=== PATIENT | female | born 1965 | race Caucasian/White ===

== ENCOUNTER → 2016-12-07 | Outpatient (CLI) | payer BC ==
[~2016-12-07] MED LIST: ASPI81TA28 PO; CYAN10005 PO; FRRS300 PO; HYDR12.56 PO; LISI40TA PO; WARF5TAB7 PO
[2016-12-07 17:56] LABS: BLOOD UREA NITROGEN 9 mg/dl (7-18); CALCIUM 10.1 mg/dl (8.5-10.1); CARBON DIOXIDE 28 mmol/L (21-32); CHLORIDE 102 mmol/L (98-107); CREATININE 0.93 mg/dl (0.60-1.20); GLUCOSE 100 mg/dl (70-99); POTASSIUM 3.9 mmol/L (3.5-5.1); SODIUM 138 mmol/L (136-145)
== END | disposition home or self-care (01) ==
LOC: C.LABBFT 11:19
PROVIDERS: ATTEND Internal Medicine
DX: I10 Essential (primary) hypertension (principal)

== ENCOUNTER → 2017-10-07 | Outpatient (CLI) | payer BC ==
[~2017-10-07] MED LIST changes: +HYDR12.55 PO; -HYDR12.56 PO; +LISI-725 PO; -LISI40TA PO
[2017-10-07 17:33] LABS: BASO % 1.4 %; BASO ABS # 0.05 K/uL (0-0.2); EOS ABS # 0.29 K/uL (0-0.5); HEMATOCRIT 40.4 % (37-47); HEMOGLOBIN 13.2 g/dL (12.0-16.0); IG# 0.05 K/uL (0.00-0.02); LYMPH % 46.7 %; MEAN CELL VOLUME 102.3 fL (80-100); MEAN CORPUSCULAR HEMOGLOBIN 33.4 pg (25-34); MEAN CORPUSCULAR HGB CONC 32.7 g/dl (32-36); MEAN PLATELET VOLUME 10.9 fL (7.4-10.4); MONO % 8.5 %; MONO ABS # 0.31 K/uL (0.11-0.59); NEUT ABS # 1.24 K/uL (1.4-6.5); PLATELET COUNT 164 K/uL (130-400); RED CELL DISTRIBUTION WIDTH CV 16.4 % (11.5-14.5); RED CELL DISTRIBUTION WIDTH SD 61.6 fL (36.4-46.3); WHITE BLOOD COUNT 3.64 K/uL (4.8-10.8)
[2017-10-07 18:22] LABS: ALBUMIN 4.5 gm/dl (3.4-5.0); ALKALINE PHOSPHATASE 87 U/L (45-117); ALT/SGPT 44 U/L (12-78); AST/SGOT 47 U/L (15-37); BLOOD UREA NITROGEN 10 mg/dl (7-18); CALCIUM 9.8 mg/dl (8.5-10.1); CARBON DIOXIDE 29 mmol/L (21-32); CHOLESTEROL 613 mg/dl (0-200); CREATININE 0.83 mg/dl (0.60-1.20); GLUCOSE 82 mg/dl (70-99); LDL CHOLESTEROL CALCULATED 477 mg/dl; POTASSIUM 3.9 mmol/L (3.5-5.1); SODIUM 140 mmol/L (136-145); TOTAL PROTEIN 8.7 gm/dl (6.4-8.2)
[2017-10-08 06:15] LABS: HEMOGLOBIN A1C 6.1 % (4.5-5.6)
== END | disposition home or self-care (01) ==
LOC: C.LABBFT 12:58
PROVIDERS: ATTEND Internal Medicine
DX: Z00.00 Encounter for general adult medical examination without abnormal findings (principal); Z11.59 Encounter for screening for other viral diseases; I10 Essential (primary) hypertension; E78.5 Hyperlipidemia, unspecified; R73.01 Impaired fasting glucose

== ENCOUNTER → 2017-10-25 | Outpatient (CLI) | payer BC | END | disposition home or self-care (01) | LOC: C.LABBFT 14:06 | PROVIDERS: ATTEND Internal Medicine | DX: R39.9 Unspecified symptoms and signs involving the genitourinary system (principal); E03.9 Hypothyroidism, unspecified ==

== ENCOUNTER 2018-11-27 06:19 | Inpatient (IN) ==
--- NOTE | 2018-11-20 10:15 | PAT Medication Instructions ---
Medication Instructions Date of Service November 20, 2018 Home Medications aspirin 81 mg tablet,delayed release 81 mg PO Q2D ferrous sulfate 325 mg (65 mg iron) tablet 325 mg PO Q2D lisinopril 20 mg-hydrochlorothiazide 12.5 mg tablet 1 tab PO HS cyanocobalamin (vitamin B-12) 1,000 mcg capsule 100 mcg PO DAILY levothyroxine [Levoxyl] 88 mcg PO QAM warfarin 5 mg PO UD ASK your surgeon for instructions aspirin 81 mg tablet,delayed release 81 mg PO Q2D warfarin 5 mg PO UD DO NOT take the morning of surgery ferrous sulfate 325 mg (65 mg iron) tablet 325 mg PO Q2D cyanocobalamin (vitamin B-12) 1,000 mcg capsule 100 mcg PO DAILY Take morning of surgery With a small sip of water, OTHERWISE NOTHING TO EAT OR DRINK AFTER MIDNIGHT: levothyroxine [Levoxyl] 88 mcg PO QAM Take evening before surgery lisinopril 20 mg-hydrochlorothiazide 12.5 mg tablet 1 tab PO HS Other Notes If you have any questions please call us at [phone] or [phone] or [phone] or [phone]
--- NOTE | 2018-11-20 11:17 | Anesthesiology Consultation ---
Date of Service November 20, 2018 Assessment & Plan (1) Encounter for pre-operative examination: Chart Review Chart Review: Pending: Refer to Additional Notes / Consult section and Patient seen in Pre Admission Testing Awaiting lab results drawn 11/20/2018. Consults Requested none History Surgery Operation Date: 11/27/18 08:00 Proposed Procedures p Repair of Femoral Anastamosis Stenosis - Jonny Arroyo MD Height/Weight Height: 5 ft 6 in Weight: 74.2 kg Allergies Allergy/AdvReac Type Severity Reaction Status Date / Time amoxicillin Allergy Intermediate Hives Verified 11/16/18 10:20 Penicillins Allergy Intermediate Hives Verified 11/16/18 10:23 Medications Home Medications Medication Instructions Recorded Confirmed Last Taken aspirin 81 mg tablet,delayed 81 mg PO Q2D tab 11/22/17 11/16/18 Unknown release ferrous sulfate 325 mg (65 mg 325 mg PO Q2D tab 11/22/17 11/16/18 Unknown iron) tablet lisinopril 20 1 tab PO HS 01/24/18 11/16/18 Unknown mg-hydrochlorothiazide 12.5 mg tablet cyanocobalamin (vitamin B-12) 100 mcg PO DAILY cap 02/13/18 11/16/18 Unknown 1,000 mcg capsule levothyroxine [Levoxyl] 88 mcg PO QAM 11/16/18 11/16/18 Unknown warfarin 5 mg PO UD 11/16/18 11/16/18 Unknown Past Medical History Medical History Anemia H/O blood clots BLOOD CLOT IN 1 STENT FROM ARTERIAL BYPSS SURGERY (DR. ARROYO) Hyperlipidemia Hypertension Hypothyroidism Occlusion of arterial bypass graft PVD (peripheral vascular disease) Exercise / Class Metabolic Activity II 4-5 Yardwork/Stairs/Walk up hill (somewhat limited from her leg/hip pain but no issues with cp/sob) Past Family History Family History Other No significant family history Past Surgical History Surgical History History of cataract surgery RT/LEFT History of dilatation and curettage History of tooth extraction History of vascular access device ARTERIAL BYPASS GRAFTING (BILAT FEMORAL AREAS) 4 YEARS AGO 2 STENTS PLACED (REASON FOR COUMADIN) Patient had week long postop intubation after initial bypass surgery. Stated it was related to length and complexity of the procedure (procedure done at OSH). Past Anesthesia History No Hx of Anesthesia Complications and No Family Hx of Anesthesia Complications History of PONV No Hx of PONV and No Hx of Motion Sickness Social History Smoking Status: Current some day smoker tobacco type: cigarettes Do You Dip or Chew Tobacco: No Smoking End Date: QUIT 3 YEARS AGO DAILY (WILL SMOKE OCCASIONALLY 1-2 X'S MONTHLY) Hx Alcohol Use: Yes Alcohol type: beer alcohol intake frequency: a few times a week Hx Substance Use: No substance use type: does not use Physical Exam Vital Signs Last Vital Signs Temp 36.4 C L 11/20/18 11:03 Pulse 84 11/20/18 11:03 Resp 18 11/20/18 11:03 BP 162/92 H 11/20/18 11:03 Pulse Ox 99 11/20/18 11:03 ENMT Mouth: + dentition abnormality; no TMJ abnormality and no TMJ clicking Thyromental Distance: > or= 3.5 Finger Breadths Mallampati Class: II Neck normal visual inspection; neck extension not limited Respiratory normal respiratory effort Auscultation: lungs clear to auscultation bilaterally Cardiovascular Rate/Rhythm: regular rate and regular rhythm Neurologic moves all extremities Motor/Sensory: no sensory deficit Psychiatric Orientation: alert and oriented x 3 Testing Electrocardiogram Date: 11/20/18 Findings: + NSR @ (75) NSR. Normal ECG. Chest X-Ray Date: 11/20/18 XR chest Pre-admission PA/Lat CLINICAL HISTORY: 53 years-old Female presenting with preoperative assessment. TECHNIQUE: PA and lateral views of the chest were obtained. COMPARISON: None. FINDINGS: Atherosclerosis of the aortic arch. Cardiac silhouette normal in size. Lungs and pleural spaces clear. Osseous structures normal. Surgical clips project over the upper abdomen. IMPRESSION: 1. No acute cardiopulmonary disease. Other Testing Pharmacologic stress echo . Negative for ischemia.
--- NOTE | 2018-11-20 12:38 | XRay Report ---
XR chest Pre-admission PA/Lat CLINICAL HISTORY: 53 years-old Female presenting with preoperative assessment. TECHNIQUE: PA and lateral views of the chest were obtained. COMPARISON: None. FINDINGS: Atherosclerosis of the aortic arch. Cardiac silhouette normal in size. Lungs and pleural spaces clear . Osseous structures normal. Surgical clips project over the upper abdomen. IMPRESSION: 1. No acute cardiopulmonary disease. Electronically signed by: Fernie David M.D. 11/20/2018 12:37 PM
[2018-11-20 15:30] LABS: BUN Creatinine Ratio 19.3 (10-20); Calcium 9.9 mg/dl (8.5-10.1); Est GFR (African American) 114.4; Est GFR (Non-African American) 98.7; Potassium 3.7 mmol/L (3.5-5.1)
[2018-11-20 15:32] LABS: INR 1.8 (0.9-1.1); Partial Thromboplastin Ratio 1.1; Partial Thromboplastin Time 30.2 Seconds (21.0-31.0); Prothrombin Time 17.3 Seconds (9.0-12.0)
[2018-11-20 15:44] LABS: Basophils # (auto) 0.02 K/uL (0-0.2); Basophils % (auto) 0.4 %; Eosinophils # (auto) 0.24 K/uL (0-0.5); Hematocrit (blood only) 44.5 % (37-47); Hemoglobin 15.2 g/dL (12.0-16.0); Immature Granulocytes # (auto) 0.02 K/uL (0.00-0.02); Immature Granulocytes % (auto) 0.4 %; Lymphocytes # (auto) 1.51 K/uL (1.2-3.4); Lymphocytes % (auto) 31.7 %; Mean Corpuscular Hemoglobin 32.3 pg (25-34); Mean Corpuscular Hgb Conc 34.2 g/dL (32-36); Mean Corpuscular Volume 94.7 fL (80-100); Mean Platelet Volume 10.8 fL (7.4-10.4); Monocytes # (auto) 0.38 K/uL (0.11-0.59); Neutrophils # (auto) 2.59 K/uL (1.4-6.5); Neutrophils % (auto) 54.5 %; Platelet Count 155 K/uL (130-400); RDW Coefficient of Variation 14.5 % (11.5-14.5); RDW Standard Deviation 50.2 fL (36.4-46.3); White Blood Count 4.76 K/uL (4.8-10.8)
--- NOTE | 2018-11-27 06:12 | History & Physical Report ---
Date of Service November 27, 2018 History of Present Illness Primary Care Provider: Freya Thornton MD Chief Complaint rm#[id number] here for f/u after CTA History of Present Illness I the pleasure of seeing Michelle today for follow-up. As you know she is a 53-y ear-old female who had an aortobifemoral bypass in the past. She also had occlusion of the limb which she underwent a thrombectomy in 2015. She is seen today after her CTA done in in the September. This showed narrowing of both limbs of the bypass graft just proximal to the anastomotic site in the groins. The left femoral anastomosis is markedly worse than the right. Review of Systems She denies any rest pain or claudication of lower extremities. She denies any ulcerations of either foot. Physical Exam Vitals & Measurements HR: 118(Monitored) BP: 172/92 SpO2: 96% On exam: HEENT are within normal limits. Her lungs are clear to A and P. Her heart has a RRR. Abdominal exam is benign with a midline scare. She has femoral pulses on both sides that are equal but moderately decreased. Her good capillary refill both feet are slightly decreased. Neuro exam is negative. Assessment/Plan Stenosis of anastomosis of vascular graft At this point I am concerned about the narrowing in the left femoral anastomosis. This could be threatening the graft. If the graft does include she will have severe ischemia of the lower extremity. We therefore recommended revision of the limb at the anastomotic site of the left groin. We may have to the right groin at a later date but at this point I would like to follow along more conservatively. She is agreeable to go ahead with the surgical revision on the left side. This will be scheduled in near future. Thank you very much for letting us participate in the care of this patient. 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 Tobacco user Weight disorder Historical Procedure/Surgical History Thrombectomy aortobifemoral bpg (05/02/2015) ABG - Aortobifemoral graft (04/22/2015) Punch biopsy of skin (01/29/2013) Medications aspirin 81 mg oral tablet, chewable, 81 mg= 1 tab, PO, Daily Coumadin 5 mg oral tablet, 5 mg= 1 tab, PO, Daily Feosol 325 mg (65 mg elemental iron) oral tablet, 325 mg= 1 tab, PO, Daily hydroCHLOROthiazide 25 mg oral tablet, 12.5 mg= 0.5 tab, PO, Daily levothyroxine 88 mcg (0.088 mg) oral tablet, 88 mcg= 1 tab, PO, Daily lisinopril 40 mg oral tablet, See Instructions Tylenol 500 mg oral tablet, 1000 mg= 2 tab, PO, q8h Vitamin B12, 500 mcg, PO, Daily Al lergies penicillins Social History Smoking Status - 11/13/2018 Never smoked cigarettes Tobacco Former smoker, Cigarettes, Stopped age 50 Years., 09/13/2016 Family History Carotid arterial disease...: Mother. Heart attack: Mother. Hypertension: Mother. Prostate carcinoma: Father. Vascular abnormality...: Mother. Immunizations Vaccine influenza virus vaccine, inactivated - Not Given Patient Refuses Signature Line Electronic Signature on File Jonny Arroyo MD Author Signature Dt/Tm: 11/13/2018 02:27 PM [employer] Marko Mejía [facility], [address] [place] [address] EJS Result Type: .Outpt Ltr Date of Service: November 13, 2018 14:27 EDT Authorization Status: Final Subject: Office Visit Note Author or Import Date: MD Arroyo Eugene J on November 13, 2018 14:27 EDT Verified By: MD Arroyo Eugene J on November 13, 2018 14:27 EDT Encounter info: [id number], [facility] [place] [facility] [place], 11/13/2018 - 11/13/2018 Allergies Allergy/AdvReac Type Severity Reaction Status Date / Time amoxicillin Allergy Intermediate Hives Verified 11/16/18 10:20 Penicillins Allergy Intermediate Hives Verified 11/16/18 10:23 Home Medications Home Medications Medication Instructions Recorded Confirmed Type aspirin 81 mg tablet,delayed 81 mg PO Q2D tab 11/22/17 11/16/18 History release ferrous sulfate 325 mg (65 mg 325 mg PO Q2D tab 11/22/17 11/16/18 History iron) tablet lisinopril 20 1 tab PO HS 01/24/18 11/16/18 History mg-hydrochlorothiazide 12.5 mg tablet cyanocobalamin (vitamin B-12) 100 mcg PO DAILY cap 02/13/18 11/16/18 History 1,000 mcg capsule levothyroxine [Levoxyl] 88 mcg PO QAM 11/16/18 11/16/18 History warfarin 5 mg PO UD 11/16/18 11/16/18 History Past Med/Surg History Medical History Anemia H/O blood clots BLOOD CLOT IN 1 STENT FROM ARTERIAL BYPSS SURGERY (DR. ARROYO) Hyperlipidemia Hypertension Hypothyroidism Occlusion of arterial bypass graft PVD (peripheral vascular disease) Surgical History History of cataract surgery RT/LEFT History of dilatation and curettage History of tooth extraction History of vascular access device ARTERIAL BYPASS GRAFTING (BILAT FEMORAL AREAS) 4 YEARS AGO 2 STENTS PLACED (REASON FOR COUMADIN) Family History Other No significant family history Social History Preferred Language: Citizen Of [place] Communication Ability: Effective Hourly Team Members Required: No Beliefs That Will Affect Care: None Current Living Situation: Spouse Other Information That Helps Us Care for You: No Feels Safe at Home: Yes Safety Concerns: Feels Safe At This Time Smoking Status: Current some day smoker Tobacco Type: cigarettes ; Do You Dip or Chew Tobacco: No ; Smoking End Date: QUIT 3 YEARS AGO DAILY (WILL SMOKE OCCASIONALLY 1-2 X'S MONTHLY) ; Second Hand Exposure: Yes ; Tobacco Cessation Education Requested by Patient: No Hx Alcohol Use: Yes Alcohol type: beer Hx Substance Use: No
[~2018-11-27 06:19] MED LIST changes: -ASPI81TA28 PO; +CLINDAMYCIN 600 MG/54 ML BAG IV SCH; -CYAN10005 PO; -FRRS300 PO; -HYDR12.55 PO; +LACTATED RINGER'S 1,000 ML IV SCH; -LISI-725 PO; +LR 15ML/HR IV SCH; -WARF5TAB7 PO
[2018-11-27] MEDS ORDERED: HEPARIN (PORCINE) 1000 UNIT/ML 10 ML (CATH LAB USE ONLY) ONE (07:13)
[2018-11-27] MEDS ORDERED: LIDOCAINE HCL 1% 20 ML VIAL ONE (07:14)
[2018-11-27] MEDS ORDERED: BUPIVACAINE/EPINEPHRINE 0.5% MPF 1:200,000 30 ML VIAL ONE (07:14)
[2018-11-27] MEDS ORDERED: CEFAZOLIN 250 MG/ML 1 GM VIAL ONE (07:14)
[2018-11-27] MEDS ORDERED: PAPAVERINE HCL INJ 30 MG/ML 2 ML VIAL ONE (07:14)
[2018-11-27] MEDS ORDERED: GELATIN SPONGE SZ 100 ONE (07:14)
[2018-11-27] MEDS ORDERED: THROMBIN FOR SOLN 20000 UNIT KIT ONE (07:15)
[2018-11-27] MEDS ORDERED: LIDOCAINE HCL 2% 2 ML VIAL/AMP(20MG/ML) INFIL ONE (07:17)
[2018-11-27] MEDS ORDERED: PROPOFOL IV EMULSION 10 MG/ML 20 ML VIAL IV ONE (07:17)
[2018-11-27] MEDS ORDERED: ONDANSETRON INJ 2 MG/ML 2 ML VIAL ONE ×2 (07:17→10:00)
[2018-11-27] MEDS ORDERED: fentaNYL citrate 100 MCG/2 ML VIAL ONE ×2 (07:17→09:12)
[2018-11-27] MEDS ORDERED: MIDAZOLAM HCL 1 MG/ML 2ML VIAL ONE (07:17)
[2018-11-27 07:29] LABS: INR 1.1 (0.9-1.1); Partial Thromboplastin Ratio 0.9; Partial Thromboplastin Time 23.9 Seconds (21.0-31.0); Prothrombin Time 10.8 Seconds (9.0-12.0)
--- NOTE | 2018-11-27 07:32 | History & Physical Bridge Note ---
Date of Service November 27, 2018 History & Physical Bridge Note I have examined the patient, reviewed the History & Physical and in the interval since the performance of the History & Physical I have noted the following changes of clinical significance: no changes noted
[2018-11-27] MEDS ORDERED: LIDOCAINE HCL 2% MPF (LOCAL) 5 ML VIAL INFIL ONE (07:44)
[2018-11-27] MEDS ORDERED: PROMETHAZINE HCL 12.5 MG in SODIUM CHLORIDE 0.9% 50 ML IV PRN (08:02)
[2018-11-27] MEDS ORDERED: ePHEDrine sulfate 50 MG/ML AMP IV PRN (08:02)
[2018-11-27] MEDS ORDERED: HYDROmorphone INJ 1 MG/ML SYRINGE IV PRN (08:02)
[2018-11-27] MEDS ORDERED: ATROPINE SULFATE 0.1 MG/ML 10ML SYR IV PRN (08:02)
[2018-11-27] MEDS ORDERED: ONDANSETRON INJ 2 MG/ML 2 ML VIAL IV PRN ×2 (08:02→14:15)
--- NOTE | 2018-11-27 08:55 | Procedure Note ---
Procedure Note Date of Service November 27, 2018 Using ultrasound guidance, radial arterial line placed in left brachial after induction of GA in preparation for femoral graft repair with Dr. Mustafa. Originally left wrist was prepped with chlorhexidine and draped with sterile towels and 3 attempts were made at left radial placement without success. After third attempt at left radial, placement was performed. 20 G angiocath placed under sterile technique utilizing sterile gloves, surgical hats and masks. Catheter threaded using seldinger technique with return of pulsatile, bright red blood. Site covered with occlusive dressing and taped in place. Waveform consistent with correct arterial placement. After placement, fingers of procedural hand had normal perfusion. Patient tolerated procedure well without complications. Coding
[2018-11-27] MEDS ORDERED: HEPARIN SOD (PORCINE) 1000 UNIT/ML 10 ML VIAL ONE (10:00)
[2018-11-27] MEDS ORDERED: DEXAMETHASONE SOD INJ 4 MG/ML VIAL ONE (10:00)
[2018-11-27] MEDS ORDERED: ROCURONIUM BROMIDE 10 MG/ML 5 ML VIAL ONE (10:01)
[2018-11-27] MEDS ORDERED: PHENYLEPHRINE HCL 10 MG/ML VIAL ONE (10:13)
[2018-11-27] MEDS ORDERED: GLYCOPYRROLATE 0.2 MG/ML VIAL ONE (10:13)
[2018-11-27] MEDS ORDERED: ePHEDrine sulfate 50 MG/ML SYR ONE (10:13)
[2018-11-27] MEDS ORDERED: VISIPAQUE IV PRN (10:16)
[2018-11-27] MEDS ORDERED: NEOSTIGMINE METHYLSULFATE 5 MG/5 ML SYR ONE (11:09)
[2018-11-27] MEDS ORDERED: BACITRACIN INJ 50,000 UNIT VIAL ONE (11:56)
--- NOTE | 2018-11-27 12:07 | Post Operative Brief Note ---
Immediate Post Op Note v1 Date of Surgery November 27, 2018 Pre & Post Diagnosis Operation Date: 11/27/18 08:00 Pre-Op Diagnosis: Left femoral anastomosis stenosis Post-Op Diagnosis: Left femoral anastomosis stenosis Procedure Operation Date: 11/27/18 08:00 Actual Procedures p Revision of Left Femoral Artery Anastomosis, Bovine Patch Angioplasty, Left Iliac Angiogram, Transluminal Angioplasty Stenting of Left Distal External Iliac Artery(Left) - Jonny Mustafa MD Surgeon Jonny Musatfa MD Optimization Specialist MD Don AnguloMinarchick,PAC Estimated Blood Loss 200 Findings Consistent with Post-Op Diagnosis Drains Abreu Catheter Anesthesia Type General Complications none Disposition Accompanied Patient To Recovery: No Disposition: Recovery Room
[2018-11-27] MEDS ORDERED: CLOPIDOGREL BISULFATE 300 MG TAB PO STA (12:16)
--- NOTE | 2018-11-27 12:35 | Procedure Note ---
Angiogram Post Procedure Fluoroscopy Time (minutes): 4.6 Radiation (mGy): 83 Contrast: 40cc Post Operative Report Pre & Post Diagnosis Operation Date: 11/27/18 08:00 Pre-Op Diagnosis: Left femoral anastomosis stenosis Post-Op Diagnosis: Left femoral anastomosis stenosis Procedure Operation Date: 11/27/18 08:00 Actual Procedures p Revision of Left Femoral Artery Anastomosis, Bovine Patch Angioplasty, Left Iliac Angiogram, Transluminal Angioplasty Stenting of Left Distal External Iliac Artery(Left) - Jonny Mustafa MD Surgeon Jonny Mustafa MD Seal Skinner MD Man Angulo,PAC Estimated Blood Loss 200 Findings Consistent with Post-Op Diagnosis Specimens None Anesthesia Type General Complications none Disposition Disposition: Recovery Room Indications Dusty Torres is a 53-year-old woman with a prior aortobifemoral bypass and has required prior thrombectomies in the past. She she presented to our clinic with some symptoms of claudication in the left leg and a CTA revealed severe stenosis of the left femoral limb of her bypass near the anastomosis. She was offered a revision of this anastomosis and wished to proceed. The risks and benefits of the procedure were discussed with the patient and consent was signed. The left leg was marked preoperatively. Description of Procedure Patient was brought to the hybrid OR suite and placed in the supine position on the operating table. General anesthesia was induced the patient was easily intubated. A arterial line and Abreu catheter were placed for intraoperative monitoring. Patient's left groin lower abdomen was then prepped and sterilely draped. A surgical timeout was performed at this time confirming the patient, procedure and laterality. Next a #10 scalpel was used to make approximately 12 cm incision in the left groin through her prior scar. Electrocautery was then used to dissect through the subcutaneous tissues of the scar was encountered. We then began a combination of blunt and sharp dissection to isolate the SFA at the distal portion of her incision which we hoped would be unviolated territory. Once the artery was identified we then carried our dissection proximally along the length of the artery to the level of the inguinal ligament. We were able to identify both eek femoral artery and the femoral limb of her prior bypass. During this dissection a small injury was made on the eek femoral artery, this was repaired with 5-0 Prolene suture in a transverse fashion. Once we are satisfied with the exposure of the artery we gave patient 8000 units of heparin proceeded to place clamps across the graft, eek femoral artery, profunda artery and SFA. A 11 blade was then used to make an arteriotomy in the proximal exposed graft just below the inguinal ligament. This was then extended downward using angled Sandoval scissors onto the SFA. This point we encountered a moderate volume of intimal hyperplasia within the graft which we proceeded to excise. We attempted to pass a graft endarterectomy catheter through the proximal graft however we are unable to advance this. We were able to advance a #5 Sonya catheter with ease and did not return any clot from the proximal artery. Following this he proceeded to perform a patch angioplasty using bovine pericardium, the anastomosis was created using a running 5-0 Prolene suture. Prior to completing the anastomosis the artery was backbled. Upon remove the clamps there was one area of anastomotic bleeding which was controlled with a 5 0 [id number] suture. At this point there was an improved pulse presents with the artery. At this point we elected to perform an angiogram due to concern that there was continued stenosis above the inguinal ligament. The Patch was accessed with introducer needle and upsized to a 8 Argentine sheath using Seldinger technique. Next a 0.035 Glidewire was directed through the graft and into the eek aorta. Angiogram was then performed which demonstrated an area of stenosis just above the inguinal ligament. We selected a absolute pro 7 x 40 mm stent and passed this over a wire to the area of stenosis. This was deployed without complication. Next a Rindge 7 x 40 mm balloon was used to fully expand the graft. Subsequent angiogram showed resolution of the stenosis. We wish to examine the right side of the graft at this time important angiogram with gentle occlusion of the left graft. This demonstrated no evidence of stenosis in both AP and lateral views. The sheath was removed and the bovine patch was closed with a 60 Prolene [id number] suture. Examination of the suture line showed initial area of bleeding which was controlled with a 50 [id number] Prolene suture. Thrombin-soaked Gelfoam was then placed across the suture line gentle pressure applied for several minutes. During this time protamine was given to fully reverse the patient's anticoagulation. Additional hemostasis was then achieved within the wound using electrocautery. Once we are satisfied with this we irrigated the wound with 700 cc of bacitracin impregnated saline. The wound was then closed in layers, first with a running 2-0 Vicryl to reapproximate the deep tissue followed by a 3-0 Vicryl in the superficial sub-cutaneous tissue. The skin was then closed with berny. At the end the procedure the patient had excellent Doppler signals in the left foot. She was safely awoken from anesthesia and extubated. She was transported to PACU in good condition. All sponge, needle and instrument counts were correct. Dr. Mustafa was presents and scrubbed for the duration of the procedure. I attest to the content of the Intraoperative Record and any orders documented therein. Any exceptions are noted below.
[2018-11-27] MEDS: fentaNYL citrate 100 MCG/2 ML VIAL IV PRN ×2 (12:46→12:55)
[2018-11-27 13:02] LABS: Basophils # (auto) 0.01 K/uL (0-0.2); Basophils % (auto) 0.2 %; Eosinophils # (auto) 0.11 K/uL (0-0.5); Eosinophils % (auto) 1.9 %; Hematocrit (blood only) 39.6 % (37-47); Hemoglobin 13.2 g/dL (12.0-16.0); Immature Granulocytes # (auto) 0.04 K/uL (0.00-0.02); Immature Granulocytes % (auto) 0.7 %; Lymphocytes # (auto) 1.26 K/uL (1.2-3.4); Lymphocytes % (auto) 22.2 %; Mean Corpuscular Hemoglobin 32.1 pg (25-34); Mean Corpuscular Hgb Conc 33.3 g/dL (32-36); Mean Corpuscular Volume 96.4 fL (80-100); Mean Platelet Volume 10.2 fL (7.4-10.4); Monocytes % (auto) 3.5 %; Neutrophils # (auto) 4.06 K/uL (1.4-6.5); Neutrophils % (auto) 71.5 %; Platelet Count 154 K/uL (130-400); RDW Coefficient of Variation 14.4 % (11.5-14.5); RDW Standard Deviation 51.3 fL (36.4-46.3); Red Blood Count 4.11 M/uL (4.2-5.4); White Blood Count 5.68 K/uL (4.8-10.8)
--- NOTE | 2018-11-27 13:10 | Anesthesiology Progress Note ---
Date of Service November 27, 2018 Anesthesia Post Procedure Vital Signs Vital Signs: Temp Pulse Pulse Resp BP Pulse Ox 11/27/18 12:28 36.0 C L 81 19 125/72 98 11/27/18 06:45 36.6 C 78 20 181/88 H 98 Pain Intensity Right Groin: Pain Intensity: 5 Transfer of Care Handoff Completed per policy Notes Mental Status: alert / awake / arousable and participated in evaluation Patient Amnestic to Procedure: Yes Nausea / Vomiting: adequately controlled Pain: adequately controlled Airway Patency, RR, SpO2: stable & adequate BP & HR: stable & adequate Hydration State: stable & adequate Anesthetic Complications: no major complications apparent and Pt Satisfied with anesthetic care
[2018-11-27] MEDS ORDERED: MoRPHine SULFATE 4 MG/ML 1 ML CARP\\VIAL IV PRN (14:15)
[2018-11-27] MEDS ORDERED: ASPIRIN 81 MG ECTAB PO SCH (15:00)
[2018-11-27] MEDS: CLINDAMYCIN 600 MG in DEXTROSE 5% 50 ML IV SCH ×2 (15:20→23:50)
[2018-11-27] MEDS ORDERED: WARFARIN SOD 5 MG TAB PO SCH (16:00)
[2018-11-27] MEDS: OXYCODONE/ACETAMINOPHEN 5mg/325mg TAB PO PRN (19:33)
--- NOTE | 2018-11-27 20:24 | Critical Care Consultation ---
Date of Consultation November 27, 2018 Assessment & Plan (1) Admitted to intensive care unit: Reason Critically Ill: 53-year-old female status post revision of LEFT femoral artery anastomosis. NEURO - * CAM ICU: NEGATIVE * Pain: Morphine PRN CARDIAC/VASCULAR - * HTN: * Continue home Rx as tolerated. * EKG (11/20): NSR@75bpm. No ST/T-wave changes noted. QTc 446ms. * Monitor on telemetry. RESPIRATORY - * Encourage smoking cessation. * Supplemental O2 PRN. GI/NUTRITION - * Progress diet as tolerated. RENAL/LYTES - * Monitor Lytes --> replace appropriately. * Tolerating PO - * No concerns at this time. * Abreu in place - Strict I&Os. ENDO - * No h/o DM * BSGs per unit protocol. ISS --> gtt per unit policy. * Hypothyroidism: * Continue home Synthroid dosing. HEME - * No h/o anemia. * Monitor H&H s/p vascular repair. ID - * No concerns for infectious contribution at this time. LINES/IV ACCESS - * PIVs x * Abreu DVT PROPHYLAXIS - * Hold on prophylaxis s/p Heparin loading today. Will defer to Vascular team. * SCDs I have personally spent 35 minutes of critical care time in the direct management of this patient. This is a life/limb threatening event. This includes time spent evaluating patient, direct bedside care, chart review, placing orders, interpretation of diagnostic studies, discussion with consultants, patient, and family members, as well as other required patient management activities. This time is exclusive of all separately billable procedures, and teaching time and separate from and in addition to any other critical care service time. Thank you for allowing us to participate in the care of this patient. Please refer to my attending physician's documentation for any further recommendations. (2) S/P vascular surgery: (3) PAD (peripheral artery disease): (4) HTN (hypertension): (5) History of aorto-femoral bypass: Supervising Physician Co-Signing Physician Notes I have reviewed the documentation by Kym Eckert and agree with the proposed treatment plan. History of Present Illness Attending Physician: Jonny Arroyo MD History of Present Illness Patient is a 53-year-old female with a significant past medical history of hypertension, hypothyroidism, and peripheral arterial disease who underwent aortobifemoral bypass with grafting who is status post thrombectomy in 2016. She had been doing well, but had follow-up CTA of the lower extremities performed in September of this year. She was noted to have narrowing of the grafts LEFT greater than right. With concerns for possible worsening narrowing and risk for occlusion, she was recommended for revision of LEFT femoral artery anastomosis. She underwent uneventful procedure today and was subsequently admitted to the ICU for close monitoring. Upon my evaluation, the patient is awake, alert, and oriented. She complains of a "pinching" sensation to the LEFT anterior hip area, but thinks this is mostly related to the tape of the dressing. She denies any numbness or tingling into the distal extremity. She reports no pain distally. Otherwise, the patient reports feeling well. She denies any headaches, dizziness, lightheadedness, chest pain, palpitations, shortness of breath, nausea, vomiting, abdominal pain, or other extremity pain. Allergies Allergy/AdvReac Type Severity Reaction Status Date / Time amoxicillin Allergy Intermediate Hives Verified 11/27/18 06:40 Penicillins Allergy Intermediate Hives Verified 11/27/18 06:40 Home Medications Home Medications Medication Instructions Recorded Confirmed Type ferrous sulfate 325 mg (65 mg 325 mg PO Q2D tab 11/22/17 11/27/18 History iron) tablet lisinopril 20 1 tab PO HS 01/24/18 11/27/18 History mg-hydrochlorothiazide 12.5 mg tablet cyanocobalamin (vitamin B-12) 100 mcg PO DAILY cap 02/13/18 11/27/18 History 1,000 mcg capsule levothyroxine [Levoxyl] 88 mcg PO QAM 11/16/18 11/27/18 History warfarin 5 mg PO UD 11/16/18 11/27/18 History warfarin 7.5 mg PO WK 11/27/18 11/27/18 History clopidogrel [Plavix] 75 mg PO DAILY #30 tab 11/28/18 Rx oxycodone-acetaminophen [Percocet] 1 tab PO Q6H PRN #30 tab 11/28/18 Rx Patient History Medical History Anemia H/O blood clots BLOOD CLOT IN 1 STENT FROM ARTERIAL BYPSS SURGERY (DR. 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 Beliefs That Will Affect Care: None Current Living Situation: Spouse Other Information That Helps Us Care for You: No Feels Safe at Home: Yes Safety Concerns: Feels Safe At This Time Smoking Status: Former smoker Tobacco Type: cigarettes ; Do You Dip or Chew Tobacco: No ; Smoking End Date: QUIT 3 YEARS AGO DAILY (WILL SMOKE OCCASIONALLY 1-2 X'S MONTHLY) ; Second Hand Exposure: Yes ; Tobacco Cessation Education Requested by Patient: No Hx Alcohol Use: Yes Alcohol type: beer Hx Substance Use: No Review of Systems Review of Systems: A complete 10 point review of systems was reviewed with the patient with pertinent positives and negatives as per history of present illness. All else were negative. Physical Exam Physical Exam: VITAL SIGNS - Vital signs and nursing notes were reviewed. GENERAL - 53-year-old female appearing her stated age who is in no acute distress. Communicates well with provider and answers questions appropriately. SKIN - Dressing clean, dry, and intact to the LEFT Femoral area. HEAD - NC/AT. EYES - PERRL with EOMI bilaterally. Sclera anicteric. EARS - No deformities of external structures noted on gross examination bilaterally. NOSE - Midline and without cyanosis. MOUTH/OROPHARYNX - Without perioral cyanosis. Buccal mucosa pink and moist and without leukoplakia. NECK - Neck with FROM. No nuchal rigidity. LUNGS - Chest wall symmetric without accessory muscle use, intercostals retractions, or central cyanosis. Normal vesicular breath sounds CTA B/L. No wheezes, rales, or rhonchi appreciated. CARDIAC - RRR with S1/S2. No murmur, rubs, or gallops appreciated. ABDOMEN - Abdominal contour flat without pulsations or visible masses. BS normoactive all four quadrants. No tenderness, palpable masses, hepatosplenomegaly, or ascites noted. EXTREMITIES - No clubbing or peripheral cyanosis. No pretibial edema present. Dopplerable pulses to the bilateral lower extremities. +5/5 strength noted in UE/LE bilaterally. NEUROLOGIC - Cranial nerves II through XII grossly intact. Sensory intact to light touch throughout. PSYCH - A&Ox3 and cooperates fully with examiner. Pt is very pleasant and interacts well with examiner. Results & Data Vital Signs (Past 12 Hours) Vital Signs Temp Pulse Pulse Resp BP BP Pulse Ox 11/27/18 18:00 72 14 92 11/27/18 17:46 86 16 142/69 H 94 11/27/18 17:45 92 H 142/69 H 11/27/18 17:30 63 13 122/64 98 11/27/18 17:15 71 23 136/71 97 11/27/18 17:01 77 10 L 97 11/27/18 17:00 66 10 L 117/64 97 11/27/18 16:47 63 14 113/67 98 11/27/18 16:45 86 17 89/71 L 97 11/27/18 16:30 61 7 L 114/72 99 11/27/18 16:15 73 17 112/70 98 11/27/18 16:01 82 19 120/63 97 11/27/18 16:00 11/27/18 15:45 74 14 146/77 H 99 11/27/18 15:30 111 H 19 141/89 H 100 11/27/18 15:15 66 13 130/75 100 11/27/18 15:00 58 L 14 131/71 99 11/27/18 14:45 66 18 117/73 99 11/27/18 14:31 36.5 C 63 16 133/76 99 11/27/18 14:30 76 14 116/74 97 11/27/18 14:15 75 17 121/76 99 11/27/18 14:00 86 20 133/76 11/27/18 13:40 65 22 115/66 98 11/27/18 13:25 36.2 C L 59 L 15 109/64 98 11/27/18 13:15 67 15 113/71 99 11/27/18 13:05 59 L 12 100/79 99 11/27/18 12:55 66 15 122/70 100 11/27/18 12:45 66 14 126/72 100 11/27/18 12:35 75 15 121/73 99 11/27/18 12:28 36.0 C L 81 19 125/72 98 Pulse Ox 11/27/18 18:00 11/27/18 17:46 11/27/18 17:45 11/27/18 17:30 11/27/18 17:15 11/27/18 17:01 11/27/18 17:00 11/27/18 16:47 11/27/18 16:45 11/27/18 16:30 11/27/18 16:15 11/27/18 16:01 11/27/18 16:00 95 11/27/18 15:45 11/27/18 15:30 11/27/18 15:15 11/27/18 15:00 11/27/18 14:45 11/27/18 14:31 11/27/18 14:30 11/27/18 14:15 11/27/18 14:00 11/27/18 13:40 11/27/18 13:25 11/27/18 13:15 11/27/18 13:05 11/27/18 12:55 11/27/18 12:45 11/27/18 12:35 11/27/18 12:28 PG Care Time/CCT Total # of Minutes Spent Total Time Spent with Patient: Total time spent is greater than 50% in coordination of care (as documented) at patient's floor/unit and/or counseling patient: Critical Care Time: Yes Total Critical Care Time: 35
[2018-11-27] MEDS ORDERED: LISINOPRIL/HCTZ 20/12.5MG 1 TAB TAB PO SCH (21:00)
[2018-11-28 05:09] LABS: Basophils # (auto) 0.01 K/uL (0-0.2); Basophils % (auto) 0.1 %; Eosinophils # (auto) 0.02 K/uL (0-0.5); Eosinophils % (auto) 0.3 %; Hematocrit (blood only) 34.5 % (37-47); Hemoglobin 11.4 g/dL (12.0-16.0); Immature Granulocytes # (auto) 0.02 K/uL (0.00-0.02); Immature Granulocytes % (auto) 0.3 %; Lymphocytes # (auto) 1.32 K/uL (1.2-3.4); Lymphocytes % (auto) 18.3 %; Mean Corpuscular Hemoglobin 31.6 pg (25-34); Mean Corpuscular Volume 95.6 fL (80-100); Mean Platelet Volume 9.8 fL (7.4-10.4); Monocytes % (auto) 8.3 %; Neutrophils # (auto) 5.26 K/uL (1.4-6.5); Neutrophils % (auto) 72.7 %; Platelet Count 151 K/uL (130-400); RDW Coefficient of Variation 14.4 % (11.5-14.5); RDW Standard Deviation 50.4 fL (36.4-46.3); Red Blood Count 3.61 M/uL (4.2-5.4); White Blood Count 7.23 K/uL (4.8-10.8)
[2018-11-28 05:33] LABS: BUN Creatinine Ratio 13.2 (10-20); Calcium 8.9 mg/dl (8.5-10.1); Creatinine Clr Calc Pharmacy 96.5 ml/min; Est GFR (African American) 114.9; Est GFR (Non-African American) 99.2; Magnesium 1.9 mg/dl (1.8-2.4); Phosphorus 3.3 mg/dl (2.5-4.9); Potassium 3.7 mmol/L (3.5-5.1)
--- NOTE | 2018-11-28 06:29 | Critical Care Progress Note ---
Date of Service November 28, 2018 Assessment & Plan (1) History of aorto-femoral bypass: Reason Critically Ill: Post Op from vascular surgery; Revision of Left Femoral Artery anastomosis, Bovine patch angioplasty, left iliac angiogram and stenting of left distal external iliac artery. Cardiovascular: Stable, normal ECG, no chest pain, hemodynamically stable Respiratory: Breathing comfortably, no SOB, normal lung exam GI No acute abnormality Heme Patient on aspirin warfarin and clopidogrel Will continue all three for short time secondary to new stent placement Will likely be able to discontinue one of the antiplatelet medications in the next few months but will leave that up to Dr. Mustafa Neuro: Maybe some delirium vs. anesthesia effect late last night as she was calling out in her sleep per nursing Alert oriented and clear today Patient admitted for observation after vascular surgery, after discussing with Dr. Mustafa, patient will be discharged at 1400 today. Ambulating well, will continue antiplatelet medications secondary to stent placement Follow up per Dr. Mustafa (2) PAD (peripheral artery disease): (3) S/P vascular surgery: (4) Admitted to intensive care unit: Supervising Physician Co-Signing Physician Notes Dr. Aragon was resident physician during care of patient. I separately evaluated patient for guo portions of the history and the exam. I was present during the critical portion of medical decision making, and I discussed the case with the resident. I generally agree with the findings and plan. Discussed with vascular surgery anticipate discharge later today. Subjective Ms. Torres doing very well this morning, she has mild pain 2/10, she describes feeling eager to get up and ambulate. She has no other concerns, no leg pain, numbness, loss of strength that she is aware of. No shortness of breath, chest pain, weakness, abdominal pain, nausea or vomiting. Review of Systems Review of Systems: All systems reviewed & are unremarkable except as noted in HPI & below Physical Exam Constitutional: well developed and well nourished; no acute distress Respiratory: normal respiratory effort; no respiratory distress Auscultation: lungs clear to auscultation bilaterally and + vesicular breath sounds; no crackles, no rales, no rhonchi and no wheezes Cardiovascular: Rate/Rhythm: regular rate and regular rhythm Heart Sounds: normal S1 and normal S2; no click, no gallop, no murmur and no cardiac rub Extremities: no calf tenderness and no pedal edema Dorsalis pedal pulses present left greater than right Gastrointestinal (Abdomen): normal bowel sounds, soft, nontender, no hepatosplenomegaly Skin: no rashes, warm and dry Neurologic: PERRL, EOMI, accommodation nl, no face palsy, no dysarthria Results & Data Vital Signs (Past 12 Hours) Vital Signs Temp Pulse Pulse Pulse Resp BP BP 11/28/18 06:00 61 61 20 123/62 11/28/18 05:00 50 L 50 L 18 111/61 11/28/18 04:00 36.9 C 53 L 53 L 18 111/63 11/28/18 03:00 64 64 18 78/44 L 11/28/18 02:00 54 L 54 L 16 97/54 L 11/28/18 01:00 55 L 55 L 14 114/56 L 11/28/18 00:00 61 61 16 118/68 11/27/18 23:00 61 61 17 147/68 H 11/27/18 22:00 85 20 157/89 H 11/27/18 21:01 112 H 6 L 11/27/18 21:00 117 H 4 L 167/102 H 11/27/18 20:03 105 H 18 145/91 H 11/27/18 20:01 117 H 19 11/27/18 20:00 36.9 C 104 H 91 H 91 H 15 152/114 H 145/91 H Pulse Ox 11/28/18 06:00 96 11/28/18 05:00 95 11/28/18 04:00 94 11/28/18 03:00 98 11/28/18 02:00 96 11/28/18 01:00 98 11/28/18 00:00 95 11/27/18 23:00 96 11/27/18 22:00 97 11/27/18 21:01 95 11/27/18 21:00 94 11/27/18 20:03 93 11/27/18 20:01 93 11/27/18 20:00 93 PG Care Time/CCT Total # of Minutes Spent Total Time Spent with Patient: Total time spent is greater than 50% in coordination of care (as documented) at patient's floor/unit and/or counseling patient: Resident Activity Tracking Resident Involvement: Resident Care Provided Care Provided: Adult [facility] Medicine
[2018-11-28] MEDS ORDERED: LEVOTHYROXINE SODIUM 88 MCG TABLET PO SCH (06:30)
--- NOTE | 2018-11-28 07:50 | Surgery Progress Note ---
Date of Service November 28, 2018 Assessment & Plan (1) History of aorto-femoral bypass: Doing well after revision of her left femoral anastomosis of her AF2 bypass. She can be d/c'd today if ambulating without difficulty and tolerating pain on oral pain meds. Subjective Patient has no complaints. Was out of bed earlier. No complaints of foot symptoms. Physical Exam Physical Exam: Left groin incision without drainage. Left foot warm with good dopplers. No leg swelling. Constitutional: WD/WN, vitals as above Results & Data Vital Signs (Past 12 Hours) Vital Signs Temp Pulse Pulse Pulse Resp BP BP 11/28/18 06:00 61 61 20 123/62 11/28/18 05:00 50 L 50 L 18 111/61 11/28/18 04:00 36.9 C 53 L 53 L 18 111/63 11/28/18 03:00 64 64 18 78/44 L 11/28/18 02:00 54 L 54 L 16 97/54 L 11/28/18 01:00 55 L 55 L 14 114/56 L 11/28/18 00:00 61 61 16 118/68 11/27/18 23:00 61 61 17 147/68 H 11/27/18 22:00 85 20 157/89 H 11/27/18 21:01 112 H 6 L 11/27/18 21:00 117 H 4 L 167/102 H 11/27/18 20:03 105 H 18 145/91 H 11/27/18 20:01 117 H 19 11/27/18 20:00 36.9 C 104 H 91 H 91 H 15 152/114 H 145/91 H Pulse Ox 11/28/18 06:00 96 11/28/18 05:00 95 11/28/18 04:00 94 11/28/18 03:00 98 11/28/18 02:00 96 11/28/18 01:00 98 11/28/18 00:00 95 11/27/18 23:00 96 11/27/18 22:00 97 11/27/18 21:01 95 11/27/18 21:00 94 11/27/18 20:03 93 11/27/18 20:01 93 11/27/18 20:00 93
[2018-11-28] MEDS: CLINDAMYCIN 600 MG in DEXTROSE 5% 50 ML IV SCH (07:58)
--- NOTE | 2018-11-28 08:30 | Anesthesiology Progress Note ---
Date of Service November 28, 2018 Anesthesia Post Procedure Vital Signs Vital Signs: Temp Pulse Pulse Pulse Resp BP BP 11/28/18 08:00 37.0 C 75 15 110/57 L 11/28/18 07:00 37.0 C 65 13 112/59 L 11/28/18 06:00 61 61 20 123/62 11/28/18 05:00 50 L 50 L 18 111/61 11/28/18 04:00 36.9 C 53 L 53 L 18 111/63 11/28/18 03:00 64 64 18 78/44 L 11/28/18 02:00 54 L 54 L 16 97/54 L 11/28/18 01:00 55 L 55 L 14 114/56 L 11/28/18 00:00 61 61 16 118/68 11/27/18 23:00 61 61 17 147/68 H 11/27/18 22:00 85 20 157/89 H 11/27/18 21:01 112 H 6 L 11/27/18 21:00 117 H 4 L 167/102 H 11/27/18 20:03 105 H 18 145/91 H 11/27/18 20:01 117 H 19 11/27/18 20:00 36.9 C 104 H 91 H 91 H 15 152/114 H 145/91 H 11/27/18 18:00 72 14 11/27/18 17:46 86 16 142/69 H 11/27/18 17:45 92 H 142/69 H 11/27/18 17:30 63 13 122/64 11/27/18 17:15 71 23 136/71 11/27/18 17:01 77 10 L 11/27/18 17:00 66 10 L 117/64 11/27/18 16:47 63 14 113/67 11/27/18 16:45 86 17 89/71 L 11/27/18 16:30 61 7 L 114/72 11/27/18 16:15 73 17 112/70 11/27/18 16:01 82 19 120/63 11/27/18 16:00 11/27/18 15:45 74 14 146/77 H 11/27/18 15:30 111 H 19 141/89 H 11/27/18 15:15 66 13 130/75 11/27/18 15:00 58 L 14 131/71 11/27/18 14:45 66 18 117/73 11/27/18 14:31 36.5 C 63 16 133/76 11/27/18 14:30 76 14 116/74 11/27/18 14:15 75 17 121/76 11/27/18 14:00 86 20 133/76 11/27/18 13:40 65 22 115/66 11/27/18 13:25 36.2 C L 59 L 15 109/64 11/27/18 13:15 67 15 113/71 11/27/18 13:05 59 L 12 100/79 11/27/18 12:55 66 15 122/70 11/27/18 12:45 66 14 126/72 11/27/18 12:35 75 15 121/73 11/27/18 12:28 36.0 C L 81 19 125/72 Pulse Ox Pulse Ox 11/28/18 08:00 90 11/28/18 07:00 97 11/28/18 06:00 96 11/28/18 05:00 95 11/28/18 04:00 94 11/28/18 03:00 98 11/28/18 02:00 96 11/28/18 01:00 98 11/28/18 00:00 95 11/27/18 23:00 96 11/27/18 22:00 97 11/27/18 21:01 95 11/27/18 21:00 94 11/27/18 20:03 93 11/27/18 20:01 93 11/27/18 20:00 93 11/27/18 18:00 92 11/27/18 17:46 94 11/27/18 17:45 11/27/18 17:30 98 11/27/18 17:15 97 11/27/18 17:01 97 11/27/18 17:00 97 11/27/18 16:47 98 11/27/18 16:45 97 11/27/18 16:30 99 11/27/18 16:15 98 11/27/18 16:01 97 11/27/18 16:00 95 11/27/18 15:45 99 11/27/18 15:30 100 11/27/18 15:15 100 11/27/18 15:00 99 11/27/18 14:45 99 11/27/18 14:31 99 11/27/18 14:30 97 11/27/18 14:15 99 11/27/18 14:00 11/27/18 13:40 98 11/27/18 13:25 98 11/27/18 13:15 99 11/27/18 13:05 99 11/27/18 12:55 100 11/27/18 12:45 100 11/27/18 12:35 99 11/27/18 12:28 98 Pain Intensity Right Groin: Pain Intensity: 1 Notes Mental Status: alert / awake / arousable Patient Amnestic to Procedure: Yes Nausea / Vomiting: adequately controlled Pain: adequately controlled Airway Patency, RR, SpO2: stable & adequate BP & HR: stable & adequate Hydration State: stable & adequate Anesthetic Complications: no major complications apparent
--- NOTE | 2018-11-28 08:42 | Discharge Summary ---
Date of Service November 28, 2018 Admission HPI Per Admitting Provider I the pleasure of seeing Dusty today for follow-up. As you know she is a 53-year-old female who had an aortobifemoral bypass in the past. She also had occlusion of the limb which she underwent a thrombectomy in 2016. She is seen today after her CTA done in in the September. This showed narrowing of both limbs of the bypass graft just proximal to the anastomotic site in the groins. The left femoral anastomosis is markedly worse than the right. Admission Exam Per Admitting Provider Physical Exam Vitals & Measurements HR: 118(Monitored) BP: 172/92 SpO2: 96% On exam: HEENT are within normal limits. Her lungs are clear to A and P. Her heart has a RRR. Abdominal exam is benign with a midline scare. She has femoral pulses on both sides that are equal but moderately decreased. Her good capillary refill both feet are slightly decreased. Neuro exam is negative. Principal Diagnosis 1.s/p L femoral anastomosis revision with bovine patch 2. stenosis of L femoral anastomosis of aortobifem bypass Discharge Exam Constitutional WD/WN, vitals as above Respiratory normal respiratory effort, lungs clear to auscultation Cardiovascular Rate/Rhythm: regular rate and regular rhythm Vessels: femoral pulses present, posterior tibial pulses present and dorsalis pedis pulses present Extremities: + edema (mild edema l groin) Gastrointestinal (Abdomen) normal bowel sounds, soft, nontender, no hepatosplenomegaly Musculoskeletal no cyanosis or clubbing, extremities motor strength 5/5 Skin + incision (L femoral incision C/D/I with berny. No erythema noted) Neurologic moves all extremities and awake; no focal motor deficits and not confused Psychiatric A+Ox3, euthymic affect Discharge Data Allergies Allergy/AdvReac Type Severity Reaction Status Date / Time amoxicillin Allergy Intermediate Hives Verified 11/27/18 06:40 Penicillins Allergy Intermediate Hives Verified 11/27/18 06:40 Consultations 11/27/18 12:09 Consult Psychiatry Instructor Routine Procedures Performed Operation Date: 11/27/18 08:00 Actual Procedures p Revision of Left Femoral Artery Anastomosis, Bovine Patch Angioplasty, Left Iliac Angiogram, Transluminal Angioplasty Stenting of Left Distal External Iliac Artery(Left) - Jonny Mustafa MD Ordered Studies 11/27/18 07:29 EV angio LE LT Routine 11/27/18 08:02 US - OR guided needle placemen Routine Hospital Course (1) History of aorto-femoral bypass: Doing well POD #1 after revision of her left femoral anastomosis of her AF2 bypass. She can be d/c'd today if ambulating without difficulty and tolerating pain on oral pain meds. Total Time Total Time Spent Total Time Spent (In Minutes): 10 minutes Total Time Includes: Examination of the Patient, Discharge Planning and Medication Reconciliation Discharge Plan Discharge Items Patient Disposition: Home - Self-Care Reason For Visit: Stenosis of Femoral Anastamosis of Aortobifemoral Discharge Diagnosis: Stenosis of left femroal anastomosis Activity: Per Instructions section Lifting: Gradually increase as tolerated Bathing: May shower/bathe in 3 days Exercise/Sports: Wait until after follow-up appointment Driving/Machine Use: Resume 3 days after discharge Weightbearing: Full weightbearing Non-emergency contact: Surgeon Call non-emergency contact if: you have any medication questions, your symptoms worsen, your pain is not controlled, your pain is worsening, your pain is unusual for you, your pain is concerning for you, your temperature is above 101.5, your wound has increased redness, your wound has increased drainage and your wound pain has increased Follow-up/Referrals: Freya Thornton MD [Primary Care Provider] - Diet: Heart Healthy Addtl Attending Provider Instructions: ACTIVITY RECOMMENDATIONS: See Above SPECIAL CARE INSTRUCTIONS: Call your doctor if: * Temperature above 101 degrees * Pain not relieved by pain medicine ordered * There is increased drainage or redness from any incision * You have any unanswered questions or concerns. Call [phone] to schedule a follow up appointment if one not already scheduled. Pending Studies at Discharge: No Stand-Alone Forms: My [facility] Medications and DC Order Prescriptions: New clopidogrel [Plavix] 75 mg tablet 75 mg PO DAILY Qty: 30 RF: 3 oxycodone-acetaminophen [Percocet] 5-325 mg tablet 1 tab PO Q6H PRN (Reason: pain) Qty: 30 RF: 0 Continued ferrous sulfate 325 mg (65 mg iron) tablet 325 mg PO Q2D RF: 0 cyanocobalamin (vitamin B-12) 1,000 mcg capsule 100 mcg PO DAILY RF: 0 lisinopril-hydrochlorothiazide 20-12.5 mg tablet 1 tab PO HS RF: 0 levothyroxine [Levoxyl] 88 mcg tablet 88 mcg PO QAM RF: 0 warfarin 5 mg Tablet 5 mg PO UD RF: 0 warfarin 7.5 mg Tablet 7.5 mg PO WK RF: 0 Discontinued aspirin [Ecotrin Low Strength] 81 mg tablet,delayed release (DR/EC) 81 mg PO Q2D RF: 0 Discharge Orders: Discharge Order (Routine); Ordered 11/28/18 Ordered By: Jonny Mustafa Admission Data Admit Date/Time: 11/27/18 12:08 Attending Provider: Jonny Mustafa Admit Provider: Jonny Mustafa Primary Care Provider: Freya Thornton Other Providers: Darius Hancock ; Leonardo Johnson ; Swapnil Ecekrt ; Max Joe ; Hamlet Bruno ; Forrest Nicole ; Juanita Smallwood ; Tom Rajput ; Po Claire ; Lebron Mendiola ; Khloe Judge ; Dustin Espinoza ; Alex Maciel ; Kwame Morales
[2018-11-28] MEDS: OXYCODONE/ACETAMINOPHEN 5mg/325mg TAB PO PRN (08:53)
[2018-11-28] MEDS ORDERED: CLOPIDOGREL BISULFATE 75 MG TAB PO SCH (09:00)
[2018-11-30] MEDS ORDERED: WARFARIN SOD 7.5 MG TAB PO SCH (16:00)
== END 2018-11-28 14:17 | disposition home or self-care (01) | DRG 253 ==
LOC: ASU 06:19 → 1E 12:08

== ENCOUNTER 2019-02-16 07:59 | Inpatient (IN) ==
--- NOTE | 2019-02-08 22:33 | PAT Medication Instructions ---
Medication Instructions Date of Service February 08, 2019 Home Medications Medication Instructions Recorded oxycodone-acetaminophen [Percocet] 1 tab PO Q6H PRN #30 tab 11/28/18 cyanocobalamin (vitamin B-12) 1,000 mcg capsule 100 mcg PO DAILY oxycodone-acetaminophen [Percocet] 1 tab PO Q6H PRN aspirin 81 mg tablet,delayed release 81 mg PO DAILY levothyroxine 88 mcg tablet 88 mcg PO 6XWK warfarin 5 mg tablet See Rx Instructions PO UD lisinopril-hydrochlorothiazide 1 tab PO HS ASK your prescriber and surgeon aspirin 81 mg tablet,delayed release 81 mg PO DAILY warfarin 5 mg tablet See Rx Instructions PO UD DO NOT take the morning of surgery cyanocobalamin (vitamin B-12) 1,000 mcg capsule 100 mcg PO DAILY Take morning of surgery With a small sip of water, OTHERWISE NOTHING TO EAT OR DRINK AFTER MIDNIGHT: oxycodone-acetaminophen [Percocet] 1 tab PO Q6H PRN (if needed, may be taken up to four hours before surgery) levothyroxine 88 mcg tablet 88 mcg PO 6XWK (if scheduled) Take evening before surgery oxycodone-acetaminophen [Percocet] 1 tab PO Q6H PRN (if needed) lisinopril-hydrochlorothiazide 1 tab PO HS Other Notes If you have any questions please call us at [phone] or [phone] or [phone] or [phone]
--- NOTE | 2019-02-09 08:42 | Anesthesiology Consultation ---
Date of Service February 09, 2019 Assessment & Plan (1) Encounter for pre-operative examination: CHECK PT/INR/PTT CHECK TEST Chart Review Chart Review: Acceptable Risk for Surgery and Patient seen in Pre Admission Testing Teaching & Discussion Instructed NPO after midnight before surgery, except medications with 15 cc of water. Medication instructions provided according to the PAT guidelines. History Surgery Operation Date: 02/14/19 13:00 Proposed Procedures p Aortogram Possible Intervention, Possible Revision - Jonny Arroyo MD Height/Weight Height: 5 ft 6 in Weight: 71.4 kg Allergies Allergy/AdvReac Type Severity Reaction Status Date / Time amoxicillin Allergy Intermediate Hives Verified 02/08/19 14:17 Penicillins Allergy Intermediate Hives Verified 02/08/19 14:17 Medications Home Medications Medication Instructions Recorded Confirmed Last Taken cyanocobalamin (vitamin B-12) 100 mcg PO DAILY cap 02/13/18 02/08/19 11/26/18 22:00 1,000 mcg capsule oxycodone-acetaminophen [Percocet] 1 tab PO Q6H PRN #30 tab 11/28/18 02/08/19 Unknown aspirin 81 mg tablet,delayed 81 mg PO DAILY 12/28/18 02/08/19 Unknown release levothyroxine 88 mcg tablet 88 mcg PO 6XWK tab 12/28/18 02/08/19 Unknown warfarin 5 mg tablet See Rx Instructions PO UD tab 12/28/18 02/08/19 Unknown lisinopril-hydrochlorothiazide 1 tab PO HS 02/08/19 02/08/19 Unknown Past Medical History Medical History Anemia Claudication of lower extremity H/O blood clots BLOOD CLOT IN 1 STENT FROM ARTERIAL BYPSS SURGERY (DR. ARROYO) Hyperlipidemia Hypertension Hypothyroidism Occlusion of arterial bypass graft PVD (peripheral vascular disease) Exercise / Class Metabolic Activity III < 4 Walking/Shop/Light housework (Limited by severe claudication pain, but denies CP/SOB with 1 FOS) Past Family History Family History Other No significant family history Past Surgical History Surgical History History of cataract surgery RT/LEFT History of dilatation and curettage History of tooth extraction History of vascular access device ARTERIAL BYPASS GRAFTING (BILAT FEMORAL AREAS) 4 YEARS AGO 2 STENTS PLACED (REASON FOR COUMADIN) Hx of angioplasty LEFT FEMORAL ARTERY ANASTOMOSIS 11/2018 Past Anesthesia History No Hx of Anesthesia Complications and No Family Hx of Anesthesia Complications History of PONV No Hx of PONV and No Hx of Motion Sickness Social History Smoking Status: Current every day smoker tobacco type: cigarettes Smoking cigarettes per day: 10 DAILY Do You Dip or Chew Tobacco: No Hx Alcohol Use: Yes Alcohol type: beer alcohol intake frequency: a few times a week Hx Substance Use: No substance use type: does not use Review of Systems Pt denies any recent chest pain, shortness of breath, palpitations, cough, fever or URI. Physical Exam Vital Signs BP: 160/95 (pt reports white coat HTN, states usually 130's/80's on home readings, HTN managed by PCP) P: 64bpm SPO2: 98% RA T: 98.2 R: 16 ENMT Mouth: no dental restorations, no chipped teeth and no loose teeth Thyromental Distance: > or= 3.5 Finger Breadths (3.5) Mallampati Class: I Neck normal visual inspection; neck extension not limited Respiratory normal respiratory effort Auscultation: lungs clear to auscultation bilaterally Cardiovascular Rate/Rhythm: regular rate and regular rhythm Heart Sounds: no murmur Vessels: no carotid bruit Extremities: no edema Testing Laboratory Results 02/09/19 08:07 02/09/19 08:07 PT 22.5 Seconds (9.0-12.0) H 02/09/19 08:07 INR 2.3 (0.9-1.1) H 02/09/19 08:07 APTT 31.8 Seconds (21.0-31.0) H 02/09/19 08:07 Blood Type A Positive 02/09/19 08:07 Antibody Screen NEGATIVE 02/09/19 08:07 Electrocardiogram Date: 11/20/18 Findings: + NSR @ (75BPM) Chest X-Ray Date: 11/20/18 Findings: + NAD Stress Test Date: 04/12/15 Type: DSE Resting EF: 65% Negative dobutamine stress EKG and echo for ischemia at 95% MPHR. Last echo shows left ventricular cavity size and systolic function are normal with no regional wall motion abnormalities present.
[2019-02-09 10:58] LABS: Basophils # (auto) 0.02 K/uL (0-0.2); Basophils % (auto) 0.3 %; Eosinophils # (auto) 0.49 K/uL (0-0.5); Eosinophils % (auto) 7.1 %; Hematocrit (blood only) 45.2 % (37-47); Hemoglobin 15.1 g/dL (12.0-16.0); Immature Granulocytes # (auto) 0.03 K/uL (0.00-0.02); Immature Granulocytes % (auto) 0.4 %; Lymphocytes # (auto) 2.29 K/uL (1.2-3.4); Lymphocytes % (auto) 33.1 %; Mean Corpuscular Hemoglobin 32.3 pg (25-34); Mean Corpuscular Hgb Conc 33.4 g/dL (32-36); Mean Corpuscular Volume 96.8 fL (80-100); Mean Platelet Volume 11.6 fL (7.4-10.4); Monocytes # (auto) 0.44 K/uL (0.11-0.59); Monocytes % (auto) 6.4 %; Neutrophils # (auto) 3.65 K/uL (1.4-6.5); Neutrophils % (auto) 52.7 %; Platelet Count 165 K/uL (130-400); RDW Coefficient of Variation 14.5 % (11.5-14.5); RDW Standard Deviation 51.4 fL (36.4-46.3); Red Blood Count 4.67 M/uL (4.2-5.4); White Blood Count 6.92 K/uL (4.8-10.8)
[2019-02-09 11:07] LABS: BUN Creatinine Ratio 15.2 (10-20); Calcium 10.3 mg/dl (8.5-10.1); Est GFR (African American) 105.7; Est GFR (Non-African American) 91.2; Potassium 3.4 mmol/L (3.5-5.1)
[2019-02-09 11:08] LABS: INR 2.3 (0.9-1.1); Partial Thromboplastin Ratio 1.2; Partial Thromboplastin Time 31.8 Seconds (21.0-31.0); Prothrombin Time 22.5 Seconds (9.0-12.0)
--- NOTE | 2019-02-16 07:10 | History & Physical Report ---
Date of Service February 16, 2019 Assessment & Plan (1) Aortobifemoral bypass graft thrombosis: Patient is admitted for a femoral femoral bypass. I have discussed the risks options and benefits of the procedure with the patient. The patient understands the risks options and benefits and agrees to the procedure. History of Present Illness Chief Complaint: Occluded left limb of aortobifemoral bypass Primary Care Provider: Freya Thornton MD Dusty is a 53-year-old female who had an aortobifemoral bypass in the past. She also had occlusion of the limb which she underwent a thrombectomy in 2015. She is seen today after her CTA done in September. This showed narrowing of both limbs of the bypass graft just proximal to the anastomotic site in the groins. The left femoral anastomosis is markedly worse than the right. She underwent revision of her left femoral anastomosis and arteriography of the right. The right side was widely patent. She has now occluded her left limb again. She has significant claudication and occasional rest pain in the left foot. Allergies Allergy/AdvReac Type Severity Reaction Status Date / Time amoxicillin Allergy Intermediate Hives Verified 02/08/19 14:17 Penicillins Allergy Intermediate Hives Verified 02/08/19 14:17 Home Medications Home Medications Medication Instructions Recorded Confirmed Type cyanocobalamin (vitamin B-12) 100 mcg PO DAILY cap 02/13/18 02/08/19 History 1,000 mcg capsule oxycodone-acetaminophen [Percocet] 1 tab PO Q6H PRN #30 tab 11/28/18 02/08/19 Rx aspirin 81 mg tablet,delayed 81 mg PO DAILY 12/28/18 02/08/19 History release levothyroxine 88 mcg tablet 88 mcg PO 6XWK tab 12/28/18 02/08/19 History warfarin 5 mg tablet See Rx Instructions PO UD tab 12/28/18 02/08/19 History lisinopril-hydrochlorothiazide 1 tab PO HS 02/08/19 02/08/19 History Past Med/Surg History Medical History Anemia Claudication of lower extremity H/O blood clots BLOOD CLOT IN 1 STENT FROM ARTERIAL BYPSS SURGERY (DR. 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[employer] Clippings Required: No Beliefs That Will Affect Care: None Current Living Situation: Spouse Feels Safe at Home: Yes Safety Concerns: Feels Safe At This Time Smoking Status: Current every day smoker Tobacco Type: cigarettes ; Cigarettes Per Day: 10 DAILY ; Do You Dip or Chew Tobacco: No ; Second Hand Exposure: Yes ; Tobacco Cessation Education Requested by Patient: No Hx Alcohol Use: Yes Alcohol type: beer Hx Substance Use: No Review of Systems All systems reviewed & are unremarkable except as noted in HPI & below Physical Exam Constitutional: WD/WN, vitals as above Respiratory: normal respiratory effort, lungs clear to auscultation Cardiovascular: RRR, no murmur, no edema Vessels: femoral pulses present (on right), posterior tibial pulses present (on right), dorsalis pedis pulses present (on right) and radial pulses present Extremities: no edema Gastrointestinal (Abdomen): normal bowel sounds, soft, nontender, no hepatosplenomegaly Musculoskeletal: no cyanosis or clubbing, extremities motor strength 5/5 Skin: no rashes, warm and dry Neurologic: CN's II-XI intact bilaterally Motor/Sensory: normal movement and no sensory deficit Psychiatric: A+Ox3, euthymic affect
[~2019-02-16 07:59] MED LIST changes: -LACTATED RINGER'S 1,000 ML IV SCH; -LR 15ML/HR IV SCH; +SODIUM CHLORIDE 0.9% 1000ML IV SCH
[2019-02-16 08:54] LABS: Partial Thromboplastin Ratio 0.8; Partial Thromboplastin Time 22.5 Seconds (21.0-31.0); Prothrombin Time 9.8 Seconds (9.0-12.0)
--- NOTE | 2019-02-16 09:28 | History & Physical Bridge Note ---
Date of Service February 16, 2019 History & Physical Bridge Note I have examined the patient, reviewed the History & Physical and in the interval since the performance of the History & Physical I have noted the following changes of clinical significance: no changes noted
[2019-02-16] MEDS ORDERED: PROPOFOL IV EMULSION 10 MG/ML 20 ML VIAL IV ONE (11:15)
[2019-02-16] MEDS ORDERED: ROCURONIUM BROMIDE 10 MG/ML 5 ML VIAL ONE ×3 (11:15→16:26)
[2019-02-16] MEDS ORDERED: ONDANSETRON INJ 2 MG/ML 2 ML VIAL ONE (11:15)
[2019-02-16] MEDS ORDERED: MIDAZOLAM HCL 1 MG/ML 2ML VIAL ONE (11:15)
[2019-02-16] MEDS ORDERED: fentaNYL citrate 100 MCG/2 ML VIAL ONE ×3 (11:15→17:28)
[2019-02-16] MEDS ORDERED: LIDOCAINE HCL 2% 2 ML VIAL/AMP(20MG/ML) INFIL ONE (11:15)
[2019-02-16] MEDS ORDERED: HEPARIN (PORCINE) 1000 UNIT/ML 10 ML (CATH LAB USE ONLY) ONE (11:23)
[2019-02-16] MEDS ORDERED: PAPAVERINE HCL INJ 30 MG/ML 2 ML VIAL ONE (11:24)
[2019-02-16] MEDS ORDERED: LIDOCAINE HCL 1% 20 ML VIAL ONE (11:24)
[2019-02-16] MEDS ORDERED: THROMBIN 5000 UNITS KIT ONE (11:24)
[2019-02-16] MEDS ORDERED: IODIXANOL (VISIPAQUE) 270 MG/ML 50ML ONE (11:25)
[2019-02-16] MEDS ORDERED: GELATIN SPONGE SZ 100 ONE (11:25)
[2019-02-16] MEDS ORDERED: BUPIVACAINE/EPINEPHRINE 0.5% MPF 1:200,000 10 ML VIAL ONE (11:26)
[2019-02-16] MEDS ORDERED: BACITRACIN INJ 50,000 UNIT VIAL ONE ×2 (11:26→16:06)
[2019-02-16] MEDS ORDERED: ONDANSETRON INJ 2 MG/ML 2 ML VIAL IV PRN ×2 (11:33→16:07)
[2019-02-16] MEDS ORDERED: ATROPINE SULFATE 0.1 MG/ML 10ML SYR IV PRN (11:33)
[2019-02-16] MEDS ORDERED: ePHEDrine sulfate 50 MG/ML AMP IV PRN (11:33)
[2019-02-16] MEDS ORDERED: HYDROmorphone INJ 2 MG/ML SYR/VIAL IV PRN (11:33)
[2019-02-16] MEDS ORDERED: PROMETHAZINE HCL 6.25 MG in SODIUM CHLORIDE 0.9% 50 ML IV PRN (11:33)
--- NOTE | 2019-02-16 16:16 | Post Operative Brief Note ---
Immediate Post Op Note v1 Date of Surgery February 16, 2019 Pre & Post Diagnosis Operation Date: 02/16/19 10:20 Pre-Op Diagnosis: Left Leg Claudication, Severe Post-Op Diagnosis: Left Leg Claudication, Severe I identified the patient and participated in the time-out.: Yes Procedure Operation Date: 02/16/19 10:20 Actual Procedures p Removal of Infected Graft Left Groin, Repair of Artery with interposition bovine graft (JANET), and right groin closure(Bilateral) - Jonny Mustafa MD Surgeon Jonny Mustafa MD [employer] Professor MD Elly L.Minarchick,PAC Estimated Blood Loss 500 Findings Consistent with Post-Op Diagnosis Drains Ho Catheter (16fr ho catheter placed without difficulty, ho demonstrates clear yellow urine. Output measured and recorded by anesthesia.) Anesthesia Type RN Sedation Complications none Disposition Accompanied Patient To Recovery: No Disposition: Recovery Room
[2019-02-16] MEDS ORDERED: NEOSTIGMINE METHYLSULFATE 5 MG/5 ML SYR ONE (16:25)
[2019-02-16] MEDS ORDERED: GLYCOPYRROLATE 0.2 MG/ML VIAL ONE (16:25)
[2019-02-16] MEDS ORDERED: HEPARIN SOD (PORCINE) 1000 UNIT/ML 10 ML VIAL ONE (16:26)
[2019-02-16] MEDS ORDERED: PHENYLEPHRINE HCL 10 MG/ML VIAL ONE (16:26)
--- NOTE | 2019-02-16 16:43 | Operative Report ---
Post Operative Report Pre & Post Diagnosis Operation Date: 02/16/19 10:20 Pre-Op Diagnosis: Left Leg Claudication, Severe Post-Op Diagnosis: Left Leg Claudication, Severe I identified the patient and participated in the time-out.: Yes Procedure Operation Date: 02/16/19 10:20 Actual Procedures p Removal of Infected Graft Left Groin, Repair of Arterywith interposition bovine graft (ABDIRASHID), and right groin closure(Bilateral) - Jonny Mustafa MD Surgeon Jonny Mustafa MD Director Content Marketing MD Man Sanabria,PAC Estimated Blood Loss 500 Findings See Below Infection of left groin graft Specimens Pus from left groin sent for microbiology. Bovine patch from left femoral artery sent for microbiology. Left iliac graft (stent) sent for microbiology. Drains None Anesthesia Type General Complications none Disposition Accompanied Patient To Recovery: No Disposition: Surgical ICU Indications Dusty is a 53-year-old female who had an aortobifemoral bypass in the past. She also had occlusion of the limb which she underwent a thrombectomy in 2015. In November 2018 she developed narrowing of her left graft limb and underwent revision of her left graft limb in the left groin, excision of intimal hyperplasia, patch angioplasty of the left graft limb and SFA with bovine pericardium, and placement of an absolute pro 7 x 40mm stent into the left graft limb just above the inguinal ligament. Unfortunately a few months following this procedure she again developed claudication of the left leg. CT angio was performed and was notable for occlusion of the left limb of her aortobifemoral bypass graft. We discussed revision of her graft including possible femorofemoral bypass graft creation with her. We discussed the procedure and its associated risks. She wished to proceed with the procedure. Surgical consent was obtained. Description of Procedure The patient was taken to the operating suite and placed in the supine position. The patient's identity, the planned procedure, and the surgical site were verified. The patients abdomen and bilateral groins were prepped and draped in the usual sterile fashion. A timeout was performed. An incision was made in the right groin through the area of her previous incision. The right graft limb was dissected out; there was a fair amount of scar tissue but otherwise the graft limb on the right was able to be dissected out without complication. This wound appeared clean and there was a good pulse noted in the graft on this side. We then turned our attention to the left groin. An incision was made over the patient's prior left groin incision. Dense scar tissue was encountered. As we dissected down along the non-pulsatile tubular structure which was her graft, just above the left limb of the graft we encountered a pocket of pus. This was unexpected and given that we would not want to sew a prosthetic femoral-femoral bypass into this infected groin, using clean gloves and instruments we closed the right groin temporarily with berny and placed an occlusive dressing over this with tegaderm in order to exclude this area from an infected field. Turning our attention back to the left groin, we used a swab to take cultures of the pus. We dissected out the left graft limb further. This was a very difficult dissection given the heavy amounts of scar tissue we encountered. We identified the previously placed bovine pericardium patch over the dacron graft limb. A foul smell was noted in this area with a small amount of pus. The suture line of the patch along its lateral aspect was not intact. Within the lumen of the graft old thrombus was noted. As the thrombus was removed we encountered bleeding. Clamps were placed on the SFA, the profunda, and the left graft limb more proximally. However, there continued to be somewhat brisk bleeding that was originating from the [place] external iliac artery. As we did not have enough room to place a clamp proximally with our current exposure, we occluded the [place] left external iliac with a 5F henrique balloon. We then removed the remainder of the bovine pericardium patch and sent this for microbiology. From our groin incision, we freed up the proximal end of the Dacron graft as far as we could. We removed the stent within the left graft limb. We tied off the left graft limb with a 2-0 silk as far up as we could reach and allowed it to retract. We removed the remainder of the Dacron graft including taking down its anastomoses to the external iliac and profunda femoris arteries. For reconstruction, unfortunately no bovine carotid artery was available. We chose to fashion a graft using a bovine pericardium patch and created a Abdirashid graft by winding this around a 3cc syringe and sewing the edges together as they wrapped around the syringe in order to make the tubular graft. We used a 6-0 prolene for this. We trimmed the graft so that one end of the Abdirashid graft was sewn to both the origins of the profunda and the superficial femoral arteries. The other end was sewn to the [place] external iliac artery. We first completed the distal anastomosis, to the origins of the profunda and superficial femoral arteries. This was completed using a 6-0 prolene suture. The graft was sewn to the origin of the profunda femoris artery and the posterior aspect of the superficial femoral artery, however unfortunately was a few centimeters short of reaching to the anterior aspect of the superficial femoral artery. To remedy this we fashioned a patch from the bovine pericardium that had been trimmed from our Abdirashid graft and sewed this patch to the anterior aspect of the superficial femoral artery distally and to our abdirashid graft proximally. We then turned our attention to the proximal anastomosis of our Abdirashid graft, which was completed in an end-to-side fashion to the [place] external iliac artery using 6-0 prolene. Clamps were removed and two repair sutures were used, one between our patch and our Abdirashid graft and one at the posterior aspect of our proximal Abdirashid graft anastomosis to the external iliac artery. We had good hemostasis from our graft following these two repair sutures. We then closed the left groin using 2-0 vicryl to approximate the dense scar tissue overlying the graft, and 3-0 vicryl for the dermis. The skin was closed using berny. The left groin was dressed using gauze and tape. On doppler insonation of the left foot, a monophasic posterior tibial signal was noted. The foot was pink and with slightly delayed capillary refill when compared to the contralateral foot. We then took down the drapes, removed all instruments, and re-prepped and draped the right groin. New instruments were used and all personnel re-scrubbed and re-gowned and gloved. Another time-out was performed. The berny from the right groin were removed. The right groin was irrigated using bacitracin solution. No bleeding was noted. The right groin was closed using 2-0 vicryl to approximate the dense scar tissue overlying the graft, and 3-0 vicryl for the dermis. The skin was closed using berny. The right groin was also dressed using gauze and tape. At the conclusion of the procedure, all needle, sponge, and instrument counts were correct. The patient tolerated the procedure well. She was taken to the recovery room in satisfactory condition. Dr. Mustafa was present and scrubbed for the entire procedure. I attest to the content of the Intraoperative Record and any orders documented therein. Any exceptions are noted below.
[2019-02-16] MEDS: fentaNYL citrate 100 MCG/2 ML VIAL IV PRN ×5 (17:30→18:30)
[2019-02-16 18:12] LABS: Basophils # (auto) 0.02 K/uL (0-0.2); Basophils % (auto) 0.2 %; Eosinophils # (auto) 0.19 K/uL (0-0.5); Hematocrit (blood only) 35.9 % (37-47); Hemoglobin 11.6 g/dL (12.0-16.0); Immature Granulocytes # (auto) 0.03 K/uL (0.00-0.02); Immature Granulocytes % (auto) 0.3 %; Lymphocytes # (auto) 1.87 K/uL (1.2-3.4); Lymphocytes % (auto) 19.4 %; Mean Corpuscular Hgb Conc 32.3 g/dL (32-36); Mean Platelet Volume 10.1 fL (7.4-10.4); Monocytes # (auto) 0.54 K/uL (0.11-0.59); Monocytes % (auto) 5.6 %; Neutrophils # (auto) 6.98 K/uL (1.4-6.5); Neutrophils % (auto) 72.5 %; Platelet Count 223 K/uL (130-400); RDW Coefficient of Variation 14.4 % (11.5-14.5); Red Blood Count 3.74 M/uL (4.2-5.4); White Blood Count 9.63 K/uL (4.8-10.8)
--- NOTE | 2019-02-16 18:45 | Anesthesiology Progress Note ---
Date of Service February 16, 2019 Anesthesia Post Procedure Vital Signs Vital Signs: Temp Pulse Pulse Resp BP Pulse Ox 02/16/19 18:30 63 20 115/69 98 02/16/19 18:20 69 22 147/61 H 95 02/16/19 18:10 83 20 107/66 97 02/16/19 17:50 80 16 102/61 96 02/16/19 17:40 82 15 92/56 L 95 02/16/19 17:30 69 12 95/62 L 96 02/16/19 17:20 71 15 109/75 97 02/16/19 17:10 74 16 109/60 98 02/16/19 17:00 75 14 94/68 L 97 02/16/19 16:54 36.5 C 89 20 111/79 97 02/16/19 08:55 37.1 C 73 20 191/73 H 97 Pain Intensity Bilateral Groin: Pain Intensity: 0 Left Groin: Pain Intensity: 6 Left Foot: Pain Intensity: 6 Transfer of Care Handoff Completed per policy Notes Mental Status: alert / awake / arousable and participated in evaluation Patient Amnestic to Procedure: Yes Nausea / Vomiting: adequately controlled Pain: adequately controlled Airway Patency, RR, SpO2: stable & adequate BP & HR: stable & adequate Hydration State: stable & adequate Anesthetic Complications: no major complications apparent and Pt Satisfied with anesthetic care
[2019-02-16] MEDS: MoRPHine SULFATE 4 MG/ML 1 ML CARP\\VIAL IV PRN ×2 (19:30→21:41)
[2019-02-16] MEDS: LACTATED RINGER'S 1,000 ML IV SCH (19:31)
--- NOTE | 2019-02-16 19:40 | Critical Care Consultation ---
Date of Consultation February 16, 2019 Assessment & Plan (1) Admitted to intensive care unit: Reason Critically Ill: 54-year-old female status post vascular repair of LEFT femoral artery with findings concerning for infection with close proximity to graft requiring close hemodynamic monitoring status post intervention. NEURO - * CAM ICU: NEGATIVE * Pain: Morphine, Percocet. * Consider addition of Dilaudid as needed for breakthrough pain control. CARDIAC/VASCULAR - * PAD s/p Repair of LEFT femoral graft: * Intraoperative concerns for infection near graft. * Received IV Clindy. * Graft repaired with JANET graft. * Monitor pulses, sensation, ROM to the extremities s/p intervention. * Monitor on telemetry. RESPIRATORY - * No h/o respiratory disease. * Saturating well on RA. GI/NUTRITION - * Progress diet as tolerated. RENAL/LYTES - * Slight hypokalemia --> replace appropriately. - * No concerns at this time. * Abreu in place - Strict I&Os. ENDO - * No h/o DM * BSGs per unit protocol. ISS --> gtt per unit policy. * Hypothyroidism --> continue home Rx HEME - * Stable H&H * Will monitor s/p vascular intervention. ID - * Concerns for infection near graft. * Clindy for now. * Wound cultures pending. LINES/IV ACCESS - * PIVs x2 * RIGHT Radial A-line. * Abreu DVT PROPHYLAXIS - * Currently on Coumadin. * SCDs I have personally spent 35 minutes of critical care time in the direct management of this patient. This is a life/limb threatening event. This includes time spent evaluating patient, direct bedside care, chart review, placing orders, interpretation of diagnostic studies, discussion with consultants, patient, and family members, as well as other required patient management a ctivities. This time is exclusive of all separately billable procedures, and teaching time and separate from and in addition to any other critical care service time. Thank you for allowing us to participate in the care of this patient. Please refer to my attending physician's documentation for any further recommendations. (2) Ischemia of left lower extremity: (3) Claudication of lower extremity: (4) Aortobifemoral bypass graft thrombosis: (5) HTN (hypertension): History of Present Illness Attending Physician: Jonny Arroyo MD History of Present Illness Patient is a 54-year-old female with a significant past medical history of hypertension, peripheral arterial disease status post thrombectomy in 2016 status post bypass grafting. Patient was having intermittent exertional claudication resulting in increasing pain. Follow-up CTA demonstrated narrowing of the bypass grafts bilaterally. She underwent elective surgical intervention today for removal of infected LEFT groin graft as well as repair of grafts and RIGHT groin closure. Intraoperatively, the patient was noted to have a pocket of purulent material above the LEFT femoral graft. A interposition bovine graft was placed secondary to the proximity of the infection. Patient tolerated procedure well and was subsequently transferred to the ICU for continued management. Upon initial evaluation, the patient is awake, alert, and oriented. She complains of some mild discomfort and burning sensation to the LEFT upper leg. She has full range of motion of the lower extremities bilaterally. Sensation intact. She denies any headaches, dizziness, lightheadedness, chest pain, palpitations, shortness of breath, nausea, vomiting, or abdominal pain. Allergies Allergy/AdvReac Type Severity Reaction Status Date / Time amoxicillin Allergy Intermediate Hives Verified 02/16/19 08:48 Penicillins Allergy Intermediate Hives Verified 02/16/19 08:48 Home Medications Home Medications Medication Instructions Recorded Confirmed Type cyanocobalamin (vitamin B-12) 100 mcg PO DAILY cap 02/13/18 02/16/19 History 1,000 mcg capsule oxycodone-acetaminophen [Percocet] 1 tab PO Q6H PRN #30 tab 11/28/18 02/16/19 Rx aspirin 81 mg tablet,delayed 81 mg PO DAILY 12/28/18 02/16/19 History release levothyroxine 88 mcg tablet 88 mcg PO 6XWK tab 12/28/18 02/16/19 History warfarin 5 mg tablet See Rx Instructions PO UD tab 12/28/18 02/16/19 History lisinopril-hydrochlorothiazide 1 tab PO HS 02/08/19 02/16/19 History Patient History Medical History Anemia Claudication of lower extremity H/O blood clots BLOOD CLOT IN 1 STENT FROM ARTERIAL BYPSS SURGERY (DR. ARROYO) Hyperlipidemia Hypertension Hypothyroidism Occlusion of arterial bypass graft PVD (peripheral vascular disease) Surgical History History of cataract surgery RT/LEFT History of dilatation and curettage History of tooth extraction History of vascular access device ARTERIAL BYPASS GRAFTING (BILAT FEMORAL AREAS) 4 YEARS AGO 2 STENTS PLACED (REASON FOR COUMADIN) Hx of angioplasty LEFT FEMORAL ARTERY ANASTOMOSIS 11/2018 Family History Other No significant family history Social History Preferred Language: Icelandic Communication Ability: Effective Load Tallier Required: No Beliefs That Will Affect Care: None Current Living Situation: Spouse Feels Safe at Home: Yes Safety Concerns: Feels Safe At This Time Smoking Status: Current every day smoker Tobacco Type: cigarettes ; Cigarettes Per Day: 10 DAILY ; Do You Dip or Chew Tobacco: No ; Second Hand Exposure: Yes ; Tobacco Cessation Education Requested by Patient: No Hx Alcohol Use: Yes Alcohol type: beer Hx Substance Use: No Review of Systems Review of Systems: A complete 10 point review of systems was reviewed with the patient with pertinent positives and negatives as per history of present illness. All else were negative. Physical Exam Physical Exam: VITAL SIGNS - Vital signs and nursing notes were reviewed. GENERAL - 54-year-old female appearing her stated age who is in no acute distress. Communicates well with provider and answers questions appropriately. HEAD - NC/AT. EYES - PERRL with EOMI bilaterally. Sclera anicteric. NOSE - Midline and without cyanosis. MOUTH/OROPHARYNX - Without perioral cyanosis. NECK - Neck with FROM. LUNGS - Chest wall symmetric without accessory muscle use, intercostals retractions, or central cyanosis. Normal vesicular breath sounds CTA B/L. No wheezes, rales, or rhonchi appreciated. CARDIAC - RRR with S1/S2. No murmur, rubs, or gallops appreciated. No reproducible tenderness to palpation appreciated over the anterior chest wall. ABDOMEN - Abdominal contour flat without pulsations or visible masses. BS normoactive all four quadrants. No tenderness, palpable masses, hepatosplenomegaly, or ascites noted. EXTREMITIES - No clubbing. Dusky LEFT lower extremity. Dopplerable pulses to the bilateral lower extremities. Dressings to the bilateral femoral areas clean, dry, and intact. FROM of the lower extremities appreciated bilaterally. NEUROLOGIC - Cranial nerves II through XII grossly intact. Sensation intact to sharp touch of the bilateral lower extremities. PSYCH - A&Ox3 and cooperates fully with examiner. Pt is very pleasant and interacts well with examiner. Results & Data Vital Signs (Past 12 Hours) Vital Signs Temp Pulse Pulse Resp BP BP Pulse Ox 02/16/19 19:05 36.4 C L 66 22 121/64 98 02/16/19 18:40 36.5 C 68 14 113/69 97 02/16/19 18:30 63 20 115/69 98 02/16/19 18:20 69 22 147/61 H 95 02/16/19 18:10 83 20 107/66 97 02/16/19 17:50 80 16 102/61 96 02/16/19 17:40 82 15 92/56 L 95 02/16/19 17:30 69 12 95/62 L 96 02/16/19 17:20 71 15 109/75 97 02/16/19 17:10 74 16 109/60 98 02/16/19 17:00 75 14 94/68 L 97 02/16/19 16:54 36.5 C 89 20 111/79 97 02/16/19 08:55 37.1 C 73 20 191/73 H 97 Coding Level of Care Code Critical Care 1st 30-74 mins Diagnoses Admitted to intensive care unit Z78.9 Ischemia of left lower extremity I99.8 Claudication of lower extremity I73.9 Aortobifemoral bypass graft thrombosis T82.868A HTN (hypertension) I10 Time Spent (min) 35
[2019-02-16] MEDS ORDERED: CLINDAMYCIN 300 MG in DEXTROSE 5% 50 ML IV ONE (20:00)
[2019-02-16] MEDS: LISINOPRIL/HCTZ 20/12.5MG 1 TAB TAB PO SCH (21:21)
[2019-02-16] MEDS: OXYCODONE/ACETAMINOPHEN 5mg/325mg TAB PO PRN (22:23)
[2019-02-16] MEDS ORDERED: HYDROmorphone INJ 0.5 MG/0.5 ML SYR IV STA ×2 (22:38→23:45)
[2019-02-17] MEDS: MoRPHine SULFATE 4 MG/ML 1 ML CARP\\VIAL IV PRN ×2 (00:30→19:33)
[2019-02-17] MEDS ORDERED: HYDROmorphone INJ 1 MG/ML SYRINGE IV STA ×2 (00:53→02:07)
[2019-02-17] MEDS: LACTATED RINGER'S 1,000 ML IV SCH ×3 (02:19→22:48)
[2019-02-17] MEDS ORDERED: HEPARIN IV BOLUS 5,000 UNITS in SYRINGE 0 ML IV ONE (02:59)
--- NOTE | 2019-02-17 03:03 | Surgery Progress Note ---
Date of Service February 17, 2019 Assessment & Plan (1) Ischemia of left lower extremity: will need emergency bypass. I have discussed the risks options and benefits of the procedure with the patient. The patient understands the risks options and benefits and agrees to the procedure. Subjective Patient started to develop foot pain and now extending up to knee Physical Exam Constitutional: WD/WN, vitals as above Cardiovascular: Vessels: + posterior tibial pulses abnormal and + dorsalis pedis pulses abnormal Skin: mottled to knee left leg, left foot and leg to knee cool Results & Data Vital Signs (Past 12 Hours) Vital Signs Temp Pulse Pulse Resp BP BP BP 02/17/19 01:00 99 H 17 116/63 02/17/19 00:00 36.8 C 84 19 154/74 H 02/16/19 23:00 99 H 15 02/16/19 22:00 71 15 116/51 L 02/16/19 21:00 61 12 126/63 02/16/19 20:52 60 15 102/63 02/16/19 20:37 64 21 114/55 L 02/16/19 20:22 63 17 110/56 L 02/16/19 20:08 74 19 117/69 02/16/19 20:00 36.7 C 55 L 14 02/16/19 19:52 61 9 L 101/47 L 02/16/19 19:42 65 12 02/16/19 19:38 73 11 L 117/52 L 02/16/19 19:05 36.4 C L 66 22 121/64 02/16/19 18:40 36.5 C 68 14 113/69 02/16/19 18:30 63 20 115/69 02/16/19 18:20 69 22 147/61 H 02/16/19 18:10 83 20 107/66 02/16/19 17:50 80 16 102/61 02/16/19 17:40 82 15 92/56 L 02/16/19 17:30 69 12 95/62 L 02/16/19 17:20 71 15 109/75 02/16/19 17:10 74 16 109/60 02/16/19 17:00 75 14 94/68 L 02/16/19 16:54 36.5 C 89 20 111/79 Pulse Ox 02/17/19 01:00 96 02/17/19 00:00 97 02/16/19 23:00 95 02/16/19 22:00 99 02/16/19 21:00 99 02/16/19 20:52 100 02/16/19 20:37 100 02/16/19 20:22 100 02/16/19 20:08 100 02/16/19 20:00 98 02/16/19 19:52 98 02/16/19 19:42 99 02/16/19 19:38 97 02/16/19 19:05 98 02/16/19 18:40 97 02/16/19 18:30 98 02/16/19 18:20 95 02/16/19 18:10 97 02/16/19 17:50 96 02/16/19 17:40 95 02/16/19 17:30 96 02/16/19 17:20 97 02/16/19 17:10 98 02/16/19 17:00 97 02/16/19 16:54 97
[2019-02-17] MEDS ORDERED: PAPAVERINE HCL INJ 30 MG/ML 2 ML VIAL ONE (03:52)
[2019-02-17] MEDS ORDERED: THROMBIN 5000 UNITS KIT ONE (03:52)
[2019-02-17] MEDS ORDERED: HEPARIN (PORCINE) 1000 UNIT/ML 10 ML (CATH LAB USE ONLY) ONE (03:52)
[2019-02-17] MEDS ORDERED: CEFAZOLIN 250 MG/ML 1 GM VIAL ONE ×2 (03:52→03:59)
[2019-02-17] MEDS ORDERED: LIDOCAINE HCL 1% 20 ML VIAL ONE (03:52)
[2019-02-17] MEDS ORDERED: GELATIN SPONGE SZ 100 ONE (03:53)
[2019-02-17] MEDS ORDERED: IODIXANOL (VISIPAQUE) 270 MG/ML 50ML ONE (03:53)
[2019-02-17] MEDS ORDERED: BUPIVACAINE/EPINEPHRINE 0.5% MPF 1:200,000 10 ML VIAL ONE (03:53)
[2019-02-17] MEDS ORDERED: PROPOFOL IV EMULSION 10 MG/ML 20 ML VIAL IV ONE (04:00)
[2019-02-17] MEDS ORDERED: fentaNYL citrate 100 MCG/2 ML VIAL ONE ×2 (04:00→07:45)
[2019-02-17] MEDS ORDERED: ROCURONIUM BROMIDE 10 MG/ML 5 ML VIAL ONE ×2 (04:00→06:20)
--- NOTE | 2019-02-17 04:07 | Anesthesiology Consultation ---
Date of Service February 17, 2019 Assessment & Plan (1) Encounter for pre-operative examination: ASA [id number] Proposed Anesthesia Anesthesia Type: General Risk / Benefits Reviewed With: PT / POA / Parent / Guardian (Emergency patient in tremendous pain), Accepts Plan and Informed Consent Obtained (Emergent nature. Previous consent for same procedure on 02/16 used) History Surgery Operation Date: 02/16/19 10:20 Proposed Procedures p Femoral to Femoral Bypass - Jonny Arroyo MD Operation Date: 02/17/19 03:30 Proposed Procedures p Femoral Popliteal Bypass Graft - Jonny Arroyo MD Height/Weight Height: 5 ft 6 in Weight: 72.7 kg Allergies Allergy/AdvReac Type Severity Reaction Status Date / Time amoxicillin Allergy Intermediate Hives Verified 02/16/19 08:48 Penicillins Allergy Intermediate Hives Verified 02/16/19 08:48 Medications Home Medications Medication Instructions Recorded Confirmed Last Taken cyanocobalamin (vitamin B-12) 100 mcg PO DAILY cap 02/13/18 02/16/19 02/15/19 23:00 1,000 mcg capsule oxycodone-acetaminophen [Percocet] 1 tab PO Q6H PRN #30 tab 11/28/18 02/16/19 Unknown aspirin 81 mg tablet,delayed 81 mg PO DAILY 12/28/18 02/16/19 02/15/19 23:00 release levothyroxine 88 mcg tablet 88 mcg PO 6XWK tab 12/28/18 02/16/19 02/16/19 06:00 warfarin 5 mg tablet See Rx Instructions PO UD tab 12/28/18 02/16/19 02/10/19 22:00 lisinopril-hydrochlorothiazide 1 tab PO HS 02/08/19 02/16/19 02/15/19 23:00 Active Medications Generic Name Dose Route Start Last Admin Trade Name Freq PRN Reason Stop Dose Admin Lisinopril/HCTZ 1 tab 02/16/19 21:00 02/16/19 21:21 Prinzide 20/12.5mg PO 03/18/19 20:59 1 tab HS CHRISTOPHER Administration Clindamycin Phosphate 600 mg in 54 mls @ 100 mls/hr 02/16/19 06:00 02/16/19 20:17 Cleocin IV 02/17/19 05:59 Infused PREOP CHRISTOPHER Infusion Lactated Ringer's 1,000 mls @ 125 mls/hr 02/16/19 19:15 02/17/19 02:19 Lr IV 03/18/19 19:14 125 mls/hr .Q8H CHRISTOPHER Administration Morphine Sulfate 1 - 4 mg 02/16/19 16:07 02/17/19 00:30 Morphine Sulfate IV 03/02/19 16:06 4 mg Q2H PRN Administration Severe Pain Oxycodone/Acetaminophen 1 - 2 tab 02/16/19 16:07 02/16/19 22:23 Percocet 5mg/325mg PO 03/02/19 16:06 2 tab Q4H PRN Administration Moderate Pain NPO Date Last Intake of Fluids: 02/15/19 Time Last Intake of Fluids: 23:30 Last Intake of Fluids Comment: sip of water this AM with med Date Last Intake of Solids: 02/15/19 Time Last Intake of Solids: 19:00 Past Medical History Medical History Anemia Claudication of lower extremity H/O blood clots BLOOD CLOT IN 1 STENT FROM ARTERIAL BYPSS SURGERY (DR. ARROYO) Hyperlipidemia Hypertension Hypothyroidism Occlusion of arterial bypass graft PVD (peripheral vascular disease) Past Family History Family History Other No significant family history Past Surgical History Surgical History History of cataract surgery RT/LEFT History of dilatation and curettage History of tooth extraction History of vascular access device ARTERIAL BYPASS GRAFTING (BILAT FEMORAL AREAS) 4 YEARS AGO 2 STENTS PLACED (REASON FOR COUMADIN) Hx of angioplasty LEFT FEMORAL ARTERY ANASTOMOSIS 11/2018 Social History Smoking Status: Current every day smoker tobacco type: cigarettes Smoking cigarettes per day: 10 DAILY Do You Dip or Chew Tobacco: No Hx Alcohol Use: Yes Alcohol type: beer alcohol intake frequency: a few times a week Hx Substance Use: No substance use type: does not use Review of Systems denies fever/cough/ colds/ chest pain/ SOB/ WINSTON Constitutional: no fever and no chills Respiratory: no cough and no dyspnea denies WINSTON Cardiovascular: no chest pain and no dyspnea on exertion Physical Exam Vital Signs Last Vital Signs Temp 36.8 C 02/17/19 00:00 Pulse 78 02/17/19 04:00 Resp 19 02/17/19 04:00 BP 147/74 H 02/17/19 04:00 Pulse Ox 97 02/17/19 04:00 ENMT Mouth: no TMJ abnormality and no dentition abnormality Thyromental Distance: > or= 3.5 Finger Breadths Mallampati Class: II Neck neck extension not limited Respiratory normal respiratory effort; no respiratory distress Auscultation: lungs clear to auscultation bilaterally Cardiovascular Rate/Rhythm: regular rate and regular rhythm Neurologic moves all extremities Psychiatric Orientation: alert and oriented x 3 Testing Laboratory Results 02/16/19 18:04 02/09/19 08:07 PT 9.8 Seconds (9.0-12.0) 02/16/19 08:31 INR 1.0 (0.9-1.1) 02/16/19 08:31 APTT 22.5 Seconds (21.0-31.0) 02/16/19 08:31 Blood Type A Positive 02/16/19 08:31 Antibody Screen NEGATIVE 02/16/19 08:31 02/16/19 16:30 Gram Stain - Preliminary Foreign Body 02/16/19 Unknown Gram Stain - Preliminary Abdomen, Left Lower Quadrant 02/16/19 Unknown Gram Stain - Final Groin 02/16/19 02/16/19 09:36 08:45 POC Ur Test NEG NEG Electrocardiogram Date: 11/20/18 Findings: + NSR @ (75BPM) Chest X-Ray Date: 11/20/18 Findings: + NAD Stress Test Date: 04/12/15 Type: DSE Resting EF: 65% Negative dobutamine stress EKG and echo for ischemia at 95% MPHR. Last echo shows left ventricular cavity size and systolic function are normal with no regional wall motion abnormalities present.
[2019-02-17] MEDS ORDERED: BACITRACIN INJ 50,000 UNIT VIAL ONE (04:37)
[2019-02-17] MEDS ORDERED: ePHEDrine sulfate 50 MG/ML SYR ONE ×2 (04:52→06:41)
[2019-02-17] MEDS ORDERED: ePHEDrine sulfate 50 MG/ML AMP ONE (04:52)
[2019-02-17] MEDS ORDERED: HEPARIN SOD (PORCINE) 1000 UNIT/ML 10 ML VIAL ONE (05:13)
[2019-02-17] MEDS ORDERED: PHENYLEPHRINE HCL 10 MG/ML VIAL ONE (05:13)
[2019-02-17] MEDS ORDERED: SODIUM BICARB 8.4% INJ 50 MEQ/50 ML SYR ONE (06:40)
[2019-02-17 07:36] LABS: Base Excess ABG 0.5 mEq/L (-9-1.8); HCO3 ABG 26 mmol/L (19-24); PCO2 ABG 44 mmHg (35-46); PO2 ABG 76 mm/Hg (80-95); pH ABG 7.38 (7.35-7.45)
[2019-02-17 07:38] LABS: Basophils # (auto) 0.01 K/uL (0-0.2); Basophils % (auto) 0.2 %; Eosinophils # (auto) 0.02 K/uL (0-0.5); Eosinophils % (auto) 0.3 %; Hematocrit (blood only) 26.9 % (37-47); Hemoglobin 8.9 g/dL (12.0-16.0); Immature Granulocytes # (auto) 0.03 K/uL (0.00-0.02); Immature Granulocytes % (auto) 0.5 %; Lymphocytes # (auto) 0.92 K/uL (1.2-3.4); Lymphocytes % (auto) 15.7 %; Mean Corpuscular Hemoglobin 32.1 pg (25-34); Mean Corpuscular Volume 97.1 fL (80-100); Monocytes % (auto) 3.4 %; Neutrophils # (auto) 4.68 K/uL (1.4-6.5); Neutrophils % (auto) 79.9 %; Platelet Count 168 K/uL (130-400); RDW Coefficient of Variation 14.6 % (11.5-14.5); RDW Standard Deviation 52.5 fL (36.4-46.3); Red Blood Count 2.77 M/uL (4.2-5.4); White Blood Count 5.86 K/uL (4.8-10.8)
[2019-02-17 07:39] LABS: Allen Test Pos (Pos)
[2019-02-17 07:54] LABS: Calcium 8.1 mg/dl (8.5-10.1); Creatinine Clr Calc Pharmacy 106.4 ml/min; Est GFR (African American) 118.3; Est GFR (Non-African American) 102.1; Potassium 3.1 mmol/L (3.5-5.1)
[2019-02-17] MEDS ORDERED: GLYCOPYRROLATE 0.2 MG/ML VIAL ONE (07:54)
--- NOTE | 2019-02-17 07:55 | Critical Care Progress Note ---
Date of Service February 17, 2019 Assessment & Plan (1) Admitted to intensive care unit: Reason Critically Ill: 54-year-old female status post vascular repair of LEFT femoral artery with findings concerning for infection with close proximity to graft requiring close hemodynamic monitoring status post intervention. NEURO - CAM ICU: NEGATIVE Pain: Morphine, Percocet. -Consider addition of Dilaudid as needed for breakthrough pain control. CARDIAC/VASCULAR - PAD s/p Repair of LEFT femoral graft: Intraoperative concerns for infection near graft. -Received IV Clindy. -started on vancomycin and cefepime Monitor pulses, sensation, ROM to the extremities s/p intervention. -pulses extremely difficult to find Monitor on telemetry. Hypotension Patient intermittently hypotensive postoperatively. Has received fluid resuscitation and blood. We will hold off on pressor support given this will likely compromise the recent graft. -Monitor pressures for now, if patient becomes hypotensive we will need to consider placing a central line and adding pressor support. RESPIRATORY - No h/o respiratory disease. Saturating well on RA. GI/NUTRITION - Progress diet as tolerated. RENAL/LYTES - Slight hypokalemia --> replace appropriately. - No concerns at this time. Abreu in place - Strict I&Os. ENDO - No h/o DM BSGs per unit protocol. ISS --> gtt per unit policy. Hypothyroidism --> continue home Rx HEME - Hemoglobin was 8.9 postoperatively received 2 units of blood hemoglobin is now 11.8 ID - Concerns for infection near graft. Wound cultures pending. LINES/IV ACCESS - PIVs x2 RIGHT Radial A-line. Abreu DVT PROPHYLAXIS - holding Coumadin. SCDs Thank you for allowing us to participate in the care of this patient. Please refer to my attending physician's documentation for any further recommendations. (2) Ischemia of left lower extremity: (3) Claudication of lower extremity: (4) HTN (hypertension): (5) Aortobifemoral bypass graft thrombosis: Supervising Physician Co-Signing Physician Notes Dr. Jimenez was the resident-physician during care of patient. I separately evaluated patient for guo portions of the history and the exam. I was present during the critical portion of medical decision making, and I discussed the case with the resident. I generally agree with the findings and plan except for any additions/exceptions noted. Patient has ongoing ischemia of the left lower extremity. She went for emergency bypass last night after in the initial surgery demonstrated some pus and a graft of the left groin. She was on clindamycin but this was discontinued by Dr. Mustafa. I will defer antibiotic management to Dr. Mustafa. Defer management of the limb ischemia to Dr. Mustafa as well. She was on heparin for a brief period time but had significant oozing and this was discontinued by Dr. Mustafa. She is to remain in the ICU per Dr. Mustafa. Subjective Patient laying comfortably in bed. Patient reports she is unable to feel her left leg or move it. Per nursing dressing is soaked with blood. Patient is mentating well, reports being in minimal pain, appears to have poor understanding of her current disease process. Patient is tolerating her diet, Abreu catheter in place. Acute concerns are present related to patient's blood pressure and patency of graft. We will continue to monitor in the ICU. All questions answered Physical Exam Physical Exam: General: No acute distress HEENT: Normocephalic atraumatic Neck: Normal to visual inspection Cardiac: Regular rate and rhythm, I did not appreciate any significant murmurs rubs or gallops, normal S1, normal S2 Respiratory: Clear to auscultation bilaterally without significant wheezes, rales, rhonchi symmetrical chest rise GI: Soft, nontender, nondistended MSK: Moves bilateral upper extremities and right lower extremity. Unable to move left lower extremity, sensation not intact. Earlier this morning nursing reported being able to obtain a popliteal pulse on the left lower extremity however was unable to appreciate on physical exam Skin: Surgical site clean and intact, however bleeding Neuro: Alert and oriented x4 Psych: Cooperative Results & Data Vital Signs (Past 12 Hours) Vital Signs Temp Pulse Resp BP Pulse Ox 02/17/19 04:00 78 19 147/74 H 97 02/17/19 03:00 76 19 129/75 98 02/17/19 01:00 99 H 17 116/63 96 02/17/19 00:00 36.8 C 84 19 154/74 H 97 02/16/19 23:00 99 H 15 95 02/16/19 22:00 71 15 116/51 L 99 02/16/19 21:00 61 12 126/63 99 02/16/19 20:52 60 15 102/63 100 02/16/19 20:37 64 21 114/55 L 100 02/16/19 20:22 63 17 110/56 L 100 02/16/19 20:08 74 19 117/69 100 02/16/19 20:00 36.7 C 55 L 14 98 Laboratory Results 02/17/19 02/17/19 02/17/19 Range/Units 13:21 13:09 11:04 WBC 12.06 H (4.8-10.8) K/uL RBC 3.83 L (4.2-5.4) M/uL Hgb 11.8 L (12.0-16.0) g/dL Hct 35.9 L (37-47) % MCV 93.7 (80-100) fL MCH 30.8 (25-34) pg MCHC 32.9 (32-36) g/dL RDW Std Deviation 58.4 H (36.4-46.3) fL RDW Coeff of Toribio 17.0 H (11.5-14.5) % Plt Count 175 (130-400) K/uL MPV 10.3 (7.4-10.4) fL Immature Gran % (Auto) % Neut % (Auto) % Lymph % (Auto) % [place] % (Auto) % Eos % (Auto) % Baso % (Auto) % Immature Gran # (Auto) (0.00-0.02) K/uL Neut # (Auto) (1.4-6.5) K/uL Lymph # (Auto) (1.2-3.4) K/uL [place] # (Auto) (0.11-0.59) K/uL Eos # (Auto) (0-0.5) K/uL Baso # (Auto) (0-0.2) K/uL PT Pending (9.0-12.0) Seconds INR Pending (0.9-1.1) APTT Pending PTT Ratio Pending ABG pH (7.35-7.45) ABG pCO2 (35-46) mmHg ABG pO2 (80-95) mm/Hg ABG HCO3 (19-24) mmol/L ABG O2 Saturation (90-95) % ABG Base Excess (-9-1.8) mEq/L Richard Test (Pos) Barometric Pressure mm/Hg Oxygen Given Sodium (136-145) mmol/L Potassium (3.5-5.1) mmol/L Chloride (98-107) mmol/L Carbon Dioxide (21-32) mmol/L Anion Gap (3-11) BUN (7-18) mg/dl Creatinine (0.6-1.2) mg/dl Est Cr Clr Drug Dosing ml/min Est GFR ( Amer) Est GFR (Non-Af Amer) BUN/Creatinine Ratio (10-20) Glucose (70-99) mg/dl POC Glucose 100 H (70-99) Lactate (0.4-2.0) mmol/L Calcium (8.5-10.1) mg/dl POC Ur Test (NEG) Nasal Screen MRSA (PCR) (Negative) Blood Type Antibody Screen Crossmatch 02/17/19 02/17/19 02/17/19 Range/Units 07:20 07:20 07:20 WBC (4.8-10.8) K/uL RBC (4.2-5.4) M/uL Hgb (12.0-16.0) g/dL Hct (37-47) % MCV (80-100) fL MCH (25-34) pg MCHC (32-36) g/dL RDW Std Deviation (36.4-46.3) fL RDW Coeff of Toribio (11.5-14.5) % Plt Count (130-400) K/uL MPV (7.4-10.4) fL Immature Gran % (Auto) % Neut % (Auto) % Lymph % (Auto) % [place] % (Auto) % Eos % (Auto) % Baso % (Auto) % Immature Gran # (Auto) (0.00-0.02) K/uL Neut # (Auto) (1.4-6.5) K/uL Lymph # (Auto) (1.2-3.4) K/uL [place] # (Auto) (0.11-0.59) K/uL Eos # (Auto) (0-0.5) K/uL Baso # (Auto) (0-0.2) K/uL PT (9.0-12.0) Seconds INR (0.9-1.1) APTT PTT Ratio ABG pH 7.38 (7.35-7.45) ABG pCO2 44 (35-46) mmHg ABG pO2 76 L (80-95) mm/Hg ABG HCO3 26 H (19-24) mmol/L ABG O2 Saturation 95.0 (90-95) % ABG Base Excess 0.5 (-9-1.8) mEq/L Richard Test Pos (Pos) Barometric Pressure 719.9 mm/Hg Oxygen Given 2L Sodium 144 (136-145) mmol/L Potassium 3.1 L (3.5-5.1) mmol/L Chloride 112 H (98-107) mmol/L Carbon Dioxide 27 (21-32) mmol/L Anion Gap 5.0 (3-11) BUN 8 (7-18) mg/dl Creatinine 0.61 (0.6-1.2) mg/dl Est Cr Clr Drug Dosing 106.4 ml/min Est GFR ( Amer) 118.3 Est GFR (Non-Af Amer) 102.1 BUN/Creatinine Ratio 13.0 (10-20) Glucose 185 H (70-99) mg/dl POC Glucose (70-99) Lactate 2.3 H* (0.4-2.0) mmol/L Calcium 8.1 L (8.5-10.1) mg/dl POC Ur Test (NEG) Nasal Screen MRSA (PCR) (Negative) Blood Type Antibody Screen Crossmatch 02/17/19 02/17/19 02/16/19 Range/Units 07:20 07:20 19:21 WBC 5.86 (4.8-10.8) K/uL RBC 2.77 L (4.2-5.4) M/uL Hgb 8.9 L (12.0-16.0) g/dL Hct 26.9 L (37-47) % MCV 97.1 (80-100) fL MCH 32.1 (25-34) pg MCHC 33.1 (32-36) g/dL RDW Std Deviation 52.5 H (36.4-46.3) fL RDW Coeff of Toribio 14.6 H (11.5-14.5) % Plt Count 168 (130-400) K/uL MPV 10.0 (7.4-10.4) fL Immature Gran % (Auto) 0.5 % Neut % (Auto) 79.9 % Lymph % (Auto) 15.7 % [place] % (Auto) 3.4 % Eos % (Auto) 0.3 % Baso % (Auto) 0.2 % Immature Gran # (Auto) 0.03 H (0.00-0.02) K/uL Neut # (Auto) 4.68 (1.4-6.5) K/uL Lymph # (Auto) 0.92 L (1.2-3.4) K/uL [place] # (Auto) 0.20 (0.11-0.59) K/uL Eos # (Auto) 0.02 (0-0.5) K/uL Baso # (Auto) 0.01 (0-0.2) K/uL PT 12.9 H (9.0-12.0) Seconds INR 1.3 H (0.9-1.1) APTT PTT Ratio ABG pH (7.35-7.45) ABG pCO2 (35-46) mmHg ABG pO2 (80-95) mm/Hg ABG HCO3 (19-24) mmol/L ABG O2 Saturation (90-95) % ABG Base Excess (-9-1.8) mEq/L Richard Test (Pos) Barometric Pressure mm/Hg Oxygen Given Sodium (136-145) mmol/L Potassium (3.5-5.1) mmol/L Chloride (98-107) mmol/L Carbon Dioxide (21-32) mmol/L Anion Gap (3-11) BUN (7-18) mg/dl Creatinine (0.6-1.2) mg/dl Est Cr Clr Drug Dosing ml/min Est GFR ( Amer) Est GFR (Non-Af Amer) BUN/Creatinine Ratio (10-20) Glucose (70-99) mg/dl POC Glucose (70-99) Lactate (0.4-2.0) mmol/L Calcium (8.5-10.1) mg/dl POC Ur Test (NEG) Nasal Screen MRSA (PCR) Negative (Negative) Blood Type Antibody Screen Crossmatch 02/16/19 02/16/19 02/16/19 Range/Units 18:04 08:45 08:31 WBC 9.63 (4.8-10.8) K/uL RBC 3.74 L (4.2-5.4) M/uL Hgb 11.6 L (12.0-16.0) g/dL Hct 35.9 L (37-47) % MCV 96.0 (80-100) fL MCH 31.0 (25-34) pg MCHC 32.3 (32-36) g/dL RDW Std Deviation 51.0 H (36.4-46.3) fL RDW Coeff of Toribio 14.4 (11.5-14.5) % Plt Count 223 (130-400) K/uL MPV 10.1 (7.4-10.4) fL Immature Gran % (Auto) 0.3 % Neut % (Auto) 72.5 % Lymph % (Auto) 19.4 % [place] % (Auto) 5.6 % Eos % (Auto) 2.0 % Baso % (Auto) 0.2 % Immature Gran # (Auto) 0.03 H (0.00-0.02) K/uL Neut # (Auto) 6.98 H (1.4-6.5) K/uL Lymph # (Auto) 1.87 (1.2-3.4) K/uL [place] # (Auto) 0.54 (0.11-0.59) K/uL Eos # (Auto) 0.19 (0-0.5) K/uL Baso # (Auto) 0.02 (0-0.2) K/uL PT (9.0-12.0) Seconds INR (0.9-1.1) APTT PTT Ratio ABG pH (7.35-7.45) ABG pCO2 (35-46) mmHg ABG pO2 (80-95) mm/Hg ABG HCO3 (19-24) mmol/L ABG O2 Saturation (90-95) % ABG Base Excess (-9-1.8) mEq/L Richard Test (Pos) Barometric Pressure mm/Hg Oxygen Given Sodium (136-145) mmol/L Potassium (3.5-5.1) mmol/L Chloride (98-107) mmol/L Carbon Dioxide (21-32) mmol/L Anion Gap (3-11) BUN (7-18) mg/dl Creatinine (0.6-1.2) mg/dl Est Cr Clr Drug Dosing ml/min Est GFR ( Amer) Est GFR (Non-Af Amer) BUN/Creatinine Ratio (10-20) Glucose (70-99) mg/dl POC Glucose (70-99) Lactate (0.4-2.0) mmol/L Calcium (8.5-10.1) mg/dl POC Ur Test NEG (NEG) Nasal Screen MRSA (PCR) (Negative) Blood Type A Positive Antibody Screen NEGATIVE Crossmatch See Detail Medications Administered Current Inpatient Medications Aspirin (Ecotrin Ectab) 81 mg PO DAILY [facility] Stop: 03/19/19 08:59 Last Admin: 02/17/19 12:09 Dose: 81 mg Documented by: Cyanocobalamin (Vitamin B-12) 100 mcg PO DAILY [facility] Stop: 03/19/19 08:59 Last Admin: 02/17/19 12:09 Dose: 100 mcg Documented by: Lisinopril/HCTZ (Prinzide 20/12.5mg) 1 tab PO HS [facility] Stop: 03/18/19 20:59 Last Admin: 02/16/19 21:21 Dose: 1 tab Documented by: Lactated Ringer's (Lr) 1,000 mls @ 125 mls/hr IV .Q8H [facility] Stop: 03/18/19 19:14 Last Admin: 02/17/19 12:10 Dose: 125 mls/hr Documented by: Sodium Chloride (Nss) 250 mls @ 15 mls/hr IV .[id number] PRN PRN Reason: For Transfusion Stop: 02/17/19 23:07 Sodium Chloride (Nss) 500 mls @ 999 mls/hr IV .Q31M [facility] Stop: 03/19/19 13:14 Last Admin: 02/17/19 13:24 Dose: 999 mls/hr Documented by: Vancomycin HCl 1,000 mg/ (Sodium Chloride) 270 mls @ 125 mls/hr IV Q12H [facility]; Protocol Stop: 02/19/19 13:59 Piperacillin Sod/Tazobactam (Sod 3.375 gm/ Dextrose) 115 mls @ 28.75 mls/hr IV Q8H [facility]; Protocol Stop: 02/19/19 13:59 Levothyroxine Sodium (Synthroid) 88 mcg PO [email or web address] [facility] Stop: 03/20/19 06:29 Miscellaneous Information (Consult) 1 ea N/A UD PRN PRN Reason: Consult Stop: 03/19/19 13:53 Miscellaneous Information (Consult) 1 ea N/A UD PRN PRN Reason: Consult Stop: 03/19/19 13:53 Morphine Sulfate (Morphine Sulfate) 1 - 4 mg IV Q2H PRN PRN Reason: Severe Pain Stop: 03/02/19 16:06 Last Admin: 02/17/19 00:30 Dose: 4 mg Documented by: Ondansetron HCl (Zofran) 4 mg IV Q6H PRN PRN Reason: Nausea And Vomiting Stop: 03/18/19 16:06 Oxycodone/Acetaminophen (Percocet 5mg/325mg) 1 - 2 tab PO Q4H PRN PRN Reason: Moderate Pain Stop: 03/02/19 16:06 Last Admin: 02/16/19 22:23 Dose: 2 tab Documented by: Potassium Chloride (Klor-Con M20) 40 meq PO Q12 [facility] Stop: 02/17/19 21:01 Last Admin: 02/17/19 12:09 Dose: 40 meq Documented by: Warfarin Sodium (Coumadin) 5 mg PO [email or web address] [facility] Stop: 03/19/19 15:59 Warfarin Sodium (Coumadin) 7.5 mg PO [email or web address] [facility] Stop: 03/20/19 15:59 Resident Activity Tracking Resident Involvement: Resident Care Provided Care Provided: Adult Hospital Medicine (ICU)
[2019-02-17] MEDS ORDERED: CALCIUM CHLORIDE 10% 10 ML SYR IV ONE (08:00)
[2019-02-17 08:03] LABS: INR 1.3 (0.9-1.1); Prothrombin Time 12.9 Seconds (9.0-12.0)
[2019-02-17 08:04] LABS: Mean Corpuscular Hgb Conc 33.1 g/dL (32-36)
[2019-02-17] MEDS ORDERED: SUGAMMADEX SODIUM 200 MG/2 ML VIAL IV ONE (08:10)
--- NOTE | 2019-02-17 08:13 | Post Operative Brief Note ---
Immediate Post Op Note v1 Date of Surgery February 17, 2019 Pre & Post Diagnosis Operation Date: 02/16/19 10:20 Pre-Op Diagnosis: Left Leg Claudication, Severe Post-Op Diagnosis: Left Leg Claudication, Severe Operation Date: 02/17/19 03:30 Pre-Op Diagnosis: Ischemia left lower extremity Post-Op Diagnosis: Ischemia left lower extremity I identified the patient and participated in the time-out.: Yes Procedure Operation Date: 02/16/19 10:20 Actual Procedures p Removal of Infected Graft Left Groin, Repair of Arterywith interposition bovine graft (JANET), and right groin closure(Bilateral) - Jonny Mustafa MD Operation Date: 02/17/19 03:30 Actual Procedures p Right femoral to left femoral prosthetic bypass; Thrombectomy of Right lower extremity; Patch angioplasty of right common femoral artery; Endarterectomy and patch angioplasty left superficial femoral artery; Left leg four compartment fasciotomy(Bilateral) - Jonny Mustafa MD Surgeon Jonny Mustafa MD [employer] none Estimated Blood Loss 250 Findings Consistent with Post-Op Diagnosis Drains Ho Catheter (16fr ho catheter placed without difficulty, ho demonstrates clear yellow urine. Output measured and recorded by anesthesia.) Anesthesia Type General Complications none Disposition Accompanied Patient To Recovery: No Disposition: Surgical ICU
--- NOTE | 2019-02-17 09:57 | Anesthesiology Progress Note ---
Date of Service February 17, 2019 Anesthesia Post Procedure Vital Signs Vital Signs: Temp Pulse Pulse Resp BP BP BP 02/17/19 09:23 97.5 F L 76 16 128/86 02/17/19 09:15 97.5 F L 74 26 H 109/79 02/17/19 09:11 94 H 22 156/82 H 02/17/19 09:00 71 14 136/62 02/17/19 08:50 84 22 122/64 02/17/19 08:40 89 25 H 116/61 02/17/19 04:00 78 19 147/74 H 02/17/19 03:00 76 19 129/75 02/17/19 01:00 99 H 17 116/63 02/17/19 00:00 98.2 F 84 19 154/74 H 02/16/19 23:00 99 H 15 02/16/19 22:00 71 15 116/51 L 02/16/19 21:00 61 12 126/63 02/16/19 20:52 60 15 102/63 02/16/19 20:37 64 21 114/55 L 02/16/19 20:22 63 17 110/56 L 02/16/19 20:08 74 19 117/69 02/16/19 20:00 98.1 F 55 L 14 02/16/19 19:52 61 9 L 101/47 L 02/16/19 19:42 65 12 02/16/19 19:38 73 11 L 117/52 L 02/16/19 19:05 97.5 F L 66 22 121/64 02/16/19 18:40 97.7 F 68 14 113/69 02/16/19 18:30 63 20 115/69 02/16/19 18:20 69 22 147/61 H 02/16/19 18:10 83 20 107/66 02/16/19 17:50 80 16 102/61 02/16/19 17:40 82 15 92/56 L 02/16/19 17:30 69 12 95/62 L 02/16/19 17:20 71 15 109/75 02/16/19 17:10 74 16 109/60 02/16/19 17:00 75 14 94/68 L 02/16/19 16:54 97.7 F 89 20 111/79 Pulse Ox 12/14/19 09:23 96 02/17/19 09:15 96 02/17/19 09:11 96 02/17/19 09:00 95 02/17/19 08:50 95 02/17/19 08:40 93 02/17/19 04:00 97 02/17/19 03:00 98 02/17/19 01:00 96 02/17/19 00:00 97 02/16/19 23:00 95 02/16/19 22:00 99 02/16/19 21:00 99 02/16/19 20:52 100 02/16/19 20:37 100 02/16/19 20:22 100 02/16/19 20:08 100 02/16/19 20:00 98 02/16/19 19:52 98 02/16/19 19:42 99 02/16/19 19:38 97 02/16/19 19:05 98 02/16/19 18:40 97 02/16/19 18:30 98 02/16/19 18:20 95 02/16/19 18:10 97 02/16/19 17:50 96 02/16/19 17:40 95 02/16/19 17:30 96 02/16/19 17:20 97 02/16/19 17:10 98 02/16/19 17:00 97 02/16/19 16:54 97 Pain Intensity Bilateral Groin: Pain Intensity: 0 Left Groin: Pain Intensity: 0 Left Foot: Pain Intensity: 0 Transfer of Care Handoff Completed per policy Notes Mental Status: alert / awake / arousable and participated in evaluation Patient Amnestic to Procedure: Yes Nausea / Vomiting: adequately controlled Pain: adequately controlled Airway Patency, RR, SpO2: stable & adequate BP & HR: stable & adequate Hydration State: stable & adequate Anesthetic Complications: no major complications apparent and Pt Satisfied with anesthetic care
[2019-02-17] MEDS ORDERED: Heparin IV Standard *NO* Bolus IV SCH ×2 (11:00→18:20)
[2019-02-17] MEDS ORDERED: HEPARIN SODIUM/DEXTROSE 25,000 UNITS/500 ML BAG IV SCH (11:00)
[2019-02-17] MEDS: POTASSIUM CHLORIDE 20 MEQ TABCR PO SCH ×2 (12:09→20:35)
[2019-02-17] MEDS: CYANOCOBALAMIN (VITAMIN B-12) 100 MCG TABLET PO SCH (12:09)
[2019-02-17] MEDS: ASPIRIN 81 MG ECTAB PO SCH (12:09)
--- NOTE | 2019-02-17 12:25 | Billing Data ---
Date of Service February 17, 2019 Coding Level of Care Code 35788 Subseq Hosp Care Lvl 3
[2019-02-17] MEDS ORDERED: SODIUM CHLORIDE 0.9% 250 ML IV PRN (13:06)
[2019-02-17] MEDS ORDERED: SODIUM CHLORIDE 0.9% 500 ML IV SCH (13:15)
[2019-02-17 13:31] LABS: Hematocrit (blood only) 35.9 % (37-47); Hemoglobin 11.8 g/dL (12.0-16.0); Mean Corpuscular Hemoglobin 30.8 pg (25-34); Mean Corpuscular Hgb Conc 32.9 g/dL (32-36); Mean Corpuscular Volume 93.7 fL (80-100); Mean Platelet Volume 10.3 fL (7.4-10.4); Platelet Count 175 K/uL (130-400); RDW Standard Deviation 58.4 fL (36.4-46.3); Red Blood Count 3.83 M/uL (4.2-5.4); White Blood Count 12.06 K/uL (4.8-10.8)
[2019-02-17] MEDS ORDERED: PIPERACILL/TAZOBAC CONSULT ACTIVE PRN (13:54)
[2019-02-17] MEDS ORDERED: VANCOMYCIN CONSULT ACTIVE PRN (13:54)
[2019-02-17] MEDS ORDERED: PIPERACILLIN/TAZOBACTAM 3.375 GM in DEXTROSE 5% 100 ML IV SCH (14:00)
[2019-02-17] MEDS ORDERED: VANCOMYCIN HCL 1,000 MG in SODIUM CHLORIDE 0.9% 250 ML IV SCH (14:00)
[2019-02-17 14:08] LABS: Partial Thromboplastin Ratio 1.4; Partial Thromboplastin Time 38.5 Seconds (21.0-31.0); Prothrombin Time 10.7 Seconds (9.0-12.0)
[2019-02-17] MEDS ORDERED: CEFEPIME CONSULT ACTIVE PRN (14:40)
[2019-02-17] MEDS ORDERED: CEFEPIME 2,000 MG in SYRINGE 7.5 ML IV SCH ×2 (14:45→15:00)
[2019-02-17] MEDS ORDERED: VANCOMYCIN HCL 1,500 MG in SODIUM CHLORIDE 0.9% 500 ML IV SCH (15:00)
[2019-02-17] MEDS: CEFEPIME 2,000 MG in SYRINGE 7.5 ML IV SCH (15:58)
[2019-02-17 18:01] LABS: Hematocrit (blood only) 34.5 % (37-47); Hemoglobin 11.6 g/dL (12.0-16.0)
[2019-02-17] MEDS: WARFARIN SOD 5 MG TAB PO SCH (18:20)
[2019-02-17] MEDS: HEPARIN SODIUM/DEXTROSE 25,000 UNITS/500 ML BAG IV SCH (19:34)
[2019-02-17] MEDS ORDERED: HYDROmorphone INJ 0.5 MG/0.5 ML SYR IV STA (20:27)
[2019-02-17] MEDS: LISINOPRIL/HCTZ 20/12.5MG 1 TAB TAB PO SCH (20:34)
[2019-02-17] MEDS: OXYCODONE/ACETAMINOPHEN 5mg/325mg TAB PO PRN (22:08)
[2019-02-18] MEDS: CEFEPIME 2,000 MG in SYRINGE 7.5 ML IV SCH ×4 (00:46→23:53)
[2019-02-18 01:29] LABS: Hematocrit (blood only) 28.9 % (37-47); Hemoglobin 9.8 g/dL (12.0-16.0); Immature Granulocytes # (auto) 0.03 K/uL (0.00-0.02); Immature Granulocytes % (auto) 0.3 %; Lymphocytes # (auto) 1.12 K/uL (1.2-3.4); Lymphocytes % (auto) 11.9 %; Mean Corpuscular Hemoglobin 30.8 pg (25-34); Mean Corpuscular Hgb Conc 33.9 g/dL (32-36); Mean Corpuscular Volume 90.9 fL (80-100); Monocytes % (auto) 6.4 %; Neutrophils # (auto) 7.67 K/uL (1.4-6.5); Neutrophils % (auto) 81.4 %; Platelet Count 116 K/uL (130-400); RDW Coefficient of Variation 17.4 % (11.5-14.5); RDW Standard Deviation 58.3 fL (36.4-46.3); Red Blood Count 3.18 M/uL (4.2-5.4); White Blood Count 9.42 K/uL (4.8-10.8)
[2019-02-18 01:54] LABS: BUN Creatinine Ratio 18.3 (10-20); Calcium 7.7 mg/dl (8.5-10.1); Creatinine Clr Calc Pharmacy 79.1 ml/min; Est GFR (African American) 93.4; Est GFR (Non-African American) 80.6; Potassium 4.4 mmol/L (3.5-5.1)
[2019-02-18 02:14] LABS: INR 1.1 (0.9-1.1)
[2019-02-18 02:16] LABS: Partial Thromboplastin Time 54.3 Seconds (21.0-31.0)
[2019-02-18] MEDS: VANCOMYCIN HCL 1,250 MG in SODIUM CHLORIDE 0.9% 250 ML IV SCH ×2 (02:47→15:28)
[2019-02-18] MEDS: OXYCODONE/ACETAMINOPHEN 5mg/325mg TAB PO PRN ×3 (02:51→23:53)
--- NOTE | 2019-02-18 03:31 | Critical Care Progress Note ---
Date of Service February 18, 2019 Assessment & Plan (1) Admitted to intensive care unit: Reason Critically Ill: 54-year-old female status post vascular repair of LEFT femoral artery with findings concerning for infection with close proximity to graft requiring close hemodynamic monitoring status post intervention. NEURO - CAM ICU: NEGATIVE Pain: Morphine, Percocet. -Consider addition of Dilaudid as needed for breakthrough pain control. CARDIAC/VASCULAR - PAD s/p Repair of LEFT femoral graft: Intraoperative concerns for infection near graft. -Received IV Clindy pre op -continue vancomycin and cefepime -Narrow pending speciation and culture results Monitor pulses, sensation, ROM to the extremities s/p intervention. -pulses extremely difficult to find Monitor on telemetry. Hypotension Patient has been hypotensive since surgery. Hypotension Patient intermittently hypotensive postoperatively. Has received fluid resuscitation and blood. We will hold off on pressor support given this will likely compromise the recent graft. -Monitor pressures for now, if patient becomes hypotensive we will need to consider placing a central line and adding pressor support. -Difficult to maintain maps greater than 60. To consider pressor support today however there are concerns that her graft will ultimately fail -Management per Dr. Mustafa RESPIRATORY - No h/o respiratory disease. Saturating well on RA. GI/NUTRITION - Heart healthy diet RENAL/LYTES - Follow-up a.m. labs replete electrolytes as indicated - No concerns at this time. Abreu in place - Strict I&Os. ENDO - No h/o DM BSGs per unit protocol. ISS --> gtt per unit policy. Hypothyroidism --> continue home Rx HEME - Hemoglobin was 8.9 postoperatively received 3 units of blood hemoglobin is now 11.8 -f/u am labs ID - Concerns for infection near graft. Wound cultures pending. Started on empiric Vanco and cefepime Lactate downtrending most recent procalcitonin 0.15 -Repeat a.m. lactate LINES/IV ACCESS - PIVs x2 RIGHT Radial A-line. Abreu DVT PROPHYLAXIS - holding Coumadin. SCDs Thank you for allowing us to participate in the care of this patient. Please refer to my attending physician's documentation for any further recommendations. (2) Ischemia of left lower extremity: (3) Claudication of lower extremity: (4) HTN (hypertension): (5) Aortobifemoral bypass graft thrombosis: Supervising Physician Co-Signing Physician Notes Dr. Jimenez was the resident-physician during care of patient. I separately evaluated patient for guo portions of the history and the exam. I was present during the critical portion of medical decision making, and I discussed the case with the resident. I generally agree with the findings and plan except for any additions/exceptions noted. Patient is doing better today. She has some feeling in her left leg today. The color has improved in the left foot as well. There is a more appreciable pulse noted after discussion with the vascular surgeon. She is currently on vancomycin and cefepime given the concerns of the intraoperative infection seen on the initial surgery. She had some blood loss anemia and shock related to this which improved with volume resuscitation and blood products. She is having some issues with volume overload today and Dr. Mustafa ordered some IV Bumex to be given to help with diuresis. I also encourage incentive spirometry. Remain in the ICU for today as per Dr. Mustafa's recommendations. Subjective Patient sleeping in bed in no acute distress. We are called to the patient's room early in the evening for episodes of hypoxia. Lung sounds are clear on exam, patient asymptomatic, readjusted position in bed and hypoxia resolved. Otherwise patient has done well overnight, no acute events. Pressures are still soft difficult to maintain maps above 60. Reluctant to add pressor support secondary to recent vascular surgery. All questions answered, acute concerns at present relate to hypotension question whether she will need pressor support later in the day. Physical Exam Physical Exam: General: Middle-aged female in no acute distress lying comfortably in bed HEENT: Normocephalic atraumatic Neck: Normal to visual inspection, trachea midline Cardiac: Regular rate and rhythm, did not appreciate significant murmurs rubs or gallop, normal S1, normal S2, Respiratory: Clear to auscultation bilaterally with symmetrical chest rise I did not appreciate significant wheezes, rales, rhonchi. GI: Soft, nontender, nondistended, bowel sounds present MSK: Moves all extremities with the exception of left lower extremity Skin: Surgical site using, otherwise no acute concerns Neuro: Alert and oriented x4 Psych: Calm and cooperative Results & Data Vital Signs (Past 12 Hours) Vital Signs Temp Pulse Resp BP Pulse Ox 02/18/19 02:00 86 20 92/46 L 94 02/18/19 01:00 92 H 21 93/51 L 95 02/18/19 00:00 37.0 C 84 18 100/50 L 96 02/17/19 23:38 85 19 111/53 L 93 02/17/19 23:09 90 19 87 L 02/17/19 23:00 85 22 91/53 L 88 L 02/17/19 22:00 83 26 H 96/46 L 90 02/17/19 21:00 98 H 18 96/53 L 92 02/17/19 20:00 36.7 C 101 H 15 122/60 91 02/17/19 19:38 92 H 28 H 113/56 L 92 02/17/19 19:00 96 H 18 96/46 L 92 02/17/19 18:08 84 29 H 91/49 L 92 02/17/19 18:00 106 H 20 93 02/17/19 17:38 103 H 24 112/65 92 02/17/19 17:30 100 H 22 92 02/17/19 17:29 93 H 15 97/54 L 93 02/17/19 17:08 113 H 18 97/54 L 93 02/17/19 17:00 88 21 93 02/17/19 16:56 36.9 C 92 H 20 119/72 94 02/17/19 16:03 36.6 C 81 16 107/54 L 91 Laboratory Results 02/18/19 02/18/19 02/18/19 Range/Units 01:14 01:14 01:14 WBC 9.42 (4.8-10.8) K/uL RBC 3.18 L (4.2-5.4) M/uL Hgb 9.8 L (12.0-16.0) g/dL Hct 28.9 L (37-47) % MCV 90.9 (80-100) fL MCH 30.8 (25-34) pg MCHC 33.9 (32-36) g/dL RDW Std Deviation 58.3 H (36.4-46.3) fL RDW Coeff of Toribio 17.4 H (11.5-14.5) % Plt Count 116 L (130-400) K/uL MPV 10.0 (7.4-10.4) fL Immature Gran % (Auto) 0.3 % Neut % (Auto) 81.4 % Lymph % (Auto) 11.9 % Williamson % (Auto) 6.4 % Eos % (Auto) 0.0 % Baso % (Auto) 0.0 % Immature Gran # (Auto) 0.03 H (0.00-0.02) K/uL Neut # (Auto) 7.67 H (1.4-6.5) K/uL Lymph # (Auto) 1.12 L (1.2-3.4) K/uL Williamson # (Auto) 0.60 H (0.11-0.59) K/uL Eos # (Auto) 0.00 (0-0.5) K/uL Baso # (Auto) 0.00 (0-0.2) K/uL PT 11.0 (9.0-12.0) Seconds INR 1.1 (0.9-1.1) APTT 54.3 H* (21.0-31.0) Seconds PTT Ratio 2.0 ABG pH (7.35-7.45) ABG pCO2 (35-46) mmHg ABG pO2 (80-95) mm/Hg ABG HCO3 (19-24) mmol/L ABG O2 Saturation (90-95) % ABG Base Excess (-9-1.8) mEq/L Richard Test (Pos) Barometric Pressure mm/Hg Oxygen Given Sodium 141 (136-145) mmol/L Potassium 4.4 D (3.5-5.1) mmol/L Chloride 114 H (98-107) mmol/L Carbon Dioxide 24 (21-32) mmol/L Anion Gap 3.0 (3-11) BUN 15 D (7-18) mg/dl Creatinine 0.82 (0.6-1.2) mg/dl Est Cr Clr Drug Dosing 79.1 ml/min Est GFR ( Amer) 93.4 Est GFR (Non-Af Amer) 80.6 BUN/Creatinine Ratio 18.3 (10-20) Glucose 125 H (70-99) mg/dl POC Glucose (70-99) Lactate (0.4-2.0) mmol/L Calcium 7.7 L (8.5-10.1) mg/dl Procalcitonin (0-0.5) ng/ml Blood Type Antibody Screen Crossmatch 02/17/19 02/17/19 02/17/19 Range/Units 19:23 17:50 16:37 WBC (4.8-10.8) K/uL RBC (4.2-5.4) M/uL Hgb 11.6 L (12.0-16.0) g/dL Hct 34.5 L (37-47) % MCV (80-100) fL MCH (25-34) pg MCHC (32-36) g/dL RDW Std Deviation (36.4-46.3) fL RDW Coeff of Toribio (11.5-14.5) % Plt Count (130-400) K/uL MPV (7.4-10.4) fL Immature Gran % (Auto) % Neut % (Auto) % Lymph % (Auto) % Williamson % (Auto) % Eos % (Auto) % Baso % (Auto) % Immature Gran # (Auto) (0.00-0.02) K/uL Neut # (Auto) (1.4-6.5) K/uL Lymph # (Auto) (1.2-3.4) K/uL Williamson # (Auto) (0.11-0.59) K/uL Eos # (Auto) (0-0.5) K/uL Baso # (Auto) (0-0.2) K/uL PT (9.0-12.0) Seconds INR (0.9-1.1) APTT (21.0-31.0) Seconds PTT Ratio ABG pH (7.35-7.45) ABG pCO2 (35-46) mmHg ABG pO2 (80-95) mm/Hg ABG HCO3 (19-24) mmol/L ABG O2 Saturation (90-95) % ABG Base Excess (-9-1.8) mEq/L Richard Test (Pos) Barometric Pressure mm/Hg Oxygen Given Sodium (136-145) mmol/L Potassium (3.5-5.1) mmol/L Chloride (98-107) mmol/L Carbon Dioxide (21-32) mmol/L Anion Gap (3-11) BUN (7-18) mg/dl Creatinine (0.6-1.2) mg/dl Est Cr Clr Drug Dosing ml/min Est GFR ( Amer) Est GFR (Non-Af Amer) BUN/Creatinine Ratio (10-20) Glucose (70-99) mg/dl POC Glucose 130 H (70-99) Lactate 2.5 H* (0.4-2.0) mmol/L Calcium (8.5-10.1) mg/dl Procalcitonin (0-0.5) ng/ml Blood Type Antibody Screen Crossmatch 02/17/19 02/17/19 02/17/19 Range/Units 14:20 14:20 13:21 WBC (4.8-10.8) K/uL RBC (4.2-5.4) M/uL Hgb (12.0-16.0) g/dL Hct (37-47) % MCV (80-100) fL MCH (25-34) pg MCHC (32-36) g/dL RDW Std Deviation (36.4-46.3) fL RDW Coeff of Toribio (11.5-14.5) % Plt Count (130-400) K/uL MPV (7.4-10.4) fL Immature Gran % (Auto) % Neut % (Auto) % Lymph % (Auto) % Williamson % (Auto) % Eos % (Auto) % Baso % (Auto) % Immature Gran # (Auto) (0.00-0.02) K/uL Neut # (Auto) (1.4-6.5) K/uL Lymph # (Auto) (1.2-3.4) K/uL Williamson # (Auto) (0.11-0.59) K/uL Eos # (Auto) (0-0.5) K/uL Baso # (Auto) (0-0.2) K/uL PT 10.7 (9.0-12.0) Seconds INR 1.0 (0.9-1.1) APTT 38.5 H (21.0-31.0) Seconds PTT Ratio 1.4 ABG pH (7.35-7.45) ABG pCO2 (35-46) mmHg ABG pO2 (80-95) mm/Hg ABG HCO3 (19-24) mmol/L ABG O2 Saturation (90-95) % ABG Base Excess (-9-1.8) mEq/L Richard Test (Pos) Barometric Pressure mm/Hg Oxygen Given Sodium (136-145) mmol/L Potassium (3.5-5.1) mmol/L Chloride (98-107) mmol/L Carbon Dioxide (21-32) mmol/L Anion Gap (3-11) BUN (7-18) mg/dl Creatinine (0.6-1.2) mg/dl Est Cr Clr Drug Dosing ml/min Est GFR ( Amer) Est GFR (Non-Af Amer) BUN/Creatinine Ratio (10-20) Glucose (70-99) mg/dl POC Glucose (70-99) Lactate 3.4 H* (0.4-2.0) mmol/L Calcium (8.5-10.1) mg/dl Procalcitonin 0.15 (0-0.5) ng/ml Blood Type Antibody Screen Crossmatch 02/17/19 02/17/19 02/17/19 Range/Units 13:09 11:04 07:20 WBC 12.06 H (4.8-10.8) K/uL RBC 3.83 L (4.2-5.4) M/uL Hgb 11.8 L (12.0-16.0) g/dL Hct 35.9 L (37-47) % MCV 93.7 (80-100) fL MCH 30.8 (25-34) pg MCHC 32.9 (32-36) g/dL RDW Std Deviation 58.4 H (36.4-46.3) fL RDW Coeff of Toribio 17.0 H (11.5-14.5) % Plt Count 175 (130-400) K/uL MPV 10.3 (7.4-10.4) fL Immature Gran % (Auto) % Neut % (Auto) % Lymph % (Auto) % Williamson % (Auto) % Eos % (Auto) % Baso % (Auto) % Immature Gran # (Auto) (0.00-0.02) K/uL Neut # (Auto) (1.4-6.5) K/uL Lymph # (Auto) (1.2-3.4) K/uL Williamson # (Auto) (0.11-0.59) K/uL Eos # (Auto) (0-0.5) K/uL Baso # (Auto) (0-0.2) K/uL PT (9.0-12.0) Seconds INR (0.9-1.1) APTT (21.0-31.0) Seconds PTT Ratio ABG pH (7.35-7.45) ABG pCO2 (35-46) mmHg ABG pO2 (80-95) mm/Hg ABG HCO3 (19-24) mmol/L ABG O2 Saturation (90-95) % ABG Base Excess (-9-1.8) mEq/L Richard Test (Pos) Barometric Pressure mm/Hg Oxygen Given Sodium (136-145) mmol/L Potassium (3.5-5.1) mmol/L Chloride (98-107) mmol/L Carbon Dioxide (21-32) mmol/L Anion Gap (3-11) BUN (7-18) mg/dl Creatinine (0.6-1.2) mg/dl Est Cr Clr Drug Dosing ml/min Est GFR ( Amer) Est GFR (Non-Af Amer) BUN/Creatinine Ratio (10-20) Glucose (70-99) mg/dl POC Glucose 100 H (70-99) Lactate 2.3 H* (0.4-2.0) mmol/L Calcium (8.5-10.1) mg/dl Procalcitonin (0-0.5) ng/ml Blood Type Antibody Screen Crossmatch 02/17/19 02/17/19 02/17/19 Range/Units 07:20 07:20 07:20 WBC (4.8-10.8) K/uL RBC (4.2-5.4) M/uL Hgb (12.0-16.0) g/dL Hct (37-47) % MCV (80-100) fL MCH (25-34) pg MCHC (32-36) g/dL RDW Std Deviation (36.4-46.3) fL RDW Coeff of Toribio (11.5-14.5) % Plt Count (130-400) K/uL MPV (7.4-10.4) fL Immature Gran % (Auto) % Neut % (Auto) % Lymph % (Auto) % Williamson % (Auto) % Eos % (Auto) % Baso % (Auto) % Immature Gran # (Auto) (0.00-0.02) K/uL Neut # (Auto) (1.4-6.5) K/uL Lymph # (Auto) (1.2-3.4) K/uL Williamson # (Auto) (0.11-0.59) K/uL Eos # (Auto) (0-0.5) K/uL Baso # (Auto) (0-0.2) K/uL PT 12.9 H (9.0-12.0) Seconds INR 1.3 H (0.9-1.1) APTT (21.0-31.0) Seconds PTT Ratio ABG pH 7.38 (7.35-7.45) ABG pCO2 44 (35-46) mmHg ABG pO2 76 L (80-95) mm/Hg ABG HCO3 26 H (19-24) mmol/L ABG O2 Saturation 95.0 (90-95) % ABG Base Excess 0.5 (-9-1.8) mEq/L Richard Test Pos (Pos) Barometric Pressure 719.9 mm/Hg Oxygen Given 2L Sodium 144 (136-145) mmol/L Potassium 3.1 L (3.5-5.1) mmol/L Chloride 112 H (98-107) mmol/L Carbon Dioxide 27 (21-32) mmol/L Anion Gap 5.0 (3-11) BUN 8 (7-18) mg/dl Creatinine 0.61 (0.6-1.2) mg/dl Est Cr Clr Drug Dosing 106.4 ml/min Est GFR ( Amer) 118.3 Est GFR (Non-Af Amer) 102.1 BUN/Creatinine Ratio 13.0 (10-20) Glucose 185 H (70-99) mg/dl POC Glucose (70-99) Lactate (0.4-2.0) mmol/L Calcium 8.1 L (8.5-10.1) mg/dl Procalcitonin (0-0.5) ng/ml Blood Type Antibody Screen Crossmatch 02/17/19 02/16/19 Range/Units 07:20 08:31 WBC 5.86 (4.8-10.8) K/uL RBC 2.77 L (4.2-5.4) M/uL Hgb 8.9 L (12.0-16.0) g/dL Hct 26.9 L (37-47) % MCV 97.1 (80-100) fL MCH 32.1 (25-34) pg MCHC 33.1 (32-36) g/dL RDW Std Deviation 52.5 H (36.4-46.3) fL RDW Coeff of Toribio 14.6 H (11.5-14.5) % Plt Count 168 (130-400) K/uL MPV 10.0 (7.4-10.4) fL Immature Gran % (Auto) 0.5 % Neut % (Auto) 79.9 % Lymph % (Auto) 15.7 % Williamson % (Auto) 3.4 % Eos % (Auto) 0.3 % Baso % (Auto) 0.2 % Immature Gran # (Auto) 0.03 H (0.00-0.02) K/uL Neut # (Auto) 4.68 (1.4-6.5) K/uL Lymph # (Auto) 0.92 L (1.2-3.4) K/uL Williamson # (Auto) 0.20 (0.11-0.59) K/uL Eos # (Auto) 0.02 (0-0.5) K/uL Baso # (Auto) 0.01 (0-0.2) K/uL PT (9.0-12.0) Seconds INR (0.9-1.1) APTT (21.0-31.0) Seconds PTT Ratio ABG pH (7.35-7.45) ABG pCO2 (35-46) mmHg ABG pO2 (80-95) mm/Hg ABG HCO3 (19-24) mmol/L ABG O2 Saturation (90-95) % ABG Base Excess (-9-1.8) mEq/L Richard Test (Pos) Barometric Pressure mm/Hg Oxygen Given Sodium (136-145) mmol/L Potassium (3.5-5.1) mmol/L Chloride (98-107) mmol/L Carbon Dioxide (21-32) mmol/L Anion Gap (3-11) BUN (7-18) mg/dl Creatinine (0.6-1.2) mg/dl Est Cr Clr Drug Dosing ml/min Est GFR ( Amer) Est GFR (Non-Af Amer) BUN/Creatinine Ratio (10-20) Glucose (70-99) mg/dl POC Glucose (70-99) Lactate (0.4-2.0) mmol/L Calcium (8.5-10.1) mg/dl Procalcitonin (0-0.5) ng/ml Blood Type A Positive Antibody Screen NEGATIVE Crossmatch See Detail Medications Administered Current Inpatient Medications Aspirin (Ecotrin Ectab) 81 mg PO DAILY [facility] Stop: 03/19/19 08:59 Last Admin: 02/17/19 12:09 Dose: 81 mg Documented by: Cyanocobalamin (Vitamin B-12) 100 mcg PO DAILY [facility] Stop: 03/19/19 08:59 Last Admin: 02/17/19 12:09 Dose: 100 mcg Documented by: Lisinopril/HCTZ (Prinzide 20/12.5mg) 1 tab PO HS [facility] Stop: 03/18/19 20:59 Last Admin: 02/17/19 20:34 Dose: 1 tab Documented by: Lactated Ringer's (Lr) 1,000 mls @ 125 mls/hr IV .Q8H [facility] Stop: 03/18/19 19:14 Last Admin: 02/17/19 22:48 Dose: 125 mls/hr Documented by: Vancomycin HCl 1,250 mg/ (Sodium Chloride) 275 mls @ 125 mls/hr IV Q12H [facility]; Protocol Stop: 02/20/19 02:59 Last Admin: 02/18/19 02:47 Dose: 125 mls/hr Documented by: Cefepime HCl 2,000 mg/ Syringe 20 mls @ 5 mls/min IV Q8H [facility]; Protocol Stop: 02/19/19 14:59 Last Admin: 02/18/19 00:46 Dose: 5 mls/min Documented by: Heparin Sodium/Dextrose (Heparin Sodium/Dextrose) 25,000 units in 500 mls @ 23 mls/hr IV .[id number] [facility]; Protocol Stop: 03/19/19 17:44 Last Titration: 02/18/19 02:40 Dose: 1,150 units/hr, 23 mls/hr Documented by: Levothyroxine Sodium (Synthroid) 88 mcg PO [email or web address] [facility] Stop: 03/20/19 06:29 Miscellaneous Information (Consult) 1 ea N/A UD PRN PRN Reason: Consult Stop: 03/19/19 13:53 Miscellaneous Information (Cefepime Consult Active) 1 ea N/A UD PRN PRN Reason: Consult Stop: 03/19/19 14:39 Morphine Sulfate (Morphine Sulfate) 1 - 4 mg IV Q2H PRN PRN Reason: Severe Pain Stop: 03/02/19 16:06 Last Admin: 02/17/19 19:33 Dose: 2 mg Documented by: Ondansetron HCl (Zofran) 4 mg IV Q6H PRN PRN Reason: Nausea And Vomiting Stop: 03/18/19 16:06 Oxycodone/Acetaminophen (Percocet 5mg/325mg) 1 - 2 tab PO Q4H PRN PRN Reason: Moderate Pain Stop: 03/02/19 16:06 Last Admin: 02/18/19 02:51 Dose: 2 tab Documented by: Warfarin Sodium (Coumadin) 5 mg PO [email or web address] [facility] Stop: 03/19/19 15:59 Last Admin: 02/17/19 18:20 Dose: 5 mg Documented by: Warfarin Sodium (Coumadin) 7.5 mg PO [email or web address] [facility] Stop: 03/20/19 15:59 Resident Activity Tracking Resident Involvement: Resident Care Provided Care Provided: Adult Hospital Medicine (icu)
[2019-02-18 04:34] LABS: Basophils # (auto) 0.01 K/uL (0-0.2); Basophils % (auto) 0.1 %; Eosinophils # (auto) 0.01 K/uL (0-0.5); Eosinophils % (auto) 0.1 %; Hematocrit (blood only) 28.1 % (37-47); Hemoglobin 9.5 g/dL (12.0-16.0); Immature Granulocytes # (auto) 0.03 K/uL (0.00-0.02); Immature Granulocytes % (auto) 0.3 %; Lymphocytes # (auto) 1.27 K/uL (1.2-3.4); Lymphocytes % (auto) 13.2 %; Mean Corpuscular Hemoglobin 30.7 pg (25-34); Mean Corpuscular Hgb Conc 33.8 g/dL (32-36); Mean Corpuscular Volume 90.9 fL (80-100); Mean Platelet Volume 10.1 fL (7.4-10.4); Monocytes # (auto) 0.42 K/uL (0.11-0.59); Monocytes % (auto) 4.4 %; Neutrophils # (auto) 7.86 K/uL (1.4-6.5); Neutrophils % (auto) 81.9 %; Platelet Count 117 K/uL (130-400); RDW Coefficient of Variation 17.5 % (11.5-14.5); RDW Standard Deviation 58.4 fL (36.4-46.3); Red Blood Count 3.09 M/uL (4.2-5.4)
[2019-02-18] MEDS ORDERED: LACTATED RINGER'S 250 ML IV ONE ×2 (04:44→05:09)
[2019-02-18 04:58] LABS: BUN Creatinine Ratio 18.9 (10-20); Calcium 7.8 mg/dl (8.5-10.1); Creatinine Clr Calc Pharmacy 78.2 ml/min; Est GFR (Non-African American) 79.4; Magnesium 1.5 mg/dl (1.8-2.4); Phosphorus 2.7 mg/dl (2.5-4.9); Potassium 4.7 mmol/L (3.5-5.1)
[2019-02-18] MEDS ORDERED: SODIUM CHLORIDE 0.9% 250 ML IV PRN (05:12)
[2019-02-18] MEDS: LEVOTHYROXINE SODIUM 88 MCG TABLET PO SCH (06:41)
--- NOTE | 2019-02-18 07:06 | XRay Report ---
XR chest 1V portable CLINICAL HISTORY: 54 years-old Female presenting with f/u. TECHNIQUE: Portable upright AP view of the chest was obtained. COMPARISON: 11/20/2018. FINDINGS: Cardiomediastinal silhouette normal. Mild pulmonary vascular prominence. Bronchial wall thickening is suspected. Interstitial prominence. Mildly low lung volumes. Bibasilar opacities. No large pleural e ffusion. No pneumothorax. Osseous structures normal. Numerous external leads overlie the lower thorax and upper abdomen. IMPRESSION: 1. Mild volume overload and congestive change suspected. Less likely this appearance could relate to bronchitis/bronchiolitis. 2. Bibasilar opacities could represent developing edema or atelectasis. Less likely this could repre sent aspiration. Follow-up to be considered. Electronically signed by: Fernie David M.D. 02/18/2019 7:05 AM
--- NOTE | 2019-02-18 07:50 | Anesthesiology Progress Note ---
Date of Service February 18, 2019 Anesthesia Post Procedure Vital Signs Vital Signs: Temp Pulse Pulse Resp BP BP Pulse Ox 02/18/19 07:30 36.6 C 76 18 104/45 L 90 02/18/19 06:30 36.7 C 65 20 106/47 L 93 02/18/19 06:00 36.7 C 75 24 72/34 L 94 02/18/19 05:45 36.6 C 72 24 93/44 L 91 02/18/19 05:33 81 22 93/47 L 89 L 02/18/19 05:28 36.8 C 79 22 93/46 L 90 02/18/19 05:25 78 23 93/46 L 91 02/18/19 05:18 79 23 96/44 L 90 02/18/19 05:15 88 29 H 87/40 L 91 02/18/19 05:07 79 23 80/40 L 90 02/18/19 05:03 78 25 H 73/34 L 91 02/18/19 05:00 80 23 88 L 02/18/19 04:38 85 21 81/39 L 02/18/19 04:13 85 21 84/46 L 92 02/18/19 04:00 91 H 23 86/38 L 92 02/18/19 03:00 86 24 94/43 L 96 02/18/19 02:00 86 20 92/46 L 94 02/18/19 01:00 92 H 21 93/51 L 95 02/18/19 00:00 37.0 C 84 18 100/50 L 96 02/17/19 23:38 85 19 111/53 L 93 02/17/19 23:09 90 19 87 L 02/17/19 23:00 85 22 91/53 L 88 L 02/17/19 22:00 83 26 H 96/46 L 90 02/17/19 21:00 98 H 18 96/53 L 92 02/17/19 20:00 36.7 C 101 H 15 122/60 91 02/17/19 19:38 92 H 28 H 113/56 L 92 02/17/19 19:00 96 H 18 96/46 L 92 02/17/19 18:08 84 29 H 91/49 L 92 02/17/19 18:00 106 H 20 93 02/17/19 17:38 103 H 24 112/65 92 02/17/19 17:30 100 H 22 92 02/17/19 17:29 93 H 15 97/54 L 93 02/17/19 17:08 113 H 18 97/54 L 93 02/17/19 17:00 88 21 93 02/17/19 16:56 36.9 C 92 H 20 119/72 94 02/17/19 16:03 36.6 C 81 16 107/54 L 91 02/17/19 15:03 36.7 C 70 16 106/66 97 02/17/19 14:33 36.6 C 95 H 18 94/77 L 96 02/17/19 14:18 36.6 C 73 16 103/59 L 96 02/17/19 14:15 96 H 23 91/61 L 96 02/17/19 14:00 36.9 C 88 15 93/51 L 95 02/17/19 13:30 79 19 96 02/17/19 13:23 101 H 18 82/60 L 96 02/17/19 13:00 104 H 20 94 02/17/19 12:30 115 H 18 96 02/17/19 12:29 113 H 17 88/59 L 96 02/17/19 12:23 126 H 21 80/55 L 96 02/17/19 12:15 36.9 C 130 H 16 95/81 L 96 02/17/19 12:00 104 H 15 96 02/17/19 11:30 111 H 20 95 02/17/19 11:25 36.7 C 115 H 20 131/95 94 02/17/19 11:22 120 H 35 H 135/77 92 02/17/19 11:18 99 H 27 H 112/69 97 02/17/19 11:13 82 15 98/68 L 97 02/17/19 11:08 80 24 113/70 95 02/17/19 11:03 96 H 22 110/72 96 02/17/19 11:00 72 18 96 02/17/19 10:58 96 H 18 119/78 96 02/17/19 10:53 85 27 H 113/74 95 02/17/19 10:43 93 H 17 64/58 L 93 02/17/19 10:38 78 20 119/61 96 02/17/19 10:33 86 19 131/79 95 02/17/19 10:30 86 16 94 02/17/19 10:28 93 H 17 105/71 94 02/17/19 10:25 36.9 C 68 16 113/70 97 02/17/19 10:23 72 13 95 02/17/19 10:18 85 21 108/68 96 02/17/19 10:13 69 11 L 96 02/17/19 10:08 75 17 95/69 L 94 02/17/19 10:03 66 10 L 99/59 L 95 02/17/19 10:00 66 11 L 94 02/17/19 09:58 64 15 129/70 96 02/17/19 09:55 36.8 C 67 16 95/66 L 94 02/17/19 09:53 69 22 128/56 L 95 02/17/19 09:47 83 28 H 133/76 94 02/17/19 09:42 69 24 120/70 93 02/17/19 09:37 95 H 17 122/65 92 02/17/19 09:33 98 H 19 119/73 95 02/17/19 09:30 74 16 93 02/17/19 09:23 36.4 C L 76 16 128/86 96 02/17/19 09:15 36.4 C L 74 26 H 109/79 96 02/17/19 09:11 94 H 22 156/82 H 96 02/17/19 09:00 71 14 136/62 95 02/17/19 08:50 84 22 122/64 95 02/17/19 08:40 89 25 H 116/61 93 Pain Intensity Bilateral Groin: Pain Intensity: 0 Left Groin: Pain Intensity: 0 Left Foot: Pain Intensity: 0 Notes Mental Status: see notes below (pt was sleeping; spoke with RN) Patient Amnestic to Procedure: Yes Nausea / Vomiting: adequately controlled Pain: adequately controlled Airway Patency, RR, SpO2: stable & adequate BP & HR: see Notes below (pt has been periodically hypotensive; Pt had recieved 1 unit PRBCs over night (4 units total since procedure)) Hydration State: stable & adequate Anesthetic Complications: no major complications apparent
--- NOTE | 2019-02-18 08:53 | Surgery Progress Note ---
Date of Service February 18, 2019 Assessment & Plan (1) Ischemia of left lower extremity: This point her grafts appear patent. She has had good flow to her foot and viability of the left foot. We will give her a dose of Bumex today to help with the edema and get her out of bed into a chair. 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 (3) History of fasciotomy: Will change dressing of the fasciotomies tomorrow. They will will require VAC in in the next few days. Subjective Patient is awake and alert. She claims her foot feels fine. She denies any pain in her foot she claims she could feel and wiggle her toes of the left foot. Physical Exam Physical Exam: On exam she has a dorsalis pedis pulse on the left foot that is dopplerable. Posterior tibial is also Doppler but intermittently. Incisions are dry with dressings intact. She is able to feel me touching her toes on the left foot. She is able to wiggle her toes. She does a appears slightly edematous with requiring oxygen mask to keep her sats above 90. Constitutional: WD/WN, vitals as above Results & Data Vital Signs (Past 12 Hours) Vital Signs Temp Pulse Resp BP Pulse Ox 02/18/19 08:23 36.4 C L 72 19 96/55 L 93 02/18/19 08:19 68 19 94 02/18/19 08:05 75 19 86/38 L 91 02/18/19 07:33 63 19 85/40 L 93 02/18/19 07:30 36.6 C 76 18 104/45 L 90 02/18/19 06:30 36.7 C 65 20 106/47 L 93 02/18/19 06:00 36.7 C 75 24 72/34 L 94 02/18/19 05:45 36.6 C 72 24 93/44 L 91 02/18/19 05:33 81 22 93/47 L 89 L 02/18/19 05:28 36.8 C 79 22 93/46 L 90 02/18/19 05:25 78 23 93/46 L 91 02/18/19 05:18 79 23 96/44 L 90 02/18/19 05:15 88 29 H 87/40 L 91 02/18/19 05:07 79 23 80/40 L 90 02/18/19 05:03 78 25 H 73/34 L 91 02/18/19 05:00 80 23 88 L 02/18/19 04:38 85 21 81/39 L 02/18/19 04:13 85 21 84/46 L 92 02/18/19 04:00 91 H 23 86/38 L 92 02/18/19 03:00 86 24 94/43 L 96 02/18/19 02:00 86 20 92/46 L 94 02/18/19 01:00 92 H 21 93/51 L 95 02/18/19 00:00 37.0 C 84 18 100/50 L 96 02/17/19 23:38 85 19 111/53 L 93 02/17/19 23:09 90 19 87 L 02/17/19 23:00 85 22 91/53 L 88 L 02/17/19 22:00 83 26 H 96/46 L 90 02/17/19 21:00 98 H 18 96/53 L 92
[2019-02-18] MEDS ORDERED: BUMETANIDE 1 MG TAB PO ONE (09:00)
--- NOTE | 2019-02-18 09:31 | Billing Data ---
Date of Service February 18, 2019 Coding Level of Care Code 83393 Subseq Hosp Care Lvl 2
[2019-02-18] MEDS: CYANOCOBALAMIN (VITAMIN B-12) 100 MCG TABLET PO SCH (09:34)
[2019-02-18] MEDS: ASPIRIN 81 MG ECTAB PO SCH (09:34)
[2019-02-18] MEDS: LACTATED RINGER'S 1,000 ML IV SCH ×3 (09:34→19:55)
--- NOTE | 2019-02-18 10:07 | Pharmacy Report ---
Pharmacy Abx Initial Consult - Date of Service February 18, 2019 - Pharmacy Dosing Scope Date of Consult: 02/17/19 Consultation requested by: Dr. Jaydon Jimenez Pharmacy is consulted to initiate vancomycin and cefepime IV dosing therapy, order appropriate labs and adjust drug dose/frequency. - Subjective The patient is a 54 year old F admitted on 02/16/19 16:07. - Objective Height: 5 ft 6 in Weight: 77.4 kg Vital Signs (Past 12hrs): Vital Signs Temp Pulse Resp BP Pulse Ox 02/18/19 08:23 36.4 C L 72 19 96/55 L 93 02/18/19 08:19 68 19 94 02/18/19 08:05 75 19 86/38 L 91 02/18/19 07:33 63 19 85/40 L 93 02/18/19 07:30 36.6 C 76 18 104/45 L 90 02/18/19 06:30 36.7 C 65 20 106/47 L 93 02/18/19 06:00 36.7 C 75 24 72/34 L 94 02/18/19 05:45 36.6 C 72 24 93/44 L 91 02/18/19 05:33 81 22 93/47 L 89 L 02/18/19 05:28 36.8 C 79 22 93/46 L 90 02/18/19 05:25 78 23 93/46 L 91 02/18/19 05:18 79 23 96/44 L 90 02/18/19 05:15 88 29 H 87/40 L 91 02/18/19 05:07 79 23 80/40 L 90 02/18/19 05:03 78 25 H 73/34 L 91 02/18/19 05:00 80 23 88 L 02/18/19 04:38 85 21 81/39 L 02/18/19 04:13 85 21 84/46 L 92 02/18/19 04:00 91 H 23 86/38 L 92 02/18/19 03:00 86 24 94/43 L 96 02/18/19 02:00 86 20 92/46 L 94 02/18/19 01:00 92 H 21 93/51 L 95 02/18/19 00:00 37.0 C 84 18 100/50 L 96 02/17/19 23:38 85 19 111/53 L 93 02/17/19 23:09 90 19 87 L 02/17/19 23:00 85 22 91/53 L 88 L Lab Results (24hrs): Laboratory Tests (24 Hours) 02/18/19 02/18/19 02/18/19 04:25 04:25 01:14 WBC 9.60 Neut # (Auto) 7.86 H Creatinine 0.83 0.82 Est Cr Clr Drug Dosing 78.2 79.1 Procalcitonin 02/18/19 02/17/19 02/17/19 01:14 14:20 13:09 WBC 9.42 12.06 H Neut # (Auto) 7.67 H Creatinine Est Cr Clr Drug Dosing Procalcitonin 0.15 Micro Results: 02/16/19 16:30 Gram Stain - Final Foreign Body 02/16/19 Unknown Gram Stain - Final Abdomen, Left Lower Quadrant 02/16/19 Unknown Gram Stain - Final Groin - Assessment & Plan Assessment * 54 year old F s/p vascular repair of L femoral artery * Intraoperative concerns for infection near graft * Received clindamycin preoperatively; subsequently transitioned to vancomycin and cefepime postop Plan Vancomycin IV * Estimated PK Parameters: Vd 0.5 L/kg, Sebastian 0.083 hr-1, t1/2 8 hr * Loading dose: 1500 mg (21 mg/kg) * Maintenance dose: 1250 mg IV (16 mg/kg) every 12 hours * Goal trough level: 15 to 20 mcg/mL * Trough level ordered for 02/19/19 at 1430 prior to the 4th dose Cefepime IV * 2g IV q8h initiated per Dr. Jimenez * Pt's CrCl is more than 60 ml/min and therefore does not warrant a renal dose adjustment at this time Pharmacy will continue to follow and will adjust dose/frequency as necessary. Thank you.
[2019-02-18] MEDS: WARFARIN SOD 7.5 MG TAB PO SCH (18:08)
[2019-02-18] MEDS: HEPARIN SODIUM/DEXTROSE 25,000 UNITS/500 ML BAG IV SCH (19:29)
[2019-02-18] MEDS: LISINOPRIL/HCTZ 20/12.5MG 1 TAB TAB PO SCH (20:40)
[2019-02-19] MEDS: VANCOMYCIN HCL 1,250 MG in SODIUM CHLORIDE 0.9% 250 ML IV SCH (02:48)
[2019-02-19 05:21] LABS: INR 1.3 (0.9-1.1); Partial Thromboplastin Ratio 3.2; Prothrombin Time 12.9 Seconds (9.0-12.0)
[2019-02-19 05:25] LABS: Calcium 8.2 mg/dl (8.5-10.1); Creatinine Clr Calc Pharmacy 119.2 ml/min; Est GFR (African American) 121.7; Magnesium 1.6 mg/dl (1.8-2.4); Phosphorus 2.7 mg/dl (2.5-4.9); Potassium 3.6 mmol/L (3.5-5.1)
[2019-02-19 05:31] LABS: Partial Thromboplastin Time 86.3 Seconds (21.0-31.0)
[2019-02-19] MEDS: LACTATED RINGER'S 1,000 ML IV SCH (05:48)
[2019-02-19] MEDS: LEVOTHYROXINE SODIUM 88 MCG TABLET PO SCH (06:14)
--- NOTE | 2019-02-19 07:34 | XRay Report ---
XR chest 1V portable HISTORY: 54 years-old Female f/u follow-up study in a patient with shortness of breath COMPARISON: Chest radiograph 02/18/2019 TECHNIQUE: Portable AP view of the chest FINDINGS: Cardiac silhouette is enlarged, unchanged. Pulmonary vascular congestion. No pneumothorax, or large p leural effusion. Diffuse bilateral interstitial opacities have mildly worsened from comparison. Super imposed bibasilar and left perihilar airspace opacities. Bones appear grossly intact. IMPRESSION: 1. Cardiomegaly with progressively worsened bilateral interstitial opacities with left greater than r ight perihilar and bibasilar alveolar opacities suggestive of pulmonary edema and/or multifocal pneum onia. Correlate clinically. The above report was generated using voice recognition software. It may contain grammatical, syntax o r spelling errors. Electronically signed by: Yash Martinez M.D. 02/19/2019 7:32 AM
[2019-02-19] MEDS: CYANOCOBALAMIN (VITAMIN B-12) 100 MCG TABLET PO SCH (07:50)
[2019-02-19] MEDS: ASPIRIN 81 MG ECTAB PO SCH (07:50)
[2019-02-19] MEDS: CEFEPIME 2,000 MG in SYRINGE 7.5 ML IV SCH (07:50)
--- NOTE | 2019-02-19 07:58 | Critical Care Progress Note ---
Date of Service February 19, 2019 Assessment & Plan (1) Admitted to intensive care unit: Reason Critically Ill: 54-year-old female status post vascular repair of LEFT femoral artery with findings concerning for infection with close proximity to graft requiring close hemodynamic monitoring status post intervention. NEURO - CAM ICU: NEGATIVE Pain: Morphine, Percocet. -Consider addition of Dilaudid as needed for breakthrough pain control. CARDIAC/VASCULAR - PAD s/p Repair of LEFT femoral graft: Intraoperative concerns for infection near graft. -Received IV Clindy pre op -D/C vancomycin and cefepime -Cultures NGTD Monitor pulses, sensation, ROM to the extremities s/p intervention. Monitor on telemetry. Hypotension resolved Patient intermittently hypotensive postoperatively. Has received fluid resuscitation and blood. We will hold off on pressor support given this will l ikely compromise the recent graft. Now hypertensive status post 7+ liters fluid resuscitation. -Diuresis per Dr. Mustafa -1 mg bumex RESPIRATORY - Pulmonary edema CXR consistent with diuresis per [facility] GI/NUTRITION - Heart healthy diet RENAL/LYTES - Follow-up a.m. labs replete electrolytes as indicated - No concerns at this time. Abreu in place - Strict I&Os. ENDO - No h/o DM BSGs per unit protocol. ISS --> gtt per unit policy. Hypothyroidism --> continue home Rx HEME - Hemoglobin was 8.9 postoperatively received 3 units of blood hemoglobin is now 11.8 -hgb 10.3 ID - Concerns for infection near graft. Wound cultures NGTD Lactate downtrending most recent procalcitonin 0.15 -a.m. lactate 1.3 LINES/IV ACCESS - PIVs x2 RIGHT Radial A-line. Abreu DVT PROPHYLAXIS - holding Coumadin. SCDs Thank you for allowing us to participate in the care of this patient. Please refer to my attending physician's documentation for any further recommendations. (2) Ischemia of left lower extremity: (3) Claudication of lower extremity: (4) HTN (hypertension): (5) Aortobifemoral bypass graft thrombosis: Supervising Physician Co-Signing Physician Notes Dr. Jimenez was the resident-physician during care of patient. I separately evaluated patient for guo portions of the history and the exam. I was present during the critical portion of medical decision making, and I discussed the case with the resident. I generally agree with the findings and plan except for any additions/exceptions noted. Patient still requiring supplemental oxygen and appears to have volume overload that is slowly responding to diuretics. She is requiring fairly aggressive physical therapy and significant reinforcement to participate in activities. Subjective Patient doing well, laying in bed this morning in no acute distress. Patient reports have no acute events overnight, recovering well. Patient is tolerating her diet, voiding Via Abreu catheter, no bowel movements yet, slept well overnight. All questions answered, acute concerns at present relate to her being +7 L, diuresis per Dr. Mustafa. Physical Exam Physical Exam: General: Middle-aged female in no acute distress lying comfortably in bed HEENT: Normocephalic atraumatic Neck: Normal to visual inspection, trachea midline Cardiac: Regular rate and rhythm, did not appreciate significant murmurs rubs or gallop, normal S1, normal S2, Respiratory: Clear to auscultation bilaterally with symmetrical chest rise I did not appreciate significant wheezes, rales, rhonchi. GI: Soft, nontender, nondistended, bowel sounds present MSK: Moves all extremities with the exception of left lower extremity Skin: Surgical site using, otherwise no acute concerns Neuro: Alert and oriented x4 Psych: Calm and cooperative Results & Data Vital Signs (Past 12 Hours) Vital Signs Temp Pulse Resp BP Pulse Ox 02/19/19 06:00 72 20 105/67 93 02/19/19 05:00 80 20 144/63 H 91 02/19/19 04:00 36.5 C 75 23 111/72 93 02/19/19 03:00 76 21 106/55 L 93 02/19/19 02:00 80 18 98/56 L 92 02/19/19 01:00 79 19 90/59 L 94 02/19/19 00:04 36.7 C 86 26 H 129/61 92 02/18/19 23:00 79 21 120/62 93 02/18/19 22:00 80 27 H 119/59 L 91 02/18/19 21:00 74 23 105/59 L 93 02/18/19 20:00 36.5 C 74 24 108/54 L 93 Laboratory Results 02/19/19 02/19/19 02/19/19 Range/Units 12:07 04:37 04:37 Hgb (12.0-16.0) g/dL PT 12.9 H (9.0-12.0) Seconds INR 1.3 H (0.9-1.1) APTT 50.4 H* 86.3 H* (21.0-31.0) Seconds PTT Ratio 1.9 3.2 Sodium 138 (136-145) mmol/L Potassium 3.6 D (3.5-5.1) mmol/L Chloride 108 H (98-107) mmol/L Carbon Dioxide 28 (21-32) mmol/L Anion Gap 2.0 L (3-11) BUN 12 (7-18) mg/dl Creatinine 0.56 L (0.6-1.2) mg/dl Est Cr Clr Drug Dosing 119.2 ml/min Est GFR ( Amer) 121.7 Est GFR (Non-Af Amer) 105.0 BUN/Creatinine Ratio 21.0 H (10-20) Glucose 101 H (70-99) mg/dl Calcium 8.2 L (8.5-10.1) mg/dl Phosphorus 2.7 (2.5-4.9) mg/dl Magnesium 1.6 L (1.8-2.4) mg/dl 02/19/19 Range/Units 04:37 Hgb 10.3 L (12.0-16.0) g/dL PT (9.0-12.0) Seconds INR (0.9-1.1) APTT (21.0-31.0) Seconds PTT Ratio Sodium (136-145) mmol/L Potassium (3.5-5.1) mmol/L Chloride (98-107) mmol/L Carbon Dioxide (21-32) mmol/L Anion Gap (3-11) BUN (7-18) mg/dl Creatinine (0.6-1.2) mg/dl Est Cr Clr Drug Dosing ml/min Est GFR ( Amer) Est GFR (Non-Af Amer) BUN/Creatinine Ratio (10-20) Glucose (70-99) mg/dl Calcium (8.5-10.1) mg/dl Phosphorus (2.5-4.9) mg/dl Magnesium (1.8-2.4) mg/dl Medications Administered Current Inpatient Medications Aspirin (Ecotrin Ectab) 81 mg PO DAILY [facility] Stop: 03/19/19 08:59 Last Admin: 02/19/19 07:50 Dose: 81 mg Documented by: Cyanocobalamin (Vitamin B-12) 100 mcg PO DAILY [facility] Stop: 03/19/19 08:59 Last Admin: 02/19/19 07:50 Dose: 100 mcg Documented by: Docusate Sodium (Colace) 100 mg PO Q6H [facility] Stop: 02/19/19 16:31 Last Admin: 02/19/19 10:30 Dose: 100 mg Documented by: Lisinopril/HCTZ (Prinzide 20/12.5mg) 1 tab PO HS [facility] Stop: 03/18/19 20:59 Last Admin: 02/18/19 20:40 Dose: Not Given Documented by: Heparin Sodium/Dextrose (Heparin Sodium/Dextrose) 25,000 units in 500 mls @ 20 mls/hr IV .Q24H [facility]; Protocol Stop: 03/19/19 17:44 Last Titration: 02/19/19 14:57 Dose: 1,000 units/hr, 20 mls/hr Documented by: Levothyroxine Sodium (Synthroid) 88 mcg PO [id number]@0630 [facility] Stop: 03/20/19 06:29 Last Admin: 02/19/19 06:14 Dose: 88 mcg Documented by: Morphine Sulfate (Morphine Sulfate) 1 - 4 mg IV Q2H PRN PRN Reason: Severe Pain Stop: 03/02/19 16:06 Last Admin: 02/17/19 19:33 Dose: 2 mg Documented by: Ondansetron HCl (Zofran) 4 mg IV Q6H PRN PRN Reason: Nausea And Vomiting Stop: 03/18/19 16:06 Oxycodone/Acetaminophen (Percocet 5mg/325mg) 1 - 2 tab PO Q4H PRN PRN Reason: Moderate Pain Stop: 03/02/19 16:06 Last Admin: 02/19/19 08:27 Dose: 1 tab Documented by: Polyethylene Glycol (Miralax Powder Packet) 17 gm PO BID [facility] Stop: 03/21/19 10:29 Last Admin: 02/19/19 10:30 Dose: 17 gm Documented by: Potassium Chloride (Klor-Con M20) 40 meq PO TODAY@1015,2215 [facility] Stop: 02/19/19 22:16 Last Admin: 02/19/19 10:30 Dose: 40 meq Documented by: Warfarin Sodium (Coumadin) 5 mg PO MoTuThFrSa@1600 [facility] Stop: 03/19/19 15:59 Last Admin: 02/17/19 18:20 Dose: 5 mg Documented by: Warfarin Sodium (Coumadin) 7.5 mg PO SuWe@1600 [facility] Stop: 03/20/19 15:59 Last Admin: 02/18/19 18:08 Dose: 7.5 mg Documented by: Resident Activity Tracking Resident Involvement: Resident Care Provided Care Provided: Adult Hospital Medicine (ICU)
[2019-02-19] MEDS: OXYCODONE/ACETAMINOPHEN 5mg/325mg TAB PO PRN ×2 (08:27→20:30)
[2019-02-19] MEDS ORDERED: BUMETANIDE 1 MG TAB PO ONE (09:15)
--- NOTE | 2019-02-19 09:24 | Surgery Progress Note ---
Date of Service February 19, 2019 Assessment & Plan (1) Ischemia of left lower extremity: At this point her grafts appear patent. She has had good flow to her foot and viability of the left foot. Another dose of bumex today. Chest x-ray continues to demonstrate pulmonary edema. We will keep her in the ICU another day due to her oxygen requirements. PT/OT today. (2) Acute blood loss as cause of postoperative anemia: Her anemia is secondary to blood loss anemia from her 2 surgeries. (3) History of fasciotomy: Continue daily dressing changes. They are looking well. They will will require VAC in in the next few days. Subjective 54 yo f POD #2 after thrombectomy of LLE and fem fem BPG, as well as revision of L fem infected anastomosis just hours prior, seen in f/u today. Pt admits pain in incisions and BRAUN,and mild tingling of L toes. Denies chest pain, cough, abd pain, N/V, rest pain. Continues to require 4-5L O2 despite diuresis yesterday and remains positive 5Kg. Chest x ray this AM demonstrates worsening pulmonary edema. BP improved, stable. Review of Systems Review of Systems: All systems reviewed & are unremarkable except as noted in HPI & below Physical Exam Constitutional: WD/WN, vitals as above Respiratory: normal respiratory effort, lungs clear to auscultation Cardiovascular: Rate/Rhythm: regular rate and regular rhythm Vessels: femoral pulses present (on right), posterior tibial pulses present (with doppler), dorsalis pedis pulses present (with doppler) and radial pulses present Extremities: + pedal edema and + edema (generalized) Gastrointestinal (Abdomen): normal bowel sounds, soft, nontender, no hepatosplenomegaly Musculoskeletal: no cyanosis or clubbing, extremities motor strength 5/5 Skin: no rashes, warm and dry + wound (L fasciotomies without bulging, moderate bloody serous drainage on dressing) and + incision (groins intact with berny, tender. No erythema) Neurologic: CN's II-XI intact bilaterally Motor/Sensory: normal movement and no sensory deficit Psychiatric: A+Ox3, euthymic affect Results & Data Vital Signs (Past 12 Hours) Vital Signs Temp Pulse Resp BP Pulse Ox 02/19/19 08:30 95 H 19 94 02/19/19 08:04 91 H 24 126/69 93 02/19/19 08:00 94 H 24 141/64 H 90 02/19/19 07:30 87 19 97 02/19/19 07:04 78 23 124/52 L 94 02/19/19 07:00 76 26 H 94 02/19/19 06:45 75 19 95 02/19/19 06:00 72 20 105/67 93 02/19/19 05:00 80 20 144/63 H 91 02/19/19 04:00 36.5 C 75 23 111/72 93 02/19/19 03:00 76 21 106/55 L 93 02/19/19 02:00 80 18 98/56 L 92 02/19/19 01:00 79 19 90/59 L 94 02/19/19 00:04 36.7 C 86 26 H 129/61 92 02/18/19 23:00 79 21 120/62 93 02/18/19 22:00 80 27 H 119/59 L 91
[2019-02-19] MEDS: MAGNESIUM SULFATE / D5W 1 GM/100 ML BAG IV SCH ×2 (10:30→12:19)
[2019-02-19] MEDS: POLYETHYLENE (MIRALAX) 17 GM PACK PO SCH ×2 (10:30→20:30)
[2019-02-19] MEDS: DOCUSATE SODIUM 100 MG CAP PO SCH ×2 (10:30→16:09)
[2019-02-19] MEDS: POTASSIUM CHLORIDE 20 MEQ TABCR PO SCH ×2 (10:30→21:23)
[2019-02-19 12:44] LABS: Partial Thromboplastin Ratio 1.9; Partial Thromboplastin Time 50.4 Seconds (21.0-31.0)
[2019-02-19] MEDS ORDERED: VANCOMYCIN TROUGH ONE (14:30)
[2019-02-19] MEDS ORDERED: BUMETANIDE 1 MG in SYRINGE 0 ML IV ONE (16:00)
[2019-02-19] MEDS: WARFARIN SOD 5 MG TAB PO SCH (16:09)
[2019-02-19] MEDS: HEPARIN SODIUM/DEXTROSE 25,000 UNITS/500 ML BAG IV SCH (19:55)
[2019-02-19] MEDS: LISINOPRIL/HCTZ 20/12.5MG 1 TAB TAB PO SCH (20:31)
--- NOTE | 2019-02-20 05:07 | Billing Data ---
Date of Service February 19, 2019 Coding Level of Care Code 47572 Initial Inpt Care Lvl 3
[2019-02-20 05:24] LABS: Basophils # (auto) 0.01 K/uL (0-0.2); Basophils % (auto) 0.1 %; Eosinophils # (auto) 0.14 K/uL (0-0.5); Eosinophils % (auto) 1.6 %; Hematocrit (blood only) 33.1 % (37-47); Hemoglobin 11.2 g/dL (12.0-16.0); Immature Granulocytes # (auto) 0.08 K/uL (0.00-0.02); Immature Granulocytes % (auto) 0.9 %; Lymphocytes % (auto) 15.6 %; Mean Corpuscular Hemoglobin 30.3 pg (25-34); Mean Corpuscular Hgb Conc 33.8 g/dL (32-36); Mean Corpuscular Volume 89.5 fL (80-100); Mean Platelet Volume 10.4 fL (7.4-10.4); Monocytes # (auto) 0.58 K/uL (0.11-0.59); Monocytes % (auto) 6.5 %; Neutrophils # (auto) 6.74 K/uL (1.4-6.5); Neutrophils % (auto) 75.3 %; Platelet Count 161 K/uL (130-400); RDW Coefficient of Variation 16.6 % (11.5-14.5); RDW Standard Deviation 54.2 fL (36.4-46.3); White Blood Count 8.95 K/uL (4.8-10.8)
[2019-02-20 05:43] LABS: Partial Thromboplastin Ratio 2.2
[2019-02-20 05:46] LABS: Partial Thromboplastin Time 58.8 Seconds (21.0-31.0)
[2019-02-20 05:51] LABS: BUN Creatinine Ratio 16.2 (10-20); Calcium 8.8 mg/dl (8.5-10.1); Creatinine Clr Calc Pharmacy 104.5 ml/min; Est GFR (African American) 116.4; Est GFR (Non-African American) 100.5; Magnesium 2.1 mg/dl (1.8-2.4); Potassium 3.5 mmol/L (3.5-5.1)
[2019-02-20 05:56] LABS: Phosphorus 2.1 mg/dl (2.5-4.9)
[2019-02-20] MEDS: LEVOTHYROXINE SODIUM 88 MCG TABLET PO SCH (05:59)
--- NOTE | 2019-02-20 06:57 | XRay Report ---
XR chest 1V portable HISTORY: 54 years-old Female Follow up pulm edema follow-up study in a patient with reported pulmona ry edema COMPARISON: Chest radiograph 02/19/2019 TECHNIQUE: Portable AP view of the chest FINDINGS: Cardiac silhouette is mildly enlarged, unchanged. Pulmonary vascular congestion with persistent bilat eral interstitial opacities. There is improved aeration of the left perihilar distribution and left l robb base. Mild right hemidiaphragmatic elevation. Blunting of the costophrenic angles redemonstrated. No pneumothorax, large pleural effusion or new focal airspace consolidation. Bones appear grossly in tact. IMPRESSION: 1. Mild cardiomegaly with persistent interstitial opacities suggestive of probable pulmonary edema. 2. Mildly improved aeration of the left lung base. The above report was generated using voice recognition software. It may contain grammatical, syntax o r spelling errors. Electronically signed by: Yash Martinez M.D. 02/20/2019 6:56 AM
--- NOTE | 2019-02-20 07:21 | Critical Care Progress Note ---
Date of Service February 20, 2019 Assessment & Plan (1) Admitted to intensive care unit: Reason Critically Ill: 54-year-old female status post vascular repair of LEFT femoral artery with findings concerning for infection with close proximity to graft requiring close hemodynamic monitoring status post intervention. NEURO - CAM ICU: NEGATIVE Pain: Morphine, Percocet. -Consider addition of Dilaudid as needed for breakthrough pain control. CARDIAC/VASCULAR - PAD s/p Repair of LEFT femoral graft: Intraoperative concerns for infection near graft. -Received IV Clindy pre op -D/C vancomycin and cefepime -Cultures NGTD Monitor pulses, sensation, ROM to the extremities s/p intervention. Monitor on telemetry. Hypotension resolved Patient intermittently hypotensive postoperatively. Has received fluid resuscitation and blood. We will hold off on pressor support given this will l ikely compromise the recent graft. Now hypertensive status post 7+ liters fluid resuscitation. -Diuresis per Dr. Mustafa -1 mg bumex RESPIRATORY - Pulmonary edema CXR consistent with diuresis per [facility] GI/NUTRITION - Heart healthy diet RENAL/LYTES - Follow-up a.m. labs replete electrolytes as indicated - No concerns at this time. Abreu in place - Strict I&Os. ENDO - No h/o DM BSGs per unit protocol. ISS --> gtt per unit policy. Hypothyroidism --> continue home Rx HEME - Hemoglobin was 8.9 postoperatively received 3 units of blood hemoglobin is now 11.8 -hgb 10.3 ID - Concerns for infection near graft. Wound cultures NGTD Lactate downtrending most recent procalcitonin 0.15 -a.m. lactate 1.3 LINES/IV ACCESS - PIVs x2 RIGHT Radial A-line. Abreu DVT PROPHYLAXIS - holding Coumadin. SCDs Thank you for allowing us to participate in the care of this patient. Please refer to my attending physician's documentation for any further recommendations. (2) Ischemia of left lower extremity: At this point her grafts appear patent. She has had good flow to her foot and viability of the left foot. Another dose of bumex today. Chest x-ray continues to demonstrate pulmonary edema. We will keep her in the ICU another day due to her oxygen requirements. PT/OT today. (3) Claudication of lower extremity: (4) HTN (hypertension): (5) Aortobifemoral bypass graft thrombosis: Results & Data Vital Signs (Past 12 Hours) Vital Signs Temp Pulse Resp BP Pulse Ox 02/20/19 05:54 72 23 92 02/20/19 04:00 36.8 C 63 16 105/56 L 92 02/20/19 03:00 66 23 114/61 92 02/20/19 02:00 69 21 94/53 L 91 02/20/19 01:20 66 18 90 02/20/19 01:00 71 19 105/50 L 92 02/20/19 00:00 36.9 C 76 18 104/55 L 92 02/19/19 23:00 72 18 92/52 L 91 02/19/19 22:30 85 18 92 02/19/19 22:00 81 23 94/53 L 90 02/19/19 21:00 90 24 118/69 90 02/19/19 20:30 89 26 H 90 02/19/19 20:24 88 24 110/59 L 88 L 02/19/19 20:00 37.5 C 98 H 23 99/68 L 90 02/19/19 19:30 88 26 H 114/61 91
--- NOTE | 2019-02-20 08:50 | Surgery Progress Note ---
Date of Service February 20, 2019 Assessment & Plan (1) Ischemia of left lower extremity: Pt improving post op. transfer to PCU per Dr Mustafa. Increase activity and OOB. Chest x-ray continues to demonstrate pulmonary edema, however, weight is nearly baseline and significantly less edema noted. (2) Acute blood loss as cause of postoperative anemia: Her anemia is secondary to blood loss anemia from her 2 surgeries. Stable. (3) History of fasciotomy: Continue daily dressing changes. They are looking well. They will will require VAC in in the next few days. Subjective 54 yo f POD #3 after thrombectomy of LLE and placement of fem fem BPG, as well as revision of L fem infected anastomosis just hours prior, seen in f/u today. Pt admits pain in incisions and BRAUN,and mild tingling of L toes. Denies chest pain, cough, abd pain, N/V, rest pain. Continues to require 4-5L O2 despite diuresis yesterday, although weight is near baseline. Chest x ray this AM continues to demonstrate pulmonary edema. BP stable. States has been OOB a few times with therapy yesterday and states is using her spirometer. Review of Systems Review of Systems: All systems reviewed & are unremarkable except as noted in HPI & below Physical Exam Constitutional: WD/WN, vitals as above Respiratory: normal respiratory effort Auscultation: + crackles (basilar) Cardiovascular: Rate/Rhythm: regular rate and regular rhythm Vessels: femoral pulses present (on right), posterior tibial pulses present (with doppler), dorsalis pedis pulses present (with doppler) and radial pulses present Extremities: + pedal edema and + edema (generalized) Gastrointestinal (Abdomen): normal bowel sounds, soft, nontender, no hepatosplenomegaly Musculoskeletal: no cyanosis or clubbing, extremities motor strength 5/5 Skin: no rashes, warm and dry + wound (L fasciotomies without bulging, moderate bloody serous drainage on dressing) and + incision (groins intact with berny, tender. No erythema, minimal drainage) Neurologic: CN's II-XI intact bilaterally Motor/Sensory: normal movement and no sensory deficit Psychiatric: A+Ox3, euthymic affect Results & Data Vital Signs (Past 12 Hours) Vital Signs Temp Pulse Resp BP Pulse Ox 02/20/19 06:01 74 24 102/55 L 92 02/20/19 05:54 72 23 92 02/20/19 04:00 36.8 C 63 16 105/56 L 92 02/20/19 03:00 66 23 114/61 92 02/20/19 02:00 69 21 94/53 L 91 02/20/19 01:20 66 18 90 02/20/19 01:00 71 19 105/50 L 92 02/20/19 00:00 36.9 C 76 18 104/55 L 92 02/19/19 23:00 72 18 92/52 L 91 02/19/19 22:30 85 18 92 02/19/19 22:00 81 23 94/53 L 90 02/19/19 21:00 90 24 118/69 90
[2019-02-20] MEDS: POLYETHYLENE (MIRALAX) 17 GM PACK PO SCH ×2 (09:58→21:35)
[2019-02-20] MEDS: ASPIRIN 81 MG ECTAB PO SCH (09:58)
[2019-02-20] MEDS: CYANOCOBALAMIN (VITAMIN B-12) 100 MCG TABLET PO SCH (09:58)
[2019-02-20] MEDS ORDERED: POTASSIUM PHOS 3 MMOL/1 ML INFUSION IV ONE (11:34)
[2019-02-20] MEDS: OXYCODONE/ACETAMINOPHEN 5mg/325mg TAB PO PRN (11:35)
[2019-02-20] MEDS ORDERED: BUMETANIDE 1 MG TAB PO STA (11:40)
[2019-02-20] MEDS ORDERED: SODIUM CHLORIDE 0.9% IV STA (11:42)
[2019-02-20] MEDS ORDERED: POTASSIUM PHOSPHATE IV STA (11:42)
--- NOTE | 2019-02-20 11:44 | Hospitalist Consultation ---
Date of Consultation February 20, 2019 Assessment & Plan (1) Pulmonary edema: 54-year-old female was initially admitted on 16 February 2019 for an aorto-bifemoral bypass revision following left-sided thrombosis. On medicine was consulted regarding her pulmonary edema. Pulmonary edema: No known underlying pulmonary disease. Likely due to volume overload for treatment of hypotension. On supplemental NC oxygen daytime and CPAP at night. Latest pCXR notes persistent interstitial opacities suggestive of pulmonary edema. Admit weight 71.7 kg, max 77.6 kg, presently 73.4 kg. Cr 0.64. - Will give an additional single dose of bumex 1 mg PO today. Continue to monitor I&Os and daily weights. Supplemental oxygen for goal SpO2 > 90%. Goal to wean off daytime O2 and CPAP at night (no baseline home use). - Will also order a TTE to evaluate cardiac function (in case there is a cardiac component to her pulmonary edema). Left leg claudication, occlusion of left femoral bypass graft, left lower extremity ischemia: From notes, sounds like initial concerns for local inf ection. 13Dec underwent removal of infected LEFT groin graft and a RIGHT groin closure followed by 14Dec thrombectomy and left calf fasciotomy for ischemia (see related vascular surgery notes for full details). Given clindamycin, then vancomycin and cefepime (since discontinued) vladislav-operatively. 13Dec wound cultures with NGTD. - Post-surgical wound management and anticoagulation per vascular surgery. Postoperative hypotension: Treated with IVF and PRBCs. Monitoring. Acute on chronic anemia: Hb as low as 8.9 post-operatively. 14-15Dec received total four units PRBCs. Presently improving to Hb 11s. Monitoring. Electrolyte issues: - Hypokalemia: K as low as 3.1. Replacing, monitoring. - Hypocalcemia: Ca as low as 7.7. - Hypophosphatemia: Phos as low as 2.1. Replaced, monitoring. - Hypomagnesemia: Mg as low as 1.5. Replaced, monitoring. Ongoing medical issues: - Hypertension: Continue home aspirin and Prinzide. - Hypothyroidism: Continue home levothyroxine. - Peripheral vascular disease: Continue home Coumadin. - Vitamin B12 deficiency: Continue home B12 daily. Code status: Full code. Diet: Heart healthy. DVT prophy: Heparin and Coumadin (per vascular surgery). PT/OT: Recommended inpatient rehab. Disbo: Admitted to telemetry. Normally lives at home with . Vascular surgery is primary, medicine on consult. (2) Aortobifemoral bypass graft thrombosis: (3) Ischemia of left lower extremity: (4) Claudication of lower extremity: (5) Hypotension: (6) Acute blood loss as cause of postoperative anemia: (7) Hypokalemia: (8) Hypocalcemia: (9) Hypophosphatemia: (10) Hypomagnesemia: (11) HTN (hypertension): (12) Hypothyroidism: (13) Peripheral vascular disease: (14) Vitamin B12 deficiency: Supervising Physician Co-Signing Physician Notes Patient was seen and examined by me personally. I reviewed the chart, the orders and discussed the case in detail with Dr. Yash Gottlieb MD . I read this consultation note and agree with its contents to entirety. History of Present Illness Reason for Consultation: Pulmonary edema Requesting Physician: Dr. Arroyo Attending Physician: Jonny Arroyo MD History of Present Illness 54-year-old female was admitted on February 16, 2019 by vascular surgery for thrombosis of her aortobifemoral bypass graft. Please see related vascular surgery notes and operative notes. She had an episode of immediate ischemia resulting in revision surgery and a left calf fasciotomy. Following this she had some episodes of hypotension and anemia requiring treatment with IVF and PRBCs. Ultimately she ended up positive 7 liters of fluid which is likely the cause of her pulmonary edema and new oxygen requirement. She has been since diuresed with Bumex. Hospitalist was consulted for further management of pulmonary edema. For this consult interview, found patient sitting in her bedside chair after working with physical therapy. Overall she says she feels well and much improved compared to the previous couple days. She says that her right leg feels significantly improved with good function. She says her left leg is improving, continues to feel tingly, and a bit numb when she tries to bear weight. She notes no present pain or physical discomfort. When asked about her breathing, she says overall she feels quite well and denies any dyspnea, shortness of breath, or chest discomfort. She denies any known history of previous pulmonary disease but did smoke at least a pack a day for over 20 years, having quit about 3 years ago. Otherwise, she denies any other immediate concerns. - Past medical history includes hypertension, hyperlipidemia, anemia, hypothyroidism, peripheral vascular disease, vitamin B12 deficiency. - Past surgical history includes cataract surgery, D&C, bilateral femoral arterial bypass, thrombectomy (2016). - Social history includes having (mostly) quit smoking around 2015 (prior 20+ pack/year history). 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 Lives at home with . Allergies Allergy/AdvReac Type Severity Reaction Status Date / Time amoxicillin Allergy Intermediate Hives Verified 02/16/19 08:48 Penicillins Allergy Intermediate Hives Verified 02/16/19 08:48 Home Medications Home Medications Medication Instructions Recorded Confirmed Type cyanocobalamin (vitamin B-12) 100 mcg PO DAILY cap 02/13/18 02/16/19 History 1,000 mcg capsule oxycodone-acetaminophen [Percocet] 1 tab PO Q6H PRN #30 tab 11/28/18 02/16/19 Rx aspirin 81 mg tablet,delayed 81 mg PO DAILY 12/28/18 02/16/19 History release levothyroxine 88 mcg tablet 88 mcg PO 6XWK tab 12/28/18 02/16/19 History warfarin 5 mg tablet See Rx Instructions PO UD tab 12/28/18 02/16/19 History lisinopril-hydrochlorothiazide 1 tab PO HS 02/08/19 02/16/19 History Patient History Medical History Anemia Claudication of lower extremity H/O blood clots BLOOD CLOT IN 1 STENT FROM ARTERIAL BYPSS SURGERY (DR. ARROYO) Hyperlipidemia Hypertension Hypothyroidism Occlusion of arterial bypass graft PVD (peripheral vascular disease) Surgical History History of cataract surgery RT/LEFT History of dilatation and curettage History of tooth extraction History of vascular access device ARTERIAL BYPASS GRAFTING (BILAT FEMORAL AREAS) 4 YEARS AGO 2 STENTS PLACED (REASON FOR COUMADIN) Hx of angioplasty LEFT FEMORAL ARTERY ANASTOMOSIS 11/2018 Family History Other No significant family history Social History Preferred Language: Lebanese Communication Ability: Effective Cabinet Finisher Required: No Beliefs That Will Affect Care: None Current Living Situation: Spouse Feels Safe at Home: Yes Safety Concerns: Feels Safe At This Time Smoking Status: Current every day smoker Tobacco Type: cigarettes ; Cigarettes Per Day: 10 DAILY ; Do You Dip or Chew Tobacco: No ; Second Hand Exposure: Yes ; Tobacco Cessation Education Requested by Patient: No Hx Alcohol Use: Yes Alcohol type: beer Hx Substance Use: No Review of Systems Review of Systems: Constitutional: Denies fevers, chills, focal weakness Eyes: Denies any visual loss or diplopia ENT: Denies any ear/nose/throat pain or difficulty speaking or swallowing Respiratory: Denies any dyspnea, cough, hemoptysis Cardiovascular: Denies any chest pain. Gastrointestinal: Denies any abdominal pain, nausea/vomiting/diarrhea Musculoskeletal: Denies any acute (i.e. new) extremity pains, myalgias. Skin: Denies any known acute rashes or lesions. Ongoing surgical incision site monitoring. Neuro: Denies any headache, acute (i.e. new post-op) focal weakness or numbness, or difficulties with speech or swallow. Physical Exam Physical Exam: GENERAL: Awake, alert, well-appearing, in no acute distress HENT: Normocephalic, atraumatic. Oropharynx unremarkable. EYES: Normal conjunctiva. Sclera non-icteric. NECK: Inspection normal. Non-tender. Supple and full ROM. No nuchal rigidity. CARDIAC: +S1S2 RRR, no murmurs. RESPIRATORY: Crackles in bilateral bases. On nasal cannula oxygen. No present respiratory distress. GI: +BS, soft, non-distended. No tenderness to palpation. No rebound or guarding. EXTREMITIES: - Trace to 1+ bilateral ankle edema. Distal sensation intact in bilateral toes. - Per vascular note this AM: Doppler-present pulses of right posterior tibial and dorsalis pedis. - Left calf fasciotomy incisions are dressed c/d/I kerlex. - Bilateral groin incisions are open to air and presently without any drainage, noted erythema, or overt edema. NEURO: Decreased but intact sensation in left toes. Results & Data Vital Signs (Past 12 Hours) Vital Signs Temp Pulse Resp BP Pulse Ox 02/20/19 11:01 85 19 107/57 L 96 02/20/19 10:01 36.4 C L 85 23 108/56 L 97 02/20/19 09:00 81 23 122/57 L 93 02/20/19 08:00 37 C 72 18 117/59 L 94 02/20/19 06:01 74 24 102/55 L 92 02/20/19 05:54 72 23 92 02/20/19 04:00 36.8 C 63 16 105/56 L 92 02/20/19 03:00 66 23 114/61 92 02/20/19 02:00 69 21 94/53 L 91 02/20/19 01:20 66 18 90 02/20/19 01:00 71 19 105/50 L 92 02/20/19 00:00 36.9 C 76 18 104/55 L 92 Laboratory Results 02/20/19 02/20/19 02/20/19 Range/Units 04:52 04:52 04:52 WBC 8.95 (4.8-10.8) K/uL RBC 3.70 L (4.2-5.4) M/uL Hgb 11.2 L (12.0-16.0) g/dL Hct 33.1 L (37-47) % MCV 89.5 (80-100) fL MCH 30.3 (25-34) pg MCHC 33.8 (32-36) g/dL RDW Std Deviation 54.2 H (36.4-46.3) fL RDW Coeff of Toribio 16.6 H (11.5-14.5) % Plt Count 161 (130-400) K/uL MPV 10.4 (7.4-10.4) fL Immature Gran % (Auto) 0.9 % Neut % (Auto) 75.3 % Lymph % (Auto) 15.6 % [place] % (Auto) 6.5 % Eos % (Auto) 1.6 % Baso % (Auto) 0.1 % Immature Gran # (Auto) 0.08 H (0.00-0.02) K/uL Neut # (Auto) 6.74 H (1.4-6.5) K/uL Lymph # (Auto) 1.40 (1.2-3.4) K/uL [place] # (Auto) 0.58 (0.11-0.59) K/uL Eos # (Auto) 0.14 (0-0.5) K/uL Baso # (Auto) 0.01 (0-0.2) K/uL APTT 58.8 H* (21.0-31.0) Seconds PTT Ratio 2.2 Sodium 136 (136-145) mmol/L Potassium 3.5 (3.5-5.1) mmol/L Chloride 101 (98-107) mmol/L Carbon Dioxide 33 H (21-32) mmol/L Anion Gap 2.0 L (3-11) BUN 10 (7-18) mg/dl Creatinine 0.64 (0.6-1.2) mg/dl Est Cr Clr Drug Dosing 104.5 ml/min Est GFR ( Amer) 116.4 Est GFR (Non-Af Amer) 100.5 BUN/Creatinine Ratio 16.2 (10-20) Glucose 99 (70-99) mg/dl Calcium 8.8 (8.5-10.1) mg/dl Phosphorus 2.1 L (2.5-4.9) mg/dl Magnesium 2.1 (1.8-2.4) mg/dl 02/19/19 Range/Units 12:07 WBC (4.8-10.8) K/uL RBC (4.2-5.4) M/uL Hgb (12.0-16.0) g/dL Hct (37-47) % MCV (80-100) fL MCH (25-34) pg MCHC (32-36) g/dL RDW Std Deviation (36.4-46.3) fL RDW Coeff of Toribio (11.5-14.5) % Plt Count (130-400) K/uL MPV (7.4-10.4) fL Immature Gran % (Auto) % Neut % (Auto) % Lymph % (Auto) % [place] % (Auto) % Eos % (Auto) % Baso % (Auto) % Immature Gran # (Auto) (0.00-0.02) K/uL Neut # (Auto) (1.4-6.5) K/uL Lymph # (Auto) (1.2-3.4) K/uL [place] # (Auto) (0.11-0.59) K/uL Eos # (Auto) (0-0.5) K/uL Baso # (Auto) (0-0.2) K/uL APTT 50.4 H* (21.0-31.0) Seconds PTT Ratio 1.9 Sodium (136-145) mmol/L Potassium (3.5-5.1) mmol/L Chloride (98-107) mmol/L Carbon Dioxide (21-32) mmol/L Anion Gap (3-11) BUN (7-18) mg/dl Creatinine (0.6-1.2) mg/dl Est Cr Clr Drug Dosing ml/min Est GFR ( Amer) Est GFR (Non-Af Amer) BUN/Creatinine Ratio (10-20) Glucose (70-99) mg/dl Calcium (8.5-10.1) mg/dl Phosphorus (2.5-4.9) mg/dl Magnesium (1.8-2.4) mg/dl Medications Administered Current Inpatient Medications Aspirin (Ecotrin Ectab) 81 mg PO DAILY ON LICENSE OF [facility] Stop: 03/19/19 08:59 Last Admin: 02/20/19 09:58 Dose: 81 mg Documented by: Cyanocobalamin (Vitamin B-12) 100 mcg PO DAILY ON LICENSE OF [facility] Stop: 03/19/19 08:59 Last Admin: 02/20/19 09:58 Dose: 100 mcg Documented by: Lisinopril/HCTZ (Prinzide 20/12.5mg) 1 tab PO HS ON LICENSE OF [facility] Stop: 03/18/19 20:59 Last Admin: 02/19/19 20:31 Dose: 1 tab Documented by: Heparin Sodium/Dextrose (Heparin Sodium/Dextrose) 25,000 units in 500 mls @ 20 mls/hr IV .Q24H ON LICENSE OF [facility]; Protocol Stop: 03/19/19 17:44 Last Titration: 02/20/19 06:50 Dose: 1,000 units/hr, 20 mls/hr Documented by: Potassium Phosphate 15 mmol/ (Sodium Chloride) 505 mls @ 88 mls/hr IV NOW STA Stop: 02/20/19 17:26 Levothyroxine Sodium (Synthroid) 88 mcg PO [id number]@0630 ON LICENSE OF [facility] Stop: 03/20/19 06:29 Last Admin: 02/20/19 05:59 Dose: 88 mcg Documented by: Morphine Sulfate (Morphine Sulfate) 1 - 4 mg IV Q2H PRN PRN Reason: Severe Pain Stop: 03/02/19 16:06 Last Admin: 02/17/19 19:33 Dose: 2 mg Documented by: Ondansetron HCl (Zofran) 4 mg IV Q6H PRN PRN Reason: Nausea And Vomiting Stop: 03/18/19 16:06 Oxycodone/Acetaminophen (Percocet 5mg/325mg) 1 - 2 tab PO Q4H PRN PRN Reason: Moderate Pain Stop: 03/02/19 16:06 Last Admin: 02/20/19 11:35 Dose: 2 tab Documented by: Polyethylene Glycol (Miralax Powder Packet) 17 gm PO BID ON LICENSE OF [facility] Stop: 03/21/19 10:29 Last Admin: 02/20/19 09:58 Dose: 17 gm Documented by: Warfarin Sodium (Coumadin) 5 mg PO MoTuThFrSa@1600 ON LICENSE OF [facility] Stop: 03/19/19 15:59 Last Admin: 02/19/19 16:09 Dose: 5 mg Documented by: Warfarin Sodium (Coumadin) 7.5 mg PO SuWe@1600 ON LICENSE OF [facility] Stop: 03/20/19 15:59 Last Admin: 02/18/19 18:08 Dose: 7.5 mg Documented by: Resident Activity Tracking Resident Involvement: Resident Care Provided Care Provided: Adult Hospital Medicine
[2019-02-20] MEDS: WARFARIN SOD 5 MG TAB PO SCH (16:22)
[2019-02-20] MEDS: HEPARIN SODIUM/DEXTROSE 25,000 UNITS/500 ML BAG IV SCH (21:34)
[2019-02-20] MEDS: LISINOPRIL/HCTZ 20/12.5MG 1 TAB TAB PO SCH (21:35)
[2019-02-21] MEDS: OXYCODONE/ACETAMINOPHEN 5mg/325mg TAB PO PRN ×4 (02:50→21:02)
[2019-02-21 06:18] LABS: Basophils # (auto) 0.02 K/uL (0-0.2); Basophils % (auto) 0.3 %; Eosinophils # (auto) 0.29 K/uL (0-0.5); Eosinophils % (auto) 4.4 %; Hematocrit (blood only) 29.7 % (37-47); Hemoglobin 9.9 g/dL (12.0-16.0); Immature Granulocytes # (auto) 0.18 K/uL (0.00-0.02); Immature Granulocytes % (auto) 2.7 %; Lymphocytes # (auto) 1.53 K/uL (1.2-3.4); Mean Corpuscular Hemoglobin 30.3 pg (25-34); Mean Corpuscular Hgb Conc 33.3 g/dL (32-36); Mean Corpuscular Volume 90.8 fL (80-100); Mean Platelet Volume 9.9 fL (7.4-10.4); Monocytes # (auto) 0.55 K/uL (0.11-0.59); Monocytes % (auto) 8.3 %; Neutrophils # (auto) 4.07 K/uL (1.4-6.5); Neutrophils % (auto) 61.3 %; Platelet Count 179 K/uL (130-400); RDW Coefficient of Variation 16.2 % (11.5-14.5); RDW Standard Deviation 54.5 fL (36.4-46.3); Red Blood Count 3.27 M/uL (4.2-5.4); White Blood Count 6.64 K/uL (4.8-10.8)
[2019-02-21 06:27] LABS: INR 2.3 (0.9-1.1); Prothrombin Time 21.8 Seconds (9.0-12.0)
[2019-02-21] MEDS: LEVOTHYROXINE SODIUM 88 MCG TABLET PO SCH (06:28)
[2019-02-21 06:48] LABS: Partial Thromboplastin Ratio 2.6
[2019-02-21 06:50] LABS: Calcium 8.7 mg/dl (8.5-10.1); Creatinine Clr Calc Pharmacy 107.2 ml/min; Est GFR (African American) 118.3; Est GFR (Non-African American) 102.1; Magnesium 2.1 mg/dl (1.8-2.4); Potassium 3.9 mmol/L (3.5-5.1)
[2019-02-21 06:51] LABS: Partial Thromboplastin Time 70.5 Seconds (21.0-31.0); Phosphorus 2.5 mg/dl (2.5-4.9)
[2019-02-21] MEDS: CYANOCOBALAMIN (VITAMIN B-12) 100 MCG TABLET PO SCH (08:34)
[2019-02-21] MEDS: POLYETHYLENE (MIRALAX) 17 GM PACK PO SCH ×2 (08:34→20:59)
[2019-02-21] MEDS: ASPIRIN 81 MG ECTAB PO SCH (08:35)
--- NOTE | 2019-02-21 10:02 | Surgery Progress Note ---
Date of Service February 21, 2019 Assessment & Plan (1) Ischemia of left lower extremity: Pt improving post op. Increase activity and OOB. Pt resp status is symptomatically improved. Looking forward to going home, likely with home nursing and PT/OT. (2) Acute blood loss as cause of postoperative anemia: Her anemia is secondary to blood loss anemia from her 2 surgeries. Stable. (3) History of fasciotomy: Wound vac applied today without difficulty, planning on attempting closure of fasciotomies on TUESDAY in OR. Subjective 54 yo f s/p LLE removal of infected graft and later thrombectomy of LLE and fem fem BPG, seen in f/u today. Pt statse feeling improved. Denies any new complaints at this time. Ambulating with walker, has been OOB. No longer requiring oxygen. Review of Systems Review of Systems: All systems reviewed & are unremarkable except as noted in HPI & below Physical Exam Constitutional: WD/WN, vitals as above Respiratory: normal respiratory effort, lungs clear to auscultation normal respiratory effort Auscultation: + crackles (minimal basilar) Cardiovascular: Rate/Rhythm: regular rate and regular rhythm Vessels: femoral pulses present (on right), posterior tibial pulses present (with doppler), dorsalis pedis pulses present (with doppler) and radial pulses present Extremities: + pedal edema (mild) and + edema (significantly improved) Gastrointestinal (Abdomen): normal bowel sounds, soft, nontender, no hepatosplenomegaly Musculoskeletal: no cyanosis or clubbing, extremities motor strength 5/5 Skin: no rashes, warm and dry + wound (L fasciotomies without bulging, moderate bloody serous drainage on dressing) and + incision (groins intact with berny, tender. No erythema, minimal drainage) Neurologic: CN's II-XI intact bilaterally Motor/Sensory: normal movement and no sensory deficit Psychiatric: A+Ox3, euthymic affect Results & Data Vital Signs (Past 12 Hours) Vital Signs Temp Pulse Pulse Pulse Resp BP BP 02/21/19 08:00 36.9 C 66 63 18 122/72 02/21/19 03:14 37.0 C 58 L 19 107/65 02/21/19 00:00 66 02/20/19 23:54 36.5 C 70 18 124/75 02/20/19 22:27 67 18 Pulse Ox 02/21/19 08:00 95 02/21/19 03:14 97 02/21/19 00:00 02/20/19 23:54 95 02/20/19 22:27 91
[2019-02-21] MEDS ORDERED: SODIUM CHLORIDE 0.65% NA SOLN 45 ML (OCEAN) PRN (13:02)
[2019-02-21 13:38] LABS: Partial Thromboplastin Ratio 2.1
[2019-02-21 13:53] LABS: Partial Thromboplastin Time 55.8 Seconds (21.0-31.0)
--- NOTE | 2019-02-21 14:19 | Hospitalist Progress Note ---
Date of Service February 21, 2019 Assessment & Plan (1) Pulmonary edema: * 54-year-old female was initially admitted with previous aortobifemoral bypass in graft with occlusion and thrombectomy in 2015. CT September 2018 with narrowing of both limbs of graft. Underwent revision and presented with re- occlusion of left limb. On 02/16 underwent removal of infected LEFT groin graft and a RIGHT groin closure, followed by thrombectomy on 02/17 and left calf fasciotomy for ischemia (see related vascular surgery notes for full details). Given clindamycin, then vancomycin and cefepime (since discontinued) vladislav-operatively. Wound cultures from 02/16 without growth. Medicine consulted on 02/20 regarding her pulmonary edema. * No known underlying pulmonary disease. No h/o sleep apnea. * CXR done showed interstitial opacities suggestive of pulmonary edema. Weight on admission 71.7kg with elevation to 77.6kg --> net +7L following fluid resuscitation/PRBCs for hypotension post-operatively. BP 122/72 this morning. * TTE done to assess cardiac function -->> without evidence of valvular heart disease, wma, or systolic dysfunction. EF 55-60% * Given additional dose 1mg Bumex yesterday with 1.1L diuresis. Patient still ~+6L, however will hold off further diuresis given BP 93/61 this afternoon. Co ntinue to monitor. If BP improves, would give additional 1mg dose. Weight today 74kg. Cr stable at 0.61 * Currently 91% on RA * TSH pending (2) Ischemia of left lower extremity: * See operative notes -- patient with previous aortobifemoral bypass in graft with occlusion and thrombectomy in 2016. CT September 2018 with narrowing of both limbs of graft. Underwent revision and presented with re-occlusion of left limb. On 02/16 underwent removal of infected LEFT groin graft and a RIGHT groin closure, followed by thrombectomy on 02/17 and left calf fasciotomy for ischemia (see related vascular surgery notes for full details). Given clindamycin, then vancomycin and cefepime (since discontinued) vladislav- operatively. Wound cultures from 02/16 without growth * As above * Post-surgical wound management and anticoagulation per vascular surgery. (3) Aortobifemoral bypass graft thrombosis: * As above (4) Vitamin B12 deficiency: * Continue home B12 (5) Peripheral vascular disease: * Continue home Coumadin * Heparin gtt could be d/c'd as patient INR therapeutic today, 2.3 -- will defer to primary team * Continue to monitor (6) Hypothyroidism: * Continue home levothyroxine 88mcg * TSH added today, as patient with adjustment recently from 7 to 6 days/wk * Elevated at 11.8 --> - likely some elevation reactive, however would consider increasing dose vs daily --- will need repeat TFT in 4-6 weeks as outpatient (7) Hypophosphatemia: * Stable * Phos as low as 2.1 -- supplementation with repeat improved to 2.5 today * Continue to monitor (8) Hypomagnesemia: * Mg as low as 1.5 -- replaced * Continues to remain stable at 2.1 * Continue to monitor (9) Hypocalcemia: * Ca as low as 7.7. * Currently stable at 8.7 (10) Hypotension: * As above * This morning, patient weaned off O2 and had sat 91% on RA * Holding prinzide (lisinopril/hctz) for now in order to further diuresis -- BP this morning boderline hypotensive at 93/61 * Now that BP elevated to 135/74, but patient back on 2L, will give additional bumex 1mg PO this evening * Conitue to monitor (11) Hypokalemia: K as low as 3.1. Replacing, monitoring. (12) History of fasciotomy: * As above (13) Acute blood loss as cause of postoperative anemia: * As above (14) Claudication of lower extremity: * As above (15) HTN (hypertension): * Prinzide on hold as above * Borderline hypotensive at 93/61 this morning, but improved to 135/74 this afternoon * Continue to monitor (16) Acute on chronic anemia: * Hb as low as 8.9 post-operatively. 14-15Dec received total four units PRBCs. * Stable --> H/h declined to at 9.9/29.7 from yesterday * Continue to monitor (17) DVT prophylaxis: * Per primary team * INR therapeutic today at 2.3 Thank you for allowing medicine team to participate in the care of Mrs. Torres. Medicine will follow. Supervising Physician Co-Signing Physician Notes PA Supervision Note: I did not personally see or examine the patient today, but I verified all guo points of ANNAMARIE Obrien's assessment and plan with the following exceptions/additions: None Subjective Patient evaluated this morning. Breathing improved. She states she did use CPAP overnight but was able to come off oxygen this morning. States she was able to ambulate in the halls without oxygen. She states the swelling in her arms and legs is greatly improved today. Patient states pain is tolerable with medications. Plan for closure in OR on Tuesday with Dr. Mustafa. Overall, patient states she is feeling pretty well. Only concern today regarding thyroid. She states she had been told she had been overtreated recently and was told to take her levothyroxine 6 days a week and is supposed to have her level checked soon. She thinks maybe some of the swelling may be contributed to this in addition to being +7L after receiving fluid. Review of Systems Constitutional: no fever and no chills Respiratory: no cough and no dyspnea Cardiovascular: no chest pain, no palpitations and no edema Gastrointestinal: no abdominal pain, no nausea, no vomiting and no constipation Genitourinary: no dysuria and no hematuria Musculoskeletal: no back pain mild leg pain Integumentary: no rash and no lesions Neurologic: no numbness and no paresthesia Psychiatric: no depression and no anxiety Endocrine: no fatigue and no cold intolerance Physical Exam Constitutional: WD/WN, vitals as above no acute distress Eyes: + anicteric sclerae and PERRL Neck: trachea midline, no thyromegaly Respiratory: normal respiratory effort, lungs clear to auscultation Auscultation: + crackles (bibasilar crackles) Cardiovascular: Rate/Rhythm: regular rate and regular rhythm Heart Sounds: normal S1 and normal S2; no murmur Extremities: + edema (Trace pedal edema b/l LE) Diminished pulses pt/dp LEFT, however present with doppler Gastrointestinal (Abdomen): normal bowel sounds, soft, nontender, no hepatosplenomegaly Skin: groin incisions without drainage or overt erythema with woundVAC to left calf fasciotomy incisions serousangiounous drainage Neurologic: NVI intact sensation to light touch b/l LE Results & Data Vital Signs (Past 12 Hours) Vital Signs Temp Pulse Pulse Pulse Resp BP Pulse Ox 02/21/19 12:00 36.6 C 71 18 93/61 L 91 02/21/19 08:00 36.9 C 66 63 18 122/72 95 02/21/19 03:14 37.0 C 58 L 19 107/65 97 Laboratory Results 02/21/19 02/21/19 02/21/19 Range/Units 13:04 06:01 06:01 WBC (4.8-10.8) K/uL RBC (4.2-5.4) M/uL Hgb (12.0-16.0) g/dL Hct (37-47) % MCV (80-100) fL MCH (25-34) pg MCHC (32-36) g/dL RDW Std Deviation (36.4-46.3) fL RDW Coeff of Toribio (11.5-14.5) % Plt Count (130-400) K/uL MPV (7.4-10.4) fL Immature Gran % (Auto) % Neut % (Auto) % Lymph % (Auto) % [place] % (Auto) % Eos % (Auto) % Baso % (Auto) % Immature Gran # (Auto) (0.00-0.02) K/uL Neut # (Auto) (1.4-6.5) K/uL Lymph # (Auto) (1.2-3.4) K/uL [place] # (Auto) (0.11-0.59) K/uL Eos # (Auto) (0-0.5) K/uL Baso # (Auto) (0-0.2) K/uL PT (9.0-12.0) Seconds INR (0.9-1.1) APTT 55.8 H* 70.5 H* (21.0-31.0) Seconds PTT Ratio 2.1 2.6 Sodium 138 (136-145) mmol/L Potassium 3.9 (3.5-5.1) mmol/L Chloride 102 (98-107) mmol/L Carbon Dioxide 34 H (21-32) mmol/L Anion Gap 2.0 L (3-11) BUN 11 (7-18) mg/dl Creatinine 0.61 (0.6-1.2) mg/dl Est Cr Clr Drug Dosing 107.2 ml/min Est GFR ( Amer) 118.3 Est GFR (Non-Af Amer) 102.1 BUN/Creatinine Ratio 18.0 (10-20) Glucose 106 H (70-99) mg/dl Calcium 8.7 (8.5-10.1) mg/dl Phosphorus 2.5 (2.5-4.9) mg/dl Magnesium 2.1 (1.8-2.4) mg/dl 02/21/19 02/21/19 Range/Units 06:01 06:01 WBC 6.64 (4.8-10.8) K/uL RBC 3.27 L (4.2-5.4) M/uL Hgb 9.9 L (12.0-16.0) g/dL Hct 29.7 L (37-47) % MCV 90.8 (80-100) fL MCH 30.3 (25-34) pg MCHC 33.3 (32-36) g/dL RDW Std Deviation 54.5 H (36.4-46.3) fL RDW Coeff of Toribio 16.2 H (11.5-14.5) % Plt Count 179 (130-400) K/uL MPV 9.9 (7.4-10.4) fL Immature Gran % (Auto) 2.7 % Neut % (Auto) 61.3 % Lymph % (Auto) 23.0 % [place] % (Auto) 8.3 % Eos % (Auto) 4.4 % Baso % (Auto) 0.3 % Immature Gran # (Auto) 0.18 H (0.00-0.02) K/uL Neut # (Auto) 4.07 (1.4-6.5) K/uL Lymph # (Auto) 1.53 (1.2-3.4) K/uL [place] # (Auto) 0.55 (0.11-0.59) K/uL Eos # (Auto) 0.29 (0-0.5) K/uL Baso # (Auto) 0.02 (0-0.2) K/uL PT 21.8 H (9.0-12.0) Seconds INR 2.3 H (0.9-1.1) APTT (21.0-31.0) Seconds PTT Ratio Sodium (136-145) mmol/L Potassium (3.5-5.1) mmol/L Chloride (98-107) mmol/L Carbon Dioxide (21-32) mmol/L Anion Gap (3-11) BUN (7-18) mg/dl Creatinine (0.6-1.2) mg/dl Est Cr Clr Drug Dosing ml/min Est GFR ( Amer) Est GFR (Non-Af Amer) BUN/Creatinine Ratio (10-20) Glucose (70-99) mg/dl Calcium (8.5-10.1) mg/dl Phosphorus (2.5-4.9) mg/dl Magnesium (1.8-2.4) mg/dl PG Care Time/CCT Total # of Minutes Spent Total Time Spent with Patient: Total time spent is greater than 50% in coordination of care (as documented) at patient's floor/unit and/or counseling patient:
[2019-02-21] MEDS: WARFARIN SOD 7.5 MG TAB PO SCH (16:16)
[2019-02-21] MEDS ORDERED: BUMETANIDE 1 MG TAB PO STA (17:47)
[2019-02-21] MEDS: HEPARIN SODIUM/DEXTROSE 25,000 UNITS/500 ML BAG IV SCH (23:44)
[2019-02-22] MEDS: MoRPHine SULFATE 4 MG/ML 1 ML CARP\\VIAL IV PRN (00:03)
[2019-02-22] MEDS ORDERED: LEVOTHYROXINE SODIUM 88 MCG TABLET PO SCH (06:30)
[2019-02-22 06:40] LABS: Hematocrit (blood only) 31.6 % (37-47); Hemoglobin 10.3 g/dL (12.0-16.0); Mean Corpuscular Hemoglobin 30.3 pg (25-34); Mean Corpuscular Hgb Conc 32.6 g/dL (32-36); Mean Corpuscular Volume 92.9 fL (80-100); Mean Platelet Volume 9.7 fL (7.4-10.4); Platelet Count 240 K/uL (130-400); RDW Coefficient of Variation 15.9 % (11.5-14.5); RDW Standard Deviation 54.5 fL (36.4-46.3); White Blood Count 6.62 K/uL (4.8-10.8)
[2019-02-22 07:00] LABS: Partial Thromboplastin Ratio 2.8
[2019-02-22 07:03] LABS: Partial Thromboplastin Time 76.3 Seconds (21.0-31.0)
[2019-02-22 07:17] LABS: BUN Creatinine Ratio 21.9 (10-20); Calcium 8.8 mg/dl (8.5-10.1); Creatinine Clr Calc Pharmacy 96.4 ml/min; Est GFR (African American) 114.1; Est GFR (Non-African American) 98.5; Magnesium 2.3 mg/dl (1.8-2.4); Potassium 3.7 mmol/L (3.5-5.1)
[2019-02-22 07:21] LABS: T4 Free Thyroxine 0.85 ng/dl (0.8-1.6)
[2019-02-22 07:48] LABS: INR 3.2 (0.9-1.1); Prothrombin Time 30.5 Seconds (9.0-12.0)
[2019-02-22] MEDS: POLYETHYLENE (MIRALAX) 17 GM PACK PO SCH ×2 (08:04→22:23)
[2019-02-22] MEDS: ASPIRIN 81 MG ECTAB PO SCH (08:12)
[2019-02-22] MEDS: CYANOCOBALAMIN (VITAMIN B-12) 100 MCG TABLET PO SCH (08:12)
[2019-02-22 13:49] LABS: Partial Thromboplastin Ratio 1.9
[2019-02-22 13:55] LABS: Partial Thromboplastin Time 52.7 Seconds (21.0-31.0)
--- NOTE | 2019-02-22 13:58 | Hospitalist Progress Note ---
Date of Service February 22, 2019 Assessment & Plan (1) Pulmonary edema: * 54-year-old female was initially admitted with previous aortobifemoral bypass in graft with occlusion and thrombectomy in 2016. CT September 2018 with narrowing of both limbs of graft. Underwent revision and presented with re- occlusion of left limb. On 02/16 underwent removal of infected LEFT groin graft and a RIGHT groin closure, followed by thrombectomy on 02/17 and left calf fasciotomy for ischemia (see related vascular surgery notes for full details). Given clindamycin, then vancomycin and cefepime (since discontinued) vladislav-operatively. Wound cultures from 02/16 without growth. Medicine consulted on 02/20 regarding her pulmonary edema. No known underlying pulmonary disease. No h/o sleep apnea. * CXR done showed interstitial opacities suggestive of pulmonary edema. Weight on admission 71.7kg with elevation to 77.6kg --> net +7L following fluid resuscitation/PRBCs for hypotension post-operatively. TTE done to assess cardiac function -->> without evidence of valvular heart disease, wma, or systolic dysfunction. EF 55-60% * IMPROVED -- currently 92% on RA * BP 146/64 this morning--> prinzide on hold last evening due to episode of hypotension yesterday in order to give additional 1mg bumex last evening. Will resume and give evening dose now. Cr stable at 0.68 * Monitor I&O, Daily Weights * Output not recorded, however patient's weight appears unchanged. * TSH elevated at 11.8, FT4 low normal at 0.85 -- would consider 75mcg MWF and 88mcg all others at discharge -- repeat TFT in 4-6 weeks as outpatient (2) Ischemia of left lower extremity: * See operative notes -- patient with previous aortobifemoral bypass in graft with occlusion and thrombectomy in 2016. CT September 2018 with narrowing of both limbs of graft. Underwent revision and presented with re-occlusion of left limb. On 02/16 underwent removal of infected LEFT groin graft and a RIGHT groin closure, followed by thrombectomy on 02/17 and left calf fasciotomy for ischemia (see related vascular surgery notes for full details). Given clindamycin, then vancomycin and cefepime (since discontinued) vladislav- operatively. Wound cultures from 02/16 without growth * As above * Post-surgical wound management and anticoagulation per vascular surgery-- to OR tomorrow for left leg closure of fasciotomy sites (3) Aortobifemoral bypass graft thrombosis: * As above (4) Vitamin B12 deficiency: * Continue home B12 (5) Peripheral vascular disease: * Continue home Coumadin * Heparin gtt could be d/c'd as patient INR elevated at 3.2 today --> defer to primary team as patient for OR tomorrow * Continue to monitor (6) Hypothyroidism: * Patient with recent adjustments due to overtreatment -- could consider 75mcg MWF and 88mcg all other days, given currently patient 88mcg 6days/wk * TSH elevated at 11.8, FT4 low --> changes as above and repeat TFT in 4-6 weeks as outpatient (7) Hypophosphatemia: * Stable * Phos as low as 2.1 -- supplementation with repeat improved to 2.5 * Continues to be stable at 3.0 today (8) Hypomagnesemia: * Mg as low as 1.5 -- replaced * Continues to remain stable at 2.3 (9) Hypocalcemia: * Ca as low as 7.7. * Currently stable at 8.8 (10) Hypotension: * As above -- elevated at 158/73 currently * This morning, patient weaned off O2 and had sat 92% on RA * Prinzide held as above for use of bumex-- resume this afternoon * Continue to monitor (11) Hypokalemia: * K as low as 3.1. Replacing, monitoring. * Stable today at 3.7 * Continue to monitor (12) History of fasciotomy: * As above (13) Acute blood loss as cause of postoperative anemia: * As above (14) Claudication of lower extremity: * As above (15) HTN (hypertension): * Prinzide on hold as above -- one hypotensive episode of 93/61 yesterday but has been stable and even elevated -- currently at 158/73 * Resume home lisinopril/hctz as above * Continue to monitor (16) Acute on chronic anemia: * Hb as low as 8.9 post-operatively. 14-15Dec received total four units PRBCs. * Improved to 10.3/31.6 today * Continue to monitor (17) DVT prophylaxis: * Per primary team * INR elevated at 3.2 today -- consider d/c heparin drip, but will defer to primary service Thank you for allowing medicine team to participate in the care of Mrs. Torres. Medicine will follow. Supervising Physician Co-Signing Physician Notes PA Supervision Note: I did not personally see or examine the patient today, but I verified all guo points of ANNAMARIE Obrien's assessment and plan with the following exceptions/additions: Coumadin will be placed on hold for supratherapeutic INR. Did receive her dose today but should be ok, no evidence of bleeding. Is going to surgery tomorrow. Subjective Patient evaluated in bed this morning. Some numbness/tingling last night, but patient states that is mostly resolved. Does feel some pressure. Denies any shortness of breath or chest pain. Good appetite. Voiding adequately. Moving bowels. Plan for OR tomorrow for closure of fasciotomy sites. Some dryness of her nose, which she has not received nasal spray for yet. Will ask nursing to provide to patient. Denies f/c, chest pain, shortness of breath, cough, sputum production, nausea, vomiting, constipation, dysuria, hematuria, weakness or numbness at this time. Review of Systems Review of Systems: All systems reviewed & are unremarkable except as noted in HPI & below Constitutional: no fever and no chills Respiratory: no cough and no dyspnea Cardiovascular: no chest pain and no palpitations Gastrointestinal: no abdominal pain, no nausea and no vomiting Genitourinary: no dysuria and no difficulty urinating Musculoskeletal: no neck pain and no joint pain Integumentary: no rash and no lesions Neurologic: + tingling; no numbness and no paresthesia Physical Exam Constitutional: WD/WN, vitals as above no acute distress Eyes: + anicteric sclerae and PERRL Neck: trachea midline, no thyromegaly Respiratory: normal respiratory effort, lungs clear to auscultation Cardiovascular: Rate/Rhythm: regular rate and regular rhythm Heart Sounds: normal S1 and normal S2 Extremities: + edema (Trace pedal edema b/l LE, L>R) Diminished pulses pt/dp LEFT, however dp palpable without doppler today pt/dp 2+ RLE Gastrointestinal (Abdomen): normal bowel sounds, soft, nontender, no hepatosplenomegaly Skin: groin incisions without drainage or overt erythema with woundVAC to left calf fasciotomy incisions serousangiounous drainage Neurologic: NVI intact sensation to light touch Psychiatric: A+Ox3, euthymic affect Lymphatic: no cervical or axillary lymphadenopathy Results & Data Vital Signs (Past 12 Hours) Vital Signs Temp Pulse Resp BP BP Pulse Ox 02/22/19 11:57 36.5 C 69 18 158/73 H 92 02/22/19 07:30 37.1 C 73 20 146/64 H 98 02/22/19 04:07 36.5 C 71 18 154/74 H 92 Laboratory Results 02/22/19 02/22/19 02/22/19 Range/Units 12:54 06:23 06:23 WBC (4.8-10.8) K/uL RBC (4.2-5.4) M/uL Hgb (12.0-16.0) g/dL Hct (37-47) % MCV (80-100) fL MCH (25-34) pg MCHC (32-36) g/dL RDW Std Deviation (36.4-46.3) fL RDW Coeff of Toribio (11.5-14.5) % Plt Count (130-400) K/uL MPV (7.4-10.4) fL PT 30.5 H (9.0-12.0) Seconds INR 3.2 H (0.9-1.1) APTT 52.7 H* 76.3 H* (21.0-31.0) Seconds PTT Ratio 1.9 2.8 Sodium (136-145) mmol/L Potassium (3.5-5.1) mmol/L Chloride (98-107) mmol/L Carbon Dioxide (21-32) mmol/L Anion Gap (3-11) BUN (7-18) mg/dl Creatinine (0.6-1.2) mg/dl Est Cr Clr Drug Dosing ml/min Est GFR ( Amer) Est GFR (Non-Af Amer) BUN/Creatinine Ratio (10-20) Glucose (70-99) mg/dl Calcium (8.5-10.1) mg/dl Phosphorus (2.5-4.9) mg/dl Magnesium (1.8-2.4) mg/dl TSH (0.300-4.500) uIu/ml Free T4 (0.8-1.6) ng/dl 02/22/19 02/22/19 02/21/19 Range/Units 06:23 06:23 06:01 WBC 6.62 (4.8-10.8) K/uL RBC 3.40 L (4.2-5.4) M/uL Hgb 10.3 L (12.0-16.0) g/dL Hct 31.6 L (37-47) % MCV 92.9 (80-100) fL MCH 30.3 (25-34) pg MCHC 32.6 (32-36) g/dL RDW Std Deviation 54.5 H (36.4-46.3) fL RDW Coeff of Toribio 15.9 H (11.5-14.5) % Plt Count 240 (130-400) K/uL MPV 9.7 (7.4-10.4) fL PT (9.0-12.0) Seconds INR (0.9-1.1) APTT (21.0-31.0) Seconds PTT Ratio Sodium 137 (136-145) mmol/L Potassium 3.7 (3.5-5.1) mmol/L Chloride 102 (98-107) mmol/L Carbon Dioxide 34 H (21-32) mmol/L Anion Gap 1.0 L (3-11) BUN 15 (7-18) mg/dl Creatinine 0.68 (0.6-1.2) mg/dl Est Cr Clr Drug Dosing 96.4 ml/min Est GFR ( Amer) 114.1 Est GFR (Non-Af Amer) 98.5 BUN/Creatinine Ratio 21.9 H (10-20) Glucose 95 (70-99) mg/dl Calcium 8.8 (8.5-10.1) mg/dl Phosphorus 3.0 (2.5-4.9) mg/dl Magnesium 2.3 (1.8-2.4) mg/dl TSH 11.800 H (0.300-4.500) uIu/ml Free T4 0.85 (0.8-1.6) ng/dl PG Care Time/CCT Total # of Minutes Spent Total Time Spent with Patient: Total time spent is greater than 50% in coordination of care (as documented) at patient's floor/unit and/or counseling patient:
--- NOTE | 2019-02-22 14:02 | Surgery Progress Note ---
Date of Service February 22, 2019 Assessment & Plan (1) Ischemia of left lower extremity: Pt improving post op. She is doing extremely well. If we could close the fasciotomies tomorrow she may be able to go straight home from the hospital rather than rehab. (2) History of fasciotomy: We plan on that fasciotomy closure tomorrow in the operating room. I have discussed the risks options and benefits of the procedure with the patient. The patient understands the risks options and benefits and agrees to the procedure. Subjective 54 yo f s/p LLE removal of infected graft and later thrombectomy of LLE and fem fem BPG. Pt Is doing well. She is ambulating in the [place].She has no complaints of leg pain other than incisional pain. Physical Exam Constitutional: WD/WN, vitals as above Cardiovascular: Vessels: femoral pulses present (on right) and radial pulses present; + posterior tibial pulses abnormal and + dorsalis pedis pulses abnormal Extremities: no edema Skin: + wound (Wound VAC is in place in the lower extremity.) and + incision (Incisions are all dry and clean.) Psychiatric: A+Ox3, euthymic affect Results & Data Vital Signs (Past 12 Hours) Vital Signs Temp Pulse Resp BP BP Pulse Ox 02/22/19 11:57 36.5 C 69 18 158/73 H 92 02/22/19 07:30 37.1 C 73 20 146/64 H 98 02/22/19 04:07 36.5 C 71 18 154/74 H 92
[2019-02-22] MEDS: LISINOPRIL/HCTZ 20/12.5MG 1 TAB TAB PO SCH (14:26)
[2019-02-22] MEDS: WARFARIN SOD 5 MG TAB PO SCH (16:13)
[2019-02-22] MEDS ORDERED: BUMETANIDE 1 MG in SYRINGE 0 ML IV SCH (16:45)
[2019-02-22] MEDS ORDERED: BUMETANIDE 1 MG in SYRINGE 0 ML IV ONE (17:00)
--- NOTE | 2019-02-22 17:32 | Anesthesiology Consultation ---
Date of Service February 22, 2019 Assessment & Plan Chart Review Chart Review: Acceptable Risk for Surgery and Patient NOT seen in Pre Admission Testing Consults Requested none ASA ASA4 Proposed Anesthesia Anesthesia Type: General Anesthesia Line Insertion: Arterial line History Surgery Operation Date: 02/16/19 10:20 Proposed Procedures p Femoral to Femoral Bypass - Jonny Arroyo MD Operation Date: 02/17/19 03:30 Proposed Procedures p Femoral Popliteal Bypass Graft - Jonny Arroyo MD Operation Date: 02/23/19 13:55 Proposed Procedures p Left Leg Closure of Fasciotomy - Jonny Arroyo MD Height/Weight Height: 5 ft 6 in Weight: 74.3 kg Allergies Allergy/AdvReac Type Severity Reaction Status Date / Time amoxicillin Allergy Intermediate Hives Verified 02/16/19 08:48 Penicillins Allergy Intermediate Hives Verified 02/16/19 08:48 Medications Home Medications Medication Instructions Recorded Confirmed Last Taken cyanocobalamin (vitamin B-12) 100 mcg PO DAILY cap 02/13/18 02/16/19 02/15/19 23:00 1,000 mcg capsule oxycodone-acetaminophen [Percocet] 1 tab PO Q6H PRN #30 tab 11/28/18 02/16/19 Unknown aspirin 81 mg tablet,delayed 81 mg PO DAILY 12/28/18 02/16/19 02/15/19 23:00 release levothyroxine 88 mcg tablet 88 mcg PO [id number] tab 12/28/18 02/16/19 02/16/19 06:00 warfarin 5 mg tablet See Rx Instructions PO UD tab 12/28/18 02/16/19 02/10/19 22:00 lisinopril-hydrochlorothiazide 1 tab PO HS 02/08/19 02/16/19 02/15/19 23:00 Active Medications Generic Name Dose Route Start Last Admin Trade Name Freq PRN Reason Stop Dose Admin Aspirin 81 mg 02/17/19 09:00 02/22/19 08:12 Ecotrin Ectab PO 03/19/19 08:59 81 mg DAILY CHRISTOPHER Administration Cyanocobalamin 100 mcg 02/17/19 09:00 02/22/19 08:12 Vitamin B-12 PO 03/19/19 08:59 100 mcg DAILY CHRISTOPHER Administration Lisinopril/HCTZ 1 tab 02/16/19 21:00 02/22/19 14:26 Prinzide 20/12.5mg PO 03/18/19 20:59 1 tab HS CHRISTOPHER Administration Morphine Sulfate 1 - 4 mg 02/16/19 16:07 02/22/19 00:03 Morphine Sulfate IV 03/02/19 16:06 2 mg Q2H PRN Administration Severe Pain Oxycodone/Acetaminophen 1 - 2 tab 02/16/19 16:07 02/21/19 21:02 Percocet 5mg/325mg PO 03/02/19 16:06 2 tab Q4H PRN Administration Moderate Pain Polyethylene Glycol 17 gm 02/19/19 10:30 02/22/19 08:04 Miralax Powder Packet PO 03/21/19 10:29 Not Given BID CHRISTOPHER Sodium Chloride 2 sprays 02/21/19 13:02 02/22/19 14:26 Harney Nasal NA 03/23/19 13:01 2 sprays Q4 PRN Administration Congestion Warfarin Sodium 5 mg 02/22/19 16:00 02/22/19 16:13 Coumadin PO 03/24/19 15:59 5 mg DAILY@1600 CHRISTOPHER Administration NPO Date Last Intake of Fluids: 02/15/19 Time Last Intake of Fluids: 23:30 Last Intake of Fluids Comment: Inpatient - emergent case per Dr. Arroyo Date Last Intake of Solids: 02/15/19 Time Last Intake of Solids: 19:00 Last Intake of Solids Comment: Inpatient - emergent case per Dr. Arroyo Past Medical History Medical History Anemia Claudication of lower extremity H/O blood clots BLOOD CLOT IN 1 STENT FROM ARTERIAL BYPSS SURGERY (DR. ARROYO) Hyperlipidemia Hypertension Hypothyroidism Occlusion of arterial bypass graft PVD (peripheral vascular disease) Exercise / Class Metabolic Activity III < 4 Walking/Shop/Light housework Past Family History Family History Other No significant family history Past Surgical History Surgical History History of cataract surgery RT/LEFT History of dilatation and curettage History of tooth extraction History of vascular access device ARTERIAL BYPASS GRAFTING (BILAT FEMORAL AREAS) 4 YEARS AGO 2 STENTS PLACED (REASON FOR COUMADIN) Hx of angioplasty LEFT FEMORAL ARTERY ANASTOMOSIS 11/2018 Past Anesthesia History No Hx of Anesthesia Complications and No Family Hx of Anesthesia Complications History of PONV No Hx of PONV and No Hx of Motion Sickness Social History Smoking Status: Current every day smoker tobacco type: cigarettes Smoking cigarettes per day: 10 DAILY Do You Dip or Chew Tobacco: No Hx Alcohol Use: Yes Alcohol type: beer alcohol intake frequency: a few times a week Hx Substance Use: No substance use type: does not use Physical Exam Vital Signs Last Vital Signs Temp 36.4 C L 02/22/19 15:56 Pulse 71 02/22/19 15:56 Resp 17 02/22/19 15:56 BP 178/90 H 02/22/19 15:56 Pulse Ox 96 02/22/19 15:56 Testing Laboratory Results 02/22/19 06:23 02/22/19 06:23 PT 30.5 Seconds (9.0-12.0) H 02/22/19 06:23 INR 3.2 (0.9-1.1) H 02/22/19 06:23 APTT 52.7 Seconds (21.0-31.0) H* 02/22/19 12:54 Blood Type A Positive 02/16/19 08:31 Antibody Screen NEGATIVE 02/16/19 08:31 02/16/19 16:30 Gram Stain - Final Foreign Body Aerobic and Anaerobic Culture - Final No growth 02/16/19 Unknown Gram Stain - Final Abdomen, Left Lower Quadrant Aerobic and Anaerobic Culture - Final No growth 02/16/19 Unknown Gram Stain - Final Groin Deep Wound Culture - Final No growth 02/16/19 02/16/19 09:36 08:45 POC Ur Test NEG NEG Electrocardiogram Date: 11/20/18 Findings: + NSR @ (at 75) Chest X-Ray Date: 02/20/19 Findings: + pulmonary vascular congestion Echocardiogram Date: 02/20/19 EF: 55 LV Function: normal RWMA: + none Other Findings: + diastolic dysfunction (grade 1) Valvular Disease: + no significant valvular disease nl rv fxn
[2019-02-22] MEDS: OXYCODONE/ACETAMINOPHEN 5mg/325mg TAB PO PRN ×2 (18:25→22:31)
[2019-02-23] MEDS ORDERED: CLINDAMYCIN 600 MG/54 ML BAG IV SCH ×2 (06:00)
[2019-02-23] MEDS ORDERED: LEVOTHYROXINE SODIUM 75 MCG TABLET PO SCH (06:30)
[2019-02-23 06:42] LABS: Hemoglobin 11.2 g/dL (12.0-16.0); Mean Corpuscular Hemoglobin 29.7 pg (25-34); Mean Corpuscular Volume 92.8 fL (80-100); Mean Platelet Volume 9.4 fL (7.4-10.4); Platelet Count 273 K/uL (130-400); RDW Coefficient of Variation 16.2 % (11.5-14.5); RDW Standard Deviation 54.7 fL (36.4-46.3); Red Blood Count 3.77 M/uL (4.2-5.4); White Blood Count 6.79 K/uL (4.8-10.8)
[2019-02-23 06:51] LABS: INR 2.7 (0.9-1.1); Prothrombin Time 25.7 Seconds (9.0-12.0)
[2019-02-23 07:13] LABS: ALC (manual) 1.32 K/uL (1.2-3.4); ANC (manual) 3.67 K/uL (1.4-6.5); Eosinophils # (manual) 0.48 K/uL (0-0.5); Eosinophils % (manual) 7.1 %; Lymphocytes # (manual) 1.32 K/uL (1.2-3.4); Lymphocytes % (manual) 19.5 %; Metamyelocytes # (manual) 0.42 K/uL (0-0); Metamyelocytes % (manual) 6.2 %; Monocytes % (manual) 8.8 %; Myelocytes % (manual) 4.4 %; Neutrophils # (manual) 3.67 K/uL (1.4-6.5)
[2019-02-23 07:16] LABS: BUN Creatinine Ratio 26.3 (10-20); Calcium 9.8 mg/dl (8.5-10.1); Creatinine Clr Calc Pharmacy 102.6 ml/min; Potassium 4.1 mmol/L (3.5-5.1)
--- NOTE | 2019-02-23 07:53 | History & Physical Bridge Note ---
Date of Service February 23, 2019 History & Physical Bridge Note Patient for closure of fasciotomies today. I have discussed the risks options and benefits of the procedure with the patient. The patient understands the risks options and benefits and agrees to the procedure. I have examined the patient, reviewed the History & Physical and in the interval since the performance of the History & Physical I have noted the following changes of clinical significance: no changes noted
[2019-02-23] MEDS: ASPIRIN 81 MG ECTAB PO SCH (08:03)
[2019-02-23] MEDS: CYANOCOBALAMIN (VITAMIN B-12) 100 MCG TABLET PO SCH (08:03)
[2019-02-23] MEDS: POLYETHYLENE (MIRALAX) 17 GM PACK PO SCH ×2 (08:03→21:27)
[2019-02-23] MEDS ORDERED: fentaNYL citrate 100 MCG/2 ML VIAL ONE (09:26)
[2019-02-23] MEDS ORDERED: ONDANSETRON INJ 2 MG/ML 2 ML VIAL ONE (09:26)
[2019-02-23] MEDS ORDERED: PROPOFOL IV EMULSION 10 MG/ML 20 ML VIAL IV ONE (09:26)
[2019-02-23] MEDS ORDERED: MIDAZOLAM HCL 1 MG/ML 2ML VIAL ONE (09:26)
[2019-02-23] MEDS ORDERED: ONDANSETRON INJ 2 MG/ML 2 ML VIAL IV PRN (09:31)
[2019-02-23] MEDS ORDERED: ePHEDrine sulfate 50 MG/ML AMP IV PRN (09:31)
[2019-02-23] MEDS ORDERED: fentaNYL citrate 100 MCG/2 ML VIAL IV PRN (09:31)
[2019-02-23] MEDS ORDERED: ATROPINE SULFATE 0.1 MG/ML 10ML SYR IV PRN (09:31)
[2019-02-23] MEDS ORDERED: EPINEPHrine INJ 1 MG/ML AMP ONE (09:37)
[2019-02-23] MEDS ORDERED: BUPIVACAINE 0.5 % 5 MG/1 ML MPF 30ML VIAL ONE (09:37)
[2019-02-23] MEDS ORDERED: LIDOCAINE HCL 1% 20 ML VIAL ONE (09:38)
[2019-02-23] MEDS ORDERED: ePHEDrine sulfate 50 MG/ML SYR ONE (10:08)
--- NOTE | 2019-02-23 10:30 | Operative Report ---
Post Operative Report Pre & Post Diagnosis Operation Date: 02/16/19 10:20 Pre-Op Diagnosis: Left Leg Claudication, Severe Post-Op Diagnosis: Left Leg Claudication, Severe Operation Date: 02/17/19 03:30 Pre-Op Diagnosis: Ischemia left lower extremity Post-Op Diagnosis: Ischemia left lower extremity Operation Date: 02/23/19 13:55 pre Op Diagnosis: Open fasciotomies left leg Post Op Diagnosis: Open fasciotomies left leg I identified the patient and participated in the time-out.: Yes Procedure Operation Date: 02/16/19 10:20 Actual Procedures p Removal of Infected Graft Left Groin, Repair of Arterywith interposition bovine graft (JANET), and right groin closure(Bilateral) - Jonny Mustafa MD Operation Date: 02/17/19 03:30 Actual Procedures p Right femoral to left femoral prosthetic bypass; Thrombectomy of Right lower extremity; Patch angioplasty of right common femoral artery; Endarterectomy of patch angioplasty left superficial common femoral artery; Left leg four compartment fasciotomy(Bilateral) - Jonny Mustafa MD Operation Date: 02/23/19 13:55 Closure of fasciotomies left leg 20x4 and 18x3> Surgeon Jonny Mustafa MD Billing Specialist ASTRID Conway Estimated Blood Loss 10 Findings Consistent with Post-Op Diagnosis Specimens None Anesthesia Type General Complications none Disposition Accompanied Patient To Recovery: No Disposition: Recovery Room Indications This is a 54-year-old female who underwent emergency revascularization of the left lower extremity and open fasciotomies. The muscle edema has decreased to the point where we could close the fasciotomies. This was recommended. I have discussed the risks options and benefits of the procedure with the patient. The patient understands the risks options and benefits and agrees to the procedure. Description of Procedure The patient was taken the operating room and placed in the supine position. She was identified and a timeout was performed. The fasciotomy sites were then irrigated. No debridement was required. They were then closed using interrupted nylon sutures followed by berny for the skin. Sterile dressings were then applied.The patient left the operation room in satisfactory condition and tolerated the procedure well. All needle and sponge counts were correct at the end of the procedure. Lida Jacobsen Pac assisted due to lack of resident availability and was necessary for positioning, draping, retraction, wound closure deep layers, subcutaneous tissue, and skin closure and was necessary for assisting with the case. I attest to the content of the Intraoperative Record and any orders documented therein. Any exceptions are noted below.
--- NOTE | 2019-02-23 10:38 | Anesthesiology Progress Note ---
Date of Service February 23, 2019 Anesthesia Post Procedure Vital Signs Vital Signs: Temp Pulse Pulse Resp BP Pulse Ox 02/23/19 09:16 36.5 C 70 18 150/76 H 94 02/23/19 07:59 36.4 C L 59 L 20 144/68 H 97 02/23/19 04:02 36.5 C 63 20 163/78 H 97 02/22/19 23:35 36.8 C 67 19 120/75 94 02/22/19 20:07 37.1 C 74 21 124/76 91 02/22/19 16:00 63 02/22/19 15:56 36.4 C L 71 17 178/90 H 96 02/22/19 11:57 36.5 C 69 18 158/73 H 92 Pain Intensity Bilateral Groin: Pain Intensity: 0 Left Groin: Pain Intensity: 0 Left Foot: Pain Intensity: 6 Transfer of Care Handoff Completed per policy Notes Mental Status: alert / awake / arousable and participated in evaluation Patient Amnestic to Procedure: Yes Nausea / Vomiting: adequately controlled Pain: adequately controlled Airway Patency, RR, SpO2: stable & adequate BP & HR: stable & adequate Hydration State: stable & adequate Anesthetic Complications: no major complications apparent and Pt Satisfied with anesthetic care
[2019-02-23] MEDS: OXYCODONE/ACETAMINOPHEN 5mg/325mg TAB PO PRN ×2 (14:26→21:21)
[2019-02-23] MEDS: WARFARIN SOD 5 MG TAB PO SCH (15:05)
--- NOTE | 2019-02-23 15:42 | Hospitalist Progress Note ---
Date of Service February 23, 2019 Assessment & Plan (1) Pulmonary edema: * Improved -- patient 100% on RA this afternoon * 54-year-old female was initially admitted with previous aortobifemoral bypass in graft with occlusion and thrombectomy in 2015. CT September 2018 with narrowing of both limbs of graft. Underwent revision and presented with re-occlusion of left limb. On 02/16 underwent removal of infected LEFT groin graft and a RIGHT groin closure, followed by thrombectomy on 02/17 and left calf fasciotomy for ischemia (see related vascular surgery notes for full details). Given clindamycin, then vancomycin and cefepime (since discontinued) vladislav- operatively. Wound cultures from 02/16 without growth. Medicine consulted on 02/20 regarding her pulmonary edema. No known underlying pulmonary disease. No h/o sleep apnea. * CXR done showed interstitial opacities suggestive of pulmonary edema. Weight on admission 71.7kg with elevation to 77.6kg --> net +7L following fluid resuscitation/PRBCs for hypotension post-operatively. TTE done to assess cardiac function -->> without evidence of valvular heart disease, wma, or systolic dysfunction. EF 55-60% * Patient given IV and PO bumex over last two days. Prizide on hold on 02/21 for episode of hypotension in order to further diurese. Resumed 02/22. * TODAY -- patient to OR for closure of fasciotomies to L leg -- BP post operatively stable -- would continue prinzide at this time -- patient without s/sx pulmonary edema at this time. Patient 96% on RA currently. * Monitor I&O, Daily Weights * Output does not appear to be accurately recorded -- however, patient's weight nearly back to baseline, 72.1kg currently * TSH elevated at 11.8, FT4 low normal at 0.85 -- changed levothyroxine dosing to 75mcg MWF and 88mcg all others at discharge -- repeat TFT in 4-6 weeks as outpatient (2) Ischemia of left lower extremity: * See operative notes -- patient with previous aortobifemoral bypass in graft with occlusion and thrombectomy in 2016. CT September 2018 with narrowing of both limbs of graft. Underwent revision and presented with re-occlusion of left limb. On 02/16 underwent removal of infected LEFT groin graft and a RIGHT groin closure, followed by thrombectomy on 02/17 and left calf fasciotomy for ischemia (see related vascular surgery notes for full details). Given clindamycin, then vancomycin and cefepime (since discontinued) vladislav- operatively. Wound cultures from 02/16 without growth * As above * Post-surgical wound management and anticoagulation per vascular surgery-- patient went to OR this morning for closure of sites -- post-operative managment per vascular surgery (3) Aortobifemoral bypass graft thrombosis: * As above (4) Vitamin B12 deficiency: * Continue home B12 (5) Peripheral vascular disease: * Coumadin continued last evening despite being. On hold today for surgery -- resume per primary team * Will need follow up with [facility] clinic at discharge -- home health to draw INR (6) Hypothyroidism: * Patient with recent adjustments due to overtreatment -- changed dosing to 75mcg MWF and 88mcg all other days, given patient taking 88mcg 6x/wk and had been recently reduced to that schedule * TSH elevated at 11.8, FT4 low --> changes as above and repeat TFT in 4-6 weeks as outpatient (7) Hypophosphatemia: * Stable * Phos as low as 2.1 -- supplementation with repeat improved to 2.5 * Stable at 3.0 on last check (8) Hypomagnesemia: * Mg as low as 1.5 -- replaced * Continued to be stable - last check 2.3 (9) Hypocalcemia: * Ca as low as 7.7. * Currently stable at 9.8 (10) Hypotension: * As above * Patient with adequate saturation on room air * Consider 2-step prior to discharge (11) Hypokalemia: * K as low as 3.1. Replacing, monitoring. * Stable today at 4.1 * Continue to monitor (12) History of fasciotomy: * As above (13) Acute blood loss as cause of postoperative anemia: * As above (14) Claudication of lower extremity: * As above (15) HTN (hypertension): * Resumed home lisinopril/hctz as above -- BP currently elevated but stable at 152/78 * Continue to monitor (16) Acute on chronic anemia: * Hb as low as 8.9 post-operatively. 14-15Dec received total four units PRBCs. * Improved to 10.9/32.4 today * Continue to monitor (17) DVT prophylaxis: * Per primary team * INR 2.7 today -- coumadin 5mg dosing per primary team -- will need follow up with co[facility] clinic at discharge as above Thank you for allowing medicine team to participate in the care of Mrs. Torres. Medicine will sign off. Please contact with any questions or concerns. Supervising Physician Co-Signing Physician Notes PA Supervision Note: I did not personally see or examine the patient today, but I verified all guo points of ANNAMARIE Obrien's assessment and plan with the following exceptions/additions: None Subjective Patient evaluated following surgery this morning. Patient with some tightness following surgery in left leg, but she states it is only minimal pain. Managed with pain medication. Patient with appetite, requesting tray as she had not eaten yet today. Passing gas, moving bowels. Denies any chest pain, shortness of breath or dyspnea with exertion at this time. She states she did have increased output last night after receiving diuretic. Patient requesting home health for assistance with dressing changes. Follows with co[facility] clinic regarding her coumadin. Plans for discharge home tomorrow per vascular team. Review of Systems Review of Systems: All systems reviewed & are unremarkable except as noted in HPI & below Constitutional: no fever and no chills Ear, Nose, Mouth, Throat: no sore throat and no dysphagia Respiratory: no cough and no dyspnea Cardiovascular: + edema (improved); no chest pain and no palpitations Gastrointestinal: no abdominal pain, no nausea and no vomiting Genitourinary: no dysuria and no hematuria Integumentary: no new rashes/lesions Neurologic: no loss of sensation, no numbness and no paresthesia Physical Exam Constitutional: WD/WN, vitals as above no acute distress Eyes: + anicteric sclerae and PERRL Neck: trachea midline, no thyromegaly Respiratory: normal respiratory effort, lungs clear to auscultation Cardiovascular: Rate/Rhythm: regular rate and regular rhythm Heart Sounds: normal S1 and normal S2; no murmur Extremities: + edema (Trace pedal edema b/l LE, L>R) palpable pulses b/l le dp, pt Gastrointestinal (Abdomen): normal bowel sounds, soft, nontender, no hepatosplenomegaly Skin: dressings to bilateral left leg, lateral aspects without evidence of bloody drainage or erythema b/l groin incisions without drainage or overt erythema. berny intact. some crusting Neurologic: moves all extremities and awake Speech / Cognition: normal speech Psychiatric: A+Ox3, euthymic affect Lymphatic: no cervical or axillary lymphadenopathy Results & Data Vital Signs (Past 12 Hours) Vital Signs Temp Pulse Pulse Pulse Resp BP Pulse Ox 02/23/19 14:25 36.5 C 61 14 152/78 H 90 02/23/19 13:25 36.5 C 60 14 130/64 98 02/23/19 12:25 61 16 127/63 100 02/23/19 11:55 36.5 C 74 14 131/64 93 02/23/19 11:25 36.6 C 60 14 127/77 95 02/23/19 11:03 36.8 C 62 15 118/70 96 02/23/19 10:50 61 12 108/64 99 02/23/19 10:40 73 14 116/62 96 02/23/19 10:31 36.8 C 73 12 120/59 L 95 02/23/19 09:16 36.5 C 70 18 150/76 H 94 02/23/19 07:59 36.4 C L 59 L 20 144/68 H 97 02/23/19 04:02 36.5 C 63 20 163/78 H 97 Laboratory Results 02/23/19 02/23/19 02/23/19 Range/Units 06:27 06:27 06:27 WBC 6.79 (4.8-10.8) K/uL RBC 3.77 L (4.2-5.4) M/uL Hgb 11.2 L (12.0-16.0) g/dL Hct 35.0 L (37-47) % MCV 92.8 (80-100) fL MCH 29.7 (25-34) pg MCHC 32.0 (32-36) g/dL RDW Std Deviation 54.7 H (36.4-46.3) fL RDW Coeff of Toribio 16.2 H (11.5-14.5) % Plt Count 273 (130-400) K/uL MPV 9.4 (7.4-10.4) fL Neutrophils % (Manual) 54.0 % Lymphocytes % (Manual) 19.5 % Monocytes % (Manual) 8.8 % Eosinophils % (Manual) 7.1 % Metamyelocytes % (Man) 6.2 % Myelocytes % (Man) 4.4 % Neutrophils # (Manual) 3.67 (1.4-6.5) K/uL Total Absolute Neuts 3.67 (1.4-6.5) K/uL Lymphocytes # (Manual) 1.32 (1.2-3.4) K/uL Total Abs Lymphocytes 1.32 (1.2-3.4) K/uL Monocytes # (Manual) 0.60 H (0.11-0.59) K/uL Eosinophils # (Manual) 0.48 (0-0.5) K/uL Metamyelocytes # (Man) 0.42 H (0-0) K/uL Myelocytes # (Manual) 0.30 H (0-0) K/uL PT 25.7 H (9.0-12.0) Seconds INR 2.7 H (0.9-1.1) Sodium 139 (136-145) mmol/L Potassium 4.1 (3.5-5.1) mmol/L Chloride 103 (98-107) mmol/L Carbon Dioxide 33 H (21-32) mmol/L Anion Gap 3.0 (3-11) BUN 17 (7-18) mg/dl Creatinine 0.63 (0.6-1.2) mg/dl Est Cr Clr Drug Dosing 102.6 ml/min Est GFR ( Amer) 117.0 Est GFR (Non-Af Amer) 101.0 BUN/Creatinine Ratio 26.3 H (10-20) Glucose 86 (70-99) mg/dl Calcium 9.8 (8.5-10.1) mg/dl PG Care Time/CCT Total # of Minutes Spent Total Time Spent with Patient: Total time spent is greater than 50% in coordination of care (as documented) at patient's floor/unit and/or counseling patient:
[2019-02-23] MEDS: LISINOPRIL/HCTZ 20/12.5MG 1 TAB TAB PO SCH (21:22)
[2019-02-24] MEDS: OXYCODONE/ACETAMINOPHEN 5mg/325mg TAB PO PRN (01:10)
[2019-02-24] MEDS ORDERED: LEVOTHYROXINE SODIUM 88 MCG TABLET PO SCH (06:30)
[2019-02-24] MEDS: CYANOCOBALAMIN (VITAMIN B-12) 100 MCG TABLET PO SCH (08:19)
[2019-02-24] MEDS: ASPIRIN 81 MG ECTAB PO SCH (08:19)
[2019-02-24] MEDS: POLYETHYLENE (MIRALAX) 17 GM PACK PO SCH (08:25)
--- NOTE | 2019-02-24 08:58 | Surgery Progress Note ---
Date of Service February 24, 2019 Assessment & Plan (1) Ischemia of left lower extremity: Bypass patent. Patient for discharge today (2) History of fasciotomy: Fasciotomy closure dry and clean. Subjective 54 yo f s/p LLE removal of infected graft and later thrombectomy of LLE and fem fem BPG. Pt Is doing well. She is ambulating in the [place]. She had her fasciotomies closed yesterday. Wants to go home Physical Exam Constitutional: WD/WN, vitals as above Cardiovascular: Vessels: femoral pulses present (on right) and radial pulses present; + posterior tibial pulses abnormal and + dorsalis pedis pulses abnormal Extremities: no edema Musculoskeletal: no cyanosis or clubbing, extremities motor strength 5/5 Skin: no rashes, warm and dry + incision (Incisions are all dry and clean. Fasciotomy closure is dry and clean) Neurologic: Motor/Sensory: normal movement and no sensory deficit Psychiatric: A+Ox3, euthymic affect Results & Data Vital Signs (Past 12 Hours) Vital Signs Temp Pulse Resp BP BP Pulse Ox 02/24/19 07:13 36.5 C 58 L 16 125/66 95 02/23/19 23:35 36.6 C 66 16 129/69 97
== END 2019-02-24 10:50 | disposition home health service (06) | DRG 252 ==
LOC: ASU 07:59 → 1E 16:07 → 2S 02-20 19:05 → 3W 02-23 11:29

== ENCOUNTER 2021-01-02 10:43 | Inpatient (IN) ==
[2021-01-02] MEDS ORDERED: SODIUM CHLORIDE 0.9% 1000ML 1,000 ML IV SCH (12:45)
[2021-01-02 13:28] LABS: Basophils # (auto) 0.03 K/uL (0-0.2); Basophils % (auto) 0.5 %; Eosinophils # (auto) 0.21 K/uL (0-0.5); Eosinophils % (auto) 3.5 %; Hematocrit (blood only) 47.8 % (37-47); Hemoglobin 16.2 g/dL (12.0-16.0); Immature Granulocytes # (auto) 0.03 K/uL (0.00-0.02); Immature Granulocytes % (auto) 0.5 %; Lymphocytes # (auto) 1.73 K/uL (1.2-3.4); Lymphocytes % (auto) 28.5 %; Mean Corpuscular Hemoglobin 32.7 pg (25-34); Mean Corpuscular Hgb Conc 33.9 g/dL (32-36); Mean Corpuscular Volume 96.4 fL (80-100); Mean Platelet Volume 9.8 fL (7.4-10.4); Monocytes # (auto) 0.48 K/uL (0.11-0.59); Monocytes % (auto) 7.9 %; Neutrophils % (auto) 59.1 %; Platelet Count 312 K/uL (130-400); RDW Coefficient of Variation 14.9 % (11.5-14.5); RDW Standard Deviation 52.7 fL (36.4-46.3); Red Blood Count 4.96 M/uL (4.2-5.4); White Blood Count 6.08 K/uL (4.8-10.8)
[2021-01-02 13:49] LABS: Albumin Level 3.7 gm/dl (3.4-5.0); BUN Creatinine Ratio 13.3 (10-20); Calcium 10.2 mg/dl (8.5-10.1); Creatinine Clr Calc Pharmacy 95.8 ml/min; Est GFR (African American) 113.9 ml/min; Est GFR (Non-African American) 98.3 ml/min; Potassium 3.5 mmol/L (3.5-5.1)
[2021-01-02 13:51] LABS: Albumin Globulin Ratio 0.8 (0.9-2); Bilirubin,Total 0.4 mg/dl (0.2-1); Globulin 4.5 gm/dl (2.5-4.0); Total Protein 8.2 gm/dl (6.4-8.2)
[2021-01-02] MEDS ORDERED: OPTIRAY 320 100ml IV ONE (14:30)
--- NOTE | 2021-01-02 14:41 | CT Scan Report ---
CT tib/fib LT w con HISTORY: 55 years-old Female infected wound . Presents with acute left lower leg with history of bogdan or surgery. COMPARISON: CTA with runoff 04/09/2020 TECHNIQUE: Multiple axial CT images of the left tibia and fibula were obtained following the intraven ous ministration of 94 mL Optiray 320. A dose lowering technique was used consistent with the princip als of [facility]. FINDINGS: Tendons and ligaments are not well evaluated by CT technique. Mild to moderate subcutaneous edema of the mid and lower leg with associated skin thickening medially. There is a soft tissue wound with cut aneous defect measuring over several centimeters in length involving the medial aspect of the lower l eg. Along the deep superior margin of the skin wound there is a peripherally enhancing 0.9 x 0.6 x 2. 2 cm collection within the superficial aspect of the soleus muscle on image 233 series 3. A few subce ntimeter vascular calcifications are noted within the adjacent subcutaneous tissues. No acute fracture, dislocation or osseous erosion. 1.9 cm benign appearing bone island involves the v olar aspect of the proximal tibial metadiaphysis. The bones appear demineralized with osteoarthritis of the knee and ankle. IMPRESSION: 1. Soft tissue wound of the medial mid leg with adjacent skin thickening and subcutaneous edema sugge stive of cellulitis. Along the deep superior margin of the wound there is a 2.2 cm intramuscular absc ess within the superficial aspect of the adjacent soleus muscle. 2. No acute fracture, dislocation or osseous erosion to suggest osteomyelitis. ACT 112: Negative or not required by law. The above report was generated using voice recognition software. It may contain grammatical, syntax o r spelling errors. Electronically signed by: Shamar Martinez M.D. 01/02/2021 2:39 PM
[2021-01-02] MEDS ORDERED: CEFEPIME 2,000 MG/20 ML VIAL IV STA (15:34)
[2021-01-02] MEDS ORDERED: VANCOMYCIN HCL 1,500 MG in SODIUM CHLORIDE 0.9% 500 ML IV ONE (15:34)
[2021-01-02] MEDS ORDERED: VANCOMYCIN CONSULT ACTIVE PRN (15:34)
--- NOTE | 2021-01-02 15:38 | Emergency Department Note ---
History of Present Illness General Chief complaint: Wound Stated complaint: WOUND ON LEFT LEG, REFERRED BY WOUND CARE Time Seen by Provider: 01/02/21 11:51 Source: patient Mode of arrival: ambulatory Limitations: no limitations History of Present Illness Provider complaint: left leg wound Onset (ago): month(s) 3 Location: lower extremity Treatments prior to arrival: none This is a 55-year-old female presents emergency department complaining of worsening left lower extremity and being referred by wound care. Patient states she first began to have a small wound to her distal left lower extremity approximately 3 months ago. She followed up with her PCP who was watching the area. She states after approximately a month she did take a course of oral antibiotics without any improvement. She states they continue to monitor and she was also eventually placed on a topical antibiotic. She states the wound continued to worsen, and last week got significantly bigger and more gaping. She states she was referred to wound care. She states in her appointment today, they were concerned and referred her to the emergency room. A dressing was placed prior to this. Patient states the wound is close to her prior surgical scar from a vascular procedure by Dr. Mustafa. Patient denies any other surrounding redness or worsening pain. She denies fevers, chills. Patient states she has a history of poor circulation. Denies any history of diabetes. Patient states she does take blood thinners due to history of blood clots. She states she does undergo periodic ultrasounds of her legs due to her history of poor circulation, the last of these were performed 6 months ago. Pt seen during a time of high acuity and national emergency pandemic while wearing PPE. Home Medications Medication Instructions Recorded Confirmed Type cyanocobalamin (vitamin B-12) 1,000 mcg PO HS cap 02/13/18 01/02/21 History 1,000 mcg capsule aspirin 81 mg tablet,delayed 81 mg PO HS 12/28/18 01/02/21 History release (Adult Aspirin Regimen) levothyroxine 88 mcg tablet 88 mcg PO DAILY #90 tab 05/21/20 01/02/21 Rx (Levoxyl) warfarin 5 mg tablet See Rx Instructions PO UD #100 tab 09/10/20 01/02/21 Rx mupirocin 2 % topical ointment 1 applic TOPICAL BID #22 g 09/12/20 01/02/21 Rx lisinopril 20 1 tab PO HS 01/02/21 01/02/21 History mg-hydrochlorothiazide 12.5 mg tablet Allergies Allergy/AdvReac Type Severity Reaction Status Date / Time amoxicillin Allergy Intermediate Hives Verified 01/02/21 12:03 Penicillins Allergy Intermediate Hives Verified 01/02/21 12:03 Past Med/Surg History Medical History Claudication of lower extremity Hyperlipidemia refuses statin therapy Hypertension Hypothyroidism Impaired fasting glucose PVD (peripheral vascular disease) aortobifem bypass 2015, thrombectomy 2015, revision of left femoral anas tamosis 2018 Smoker Surgical History History of cataract surgery RT/LEFT History of dilatation and curettage History of tooth extraction Hx of angioplasty LEFT FEMORAL ARTERY ANASTOMOSIS 11/2018 Family History Other No significant family history Social History Smoking Status: Current some day smoker Tobacco Type: Cigarettes packs per day: 0.5; Cigarettes Per Day: states 2 or 3 cigarettes per day; Second Hand Exposure: No; Hx Alcohol Use: Yes Alcohol type: beer Alcohol Intake Frequency Comment: 1 or two beers once or twice weekly Hx Substance Use: No Preferred Language: Guyanese Communication Ability: Effective Certification And Selection Specialist Required: No Beliefs That Will Affect Care: None marital status: Current Living Situation: Spouse current occupational status: disabled Feels Safe at Home: Yes caffeine: Yes (coffee/pepsi) during the past year weight has: decreased > 10 lbs Dental Care, Regularly: Yes Physical Activity Frequency: 5-6 Times per Week Seatbelt Use: always Sunscreen Use: No Do you think of yourself as: straight/heterosexual Gender Identity: Female Assistive Devices: None Review of Systems A total of 10 systems reviewed and were otherwise negative All systems reviewed & are unremarkable except as noted in HPI & below Physical Exam Vital Signs Vital Signs - 24 hr 01/02/21 11:01 01/02/21 13:13 01/02/21 13:20 Temperature 36.6 C Temperature Source Temporal Artery Scan Pulse Rate 111 H 86 82 Pulse Rate [Apical] Pulse Rate from SpO2 Sensor Pulse Rhythm [Apical] Pulse Strength [Apical] Respiratory Rate 18 15 19 Respiratory Effort / Characteristics Non-Labored Respiratory Depth Normal Respiratory Pattern Blood Pressure 168/84 H Blood Pressure [Right Arm] Blood Pressure Mean 112 Blood Pressure Mean [Right Arm] Blood Pressure Position [Right Arm] Pulse Oximetry 97 Oxygen Delivery Method Room Air Room Air Room Air Sepsis Recent Fever Within 48 Hours No Sepsis New/Unexplained Change in Mental Status No Sepsis Action Taken by Nursing No Action Required 01/02/21 13:30 01/02/21 13:40 01/02/21 13:50 Temperature Temperature Source Pulse Rate 76 78 69 Pulse Rate [Apical] Pulse Rate from SpO2 Sensor 77 78 69 Pulse Rhythm [Apical] Pulse Strength [Apical] Respiratory Rate 18 16 18 Respiratory Effort / Characteristics Respiratory Depth Respiratory Pattern Blood Pressure 143/89 H Blood Pressure [Right Arm] Blood Pressure Mean 107 Blood Pressure Mean [Right Arm] Blood Pressure Position [Right Arm] Pulse Oximetry 98 96 96 Oxygen Delivery Method Room Air Room Air Room Air Sepsis Recent Fever Within 48 Hours Sepsis New/Unexplained Change in Mental Status Sepsis Action Taken by Nursing 01/02/21 14:00 01/02/21 14:04 01/02/21 14:10 Temperature Temperature Source Pulse Rate 87 74 Pulse Rate [Apical] 75 Pulse Rate from SpO2 Sensor 85 72 Pulse Rhythm [Apical] Regular Pulse Strength [Apical] Respiratory Rate 16 16 14 Respiratory Effort / Characteristics Non-Labored Spontaneous Respiratory Depth Normal Respiratory Pattern Blood Pressure 172/103 H Blood Pressure [Right Arm] 172/103 H Blood Pressure Mean 126 Blood Pressure Mean [Right Arm] 126 Blood Pressure Position [Right Arm] Semi-fowlers Pulse Oximetry 98 98 97 Oxygen Delivery Method Room Air Room Air Room Air Sepsis Recent Fever Within 48 Hours Sepsis New/Unexplained Change in Mental Status Sepsis Action Taken by Nursing 01/02/21 14:53 01/02/21 15:27 01/02/21 16:01 Temperature 36.9 C 36.9 C Temperature Source Oral Oral Pulse Rate Pulse Rate [Apical] 67 79 85 Pulse Rate from SpO2 Sensor Pulse Rhythm [Apical] Regular Regular Pulse Strength [Apical] Normal Normal Respiratory Rate 17 17 16 Respiratory Effort / Characteristics Non-Labored Non-Labored Respiratory Depth Normal Normal Respiratory Pattern Regular Regular Blood Pressure Blood Pressure [Right Arm] 143/86 H 143/86 H Blood Pressure Mean Blood Pressure Mean [Right Arm] 105 105 Blood Pressure Position [Right Arm] Lying Lying Pulse Oximetry 98 98 98 Oxygen Delivery Method Room Air Room Air Room Air Sepsis Recent Fever Within 48 Hours Sepsis New/Unexplained Change in Mental Status Sepsis Action Taken by Nursing 01/02/21 16:24 Temperature Temperature Source Pulse Rate Pulse Rate [Apical] 83 Pulse Rate from SpO2 Sensor Pulse Rhythm [Apical] Pulse Strength [Apical] Respiratory Rate 16 Respiratory Effort / Characteristics Non-Labored Respiratory Depth Normal Respiratory Pattern Blood Pressure Blood Pressure [Right Arm] 156/102 H Blood Pressure Mean Blood Pressure Mean [Right Arm] 120 Blood Pressure Position [Right Arm] Lying Pulse Oximetry 99 Oxygen Delivery Method Room Air Sepsis Recent Fever Within 48 Hours Sepsis New/Unexplained Change in Mental Status Sepsis Action Taken by Nursing GENERAL: alert, well appearing, well nourished, no distress, non-toxic EYE EXAM: normal conjunctiva, PERRL and EOM's grossly intact OROPHARYNX: no exudate, no erythema, lips, buccal mucosa, and tongue normal and mucous membranes are moist NECK: supple, no nuchal rigidity, no adenopathy, non-tender LUNGS: Clear but decreased to auscultation. Normal chest wall mechanics, no w/r/r HEART: no murmurs, S1 normal and S2 normal ABDOMEN: abdomen soft, non-tender, normo-active bowel sounds, no masses, no rebound or guarding. BACK: Back is symmetrical on inspection and there is no deformity, no midline tenderness, no CVA tenderness. SKIN: no rashes and no bruising UPPER EXTREMITIES: upper extremities are grossly normal. FROM, nml pulses b/l. Yellow distal fingers and fingernails noted consistent with smoking history LOWER EXTREMITIES: No pitting edema. FROM, nml pulses b/l. Open wound noted to the medial aspect of the distal left lower extremity, dressing that of been placed by wound care was removed to reveal a 5 x 3 cm wound with both bloody and purulent drainage, culture was obtained, no surrounding erythema, no crepitus, compartments soft. No petechiae, no skin sloughing. NEURO EXAM: Normal sensorium, cranial nerves II-XII grossly intact, normal speech, no gross weakness of arms, no gross weakness of legs. Gross sensation intact. Course Course 1521: Patient updated on results. Significant time spent at bedside discussing options of disposition as patient was initially resistant to additional inpatient treatment and possible operative management. Patient also resistant to having a Covid test done and states "it is all hoax". 153: Discussed with Dr. Sadler. Administered Medications Sodium Chloride (Nss 1000ml) 1,000 mls @ 125 mls/hr IV .Q8H CHRISTOPHER Stop: 02/01/21 12:44 Last Admin: 01/02/21 13:49 Dose: 125 mls/hr Documented by: [id number] Vancomycin HCl 1,500 mg/ (Sodium Chloride) 530 mls @ 200 mls/hr IV NOW ONE Stop: 01/02/21 18:12 Last Admin: 01/02/21 15:40 Dose: 200 mls/hr Documented by: [id number] Discontinued Medications Cefepime HCl (Maxipime) 2,000 mg in 20 mls @ 5 mls/min IV NOW STA; Protocol Stop: 01/02/21 15:37 Last Admin: 01/02/21 15:53 Dose: 5 mls/min Documented by: [id number] Metronidazole (Flagyl) 500 mg in 100 mls @ 100 mls/hr IV NOW STA Stop: 01/02/21 16:38 Last Admin: 01/02/21 17:38 Dose: 100 mls/hr Documented by: [id number] Ioversol (Optiray 320 100ml) 94 ml IV ONCE ONE Stop: 01/02/21 14:31 Last Admin: 01/02/21 14:31 Dose: 94 ml Documented by: [id number] Medical Decision Making Differential Diagnosis Foreign body, fracture, dislocation, joint compromise, infection, soft tissue injury, tendon injury, vascular compromise, compartment syndrome, as well as other pathologies. Medical Records Attestation: I reviewed the patient's medical records. Home Medications Current Medication List: was personally reviewed by mi Laboratory Data Attestation: I reviewed the patient's lab results. Result diagrams: 01/02/21 13:08 01/02/21 13:08 Lab Results 01/02/21 01/02/21 01/02/21 Range/Units 13:08 13:08 13:08 WBC 6.08 (4.8-10.8) K/uL RBC 4.96 (4.2-5.4) M/uL Hgb 16.2 H (12.0-16.0) g/dL Hct 47.8 H (37-47) % MCV 96.4 (80-100) fL MCH 32.7 (25-34) pg MCHC 33.9 (32-36) g/dL RDW Std Deviation 52.7 H (36.4-46.3) fL RDW Coeff of Toribio 14.9 H (11.5-14.5) % Plt Count 312 (130-400) K/uL MPV 9.8 (7.4-10.4) fL Immature Gran % (Auto) 0.5 % Neut % (Auto) 59.1 % Lymph % (Auto) 28.5 % [place] % (Auto) 7.9 % Eos % (Auto) 3.5 % Baso % (Auto) 0.5 % Neut # (Auto) 3.60 (1.4-6.5) K/uL Lymph # (Auto) 1.73 (1.2-3.4) K/uL [place] # (Auto) 0.48 (0.11-0.59) K/uL Eos # (Auto) 0.21 (0-0.5) K/uL Baso # (Auto) 0.03 (0-0.2) K/uL Immature Gran # (Auto) 0.03 H (0.00-0.02) K/uL Sodium 141 (136-145) mmol/L Potassium 3.5 (3.5-5.1) mmol/L Chloride 107 (98-107) mmol/L Carbon Dioxide 29 (21-32) mmol/L Anion Gap 5.0 (3-11) BUN 9 (7-18) mg/dl Creatinine 0.67 (0.6-1.2) mg/dl Est Cr Clr Drug Dosing 95.8 ml/min Est GFR ( Amer) 113.9 ml/min Est GFR (Non-Af Amer) 98.3 ml/min BUN/Creatinine Ratio 13.3 (10-20) Glucose 105 H (70-99) mg/dl Lactate 0.7 (0.4-2.0) mmol/L Calcium 10.2 H (8.5-10.1) mg/dl Total Bilirubin 0.4 (0.2-1) mg/dl AST 20 (15-37) U/L ALT 37 (12-78) U/L Alkaline Phosphatase 153 H (45-117) U/L Total Protein 8.2 (6.4-8.2) gm/dl Albumin 3.7 (3.4-5.0) gm/dl Globulin 4.5 H (2.5-4.0) gm/dl Albumin/Globulin Ratio 0.8 L (0.9-2) COVID-19 Eval Order SARS-CoV-2 (PCR) (Negative) 01/02/21 01/02/21 Range/Units 15:46 15:46 WBC (4.8-10.8) K/uL RBC (4.2-5.4) M/uL Hgb (12.0-16.0) g/dL Hct (37-47) % MCV (80-100) fL MCH (25-34) pg MCHC (32-36) g/dL RDW Std Deviation (36.4-46.3) fL RDW Coeff of Toribio (11.5-14.5) % Plt Count (130-400) K/uL MPV (7.4-10.4) fL Immature Gran % (Auto) % Neut % (Auto) % Lymph % (Auto) % [place] % (Auto) % Eos % (Auto) % Baso % (Auto) % Neut # (Auto) (1.4-6.5) K/uL Lymph # (Auto) (1.2-3.4) K/uL [place] # (Auto) (0.11-0.59) K/uL Eos # (Auto) (0-0.5) K/uL Baso # (Auto) (0-0.2) K/uL Immature Gran # (Auto) (0.00-0.02) K/uL Sodium (136-145) mmol/L Potassium (3.5-5.1) mmol/L Chloride (98-107) mmol/L Carbon Dioxide (21-32) mmol/L Anion Gap (3-11) BUN (7-18) mg/dl Creatinine (0.6-1.2) mg/dl Est Cr Clr Drug Dosing ml/min Est GFR ( Amer) ml/min Est GFR (Non-Af Amer) ml/min BUN/Creatinine Ratio (10-20) Glucose (70-99) mg/dl Lactate (0.4-2.0) mmol/L Calcium (8.5-10.1) mg/dl Total Bilirubin (0.2-1) mg/dl AST (15-37) U/L ALT (12-78) U/L Alkaline Phosphatase (45-117) U/L Total Protein (6.4-8.2) gm/dl Albumin (3.4-5.0) gm/dl Globulin (2.5-4.0) gm/dl Albumin/Globulin Ratio (0.9-2) COVID-19 Eval Order Covid19 at [facility] SARS-CoV-2 (PCR) NEGATIVE (Negative) Imaging Data Radiologist's Impression: Lower Extremity CT 01/02/21 12:40 CT tib/fib LT w con HISTORY: 55 years-old Female infected wound . Presents with acute left lower leg with history of prior surgery. COMPARISON: CTA with runoff 04/09/2020 TECHNIQUE: Multiple axial CT images of the left tibia and fibula were obtained following the intravenous ministration of 94 mL Optiray 320. A dose lowering technique was used consistent with the principals of ZEE. FINDINGS: Tendons and ligaments are not well evaluated by CT technique. Mild to moderate subcutaneous edema of the mid and lower leg with associated skin thickening medially. There is a soft tissue wound with cutaneous defect measuring over several centimeters in length involving the medial aspect of the lower leg. Along the deep superior margin of the skin wound there is a peripherally enhancing 0.9 x 0.6 x 2.2 cm collection within the superficial aspect of the soleus muscle on image 233 series 3. A few subcentimeter vascular calcifications are noted within the adjacent subcutaneous tissues. No acute fracture, dislocation or osseous erosion. 1.9 cm benign appearing bone island involves the volar aspect of the proximal tibial metadiaphysis. The bones appear demineralized with osteoarthritis of the knee and ankle. IMPRESSION: 1. Soft tissue wound of the medial mid leg with adjacent skin thickening and subcutaneous edema suggestive of cellulitis. Along the deep superior margin of the wound there is a 2.2 cm intramuscular abscess within the superficial aspect of the adjacent soleus muscle. 2. No acute fracture, dislocation or osseous erosion to suggest osteomyelitis. ACT 112: Negative or not required by law. The above report was generated using voice recognition software. It may contain grammatical, syntax or spelling errors. Electronically signed by: Shamar Martinez M.D. 01/02/2021 2:39 PM MDM Narrative This is a 55-year-old female with history of peripheral vascular disease and DVT who presents due to worsening wound noted to the left lower extremity. Patient was evaluated by the wound care clinic today and was referred to the emergency room due to concern for osteomyelitis and possible need for operative washout and debridement. No history of diabetes or MRSA. Patient states wound has been worsening over the course of 3 months. Patient is not currently taking antibiotics of the states at one point she did take a course of oral antibiotics but cannot recall the name. After significant time at bedside discussing concerns and differential diagnosis, patient was in agreement with additional la b and imaging evaluation. I did contact Dr. Mccoy of wound care who referred the patient for additional information. Labs reassuring, however CT revealed large wound with intramuscular abscess. No evidence of osteomyelitis or necrotizing fasciitis. After additional bedside discussion with the patient and she was initially resistant to additional inpatient management and markedly resistant to having a Covid swab performed, patient eventually in agreement, IV antibiotics started and hospitalist contacted. Patient was hemodynamically stable throughout. An order was placed for continuous cardiac monitoring. The monitor shows a rate of _80_ with _normal sinus_ rhythm. Impression & Plan Open leg wound, Abscess Discharge Plan Visit Data Chief Complaint: Wound Stated Complaint: WOUND ON LEFT LEG, REFERRED BY WOUND CARE ED Provider: Sarai Morrell Discharge Problem: Open leg wound, Abscess Forms Stand Alone Forms: [employer] Prescriptions Prescriptions: No Action cyanocobalamin (vitamin B-12) 1,000 mcg capsule 1,000 mcg PO HS RF: 0 aspirin [Adult Aspirin Regimen] 81 mg tablet,delayed release (DR/EC) 81 mg PO HS RF: 0 levothyroxine [Levoxyl] 88 mcg tablet 88 mcg PO DAILY Qty: 90 RF: 3 warfarin 5 mg tablet See Rx Instructions PO UD Qty: 100 RF: 2 mupirocin 2 % ointment 1 applic topical BID Qty: 22 RF: 1 lisinopril-hydrochlorothiazide 20-12.5 mg tablet 1 tab PO HS RF: 0 Referrals Referrals: Freya Thornton MD [Primary Care Provider] - Discharge Problem: Open leg wound Qualifiers: Encounter type: initial encounter Laterality: left Qualified Code(s): S81.802A - Unspecified open wound, left lower leg, initial encounter
[2021-01-02] MEDS ORDERED: metroNIDAZOLE 500 MG/100 ML BAG IV STA (15:39)
--- NOTE | 2021-01-02 15:54 | History & Physical Report ---
Date of Service January 02, 2021 Assessment & Plan (1) Ischemic ulcer of left calf: Plan: Left medial mid leg ulceration with underlying intramuscular abscess CT tib/fib with contrast: Soft tissue wound of the medial mid leg with adjacent skin thickening and subcutaneous edema suggestive of cellulitis. Along the deep superior margin of the wound there is a 2.2 cm intramuscular abscess within the superficial aspect of the soleus muscle. No acute fracture, dislocation, or osseous erosion to suggest osteomyelitis. No leukocytosis Patient on warfarin, INR pending No gross electrolyte abnormalities Creatinine normal at baseline, less than 1 at admission 04/09/2020 aorta with runoff CTA: Reconstitution of occluded femoral-femoral bypass graft through collaterals and suspected occlusion of the left posterior tibial and peroneal arteries. Patent left anterior tibial artery. Micro wound specimen of left leg pending No prior micro results available EKG on admission normal sinus rhythm, no QT prolongation Patient with history of hives to amoxicillin and penicillins Received empiric cefepime, Flagyl, and vancomycin in the ER Received NSS 125 cc/h in ER, continue (2) PVD (peripheral vascular disease): Plan: Peripheral vascular disease History of aortobifemoral bypass with failed left bypass, with subsequent femoral endarterectomy left side with femorofemoral bypass which has occluded twice since placement Last followed with heart and vascular 04/29/2020. Recommended 6-month follow-up with repeat ultrasounds Continue aspirin as above Warfarin held pending potential surgical intervention of abscess - No cardiac hx per patient PT pulses intact with adequate perfusion to feet bilaterally on admitting exam (3) Abscess: Plan: - see above (4) Hypothyroidism: Plan: Hypothyroidism Continue Synthroid 88 mcg daily (5) Hyperlipidemia: Plan: - Refuses statins (6) Smoker: Plan: - Declines patch/gum - Nicotine support and cessation counseling provided (7) Hypertension: Plan: Hypertension Lisinoprilhydrochlorothiazide held pending potential surgical intervention of intramuscular abscess Continue aspirin 81 mg daily (8) History of DVT (deep vein thrombosis): Plan: Hx DVT - On warfarin - INR pending Plan: DVT prophylaxis: Lovenox Diet: N.p.o. pending potential surgical intervention/source control. Heart healthy once able Disposition: Medical/surgical CODE STATUS: Full code History of Present Illness Primary Care Provider: Freya Thornton MD Dusty is a 55-year-old female with a history of peripheral artery disease, ischemic ulcer of the left calf status post aortobifemoral bypass with failed left leg, claudication, hypothyroidism, hyperlipidemia, and current tobacco abuse who presented at the recommendation of her outpatient provider for emergency department evaluation of a left ulcer worsened with CT showing intramuscular abscess. 3 months ago noticed increased swelling at her L leg at ulcer side. Called her doc who ordered an antibiotic. Followed up at routine physical the first week of Nov and did not appear infected at that time and was not swollen. This past week had sudden increase in size in the last 7 days. Has developed some bloody discharge. Is not causing her pain, 0/10 pain now but was having some 'nerve like pain in the leg' earlier in the week consistent with her prior neuropathy and which is not present currently. Has throbbed intermittent over the last week. No fevers, chills, night sweats, nausea, vomtiing, diarrhea, constipation. Last month could walk in the grocery store OK without claudication or pain. In the last week could not go more than a few steps/feet without pain in her mid low L left. + swelling. "I don't like to look at it, so not sure how much it has changed.' Denies other symptoms. Medical History: Reviewed Medications: Reviewed. Has not taken medications other than Synthroid today Surgical History: Reviewed Allergies: Reviewed Social History: Alcohol 1 drink per day to every other day. Tobacco product c urrent use. ~1 pack per 4 days, smoker since teens. Declines patch/gum. Code Status: Full Code Allergies Allergy/AdvReac Type Severity Reaction Status Date / Time amoxicillin Allergy Intermediate Hives Verified 01/02/21 12:03 Penicillins Allergy Intermediate Hives Verified 01/02/21 12:03 Home Medications Medication Instructions Recorded Confirmed Type cyanocobalamin (vitamin B-12) 1,000 mcg PO HS cap 02/13/18 01/02/21 History 1,000 mcg capsule aspirin 81 mg tablet,delayed 81 mg PO HS 12/28/18 01/02/21 History release (Adult Aspirin Regimen) levothyroxine 88 mcg tablet 88 mcg PO DAILY #90 tab 05/21/20 01/02/21 Rx (Levoxyl) warfarin 5 mg tablet See Rx Instructions PO UD #100 tab 09/10/20 01/02/21 Rx mupirocin 2 % topical ointment 1 applic TOPICAL BID #22 g 09/12/20 01/02/21 Rx lisinopril 20 1 tab PO HS 01/02/21 01/02/21 History mg-hydrochlorothiazide 12.5 mg tablet Past Med/Surg History Medical History Claudication of lower extremity Hyperlipidemia refuses statin therapy Hypertension Hypothyroidism Impaired fasting glucose PVD (peripheral vascular disease) aortobifem bypass 2015, thrombectomy 2015, revision of left femoral anastamosis 2018 Smoker Surgical History History of cataract surgery RT/LEFT History of dilatation and curettage History of tooth extraction Hx of angioplasty LEFT FEMORAL ARTERY ANASTOMOSIS 11/2018 Family History Other No significant family history Social History Smoking Status: Current some day smoker Tobacco Type: Cigarettes packs per day: 0.5; Cigarettes Per Day: states 2 or 3 cigarettes per day; Second Hand Exposure: No; Hx Alcohol Use: Yes Alcohol type: beer Alcohol Intake Frequency Comment: 1 or two beers once or twice weekly Hx Substance Use: No Preferred Language: Yemeni Communication Ability: Effective Utility Worker Required: No Beliefs That Will Affect Care: None marital status: Current Living Situation: Spouse current occupational status: disabled Feels Safe at Home: Yes caffeine: Yes (coffee/pepsi) during the past year weight has: decreased > 10 lbs Dental Care, Regularly: Yes Physical Activity Frequency: 5-6 Times per Week Seatbelt Use: always Sunscreen Use: No Do you think of yourself as: straight/heterosexual Gender Identity: Female Assistive Devices: None Review of Systems Review of Systems: All systems reviewed & are unremarkable except as noted in HPI & below Physical Exam Physical Exam: General: A&Ox3. NAD. Cooperative. HEENT: Atraumatic, normocephalic. Visual acuity and hearing grossly intact. Pulm: Moderate air movement, trace expiratory wheeze on forced expiration otherwise without -rhonchi. Symmetrical chest rise. No increased work of breathing. No respiratory distress. Cardiac: RRR, -mrg. Radial pulses intact and symmetrical. Abdominal: Nontender, nondistended, soft. BS present. Extremity: Posterior tibialis pulses intact in lower extremities bilaterally. Sensation is soft touch and temperature intact in feet bilaterally. Left medial lower mid leg with ulceration and dressing C/C/I overlying. Tender to palpation with some erythema. Soft tissue swelling present. Ankle dorsiflexion/plantar flexion intact and symmetrical. Wrapper Hands Sprayer strength 5/5 bilaterally and symmetrical. Hallux capillary refill less than 2 seconds bilaterally. Results & Data Results & Data ([facility]) Vital Signs (Past 12 Hours) Vital Signs Temp Pulse Pulse Resp BP BP Pulse Ox 01/02/21 15:27 36.9 C 79 17 143/86 H 98 01/02/21 14:53 36.9 C 67 17 143/86 H 98 01/02/21 14:10 74 14 97 01/02/21 14:04 75 16 172/103 H 98 01/02/21 14:00 87 16 172/103 H 98 01/02/21 13:50 69 18 96 01/02/21 13:40 78 16 96 01/02/21 13:30 76 18 143/89 H 98 01/02/21 13:20 82 19 01/02/21 13:13 86 15 01/02/21 11:01 36.6 C 111 H 18 168/84 H 97 PG Care Time/CCT Total # of Minutes Spent Total Time Spent with Patient: Total time spent is greater than 50% in coordination of care (as documented) at patient's floor/unit and/or counseling patient: Coding Level of Care Code 99658 Initial Inpt Care Lvl 3 Diagnoses Ischemic ulcer of left calf L97.229 Abscess L02.91 Hypothyroidism E03.9 PVD (peripheral vascular disease) I73.9 Hyperlipidemia E78.5 Smoker F17.200 Hypertension I10 History of DVT (deep vein thrombosis) Z86.718
--- NOTE | 2021-01-02 18:16 | Electrocardiogram Report ---
Test Reason : Blood Pressure : / mmHG Vent. Rate : 075 BPM Atrial Rate : 075 BPM P-R Int : 168 ms QRS Dur : 074 ms QT Int : 360 ms P-R-T Axes : 064 055 057 degrees QTc Int : 402 ms Normal sinus rhythm Possible Left atrial enlargement Abnormal ECG Confirmed by Catarino Mendiola ([id number]) on 01/02/2021 6:16:36 PM Referred By: Sol Mccoy Confirmed By:Robbie Mendiola
--- NOTE | 2021-01-02 20:13 | Surgery Consultation ---
Date of Consultation January 02, 2021 Assessment & Plan (1) Open leg wound: (2) Abscess: (3) Ischemic ulcer of left calf: (4) History of DVT (deep vein thrombosis): 55-year-old woman with ulcer of her left medial ankle. There is some necrotic tissue and a small abscess underlying the area. There is erythema. I discussed the risks and benefits of an incision and debridement of the ulcer in the operating room. All her questions were answered, she is agreeable to proceed. She will be admitted to the medicine service and placed on IV antibiotics. She will be n.p.o. overnight. We will take her to the operating room tomorrow morning for debridement of the left medial ankle ulcer. History of Present Illness Reason for Consultation: Infected lower extremity ulcer with possible abscess Requesting Physician: Fernie Sadler MD Attending Physician: Fernie Sadler MD History of Present Illness 55-year-old woman with significant history of vascular disease presents with ulcer of her left medial ankle. This been present and has been being treated with wet-to-dry's and wound care. Over the last few days it has significantly changed. She was sent in to the emergency department. A CT scan demonstrates a small abscess underlying the area. She does have some pain in the lower extremity. She denies fevers or chills. She denies any other complaints. Allergies Allergy/AdvReac Type Severity Reaction Status Date / Time amoxicillin Allergy Intermediate Hives Verified 01/02/21 12:03 Penicillins Allergy Intermediate Hives Verified 01/02/21 12:03 Home Medications Medication Instructions Recorded Confirmed Type cyanocobalamin (vitamin B-12) 1,000 mcg PO HS cap 02/13/18 01/02/21 History 1,000 mcg capsule aspirin 81 mg tablet,delayed 81 mg PO HS 12/28/18 01/02/21 History release (Adult Aspirin Regimen) levothyroxine 88 mcg tablet 88 mcg PO DAILY #90 tab 05/21/20 01/02/21 Rx (Levoxyl) warfarin 5 mg tablet See Rx Instructions PO UD #100 tab 09/10/20 01/02/21 Rx mupirocin 2 % topical ointment 1 applic TOPICAL BID #22 g 09/12/20 01/02/21 Rx lisinopril 20 1 tab PO HS 01/02/21 01/02/21 History mg-hydrochlorothiazide 12.5 mg tablet Patient History Medical History Claudication of lower extremity Hyperlipidemia refuses statin therapy Hypertension Hypothyroidism Impaired fasting glucose PVD (peripheral vascular disease) aortobifem bypass 2015, thrombectomy 2015, revision of left femoral anastamosis 2018 Smoker Surgical History History of cataract surgery RT/LEFT History of dilatation and curettage History of tooth extraction Hx of angioplasty LEFT FEMORAL ARTERY ANASTOMOSIS 11/2018 Family History Other No significant family history Social History Smoking Status: Current some day smoker Tobacco Type: Cigarettes packs per day: 0.5; Cigarettes Per Day: states 2 or 3 cigarettes per day; Second Hand Exposure: No; Hx Alcohol Use: Yes Alcohol type: beer Alcohol Intake Frequency Comment: 1 or two beers once or twice weekly Hx Substance Use: No Preferred Language: Kyrgyz Communication Ability: Effective Frame Table Operator Required: No Beliefs That Will Affect Care: None marital status: Current Living Situation: Spouse current occupational status: disabled Feels Safe at Home: Yes caffeine: Yes (coffee/pepsi) during the past year weight has: decreased > 10 lbs Dental Care, Regularly: Yes Physical Activity Frequency: 5-6 Times per Week Seatbelt Use: always Sunscreen Use: No Do you think of yourself as: straight/heterosexual Gender Identity: Female Assistive Devices: None Review of Systems Review of Systems: All systems reviewed & are unremarkable except as noted in HPI & below Physical Exam Constitutional: WD/WN, vitals as above Eyes: PERRL, conjunctivae normal, anicteric sclerae Neck: trachea midline, no thyromegaly Respiratory: normal respiratory effort; no respiratory distress and no labored breathing Cardiovascular: Rate/Rhythm: regular rate and regular rhythm Gastrointestinal (Abdomen): Inspection/Auscultation: abdomen normal to inspection Percussion/Palpation: abdomen soft; abdomen nontender Musculoskeletal: Extremities: no cyanosis and no clubbing Left medial ankle ulcer 3 cm x 4 cm; 2 cm depth; necrotic tissue; erythema surrounding the area Skin: no rashes, warm and dry Psychiatric: A+Ox3, euthymic affect Results & Data ([facility]) Vital Signs (Past 12 Hours) Vital Signs Temp Pulse Pulse Resp BP BP Pulse Ox 01/02/21 20:09 36.8 C 76 16 165/78 H 97 01/02/21 19:02 36.7 C 64 17 150/70 H 95 01/02/21 17:15 52 L 16 94 01/02/21 16:24 83 16 156/102 H 99 01/02/21 16:01 85 16 98 01/02/21 15:27 36.9 C 79 17 143/86 H 98 01/02/21 14:53 36.9 C 67 17 143/86 H 98 01/02/21 14:10 74 14 97 01/02/21 14:04 75 16 172/103 H 98 01/02/21 14:00 87 16 172/103 H 98 01/02/21 13:50 69 18 96 01/02/21 13:40 78 16 96 01/02/21 13:30 76 18 143/89 H 98 01/02/21 13:20 82 19 01/02/21 13:13 86 15 01/02/21 11:01 36.6 C 111 H 18 168/84 H 97 Laboratory Results 01/02/21 01/02/21 01/02/21 Range/Units 15:46 15:46 13:08 WBC (4.8-10.8) K/uL RBC (4.2-5.4) M/uL Hgb (12.0-16.0) g/dL Hct (37-47) % MCV (80-100) fL MCH (25-34) pg MCHC (32-36) g/dL RDW Std Deviation (36.4-46.3) fL RDW Coeff of Toribio (11.5-14.5) % Plt Count (130-400) K/uL MPV (7.4-10.4) fL Immature Gran % (Auto) % Neut % (Auto) % Lymph % (Auto) % [place] % (Auto) % Eos % (Auto) % Baso % (Auto) % Neut # (Auto) (1.4-6.5) K/uL Lymph # (Auto) (1.2-3.4) K/uL [place] # (Auto) (0.11-0.59) K/uL Eos # (Auto) (0-0.5) K/uL Baso # (Auto) (0-0.2) K/uL Immature Gran # (Auto) (0.00-0.02) K/uL Sodium 141 (136-145) mmol/L Potassium 3.5 (3.5-5.1) mmol/L Chloride 107 (98-107) mmol/L Carbon Dioxide 29 (21-32) mmol/L Anion Gap 5.0 (3-11) BUN 9 (7-18) mg/dl Creatinine 0.67 (0.6-1.2) mg/dl Est Cr Clr Drug Dosing 95.8 ml/min Est GFR ( Amer) 113.9 ml/min Est GFR (Non-Af Amer) 98.3 ml/min BUN/Creatinine Ratio 13.3 (10-20) Glucose 105 H (70-99) mg/dl Lactate (0.4-2.0) mmol/L Calcium 10.2 H (8.5-10.1) mg/dl Total Bilirubin 0.4 (0.2-1) mg/dl AST 20 (15-37) U/L ALT 37 (12-78) U/L Alkaline Phosphatase 153 H (45-117) U/L Total Protein 8.2 (6.4-8.2) gm/dl Albumin 3.7 (3.4-5.0) gm/dl Globulin 4.5 H (2.5-4.0) gm/dl Albumin/Globulin Ratio 0.8 L (0.9-2) COVID-19 Eval Order Covid19 at [facility] SARS-CoV-2 (PCR) NEGATIVE (Negative) 01/02/21 01/02/21 Range/Units 13:08 13:08 WBC 6.08 (4.8-10.8) K/uL RBC 4.96 (4.2-5.4) M/uL Hgb 16.2 H (12.0-16.0) g/dL Hct 47.8 H (37-47) % MCV 96.4 (80-100) fL MCH 32.7 (25-34) pg MCHC 33.9 (32-36) g/dL RDW Std Deviation 52.7 H (36.4-46.3) fL RDW Coeff of Toribio 14.9 H (11.5-14.5) % Plt Count 312 (130-400) K/uL MPV 9.8 (7.4-10.4) fL Immature Gran % (Auto) 0.5 % Neut % (Auto) 59.1 % Lymph % (Auto) 28.5 % [place] % (Auto) 7.9 % Eos % (Auto) 3.5 % Baso % (Auto) 0.5 % Neut # (Auto) 3.60 (1.4-6.5) K/uL Lymph # (Auto) 1.73 (1.2-3.4) K/uL [place] # (Auto) 0.48 (0.11-0.59) K/uL Eos # (Auto) 0.21 (0-0.5) K/uL Baso # (Auto) 0.03 (0-0.2) K/uL Immature Gran # (Auto) 0.03 H (0.00-0.02) K/uL Sodium (136-145) mmol/L Potassium (3.5-5.1) mmol/L Chloride (98-107) mmol/L Carbon Dioxide (21-32) mmol/L Anion Gap (3-11) BUN (7-18) mg/dl Creatinine (0.6-1.2) mg/dl Est Cr Clr Drug Dosing ml/min Est GFR ( Amer) ml/min Est GFR (Non-Af Amer) ml/min BUN/Creatinine Ratio (10-20) Glucose (70-99) mg/dl Lactate 0.7 (0.4-2.0) mmol/L Calcium (8.5-10.1) mg/dl Total Bilirubin (0.2-1) mg/dl AST (15-37) U/L ALT (12-78) U/L Alkaline Phosphatase (45-117) U/L Total Protein (6.4-8.2) gm/dl Albumin (3.4-5.0) gm/dl Globulin (2.5-4.0) gm/dl Albumin/Globulin Ratio (0.9-2) COVID-19 Eval Order SARS-CoV-2 (PCR) (Negative) (1) Open leg wound Encounter type: initial encounter Laterality: left Qualified Code(s): S81.802A - Unspecified open wound, left lower leg, initial encounter
[2021-01-02 20:53] LABS: INR 2.1 (0.9-1.1); Prothrombin Time 19.8 Seconds (9.0-12.0)
--- NOTE | 2021-01-02 21:17 | Pharmacy Report ---
Pharmacy Abx Dose Short Note - Date of Service January 02, 2021 - Assessment & Plan Assessment 55 year old F receiving IV Vancomycin, Cefepime (not a consult), and Flagyl (not a consult) for treatment of mid-leg cellulitis/ischemic ulcer with intramuscular abscess, no osteomyelitis Day # 1 of antimicrobial therapy. * sCr = 0.67 mg/dL with estimated CrCl ~96 mL/min. Estimated pharmacokinetic parameters: * Ke ~0.084/hr, T1/2 ~8.25 hrs * Patient received Vancomycin 1500mg (~21mg/kg) IV x 1 in the ED as a loading dose Plan Vancomycin * Initiate Vancomycin 1000mg (~14mg/kg) IV q12 as maintenance regimen * According to [facility], this regimen will produce therapeutic Vancomycin AUC 400-600 with predicted trough 14.9 mg/dL and 10% risk for toxicity * Goal trough level for cellulitis : ~15 mcg/mL * Trough level ordered for: 01/04/21 @ 1330 Pharmacy will continue to follow and will adjust dose/frequency as necessary. Thank you.
[2021-01-02] MEDS: NSS + 20MEQ KCL 20 MEQ/1,000 ML BAG IV SCH (22:01)
[2021-01-02] MEDS: MoRPHine SULFATE 2 MG/ML CARP IV PRN (22:06)
[2021-01-02] MEDS: metroNIDAZOLE 500 MG/100 ML BAG IV SCH (22:57)
[2021-01-03] MEDS: VANCOMYCIN HCL 1,000 MG in SODIUM CHLORIDE 0.9% 250 ML IV SCH ×2 (00:48→13:29)
[2021-01-03] MEDS: MoRPHine SULFATE 2 MG/ML CARP IV PRN (03:20)
[2021-01-03] MEDS: CEFEPIME 2,000 MG in SYRINGE 0 ML IV SCH ×2 (03:30→16:04)
[2021-01-03] MEDS: LEVOTHYROXINE SODIUM 88 MCG TABLET PO SCH (05:39)
[2021-01-03] MEDS: ACETAMINOPHEN 325 MG TAB PO PRN ×2 (06:09→22:33)
[2021-01-03] MEDS ORDERED: BUPIVACAINE 0.5 % 5 MG/1 ML MPF 30ML VIAL ONE (07:09)
[2021-01-03] MEDS ORDERED: ONDANSETRON INJ 2 MG/ML 2 ML VIAL ONE (07:16)
[2021-01-03] MEDS ORDERED: LIDOCAINE 2% 2 ML VIAL/AMP(20MG/ML) INFIL ONE (07:16)
[2021-01-03] MEDS ORDERED: PROPOFOL IV EMULSION 10 MG/ML 20 ML VIAL IV ONE (07:16)
[2021-01-03] MEDS ORDERED: MIDAZOLAM HCL 1 MG/ML 2ML VIAL ONE (07:16)
[2021-01-03] MEDS ORDERED: fentaNYL citrate 100 MCG/2 ML VIAL ONE (07:16)
[2021-01-03] MEDS ORDERED: DEXAMETHASONE SOD INJ 4 MG/ML VIAL ONE (07:16)
--- NOTE | 2021-01-03 07:21 | Anesthesiology Consultation ---
Date of Service January 03, 2021 Assessment & Plan Chart Review Chart Review: Acceptable Risk for Surgery and Patient NOT seen in Pre Admission Testing Consults Requested none ASA ASA4 Proposed Anesthesia Anesthesia Type: General Risk / Benefits Reviewed With: PT / POA / Parent / Guardian, Accepts Plan and Informed Consent Obtained Additional Comments: covid test negative History Surgery Operation Date: 01/03/21 07:30 Proposed Procedures p Incision and Drainage Left Medial Ankle Wound(Left) - Shadi Cordero MD Height/Weight Height: 5 ft 6 in Weight: 72.1 kg Allergies Allergy/AdvReac Type Severity Reaction Status Date / Time amoxicillin Allergy Intermediate Hives Verified 01/02/21 12:03 Penicillins Allergy Intermediate Hives Verified 01/02/21 12:03 Medications Home Medications Medication Instructions Recorded Confirmed Last Taken cyanocobalamin (vitamin B-12) 1,000 mcg PO HS cap 02/13/18 01/02/21 01/01/21 1,000 mcg capsule aspirin 81 mg tablet,delayed 81 mg PO HS 12/28/18 01/02/21 01/01/21 release (Adult Aspirin Regimen) levothyroxine 88 mcg tablet 88 mcg PO DAILY #90 tab 05/21/20 01/02/21 01/02/21 (Levoxyl) warfarin 5 mg tablet See Rx Instructions PO UD #100 tab 09/10/20 01/02/21 01/01/21 mupirocin 2 % topical ointment 1 applic TOPICAL BID #22 g 09/12/20 01/02/21 01/02/21 lisinopril 20 1 tab PO HS 01/02/21 01/02/21 01/01/21 mg-hydrochlorothiazide 12.5 mg tablet Active Medications Generic Name Dose Route Start Last Admin Trade Name Freq PRN Reason Stop Dose Admin Acetaminophen 650 mg 01/02/21 20:17 01/03/21 06:09 Acetaminophen 325 Mg Tab PO 02/01/21 20:16 650 mg Q4H PRN Administration pain/fever Cefepime HCl 2,000 mg/ Syringe 20 mls @ 5 mls/min 01/03/21 04:00 01/03/21 03:30 IV 01/09/21 03:59 5 mls/min Q12H CHRISTOPHER Administration Protocol Metronidazole 500 mg in 100 mls @ 100 mls/hr 01/03/21 00:00 01/02/21 23:59 Flagyl IV 01/09/21 00:00 Infused Q8H CHRISTOPHER Infusion Protocol Potassium Chloride/Sodium Chloride 20 meq in 1,000 mls @ 125 mls/hr 01/02/21 21:00 01/03/21 02:06 Normal Saline W/20 Meq Kcl IV 01/03/21 12:59 125 mls/hr .Q8H CHRISTOPHER Infusion Vancomycin HCl 1,000 mg/ 270 mls @ 200 mls/hr 01/03/21 02:00 01/03/21 02:09 Sodium Chloride IV 01/09/21 01:59 Infused Q12H CHRISTOPHER Infusion Protocol Levothyroxine Sodium 88 mcg 01/03/21 06:30 01/03/21 05:39 Levothyroxine Sodium 88 Mcg Tablet PO 02/02/21 06:29 88 mcg DAILYBB CHRISTOPHER Administration Morphine Sulfate 1 mg 01/02/21 20:17 01/03/21 03:20 Morphine Sulfate 2 Mg/Ml Carp IV 01/16/21 20:16 1 mg Q4H PRN Administration Moderate Pain (4,5,6) on NRS Past Medical History Medical History Claudication of lower extremity Hyperlipidemia refuses statin therapy Hypertension Hypothyroidism Impaired fasting glucose PVD (peripheral vascular disease) aortobifem bypass 2015, thrombectomy 2015, revision of left femoral anastamosis 2018 Smoker Exercise / Class Metabolic Activity III < 4 Walking/Shop/Light housework Past Family History Family History Other No significant family history Past Surgical History Surgical History History of cataract surgery RT/LEFT History of dilatation and curettage History of tooth extraction Hx of angioplasty LEFT FEMORAL ARTERY ANASTOMOSIS 11/2018 Past Anesthesia History No Hx of Anesthesia Complications and No Family Hx of Anesthesia Complications History of PONV No Hx of PONV and No Hx of Motion Sickness Social History Smoking Status: Current every day smoker tobacco type: cigarettes Smoking cigarettes per day: 1-2 Do You Dip or Chew Tobacco: No Hx Alcohol Use: Yes Alcohol type: beer alcohol intake frequency: holidays/special occasions only Hx Substance Use: No substance use type: does not use Physical Exam Vital Signs Last Vital Signs Temp 36.6 C 01/03/21 06:52 Pulse 60 01/03/21 06:52 Resp 16 01/03/21 06:52 BP 190/73 H 01/03/21 06:52 Pulse Ox 90 01/03/21 06:52 Testing Laboratory Results 01/02/21 13:08 01/02/21 13:08 PT 19.8 Seconds (9.0-12.0) H 01/02/21 20:33 INR 2.1 (0.9-1.1) H 01/02/21 20:33 01/02/21 12:17 Gram Stain - Final Leg,Left Electrocardiogram Date: 01/02/21 Findings: + NSR @ (at 75) Chest X-Ray Date: 07/20/19 Findings: + NAD and + atherosclerosis of thoracic aorta Echocardiogram Date: 02/20/19 EF: 55% LV Function: normal RWMA: + none Other Findings: + diastolic dysfunction (Grade 1) Valvular Disease: + no significant valvular disease
[2021-01-03] MEDS ORDERED: FAMOTIDINE/PF 20 MG/2 ML VIAL IV ONE (07:23)
--- NOTE | 2021-01-03 07:25 | Surgery Progress Note ---
Date of Service January 03, 2021 Assessment & Plan (1) Open leg wound: (2) Abscess: (3) Ischemic ulcer of left calf: (4) History of DVT (deep vein thrombosis): Plan: 55-year-old woman with ulcer of her left medial ankle. There is some necrotic tissue and a small abscess underlying the area. There is erythema. I discussed the risks and benefits of an incision and debridement of the ulcer in the operating room. All her questions were answered, she is agreeable to proceed. We will take her to the operating room today for debridement of the left medial ankle ulcer. Admission and Anticipated Discharge Date Admission Date: January 02, 2021 Subjective Still some pain at the left medial ankle this morning. No fevers or chills. No nausea or vomiting. Physical Exam Constitutional: WD/WN, vitals as above Eyes: PERRL, conjunctivae normal, anicteric sclerae Neck: trachea midline, no thyromegaly Respiratory: normal respiratory effort; no respiratory distress and no labored breathing Cardiovascular: Rate/Rhythm: regular rate and regular rhythm Gastrointestinal (Abdomen): Inspection/Auscultation: abdomen normal to inspection Percussion/Palpation: abdomen soft; abdomen nontender Musculoskeletal: Extremities: no cyanosis and no clubbing Skin: no rashes, warm and dry Psychiatric: A+Ox3, euthymic affect Results & Data ([facility]) Vital Signs (Past 12 Hours) Vital Signs Temp Pulse Pulse Resp BP BP Pulse Ox 01/03/21 06:52 36.6 C 60 16 190/73 H 90 01/02/21 20:30 36.8 C 78 18 136/76 95 01/02/21 20:09 36.8 C 76 16 165/78 H 97 (1) Open leg wound Encounter type: initial encounter Laterality: left Qualified Code(s): S81.8 02A - Unspecified open wound, left lower leg, initial encounter
[2021-01-03 07:28] LABS: Basophils # (auto) 0.03 K/uL (0-0.2); Basophils % (auto) 0.6 %; Eosinophils # (auto) 0.25 K/uL (0-0.5); Eosinophils % (auto) 4.7 %; Hematocrit (blood only) 41.9 % (37-47); Hemoglobin 13.8 g/dL (12.0-16.0); Immature Granulocytes # (auto) 0.03 K/uL (0.00-0.02); Immature Granulocytes % (auto) 0.6 %; Lymphocytes # (auto) 1.33 K/uL (1.2-3.4); Lymphocytes % (auto) 24.9 %; Mean Corpuscular Hemoglobin 32.1 pg (25-34); Mean Corpuscular Hgb Conc 32.9 g/dL (32-36); Mean Corpuscular Volume 97.4 fL (80-100); Mean Platelet Volume 9.7 fL (7.4-10.4); Monocytes # (auto) 0.61 K/uL (0.11-0.59); Monocytes % (auto) 11.4 %; Neutrophils % (auto) 57.8 %; Platelet Count 250 K/uL (130-400); RDW Standard Deviation 53.1 fL (36.4-46.3); White Blood Count 5.35 K/uL (4.8-10.8)
[2021-01-03 07:34] LABS: INR 2.1 (0.9-1.1); Prothrombin Time 19.7 Seconds (9.0-12.0)
[2021-01-03] MEDS ORDERED: HYDROmorphone INJ 1 MG/ML SYRINGE IV PRN (07:47)
[2021-01-03] MEDS ORDERED: ePHEDrine sulfate 50 MG/ML AMP IV PRN (07:47)
[2021-01-03] MEDS ORDERED: fentaNYL citrate 100 MCG/2 ML VIAL IV PRN (07:47)
[2021-01-03] MEDS ORDERED: LABETALOL HCL IV 5 MG/ML 20ML IV PRN (07:47)
[2021-01-03] MEDS ORDERED: FLUMAZENIL 0.1 MG/1 ML 10 ML VIAL IV PRN (07:47)
[2021-01-03] MEDS ORDERED: ATROPINE SULFATE 0.1 MG/ML 10ML SYR IV PRN (07:47)
[2021-01-03] MEDS ORDERED: PROMETHAZINE HCL 12.5 MG in SODIUM CHLORIDE 0.9% 50 ML IV PRN (07:47)
[2021-01-03] MEDS ORDERED: ONDANSETRON INJ 2 MG/ML 2 ML VIAL IV PRN (07:47)
[2021-01-03] MEDS ORDERED: NALOXONE HCL 0.4 MG/1 ML VIAL/CARP IV PRN (07:47)
[2021-01-03 07:51] LABS: Albumin Level 2.7 gm/dl (3.4-5.0); BUN Creatinine Ratio 13.4 (10-20); Calcium 8.9 mg/dl (8.5-10.1); Creatinine Clr Calc Pharmacy 110.1 ml/min; Est GFR (African American) 119.4 ml/min; Potassium 3.5 mmol/L (3.5-5.1)
[2021-01-03 08:03] LABS: Albumin Globulin Ratio 0.8 (0.9-2); Bilirubin,Total 0.7 mg/dl (0.2-1); Globulin 3.6 gm/dl (2.5-4.0); Total Protein 6.3 gm/dl (6.4-8.2)
[2021-01-03] MEDS ORDERED: ePHEDrine sulfate 50 MG/ML SYR ONE (08:18)
--- NOTE | 2021-01-03 08:20 | Post Operative Brief Note ---
Immediate Post Op Note v1 Date of Surgery January 03, 2021 Pre & Post Diagnosis Operation Date: 01/03/21 07:30 <No data on this case meets the specified criteria> I identified the patient and participated in the time-out.: Yes Procedure Operation Date: 01/03/21 07:30 <No data on this case meets the specified criteria> Surgeon Shadi Cordero MD Check Writer Salesperson none Estimated Blood Loss 2 Findings Consistent with Post-Op Diagnosis necrotic tissue; no abscess
--- NOTE | 2021-01-03 09:08 | Anesthesiology Progress Note ---
Date of Service January 03, 2021 Anesthesia Post Procedure Vital Signs Vital Signs: Temp Pulse Pulse Pulse Resp BP BP 01/03/21 09:00 64 16 126/57 L 01/03/21 08:50 59 L 15 123/57 L 01/03/21 08:40 87 19 134/62 01/03/21 08:34 36.6 C 90 18 139/82 01/03/21 06:52 36.6 C 60 16 190/73 H 01/02/21 20:30 36.8 C 78 18 01/02/21 20:09 36.8 C 76 16 01/02/21 19:02 36.7 C 64 17 01/02/21 17:15 52 L 16 01/02/21 16:24 83 16 01/02/21 16:01 85 16 01/02/21 15:27 36.9 C 79 17 01/02/21 14:53 36.9 C 67 17 01/02/21 14:10 74 14 01/02/21 14:04 75 16 01/02/21 14:00 87 16 172/103 H 01/02/21 13:50 69 18 01/02/21 13:40 78 16 01/02/21 13:30 76 18 143/89 H 01/02/21 13:20 82 19 01/02/21 13:13 86 15 01/02/21 11:01 36.6 C 111 H 18 168/84 H BP Pulse Ox 01/03/21 09:00 93 01/03/21 08:50 95 01/03/21 08:40 95 01/03/21 08:34 95 01/03/21 06:52 90 01/02/21 20:30 136/76 95 01/02/21 20:09 165/78 H 97 01/02/21 19:02 150/70 H 95 01/02/21 17:15 94 01/02/21 16:24 156/102 H 99 01/02/21 16:01 98 01/02/21 15:27 143/86 H 98 01/02/21 14:53 143/86 H 98 01/02/21 14:10 97 01/02/21 14:04 172/103 H 98 01/02/21 14:00 98 01/02/21 13:50 96 01/02/21 13:40 96 01/02/21 13:30 98 01/02/21 13:20 01/02/21 13:13 01/02/21 11:01 97 Transfer of Care Handoff Completed per policy Notes Mental Status: alert / awake / arousable Patient Amnestic to Procedure: Yes Nausea / Vomiting: adequately controlled Pain: adequately controlled Airway Patency, RR, SpO2: stable & adequate BP & HR: stable & adequate Hydration State: stable & adequate Anesthetic Complications: no major complications apparent
--- NOTE | 2021-01-03 09:17 | Operative Report ---
Post Operative Report Pre & Post Diagnosis Operation Date: 01/03/21 07:30 Pre-Op Diagnosis: Left Anterior [place] Ulcer/Cellulitis with Intramuscular Abscess Post-Op Diagnosis: Left Anterior [place]cios Ulcer/Cellulitis with Intramuscular Abscess I identified the patient and participated in the time-out.: Yes Procedure Operation Date: 01/03/21 07:30 Actual Procedures p Incision and Drainage Left Medial Ankle Wound(Left) - Shadi Cordero MD Surgeon Shadi Cordero MD Casino Dealer none Estimated Blood Loss 2 Findings Consistent with Post-Op Diagnosis Necrosis and dry gangrene medial aspect of wound; fascia opened, exploration of the underlying muscle yielded no abscess cavity Specimens None Anesthesia Type General Complications No immediate complications Indications Infected left lower extremity ulcer Description of Procedure She was taken to the operating room, placed supine on the operating table. A timeout was performed, SCD boots were placed, perioperative antibiotics were adm inistered. After adequate anesthesia and allergies was obtained, the area was prepped and draped in the normal sterile fashion. Dry gangrene at the medial aspect of the wound was excised sharply with a scalpel. There was sent off the field. It was debrided back to bleeding tissue. Necrosis and gangrene of the ulcer base was excised. The CT had shown a small collection in the muscle underlying the fascia, so the fascia was opened sharply and the muscle was explored. There is no evidence of abscess or purulent fluid in this location. The wound was copiously irrigated and suctioned free. Again hemostasis was excellent. The wound was packed wet-to-dry with Kerlix. Dressings were applied. She tolerated the procedure without complication, was transferred in stable condition to the PACU. All instrument, needle, and sponge counts were correct at the end of the case. I attest to the content of the Intraoperative Record and any orders documented therein. Any exceptions are noted below.
[2021-01-03] MEDS: NSS + 20MEQ KCL 20 MEQ/1,000 ML BAG IV SCH (09:42)
[2021-01-03] MEDS: metroNIDAZOLE 500 MG/100 ML BAG IV SCH ×2 (09:42→16:04)
[2021-01-03] MEDS: WARFARIN SOD 5 MG TAB PO SCH ×2 (16:40→16:45)
--- NOTE | 2021-01-03 18:04 | Hospitalist Progress Note ---
Date of Service January 03, 2021 Assessment & Plan (1) Ischemic ulcer of left calf: Plan: Left medial mid leg ulceration with underlying intramuscular abscess and associated cellulitis CT tib/fib with contrast: Soft tissue wound of the medial mid leg with adjacent skin thickening and subcutaneous edema suggestive of cellulitis. Along the deep superior margin of the wound there is a 2.2 cm intramuscular abscess within the superficial aspect of the soleus muscle. No acute fracture, dislocation, or osseous erosion to suggest osteomyelitis. No leukocytosis Is s/p I&D abscess and debridement of malleoli wound--> appreciate help from general surgery Patient on warfarin--> therapeutic No gross electrolyte abnormalities Creatinine normal at baseline, less than 1 at admission 04/09/2020 aorta with runoff CTA: Reconstitution of occluded femoral-femoral bypass graft through collaterals and suspected occlusion of the left posterior tibial and peroneal arteries. Patent left anterior tibial artery. Wound culture obtained "preliminary growth of gram-negative bacilli Continue empiric cefepime/Flagyl/vancomycin until final culture data available Will plan to consult vascular on Tuesday (not urgent) given patient established and substantial vasculopathy including history of infected stent that needed to be removed (2) PVD (peripheral vascular disease): Plan: Peripheral vascular disease History of aortobifemoral bypass with failed left bypass, with subsequent femoral endarterectomy left side with femorofemoral bypass which has occluded twice since placement Last followed with heart and vascular 04/29/2020. Recommended 6-month follow-up with repeat ultrasounds Continue aspirin as above Warafin to be resumed (spoke with general surgery who is okay with this). Follow protime -No cardiac hx per patient PT pulses intact with adequate perfusion to feet bilaterally on admitting exam (3) Abscess: Plan: - see above (4) Hypothyroidism: Plan: Hypothyroidism Continue Synthroid 88 mcg daily (5) Hyperlipidemia: Plan: - Refuses statins (6) Smoker: Plan: - Declines patch/gum - Nicotine support and cessation counseling provided (7) Hypertension: Plan: Hypertension Lisinoprilhydrochlorothiazide held pending potential surgical intervention of intramuscular abscess resume ASA in 48 hours (8) History of DVT (deep vein thrombosis): Plan: Hx DVT - On warfarin--> resume tonight. No need for bridge therapy as INR therapeutic Admission and Anticipated Discharge Date Admission Date: January 02, 2021 Subjective Patient seen on daily rounds today. She is a 55-year-old white female who has significant vasculopathy. Has had multiple bypasses of the lower extremities and stents. Follows Dr. Mustafa. 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 She is following the wound clinic for a left medial malleolar wound. Has been developing increasing pain in the calf prompting evaluation to the ED. CT scan showed a medial mid leg with subcutaneous edema suggestive of cellulitis along with a deep superior margin 2.2 cm intramuscular abscess involving the soleus muscle. Admitted. Placed on empiric antibiotic therapy. Had I&D by general surgery this morning. Currently voices no complaints or concerns. Denies fevers, chills, chest pain, shortness of breath, abdominal pain, nausea or vomiting. Review of Systems Review of Systems: All systems reviewed and are unremarkable except as noted in HPI and below Denies fevers, chills, headache, nasal congestion, sore throat, cough, chest pain, shortness of breath, palpitations, orthopnea, PND, abdominal pain, nausea, vomiting, diarrhea, constipation, dysuria, hematuria, frequency, back pain, joint pain or swelling, easy bruising or bleeding, skin lesions or rashes. Physical Exam Physical Exam: General: Resting comfortably in her hospital bed. NAD. HEENT: Head is AT/NC buccal mucosa is moist and pink Neck: No JVD. Negative hepatojugular reflex Cardiac: RRR without M/G/R Lungs: CTA without W/R/R Abdomen: Normoactive X4. Soft and nontender in all quadrants. Extremities: Left leg with postsurgical wrap. Is dry and intact. Distal pulse is very weak but palpable. Was uncertain if I was actually palpating a pulse so I did confirm with the Doppler Neuro: A&O X4 cranial nerves II through XII are grossly intact no focal neuro deficits Skin: No obvious skin lesions or rashes Psych: Appropriate affect pleasant and cooperative Results & Data Results & Data ([facility]) Vital Signs (Past 12 Hours) Vital Signs Temp Pulse Pulse Resp BP Pulse Ox 01/03/21 17:38 69 93 01/03/21 14:40 36.7 C 67 16 119/69 93 01/03/21 12:30 36.5 C 72 16 116/65 93 01/03/21 11:28 36.6 C 82 16 140/88 93 01/03/21 10:43 36.6 C 58 L 15 123/72 93 01/03/21 10:06 36.5 C 80 15 135/74 92 01/03/21 09:33 36.7 C 58 L 123/72 92 01/03/21 09:10 36.2 C L 61 17 130/72 95 01/03/21 09:00 64 16 126/57 L 93 01/03/21 08:50 59 L 15 123/57 L 95 01/03/21 08:40 87 19 134/62 95 01/03/21 08:34 36.6 C 90 18 139/82 95 01/03/21 06:52 36.6 C 60 16 190/73 H 90 PG Care Time/CCT Total # of Minutes Spent Total Time Spent with Patient: Total time spent is greater than 50% in coordination of care (as documented) at patient's floor/unit and/or counseling patient: Coding Level of Care Code 58398 Subseq Hosp Care Lvl 2 Diagnoses Ischemic ulcer of left calf L97.229 PVD (peripheral vascular disease) I73.9 Abscess L02.91 Hypothyroidism E03.9 Hyperlipidemia E78.5 Smoker F17.200 Hypertension I10 History of DVT (deep vein thrombosis) Z86.718
[2021-01-03] MEDS: LISINOPRIL/HCTZ 20/12.5MG 1 TAB TAB PO SCH (21:13)
[2021-01-04] MEDS: metroNIDAZOLE 500 MG/100 ML BAG IV SCH ×2 (01:00→07:50)
[2021-01-04] MEDS: VANCOMYCIN HCL 1,000 MG in SODIUM CHLORIDE 0.9% 250 ML IV SCH ×2 (01:11→15:30)
[2021-01-04] MEDS: LEVOTHYROXINE SODIUM 88 MCG TABLET PO SCH (04:13)
[2021-01-04] MEDS: CEFEPIME 2,000 MG in SYRINGE 0 ML IV SCH ×2 (04:13→16:07)
[2021-01-04 05:57] LABS: Basophils # (auto) 0.05 K/uL (0-0.2); Basophils % (auto) 0.7 %; Eosinophils # (auto) 0.03 K/uL (0-0.5); Eosinophils % (auto) 0.4 %; Hematocrit (blood only) 40.3 % (37-47); Hemoglobin 13.2 g/dL (12.0-16.0); Immature Granulocytes # (auto) 0.04 K/uL (0.00-0.02); Immature Granulocytes % (auto) 0.6 %; Lymphocytes # (auto) 1.47 K/uL (1.2-3.4); Lymphocytes % (auto) 20.4 %; Mean Corpuscular Hgb Conc 32.8 g/dL (32-36); Mean Corpuscular Volume 97.8 fL (80-100); Monocytes # (auto) 0.53 K/uL (0.11-0.59); Monocytes % (auto) 7.4 %; Neutrophils # (auto) 5.07 K/uL (1.4-6.5); Neutrophils % (auto) 70.5 %; Platelet Count 275 K/uL (130-400); RDW Coefficient of Variation 14.9 % (11.5-14.5); RDW Standard Deviation 53.3 fL (36.4-46.3); Red Blood Count 4.12 M/uL (4.2-5.4); White Blood Count 7.19 K/uL (4.8-10.8)
[2021-01-04 06:04] LABS: INR 2.2 (0.9-1.1); Prothrombin Time 21.4 Seconds (9.0-12.0)
[2021-01-04] MEDS: MoRPHine SULFATE 2 MG/ML CARP IV PRN ×2 (06:13→09:57)
[2021-01-04 06:22] LABS: BUN Creatinine Ratio 15.6 (10-20); Calcium 9.2 mg/dl (8.5-10.1); Creatinine Clr Calc Pharmacy 84.1 ml/min; Est GFR (African American) 101.6 ml/min; Est GFR (Non-African American) 87.7 ml/min; Magnesium 2.1 mg/dl (1.8-2.4); Potassium 3.8 mmol/L (3.5-5.1)
[2021-01-04] MEDS: ACETAMINOPHEN 325 MG TAB PO PRN (07:32)
[2021-01-04] MEDS ORDERED: cloNIDine HCL 0.1 MG TAB PO PRN (11:20)
--- NOTE | 2021-01-04 11:28 | Surgery Progress Note ---
Date of Service January 04, 2021 Assessment & Plan (1) Open leg wound: (2) Abscess: (3) Ischemic ulcer of left calf: (4) History of DVT (deep vein thrombosis): Plan: 55-year-old woman with ulcer of her left medial ankle. I removed her dressing and repacked the wound today. There is no further necrotic tissue. We will need to set up home health for her for dressing changes once daily. She has an appointment with the wound clinic on Tuesday. If we can set up home health for her, she may be discharged to home today. There is no evidence of infection in the wounds currently, so antibiotics may be DC prior to discharge Admission and Anticipated Discharge Date Admission Date: January 02, 2021 Subjective Doing well today. Pain in the left lower extremity wound. Denies fevers and chills. She continues on antibiotics. Physical Exam Constitutional: WD/WN, vitals as above Eyes: PERRL, conjunctivae normal, anicteric sclerae Gastrointestinal (Abdomen): Inspection/Auscultation: abdomen normal to inspection Percussion/Palpation: abdomen soft; abdomen nontender Skin: no rashes, warm and dry Left lower extremity medial aspect of ankle with 3 cm x 2 cm ulcer, 2 cm deep; good granulation tissue, no further necrosis or purulent drainage; repacked wet-to-dry Psychiatric: A+Ox3, euthymic affect Results & Data ([facility]) Vital Signs (Past 12 Hours) Vital Signs Temp Pulse Resp BP BP Pulse Ox 01/04/21 10:55 165/72 H 01/04/21 07:11 36.4 C L 59 L 16 179/75 H 92 01/04/21 03:59 36.5 C 60 16 173/85 H 94 (1) Open leg wound Encounter type: initial encounter Laterality: left Qualified Code(s): S81.802A - Unspecified open wound, left lower leg, initial encounter
[2021-01-04] MEDS ORDERED: VANCOMYCIN TROUGH ONE (13:30)
[2021-01-04] MEDS: WARFARIN SOD 5 MG TAB PO SCH ×2 (16:08→22:10)
--- NOTE | 2021-01-04 18:20 | Hospitalist Progress Note ---
Date of Service January 04, 2021 Assessment & Plan (1) Ischemic ulcer of left calf: Plan: Left medial mid leg ulceration with underlying intramuscular abscess and associated cellulitis CT tib/fib with contrast: Soft tissue wound of the medial mid leg with adjacent skin thickening and subcutaneous edema suggestive of cellulitis. Along the deep superior margin of the wound there is a 2.2 cm intramuscular abscess within the superficial aspect of the soleus muscle. No acute fracture, dislocation, or osseous erosion to suggest osteomyelitis. No leukocytosis Is s/p I&D abscess and debridement of malleoli wound (POD #1)--> appreciate help from general surgery Preliminary wound culture showing Pseudomonas. Will need 14 days of antibiotic therapy. Final sensitivity pending. Can de-escalate to single agent cefepime for now Patient on warfarin--> therapeutic No gross electrolyte abnormalities Creatinine normal at baseline, less than 1 at admission 04/09/2020 aorta with runoff CTA: Reconstitution of occluded femoral-femoral by pass graft through collaterals and suspected occlusion of the left posterior tibial and peroneal arteries. Patent left anterior tibial artery. Wound culture obtained "preliminary growth of gram-negative bacilli Patient established with Dr. Mustafa. Discussed with patient about having him see patient while in house but she refuses Patient is established with the wound clinic. General surgery reports patient will need daily wound care-- case mgmt will help with this (2) PVD (peripheral vascular disease): Plan: Peripheral vascular disease History of aortobifemoral bypass with failed left bypass, with subsequent femoral endarterectomy left side with femorofemoral bypass which has occluded twice since placement Last followed with heart and vascular 04/29/2020. Recommended 6-month follow-up with repeat ultrasounds Continue aspirin as above Warafin to be resumed. Follow protime Patient needs to stop smoking! Lengthy discussion with her regarding this (3) Abscess: Plan: - see above (4) Hypothyroidism: Plan: Hypothyroidism Continue Synthroid 88 mcg daily (5) Hyperlipidemia: Plan: - Refuses statins (6) Smoker: Plan: - Declines patch/gum - Nicotine support and cessation counseling provided (7) Hypertension: Plan: Hypertension Lisinoprilhydrochlorothiazide held pending potential surgical intervention of intramuscular abscess resume ASA in 48 hours (8) History of DVT (deep vein thrombosis): Plan: Hx DVT - On warfarin--> resume tonight. No need for bridge therapy as INR therapeutic Admission and Anticipated Discharge Date Admission Date: January 02, 2021 Subjective Patient seen on daily rounds today. Under the impression that she does not have an infection and and does not need antibiotics. Is established with wound care/clinic at home Seen by general surgeon who removed packing and repacked wound today and redressed the area. She denies fevers, chills, chest pain, shortness of breath, abdominal pain, nausea or vomiting Discussed having Dr. Mustafa (her established vascular surgeon) see her but she refuses. Review of Systems Review of Systems: All systems reviewed and are unremarkable except as noted in HPI and below Denies fevers, chills, headache, nasal congestion, sore throat, cough, chest pain, shortness of breath, palpitations, orthopnea, PND, abdominal pain, nausea, vomiting, diarrhea, constipation, dysuria, hematuria, frequency, back pain, joint pain or swelling, easy bruising or bleeding, skin lesions or rashes. Physical Exam Physical Exam: General: Resting comfortably in her hospital bed. NAD. HEENT: Head is AT/NC buccal mucosa is moist and pink Neck: No JVD. Negative hepatojugular reflex Cardiac: RRR without M/G/R Lungs: CTA without W/R/R Abdomen: Normoactive X4. Soft and nontender in all quadrants. Extremities: Left leg with postsurgical wrap. Is dry and intact. Distal pulse is very weak but palpable. Was uncertain if I was actually palpating a pulse so I did confirm with the Doppler Neuro: A&O X4 cranial nerves II through XII are grossly intact no focal neuro deficits Skin: No obvious skin lesions or rashes Psych: Appropriate affect pleasant and cooperative Results & Data Results & Data ([facility]) Vital Signs (Past 12 Hours) Vital Signs Temp Pulse Resp BP BP Pulse Ox 01/04/21 14:36 36.7 C 85 18 165/85 H 92 01/04/21 10:55 165/72 H 01/04/21 07:11 36.4 C L 59 L 16 179/75 H 92 PG Care Time/CCT Total # of Minutes Spent Total Time Spent with Patient: Total time spent is greater than 50% in coordination of care (as documented) at patient's floor/unit and/or counseling patient: Coding Level of Care Code 37323 Subseq Hosp Care Lvl 2 History Expanded Problem Focused Diagnoses Ischemic ulcer of left calf L97.229 PVD (peripheral vascular disease) I73.9 Abscess L02.91 Hypothyroidism E03.9 Hyperlipidemia E78.5 Smoker F17.200 Hypertension I10 History of DVT (deep vein thrombosis) Z86.718
[2021-01-04] MEDS ORDERED: WARFARIN SOD 5 MG TAB PO ONE (18:35)
[2021-01-04] MEDS: LISINOPRIL/HCTZ 20/12.5MG 1 TAB TAB PO SCH (22:09)
[2021-01-05] MEDS: CEFEPIME 2,000 MG in SYRINGE 0 ML IV SCH (04:52)
[2021-01-05] MEDS: LEVOTHYROXINE SODIUM 88 MCG TABLET PO SCH (05:04)
[2021-01-05 06:30] LABS: Basophils # (auto) 0.04 K/uL (0-0.2); Basophils % (auto) 0.7 %; Eosinophils # (auto) 0.24 K/uL (0-0.5); Eosinophils % (auto) 4.4 %; Hematocrit (blood only) 39.6 % (37-47); Hemoglobin 13.3 g/dL (12.0-16.0); Immature Granulocytes # (auto) 0.03 K/uL (0.00-0.02); Immature Granulocytes % (auto) 0.5 %; Lymphocytes # (auto) 1.61 K/uL (1.2-3.4); Lymphocytes % (auto) 29.4 %; Mean Corpuscular Hemoglobin 32.3 pg (25-34); Mean Corpuscular Hgb Conc 33.6 g/dL (32-36); Mean Corpuscular Volume 96.1 fL (80-100); Mean Platelet Volume 9.7 fL (7.4-10.4); Monocytes # (auto) 0.56 K/uL (0.11-0.59); Monocytes % (auto) 10.2 %; Neutrophils # (auto) 2.99 K/uL (1.4-6.5); Neutrophils % (auto) 54.8 %; Platelet Count 246 K/uL (130-400); RDW Coefficient of Variation 15.1 % (11.5-14.5); RDW Standard Deviation 53.2 fL (36.4-46.3); Red Blood Count 4.12 M/uL (4.2-5.4); White Blood Count 5.47 K/uL (4.8-10.8)
[2021-01-05 06:40] LABS: INR 2.2 (0.9-1.1)
[2021-01-05 07:02] LABS: BUN Creatinine Ratio 14.2 (10-20); Calcium 9.5 mg/dl (8.5-10.1); Est GFR (African American) 116.8 ml/min; Est GFR (Non-African American) 100.8 ml/min; Magnesium 2.2 mg/dl (1.8-2.4); Potassium 3.7 mmol/L (3.5-5.1)
--- NOTE | 2021-01-05 12:40 | Discharge Summary ---
Date of Service January 05, 2021 Admission HPI Per Admitting Provider Dusty is a 55-year-old female with a history of peripheral artery disease, ischemic ulcer of the left calf status post aortobifemoral bypass with failed left leg, claudication, hypothyroidism, hyperlipidemia, and current tobacco abuse who presented at the recommendation of her outpatient provider for emergency department evaluation of a left ulcer worsened with CT showing intramuscular abscess. 3 months ago noticed increased swelling at her L leg at ulcer side. Called her doc who ordered an antibiotic. Followed up at routine physical the first week of Nov and did not appear infected at that time and was not swollen. This past week had sudden increase in size in the last 7 days. Has developed some bloody discharge. Is not causing her pain, 0/10 pain now but was having some 'nerve like pain in the leg' earlier in the week consistent with her prior neuropathy and which is not present currently. Has throbbed intermittent over the last week. No fevers, chills, night sweats, nausea, vomtiing, diarrhea, constipation. Last month could walk in the grocery store OK without claudication or pain. In the last week could not go more than a few steps/feet without pain in her mid low L left. + swelling. "I don't like to look at it, so not sure how much it has changed.' Denies other symptoms. Medical History: Reviewed Medications: Reviewed. Has not taken medications other than Synthroid today Surgical History: Reviewed Allergies: Reviewed Social History: Alcohol 1 drink per day to every other day. Tobacco product current use. ~1 pack per 4 days, smoker since teens. Declines patch/gum. Code Status: Full Code Principal Diagnosis Left leg necrotic ulcer, Pseudomonas infection PAD Discharge Exam Constitutional WD/WN, vitals as above Eyes + anicteric sclerae Neck trachea midline, no thyromegaly Respiratory normal respiratory effort, lungs clear to auscultation Cardiovascular RRR, no murmur, no edema Chest (Breasts) Chest: normal inspection of chest Musculoskeletal Extremities: extremities normal to inspection; no cyanosis and no clubbing Skin Left medial distal leg with 4 cm open wound with gauze packing, no erythema surrounding, no drainage Neurologic moves all extremities and awake; no focal motor deficits Psychiatric A+Ox3, euthymic affect Lymphatic no lymphedema Discharge Data Allergies Allergy/AdvReac Type Severity Reaction Status Date / Time amoxicillin Allergy Intermediate Hives Verified 01/02/21 12:03 Penicillins Allergy Intermediate Hives Verified 01/02/21 12:03 Consultations 01/02/21 15:34 ED Decision to Admit Stat 01/02/21 20:17 Consult General Surgery Routine Procedures Performed Operation Date: 01/03/21 07:30 Actual Procedures p Incision and Drainage Left Medial Ankle Wound(Left) - Shadi Cordero MD Ordered Studies 01/02/21 12:40 CT tib/fib LT w con Stat Hospital Course (1) Ischemic ulcer of left calf: Left medial mid leg ulceration with underlying intramuscular abscess and associated cellulitis CT tib/fib with contrast: Soft tissue wound of the medial mid leg with adjacent skin thickening and subcutaneous edema suggestive of cellulitis. Along the deep superior margin of the wound there is a 2.2 cm intramuscular abscess within the superficial aspect of the soleus muscle. No acute fracture, dislocation, or osseous erosion to suggest osteomyelitis. No leukocytosis Is s/p I&D with no abscess found and debridement of malleoli wound (POD #2)--> appreciate help from general surgery wound culture showing Pseudomonas pansensitive. Was on Cefepime here and will dc to home on 7 more days of Cipro po. Surgery said no abx needed but concerning given PAD and open wound so will give one week of coverage Patient on warfarin--> therapeutic, watch closely INR while on CIpro Creatinine normal at baseline, less than 1 at admission 04/09/2020 aorta with runoff CTA: Reconstitution of occluded femoral-femoral bypass graft through collaterals and suspected occlusion of the left posterior tibial and peroneal arteries. Patent left anterior tibial artery. Patient established with Dr. Mustafa. Discussed with patient about having him see patient while in house but she refuses Patient is established with the wound clinic. General surgery reports patient will need daily wound care-she has a friend who will do dressing changes (2) PVD (peripheral vascular disease): Peripheral vascular disease History of aortobifemoral bypass with failed left bypass, with subsequent femoral endarterectomy left side with femorofemoral bypass which has occluded twice since placement Last followed with heart and vascular 04/29/2020. Recommended 6-month follow-up with repeat ultrasounds Continue aspirin as above Warfarin continues Patient needs to stop smoking! Lengthy discussion with her regarding this (3) Abscess: ruled out, none seen during surgery (4) Hypothyroidism: Hypothyroidism Continue Synthroid 88 mcg daily (5) Hyperlipidemia: - Refuses statins (6) Smoker: - Declines patch/gum - Nicotine support and cessation counseling provided (7) Hypertension: Hypertension Lisinoprilhydrochlorothiazide continued (8) History of DVT (deep vein thrombosis): Hx DVT - On warfarin-->follow INR closely while on abx Dispo-dc to home Total Time Total Time Spent Total Time Spent (In Minutes): 35 min Discharge Plan Discharge Items Patient Disposition: Home - Self-Care Reason For Visit: MIDLEG CELLULITIS/ULCER WITH INTRAMUSCULAR ABSCESS Discharge Diagnosis: Leg ulcer with necrosis Pseudomonas infection Condition on Discharge: Good Activity: Resume your previous activity Bathing: Keep incision dry Weightbearing: Full weightbearing Non-emergency contact: Primary Care Provider and Surgeon Call non-emergency contact if: you have any medication questions, your symptoms worsen, your pain is not controlled, your pain is worsening, you have a fever, your wound has increased redness, your wound has increased drainage and your wound pain has increased Follow-up/Referrals: Shadi Cordero MD [Physician] - (Follow up within 1-2 weeks.) Freya Thornton MD [Primary Care Provider] - (Follow up within 1-2 weeks.) Diet: Heart Healthy Addtl Attending Provider Instructions: Continue the antibiotic called Cipro twice a day for 1 more week. Follow up with the wound care clinic this Tuesday as scheduled. Change your dressing daily with the gauze packing and overlying gauze with tape. You will need to have your PT/INR watched more closely while on antibiotics as the antibiotic can affect your Coumadin level. Check your PT/INR in 2-3 days. Pending Studies at Discharge: No Stand-Alone Forms: My [facility] [email or web address], Smoking Cessation Medications and DC Order Prescriptions: New acetaminophen 325 mg Tablet 650 mg PO Q4H PRN (Reason: pain) Qty: 30 RF: 0 ciprofloxacin HCl [Cipro] 500 mg tablet 500 mg PO BID Qty: 14 RF: 0 Continued cyanocobalamin (vitamin B-12) 1,000 mcg capsule 1,000 mcg PO HS RF: 0 aspirin [Adult Aspirin Regimen] 81 mg tablet,delayed release (DR/EC) 81 mg PO HS RF: 0 levothyroxine [Levoxyl] 88 mcg tablet 88 mcg PO DAILY Qty: 90 RF: 3 warfarin 5 mg tablet See Rx Instructions PO UD Qty: 100 RF: 2 lisinopril-hydrochlorothiazide 20-12.5 mg tablet 1 tab PO HS RF: 0 Discontinued mupirocin 2 % ointment 1 applic topical BID Qty: 22 RF: 1 Discharge Orders: Discharge Order (Routine); Ordered 01/05/21 Ordered By: Maricruz Aldridge Admission Data Admit Date/Time: 01/02/21 16:24 Attending Provider: Maricruz Aldridge Admit Provider: Fernie Sadler Primary Care Provider: Freya Thornton Other Providers: Skyler Cordero ; Fernie Sadler ; Shadi Cordero ; Franklin Patton [facility] Coding Level of Care Code D/C DAY MANAGEMENT >30 MINS Diagnoses Ischemic ulcer of left calf L97.229 PVD (peripheral vascular disease) I73.9 Abscess L02.91 Hypothyroidism E03.9 Hyperlipidemia E78.5 Smoker F17.200 Hypertension I10 History of DVT (deep vein thrombosis) Z86.718
[2021-01-05] MEDS ORDERED: WARFARIN SOD 7.5 MG TAB PO SCH (16:00)
== END 2021-01-05 13:54 | disposition home or self-care (01) | DRG 982 ==
LOC: ED 10:43 → SUATTDRO 16:24 → 3N 16:24

== ENCOUNTER 2021-03-11 09:11 | Inpatient (IN) ==
--- NOTE | 2021-03-10 15:52 | Anesthesiology Consultation ---
Date of Service March 10, 2021 Assessment & Plan (1) Encounter for pre-operative examination: - wound visit 03/03/2021: "...ischemic ulcer to the left lower leg in the face of PAD...Once again discussed with the patient that she needs to f/u with vascular surgery or she is at high risk of persistent deterioration of the wound, worsening pain, and loss of limb. Patient is now reconsidering follow-up with Dr. Mustafa. Patient was late day add-on, did not get pre-op COVID testing so will order for am DOS. Chart Review Chart Review: Acceptable Risk for Surgery and Patient NOT seen in Pre Admission Testing History Surgery Operation Date: 03/11/21 09:10 Proposed Procedures p Debridement of Left Calf Wound - Jonny Mustafa MD Operation Date: 03/13/21 08:00 Proposed Procedures p Left Leg Arteriogram - Jonny Mustafa MD Allergies Allergy/AdvReac Type Severity Reaction Status Date / Time amoxicillin Allergy Intermediate Hives Verified 03/03/21 13:36 Penicillins Allergy Intermediate Hives Verified 03/03/21 13:36 Medications Home Medications Medication Instructions Recorded Confirmed Last Taken cyanocobalamin (vitamin B-12) 1,000 mcg PO HS cap 02/13/18 03/03/21 01/01/21 1,000 mcg capsule aspirin 81 mg tablet,delayed 81 mg PO HS 12/28/18 03/03/21 01/01/21 release (Adult Aspirin Regimen) levothyroxine 88 mcg tablet 88 mcg PO DAILY #90 tab 05/21/20 03/03/21 01/02/21 (Levoxyl) lisinopril 20 1 tab PO HS 01/02/21 03/03/21 01/01/21 mg-hydrochlorothiazide 12.5 mg tablet acetaminophen 325 mg tablet 650 mg PO Q4H PRN #30 tab 01/05/21 03/03/21 02/19/21 collagenase clostridium histo. 250 1 applic TOPICAL DAILY 14 Days #90 01/16/21 03/03/21 Unknown unit/gram topical ointment (Santyl) g gabapentin 100 mg capsule 100 mg PO .COMPLEX #30 cap 02/19/21 03/03/21 Unknown oxycodone 5 mg tablet 5 mg PO Q6H PRN #7 tab 02/19/21 03/03/21 Unknown rivaroxaban 2.5 mg tablet (Xarelto) 2.5 mg PO BID tab 02/24/21 03/03/21 Unknown Past Medical History Medical History Claudication of lower extremity Hyperlipidemia refuses statin therapy Hypertension Hypothyroidism Impaired fasting glucose PVD (peripheral vascular disease) aortobifem bypass 2015, thrombectomy 2015, revision of left femoral anastamosis 2018 Smoker Past Family History Family History Other No significant family history Past Surgical History Surgical History (Updated 03/10/21 @ 15:43 by Debbie Bay PA-C) History of cataract surgery RT/LEFT History of dilatation and curettage History of incision and drainage left lower extremity ulcer 01/03/2021: LMA#4, atraumatic x 1. No issues per anesthesia postop progress note. History of tooth extraction Hx of angioplasty LEFT FEMORAL ARTERY ANASTOMOSIS 11/27/2018: Grade 1 view, MAC#3, ETT #7.0. No issues per anesthesia postop progress note. S/P femoral-femoral bypass surgery left 07/20/2019: Grade 1 view, MAC#3, ETT#7.5 x 1 atraumatic. No issues per anesthesia postop progress note. No issues per anesthesia postop progress note. left 02/17/2019: Grade 1 view, MAC#3, ETT#7.5. No issues per anesthesia po stop progress note. left 02/16/2019: Grade 1 view, MAC#3, ETT #7.0. No issues per anesthesia postop progress note. Social History Smoking Status: Current every day smoker tobacco type: cigarettes Smoking cigarettes per day: 1-2 Hx Alcohol Use: Yes Alcohol type: beer alcohol intake frequency: holidays/special occasions only Hx Substance Use: No substance use type: does not use Lab Results Anesthesia Preop Results Results Anesthesia Widget: WBC 7.71 K/uL (4.8-10.8) 02/28/21 Hgb 14.6 g/dL (12.0-16.0) 02/28/21 Hct 43.1 % (37-47) 02/28/21 Plt 286 K/uL (130-400) 02/28/21 Na 139 mmol/L (136-145) 02/28/21 K 3.6 mmol/L (3.5-5.1) 02/28/21 Cl 107 mmol/L (98-107) 02/28/21 CO2 28 mmol/L (21-32) 02/28/21 BUN 11 mg/dl (7-18) 02/28/21 Creat 0.62 mg/dl (0.6-1.2) 02/28/21 Glucose Level 114 mg/dl (70-99) H 02/28/21 PT 24.3 Seconds (9.0-12.0) H 02/28/21 INR 2.6 (0.9-1.1) H 02/28/21 TSH 21.300 uIu/ml (0.300-4.500) H 02/25/21 Free T4 1.34 ng/dl (0.8-1.6) 02/25/21 HA1c 5.7 % (4.5-5.6) H 02/25/21 Testing Electrocardiogram Date: 01/02/21 Normal sinus rhythm, rate 75 bpm. Possible left atrial enlargement. Echocardiogram Date: 02/20/19 No significant valvular disease Left ventricular systolic function is normal EF 55-60% Grade I diastolic dysfunction Normal left ventricular size, wall motion and wall thickness Stress Test Date: 04/08/15 Negative for ischemia EF 65% Normal LV wall motion, cavity size and systolic function MPHR 95%
[~2021-03-11 09:11] MED LIST changes: +DEXAMETHASONE SOD INJ 4 MG/ML VIAL ONE; +LIDOCAINE 2% 2 ML VIAL/AMP(20MG/ML) INFIL ONE; +LR 15ML/HR IV SCH; +MIDAZOLAM HCL 1 MG/ML 2ML VIAL ONE; +ONDANSETRON INJ 2 MG/ML 2 ML VIAL ONE; +PHENYLEPHRINE 100MCG/ML 5ML SYR ONE; +PROPOFOL IV EMULSION 10 MG/ML 20 ML VIAL IV ONE; +ePHEDrine sulfate 50 MG/ML SYR ONE; +fentaNYL citrate 100 MCG/2 ML VIAL ONE
[2021-03-11] MEDS ORDERED: CLINDAMYCIN 600 MG/54 ML D5W IV ONE (09:29)
--- NOTE | 2021-03-11 09:34 | History & Physical Bridge Note ---
Date of Service March 11, 2021 History & Physical Bridge Note I have examined the patient, reviewed the History & Physical and in the interval since the performance of the History & Physical I have noted the following changes of clinical significance: no changes noted
--- NOTE | 2021-03-11 09:34 | History & Physical Report ---
Date of Service March 11, 2021 History of Present Illness Primary Care Provider: Freya Thornton MD Primary Care Provider MD Thornton Cynthia D Referring Provider MD Norberto, Freya Melton Subjective I the pleasure of seeing Kaleigh today for follow-up. As you know she is a 56-year-old female who has had multiple procedures on her lower extremities done in the past. She has had an aortobifemoral bypass in the past. She subsequently had an infected left groin graft which was removed. She has had a femorofemoral bypass which occluded. She underwent revision with thrombectomy. This is subsequently occluded. Over the last few months she has developed an ischemic ulceration on the medial aspect of her distal left calf. It has gotten progressively worse with necrotic tissue present at the base and the edges of the wound as well as surrounding erythema. She complains of severe pain in the wound of the left lower extremity. She takes Tylenol which does not relieve the discomfort. This wound has been debrided a few weeks ago and has worsened since that time. Review of Systems 10 systems were reviewed. Only positive findings are as per the history and physical. Objective Physical Exam On exam she is awake alert and oriented x3. She is in mild to moderate distress. Her blood pressure is 124/70 on the right and 122/70 on the left. Her lungs are clear to auscultation. Heart irregular rate and rhythm. Vascular exam showed radials carotids supratemporal arteries to be +2 bilaterally. Abdominal exam is benign. No masses are felt. She has good femoral pulse on the right side. I cannot appreciate any femoral or pedal pulse on the left. She has dependent rubor in the left foot. Her capillary refill is markedly decreased. She has wound of her left distal medial calf which is approximately 10 cm x 5 cm in size. It has necrotic bases and edges and surrounding erythema. There is no drainage. No granulation tissue is noted. Neurologic exam is grossly intact. Assessment/Plan 1. Gangrene At this point she is in need of urgent debridement of her wound and arteriography for limb salvage. She has a high chance of amputation if we cannot revascularize the left lower extremity. I recommended that we debride the wound as soon as possible and follow-up by arteriography to plan on revascularization. Risks options and benefits were discussed with the patient. She understood these risks and agreed to go with this procedure. She was started on Levaquin 750 daily as well as Percocet for her severe pain from the necrotic ulcer. Thank you very much for letting us participate in the care of this patient. Sincerely, PADMINI Mustafa MD 2. S/P vascular bypass Orders: acetaminophen-oxyCODONE, Start: 03/10/21 14:34:00 EST, 1 tab, PO, q6h, Disp# 20 tab, Refills: 0, PRN: as needed for pain, Pharmacy: [facility]/pharmacy #[id number] levoFLOXacin, Start: 03/10/21 14:34:00 EST, 1 tab, PO, q24h, Disp# 5 tab, Pharmacy: [facility]/pharmacy #[id number] Signature Line Electronic Signature on File Jonny Mustafa MD Author Signature Dt/Tm: 03/10/2021 03:28 PM Director Of Regional Sales Marko Mejía [facility] [address], [address] [place] [address] EJS Result Type: .Outpt Ltr Date of Service: March 10, 2021 15:27 EST Authorization Status: Final Subject: Follow Up Visit Author or Import Date: MD Mustafa Eugene J on March 10, 2021 15:28 EST Verified By: MD Mustafa Eugene J on March 10, 2021 15:28 EST Encounter info: [id number], [facility], Clinic, 03/10/2021 - Allergies Allergy/AdvReac Type Severity Reaction Status Date / Time amoxicillin Allergy Intermediate Hives Verified 03/03/21 13:36 Penicillins Allergy Intermediate Hives Verified 03/03/21 13:36 Home Medications Medication Instructions Recorded Confirmed Type cyanocobalamin (vitamin B-12) 1,000 mcg PO HS cap 02/13/18 03/03/21 History 1,000 mcg capsule aspirin 81 mg tablet,delayed 81 mg PO HS 12/28/18 03/03/21 History release (Adult Aspirin Regimen) levothyroxine 88 mcg tablet 88 mcg PO DAILY #90 tab 05/21/20 03/03/21 Rx (Levoxyl) lisinopril 20 1 tab PO HS 01/02/21 03/03/21 History mg-hydrochlorothiazide 12.5 mg tablet acetaminophen 325 mg tablet 650 mg PO Q4H PRN #30 tab 01/05/21 03/03/21 Rx collagenase clostridium histo. 250 1 applic TOPICAL DAILY 14 Days #90 01/16/21 03/03/21 Rx unit/gram topical ointment (Santyl) g gabapentin 100 mg capsule 100 mg PO .COMPLEX #30 cap 02/19/21 03/03/21 Rx oxycodone 5 mg tablet 5 mg PO Q6H PRN #7 tab 02/19/21 03/03/21 Rx rivaroxaban 2.5 mg tablet (Xarelto) 2.5 mg PO BID tab 02/24/21 03/03/21 History Past Med/Surg History Medical History Claudication of lower extremity Hyperlipidemia refuses statin therapy Hypertension Hypothyroidism Impaired fasting glucose PVD (peripheral vascular disease) aortobifem bypass 2015, thrombectomy 2015, revision of left femoral anastamosis 2018 Smoker Surgical History History of cataract surgery RT/LEFT History of dilatation and curettage History of incision and drainage left lower extremity ulcer 01/03/2021: LMA#4, atraumatic x 1. No issues per anesthesia postop progress note. History of tooth extraction Hx of angioplasty LEFT FEMORAL ARTERY ANASTOMOSIS 11/27/2018: Grade 1 view, MAC#3, ETT #7.0. No issues per anesthesia postop progress note. S/P femoral-femoral bypass surgery left 07/20/2019: Grade 1 view, MAC#3, ETT#7.5 x 1 atraumatic. No issues per anesthesia postop progress note. No issues per anesthesia postop progress note. left 02/17/2019: Grade 1 view, MAC#3, ETT#7.5. No issues per anesthesia postop progress note. left 02/16/2019: Grade 1 view, MAC#3, ETT #7.0. No issues per anesthesia postop progress note. Family History Other No significant family history Social History Smoking Status: Current every day smoker Tobacco Type: Cigarettes packs per day: 0.5; Cigarettes Per Day: 1-2; Second Hand Exposure: No; Hx Alcohol Use: Yes Alcohol type: beer Alcohol Intake Frequency Comment: 1 or two beers once or twice weekly Hx Substance Use: No Preferred Language: Sammarinese Communication Ability: Effective Legal Billing Coordinator Required: No Beliefs That Will Affect Care: None marital status: Current Living Situation: Spouse and Family current occupational status: disabled How many Children do You have: 1 Feels Safe at Home: Yes caffeine: Yes during the past year weight has: decreased > 10 lbs Dental Care, Regularly: Yes Physical Activity Frequency: 5-6 Times per Week Seatbelt Use: always Sunscreen Use: No Do you think of yourself as: straight/heterosexual Gender Identity: Female Assistive Devices: None
[2021-03-11] MEDS ORDERED: ePHEDrine sulfate 50 MG/ML AMP IV PRN (10:10)
[2021-03-11] MEDS ORDERED: ONDANSETRON INJ 2 MG/ML 2 ML VIAL IV PRN (10:10)
[2021-03-11] MEDS ORDERED: fentaNYL citrate 100 MCG/2 ML VIAL IV PRN (10:10)
[2021-03-11] MEDS ORDERED: ATROPINE SULFATE 0.1 MG/ML 10ML SYR IV PRN (10:10)
[2021-03-11 10:26] LABS: BUN Creatinine Ratio 18.1 (10-20); Calcium 9.9 mg/dl (8.5-10.1); Creatinine Clr Calc Pharmacy 88.8 ml/min; Est GFR (African American) 109.6 ml/min; Est GFR (Non-African American) 94.6 ml/min
[2021-03-11] MEDS: POTASSIUM CHLORIDE / WTR 10 MEQ/100 ML PLCT IV SCH ×2 (10:57→12:53)
[2021-03-11 10:59] LABS: Influenza A virus by PCR Negative (Neg); Influenza B virus by PCR Negative (Neg); RSV by PCR Negative (Neg); SARS CoV2 RNA(COVID-19) InHosp NEGATIVE (Negative)
[2021-03-11] MEDS ORDERED: LIDOCAINE 1% LOCAL 20 ML VIAL ONE (11:08)
[2021-03-11] MEDS ORDERED: EPINEPHrine INJ 1 MG/ML AMP ONE (11:08)
[2021-03-11] MEDS ORDERED: BUPIVACAINE 0.5 % 5 MG/1 ML MPF 30ML VIAL ONE (11:08)
[2021-03-11] MEDS ORDERED: LACTATED RINGER'S 1,000 ML IV SCH (11:45)
--- NOTE | 2021-03-11 11:50 | Operative Report ---
Post Operative Report Pre & Post Diagnosis Operation Date: 03/11/21 09:10 Pre-Op Diagnosis: Left Lower Extremity Ulcer Post-Op Diagnosis: Left Lower Extremity Ulcer Operation Date: 03/13/21 08:00 <No data on this case meets the specified criteria> I identified the patient and participated in the time-out.: Yes Procedure Operation Date: 03/11/21 09:10 Actual Procedures p Debridement of Left Calf Wound(Not Applicable) (7 x 6 cm) Jonny Mustafa MD Operation Date: 03/13/21 08:00 <No data on this case meets the specified criteria> Surgeon Jonny Mustafa MD Psychologist Industrial Organizational none Estimated Blood Loss 0 Findings Consistent with Post-Op Diagnosis Specimens none Anesthesia Type General Complications none Disposition Accompanied Patient To Recovery: No Disposition: Recovery Room Indications Patient is a 56-year-old female with a severe peripheral vascular occlusive the left lower extremity. She developed an ulceration of her distal medial calf which is progressively gotten worse with necrosis and surrounding erythema. Debridement was recommended. I have discussed the risks options and benefits of the procedure with the patient. The patient understands the risks options and benefits and agrees to the procedure. Description of Procedure The patient was taken to the operating placed in the supine position. After general anesthesia was accomplished the left lower extremities prepped draped in a sterile manner. The patient was identified and timeout was performed. Using sharp dissection with a scalpel the necrotic edges were all excised as well as the overlying necrotic tissue. This was done through the skin and subcutaneous tissue the wound was taken back to a good viable subcutaneous tissue and skin were noted. The underlying muscle was viable. Once all necrotic tissue was debrided the wound was irrigated and a wet-to-dry dressing applied.The patient left the operation room in satisfactory condition and tolerated the procedure well. All needle and sponge counts were correct at the end of the procedure. I attest to the content of the Intraoperative Record and any orders documented therein. Any exceptions are noted below.
[2021-03-11] MEDS: HYDROmorphone INJ 1 MG/ML SYRINGE IV PRN ×2 (12:19→12:24)
[2021-03-11] MEDS ORDERED: MEPERIDINE HCL 25 MG/ML CARP/VIAL IV PRN (12:36)
[2021-03-11] MEDS ORDERED: MEPERIDINE HCL 25 MG/ML CARP/VIAL ONE (12:40)
--- NOTE | 2021-03-11 13:52 | Anesthesiology Progress Note ---
Date of Service March 11, 2021 Anesthesia Post Procedure Vital Signs Vital Signs: Temp Pulse Pulse Pulse Resp BP Pulse Ox 03/11/21 13:45 37 C 74 16 166/87 H 95 03/11/21 13:15 81 16 155/72 H 96 03/11/21 13:05 36.5 C 81 14 145/77 H 98 03/11/21 12:55 68 12 116/86 96 03/11/21 12:45 73 16 155/87 H 100 03/11/21 12:35 77 20 150/72 H 97 03/11/21 12:25 82 14 120/100 94 03/11/21 12:15 36.4 C L 77 12 151/77 H 94 03/11/21 12:05 71 13 137/71 97 03/11/21 11:55 67 12 139/75 100 03/11/21 11:45 83 16 126/103 H 99 03/11/21 11:39 36.1 C L 88 16 140/86 98 03/11/21 09:43 36.7 C 108 H 18 141/98 H 97 Pain Intensity Left Lower Leg: Pain Intensity: 4 Transfer of Care Handoff Completed per policy Notes Mental Status: alert / awake / arousable and participated in evaluation Patient Amnestic to Procedure: Yes Nausea / Vomiting: adequately controlled Pain: improving with treatment Airway Patency, RR, SpO2: stable & adequate BP & HR: stable & adequate Hydration State: stable & adequate Anesthetic Complications: no major complications apparent and Pt Satisfied with anesthetic care
[2021-03-11] MEDS ORDERED: OPTIRAY 320 100ml IV ONE (15:47)
--- NOTE | 2021-03-11 16:06 | CT Scan Report ---
CT chest diagnostic wo/w con CLINICAL HISTORY: Abnormal chest x-ray. Evaluate possible left perihilar abnormality on prior chest x -ray. TECHNIQUE: Multiaxial CT images of the chest were performed both before and after the intravenous adm inistration of contrast. COMPARISON STUDY: Chest x-ray 03/10/2021. FINDINGS: No pneumothorax. No pleural effusions. Mild right apical pleural parenchymal scarlike densi ties. The central airways are patent. There is a 4 mm subpleural nodule within the left upper lobe ab utting the major fissure on image 69. There is a small linear scarlike density within the left upper lobe. This may correspond to the previous chest x-ray abnormality. No left perihilar lesions identifi ed. A 3 mm subpleural nodule within the base of the left lower lobe on image 223. Small linear scarli ke densities also noted at the left lower lobe. Small linear scarlike density seen within the right u pper and middle lobes anteriorly. A 4 mm subpleural nodule within the superior segment of the right l ower lobe in image 82 abutting the major fissure. No focal lung consolidations to suggest pneumonia. No suspicious lytic or blastic osseous lesions. No mediastinal or hilar lymphadenopathy. Normal esoph kajal. Limited views of the upper abdomen demonstrate a normal liver, spleen, and adrenal glands. Norm al caliber thoracic aorta with no evidence for dissection. Mild calcified plaque within the coronary arteries. The heart is normal in size. The central pulmonary arteries are patent. IMPRESSION: 1. The left perihilar abnormality on the prior chest x-ray likely corresponds to an area of scarring. No suspicious pulmonary lesions identified. 2. A few scattered subcentimeter indeterminate pulmonary nodules with the largest measuring 4 mm. Ple ase refer to the chart below for recommended follow-up. Please refer to below summary of Fleischner criteria recommendations for follow-up of incidental CT n odules (Rocio Badillo, Guidelines for management of small pulmonary nodules detected on CT scans: A sta tement from the Fleischner Society, Radiology 237: [phone].) SOLID NODULES Solitary nodule size: <6 mm * Low risk patients: no follow-up needed * high risk patients: optional CT at 12 months Solitary nodule size: 6-8 mm * Low risk patients: follow-up at 6-12 months, then consider further follow-up at 18-24 months * high risk patients: initial follow-up CT at 6-12 months and then at 18-24 months if no change Solitary nodule size: >8 mm * either low or high risk patients - consider follow-up CT at 3 months, and/or CT-PET, and/or biopsy Multiple nodules size: <6 mm * Low risk patients: no routine follow-up * high risk patients: optional CT at 12 months Multiple nodules size: 6-8 mm * Low risk patients: follow-up at 3-6 months, then consider further follow-up at 18-24 months * high risk patients: follow-up at 3-6 months, then at 18-24 months if no change Multiple nodules size: >8 mm * Low risk patients: follow-up at 3-6 months, then consider further follow-up at 18-24 months * high risk patients: follow-up at 3-6 months, then at 18-24 months if no change Note: newly detected indeterminate nodule in persons 35 years of age or older. * Low risk patients: minimal or absent history of smoking and/or other known risk factors * high risk patients: history of smoking or of other known risk factors (e.g. first degree relative with lung cancer, or exposure to asbestos, radon, uranium) * if a nodule up to 8 mm is partly solid or is ground glass further follow-up is required after 24 m onths to exclude possible slow growing adenocarcinoma ([facility]) SUBSOLID NODULES Solitary pure ground-glass nodule * nodule size <6 mm - no CT follow-up required * nodule size >=6 mm - follow-up CT at 6-12 months, then every 2 years until 5 years Solitary part-solid nodule * nodule size <6 mm - no CT follow-up required * nodule size >=6 mm - follow-up CT at 3-6 months. If unchanged, and solid component remains <6 mm, then annual follow-up for 5 years Multiple subsolid nodules * nodule size <6 mm - follow-up CT at 3-6 months, consider further follow-up at 2 and 4 years if sta ble * nodule size >=6 mm - follow-up CT at 3-6 months, subsequent management based on the most suspiciou s nodule(s) ACT 112: Negative or not required by law. Electronically signed by: Evelio Tamez M.D. 03/11/2021 4:05 PM
[2021-03-11] MEDS: CLINDAMYCIN 600 MG in DEXTROSE 5% 50 ML IV SCH (18:20)
[2021-03-12] MEDS: oxyCODONE HCL IR 5 MG TAB (IMMEDIATE RELEASE) PO PRN ×4 (01:01→16:53)
[2021-03-12] MEDS: CLINDAMYCIN 600 MG in DEXTROSE 5% 50 ML IV SCH ×3 (03:20→18:06)
[2021-03-12] MEDS: LEVOTHYROXINE SODIUM 88 MCG TABLET PO SCH (08:49)
[2021-03-12] MEDS: FERROUS SULFATE 325 MG TAB PO SCH (08:49)
[2021-03-12] MEDS: RIVAROXABAN 2.5 MG TAB PO SCH ×2 (08:49→20:25)
[2021-03-12] MEDS: HYDROmorphone INJ 0.5 MG/0.5 ML SYR IV PRN ×2 (10:15→20:25)
--- NOTE | 2021-03-12 15:20 | Surgery Progress Note ---
Date of Service March 12, 2021 Assessment & Plan (1) PAD (peripheral artery disease): Plan: Pt with severe PAD and hx of multiple revascularization attempts. Planning to reeval with angiogram in OR tomorrow for possible surgical planning. Pt agreeable. (2) Open leg wound: Plan: LLE wound now s/p debridement. WIll reeval tomorrow. Admission and Anticipated Discharge Date Admission Date: March 11, 2021 Subjective 56 yo f POD#1 after undergoing LLE wound debridement, seen in f/u today. Pt states her swelling and pain is improved since her procedure yesterday. Denies any new complaints. Review of Systems Review of Systems: All systems reviewed & are unremarkable except as noted in HPI & below Physical Exam Constitutional: WD/WN, vitals as above Respiratory: normal respiratory effort, lungs clear to auscultation Cardiovascular: Rate/Rhythm: regular rate and regular rhythm Vessels: + abnormal peripheral pulses Extremities: normal capillary refill Gastrointestinal (Abdomen): Inspection/Auscultation: abdomen normal to inspection and normal bowel sounds Percussion/Palpation: abdomen soft; abdomen nontender Musculoskeletal: no cyanosis or clubbing, extremities motor strength 5/5 Skin: + wound (LLE dressing in place) Neurologic: moves all extremities and awake; no focal motor deficits and not confused Psychiatric: A+Ox3, euthymic affect Results & Data ([facility]) Vital Signs (Past 12 Hours) Vital Signs Temp Pulse Pulse Resp BP Pulse Ox 03/12/21 11:15 36.5 C 64 14 175/78 H 97 03/12/21 07:36 36.9 C 74 16 142/76 H 94 (1) Open leg wound Encounter type: initial encounter Laterality: left Qualified Code(s): S81.802A - Unspecified open wound, left lower leg, initial encounter
[2021-03-12] MEDS: CYANOCOBALAMIN 500 MCG TABLET (VITAMIN B-12) PO SCH (20:12)
[2021-03-12] MEDS: ASPIRIN 81 MG ECTAB PO SCH (20:13)
[2021-03-12] MEDS: LISINOPRIL/HCTZ 20/12.5MG 1 TAB TAB PO SCH (20:13)
[2021-03-12] MEDS: GABAPENTIN 100 MG CAP PO SCH (20:17)
[2021-03-13] MEDS: CLINDAMYCIN 600 MG in DEXTROSE 5% 50 ML IV SCH ×3 (03:16→18:24)
[2021-03-13] MEDS: oxyCODONE HCL IR 5 MG TAB (IMMEDIATE RELEASE) PO PRN ×4 (06:25→20:47)
[2021-03-13] MEDS: LEVOTHYROXINE SODIUM 88 MCG TABLET PO SCH (06:25)
[2021-03-13] MEDS ORDERED: SODIUM CHLORIDE 0.9% 1000ML 1,000 ML IV SCH ×2 (07:15→09:56)
[2021-03-13] MEDS ORDERED: fentaNYL citrate 100 MCG/2 ML VIAL ONE (07:42)
[2021-03-13] MEDS ORDERED: HEPARIN SOD (PORCINE) 1000 UNIT/ML ONE (07:42)
[2021-03-13] MEDS ORDERED: MIDAZOLAM HCL 1 MG/ML 2ML VIAL ONE ×2 (07:42→09:02)
[2021-03-13] MEDS ORDERED: LIDOCAINE 1% LOCAL 20 ML VIAL ONE (07:42)
--- NOTE | 2021-03-13 07:59 | Pre Anesthesia Assessment ---
Date of Service March 13, 2021 Pre Sedation Assessment Vital Signs Temp Pulse Resp BP Pulse Ox 03/13/21 07:01 36.5 C 76 18 195/66 H 95 03/13/21 04:04 36.4 C L 62 18 183/85 H 93 03/12/21 23:02 36.7 C 66 16 157/82 H 91 03/12/21 19:31 36.8 C 67 16 158/77 H 93 03/12/21 16:44 36.9 C 73 19 143/89 H 93 03/12/21 15:31 36.9 C 76 16 158/69 H 92 03/12/21 11:15 36.5 C 64 14 175/78 H 97 Cardiovascular RRR, no murmur, no edema Respiratory normal respiratory effort, lungs clear to auscultation Pre-Sedation Airway Assessment Smoking Status: Current every day smoker Hx Sleep Apnea: No Short, Thick Neck: No Thyromental Distance: > or= 3.5 Finger Breadths Oral Cavity: + WNL Mallampati Class: II ASA: ASA3 NPO Status Date of Last Intake of Fluids: 03/13/21 Time of Last Intake of Fluids: 06:00 Date of Last Intake of Solid Food: 03/12/21 Time of Last Intake of Solid Foods: 19:00 Procedure Planning Contraindications for Sedation: none Current Medications Reviewed: Yes Notes The planned sedation has been discussed with the patient. Informed Consent was obtained. I have identified the patient, determined the appropriateness of s edation and have assessed the patient immediately prior to the procedure. All medicine(s) and interventions are by my order.
[2021-03-13] MEDS: CLINDAMYCIN 600 MG/54 ML BAG IV SCH ×2 (08:05→10:16)
[2021-03-13] MEDS ORDERED: VISIPAQUE IV PRN (09:30)
--- NOTE | 2021-03-13 09:35 | Procedure Note ---
Angiogram Post Procedure Fluoroscopy Time (minutes): 3.9 Conscious Sedation Time (minutes): 57 Radiation (mGy): 25 Contrast: 20 Post Operative Report Pre & Post Diagnosis Operation Date: 03/11/21 09:10 Pre-Op Diagnosis: Left Lower Extremity Ulcer Post-Op Diagnosis: Left Lower Extremity Ulcer Operation Date: 03/13/21 08:00 Pre-Op Diagnosis: Left Lower Extremity Ulcer with iliac occlustion Post-Op Diagnosis: Left Lower Extremity Ulcer will iliac occlustion I identified the patient and participated in the time-out.: Yes Procedure Operation Date: 03/11/21 09:10 Actual Procedures p Debridement of Left Calf Wound(Not Applicable) - Jonny Mustafa MD Operation Date: 03/13/21 08:00 Actual Procedures p Left Lower Extermity Angiogram, ultasound localization of left femoral artery moderate sedation [id number](Left) - Jonny Mustafa MD Surgeon Jonny Mustafa MD Sales Correspondence Clerk none Estimated Blood Loss 10 Findings Consistent with Post-Op Diagnosis Specimens none Anesthesia Type RN Sedation Complications none Disposition Accompanied Patient To Recovery: No Disposition: Recovery Room Indications This is a 56-year-old female who has a necrotic ulcer of her medial lower calf on the left lower extremity. She has had aortobifemoral bypass in the past with occlusion of the left limb. This was thrombectomized. A bovine patch was applied. She has had a infection of the graft in the left groin with removal of the aortofemoral limb. She then underwent a femorofemoral bypass. This had occluded. She underwent revision with thrombectomy. This again occluded. Her left lower extremity was mild but now she has developed an ulceration of the medial calf distally. This was debrided 2 days prior to this. The tissue appears viable but not as healthy as it should be that healed. Arteriography did see the runoff was recommended. I have discussed the risks options and benefits of the procedure with the patient. The patient understands the risks options and benefits and agrees to the procedure. Description of Procedure The patient was taken to the angiogram suite and placed supine position. The left leg was prepped draped in a sterile manner. Patient was identified and a timeout was performed. Using ultrasound the superficial femoral arteries identified just beyond its origin. The profunda was seen lying be needed. Both are patent. Using ultrasound an attempt is made to cannulate the superficial femoral artery just beyond the origin. The tissue has a lot of scar tissue present which made it difficult to advance the sheath. Once the sheath was inserted we injected through the micro sheath. The catheter itself was in the venous system. We then injected local lower in the groin at the end of the incision. Again these superficial femoral artery was identified. An attempt was made to puncture this artery. We could see the artery sliding by the needle. The artery was thickened and firm. After numerous attempts we were able to puncture the artery and placed the dilator of the micropuncture sheath partially into the superficial femoral artery. We then did a lower extremity runoff. This showed the superficial femoral and popliteal arteries to be widely patent. There is no evidence of stenosis seen. Posterior tibial and peroneal arteries were totally occluded from the origin distally. Anterior tibial was patent and again without any stenosis seen all the way to the ankle. Dorsalis pedis was visualized however the flow was fairly sluggish to the dorsalis pedis artery. At this point the arterial sheath and the previously placed venous sheaths were pulled. Pressure was applied and adequate stasis was obtained. Sterile dressings were applied to the wounds.The patient left the operation room in satisfactory condition and tolerated the procedure well. All needle and sponge counts were correct at the end of the procedure. I attest to the content of the Intraoperative Record and any orders documented therein. Any exceptions are noted below.
[2021-03-13] MEDS: HYDROmorphone INJ 0.5 MG/0.5 ML SYR IV PRN ×3 (10:02→18:26)
[2021-03-13] MEDS: RIVAROXABAN 2.5 MG TAB PO SCH ×2 (10:34→20:46)
[2021-03-13] MEDS: FERROUS SULFATE 325 MG TAB PO SCH (10:34)
[2021-03-13] MEDS: NICOTINE 21 MG/24 HR TDSY TD SCH (10:36)
[2021-03-13] MEDS: LISINOPRIL/HCTZ 20/12.5MG 1 TAB TAB PO SCH (20:45)
[2021-03-13] MEDS: GABAPENTIN 100 MG CAP PO SCH (20:46)
[2021-03-13] MEDS: CYANOCOBALAMIN 500 MCG TABLET (VITAMIN B-12) PO SCH (20:46)
[2021-03-13] MEDS: ASPIRIN 81 MG ECTAB PO SCH (20:46)
[2021-03-14] MEDS: HYDROmorphone INJ 0.5 MG/0.5 ML SYR IV PRN ×3 (03:11→17:20)
[2021-03-14] MEDS: CLINDAMYCIN 600 MG in DEXTROSE 5% 50 ML IV SCH ×3 (03:12→20:34)
[2021-03-14] MEDS: LEVOTHYROXINE SODIUM 88 MCG TABLET PO SCH (06:40)
[2021-03-14] MEDS: oxyCODONE HCL IR 5 MG TAB (IMMEDIATE RELEASE) PO PRN ×4 (08:01→20:41)
[2021-03-14] MEDS: NICOTINE 21 MG/24 HR TDSY TD SCH (09:02)
[2021-03-14] MEDS: RIVAROXABAN 2.5 MG TAB PO SCH ×2 (09:02→21:19)
[2021-03-14] MEDS: FERROUS SULFATE 325 MG TAB PO SCH (09:03)
[2021-03-14] MEDS: COLLAGENASE OINT 30 GM TUBE TOP SCH (10:10)
--- NOTE | 2021-03-14 10:35 | Anesthesiology Consultation ---
Date of Service March 14, 2021 Assessment & Plan (1) Encounter for pre-operative examination: Chart Review Chart Review: carpentry professional initiated History Surgery Operation Date: 03/11/21 09:10 Proposed Procedures p Debridement of Left Calf Wound - Jonny Mustafa MD Operation Date: 03/13/21 08:00 Proposed Procedures p Left Leg Arteriogram Possible Intervention - Jonny Mustafa MD Operation Date: 03/16/21 09:45 Proposed Procedures p Axillary-Femoral Bypass - Jonny Mustafa MD Height/Weight Height: 5 ft 6 in Weight: 71.9 kg Allergies Allergy/AdvReac Type Severity Reaction Status Date / Time amoxicillin Allergy Intermediate Hives Verified 03/11/21 09:40 Penicillins Allergy Intermediate Hives Verified 03/11/21 09:40 Medications Home Medications Medication Instructions Recorded Confirmed Last Taken cyanocobalamin (vitamin B-12) 1,000 mcg PO HS cap 02/13/18 03/11/21 03/10/21 22:00 1,000 mcg capsule aspirin 81 mg tablet,delayed 81 mg PO HS 12/28/18 03/11/21 03/10/21 22:00 release (Adult Aspirin Regimen) levothyroxine 88 mcg tablet 88 mcg PO DAILY #90 tab 05/21/20 03/11/21 03/11/21 07:30 (Levoxyl) lisinopril 20 1 tab PO HS 01/02/21 03/11/21 03/09/21 22:00 mg-hydrochlorothiazide 12.5 mg tablet acetaminophen 325 mg tablet 650 mg PO Q4H PRN #30 tab 01/05/21 03/11/21 03/09/21 collagenase clostridium histo. 250 1 applic TOPICAL DAILY 14 Days #90 01/16/21 03/11/21 Unknown unit/gram topical ointment (Santyl) g gabapentin 100 mg capsule 100 mg PO .COMPLEX #30 cap 02/19/21 03/11/21 Unknown oxycodone 5 mg tablet 5 mg PO Q6H PRN #7 tab 02/19/21 03/11/21 03/10/21 23:00 rivaroxaban 2.5 mg tablet (Xarelto) 2.5 mg PO BID tab 02/24/21 03/11/21 03/10/21 22:00 ferrous sulfate 325 mg (65 mg 325 mg PO DAILY 01/07/2603/11/21 03/10/21 22:00 iron) tablet (Iron (ferrous sulfate)) Active Medications Generic Name Dose Route Start Last Admin Trade Name Александрq PRN Reason Stop Dose Admin Aspirin 81 mg 03/12/21 21:00 03/13/21 20:46 Aspirin 81 Mg Ectab PO 04/11/21 20:59 81 mg HS CHRISTOPHER Administration Collagenase 1 appln 03/14/21 09:00 03/14/21 10:10 Collagenase Oint 30 Gm Tube TOP 04/13/21 08:59 1 appln DAILY CHRISTOPHER Administration Cyanocobalamin 1,000 mcg 03/12/21 21:00 03/13/21 20:46 Cyanocobalamin 500 Mcg Tablet (Vitamin B-12) PO 04/11/21 20:59 1,000 mcg HS CHRISTOPHER Administration Ferrous Sulfate 325 mg 03/12/21 09:00 03/14/21 09:03 Ferrous Sulfate 325 Mg Tab PO 04/11/21 08:59 325 mg DAILY CHRISTOPHER Administration Gabapentin 100 mg 03/12/21 21:00 03/13/21 20:46 Gabapentin 100 Mg Cap PO 04/11/21 20:59 Not Given HS CHRISTOPHER Lisinopril/HCTZ 1 tab 03/12/21 21:00 03/13/21 20:45 Lisinopril/Hctz 20/12.5mg 1 Tab Tab PO 04/11/21 20:59 1 tab HS CHRISTOPHER Administration Hydromorphone HCl 0.5 mg 03/11/21 11:42 03/14/21 10:12 Hydromorphone Inj 0.5 Mg/0.5 Ml Syr IV 03/25/21 11:41 0.5 mg Q3H PRN Administration Pain (6,7,8,9,10) Clindamycin Phosphate 600 mg/ 54 mls @ 100 mls/hr 03/11/21 19:00 03/14/21 04:14 Dextrose IV 03/18/21 18:59 Infused Q8H CHRISTOPHER Infusion Iodixanol 20 ml 03/13/21 09:30 03/13/21 09:31 Visipaque IV 03/17/21 09:29 20 ml UD PRN Administration Interaction Checking Levothyroxine Sodium 88 mcg 03/12/21 08:00 03/14/21 06:40 Levothyroxine Sodium 88 Mcg Tablet PO 04/11/21 07:59 88 mcg DAILYBB CHRISTOPHER Administration Miscellaneous 1 ea 03/14/21 08:59 03/14/21 08:02 Remove Nicoderm Patch N/A 04/13/21 08:58 1 ea DAILY@[id number] CHRISTOPHER Administration Nicotine 21 mg 03/13/21 09:56 03/14/21 09:02 Nicotine 21 Mg/24 Hr Tdsy TD 04/12/21 09:55 Not Given QAM [facility] Oxycodone HCl 5 mg 03/11/21 11:42 03/14/21 08:01 Oxycodone Hcl Ir 5 Mg Tab (Immediate Release) PO 03/25/21 11:41 5 mg Q4H PRN Administration MODERATE Pain (4,5,6) & Pre PT NPO Date Last Intake of Fluids: 03/12/21 Time Last Intake of Fluids: 23:00 Date Last Intake of Solids: 03/12/21 Time Last Intake of Solids: 19:00 Past Medical History Medical History Claudication of lower extremity Hyperlipidemia refuses statin therapy Hypertension Hypothyroidism Impaired fasting glucose PVD (peripheral vascular disease) aortobifem bypass 2015, thrombectomy 2015, revision of left femoral anastamosis 2018 Smoker Past Family History Family History Other No significant family history Past Surgical History Surgical History History of cataract surgery RT/LEFT History of dilatation and curettage History of incision and drainage left lower extremity ulcer 01/03/2021: LMA#4, atraumatic x 1. No issues per anesthesia postop progress note. History of tooth extraction Hx of angioplasty LEFT FEMORAL ARTERY ANASTOMOSIS 11/27/2018: Grade 1 view, MAC#3, ETT #7.0. No issues per anesthesia postop progress note. S/P femoral-femoral bypass surgery left 07/20/2019: Grade 1 view, MAC#3, ETT#7.5 x 1 atraumatic. No issues per anesthesia postop progress note. No issues per anesthesia postop progress note. left 02/17/2019: Grade 1 view, MAC#3, ETT#7.5. No issues per anesthesia postop progress note. left 02/16/2019: Grade 1 view, MAC#3, ETT #7.0. No issues per anesthesia postop progress note. Social History Smoking Status: Current every day smoker tobacco type: cigarettes Smoking cigarettes per day: 1-2 Do You Dip or Chew Tobacco: No Hx Alcohol Use: Yes Alcohol type: beer alcohol intake frequency: a few times a week Hx Substance Use: No substance use type: does not use Physical Exam Vital Signs Last Vital Signs Temp 97.9 F 03/14/21 07:55 Pulse 77 03/14/21 07:55 Resp 18 03/14/21 07:55 BP 184/92 H 03/14/21 07:55 Pulse Ox 98 03/14/21 07:55 Lab Results Anesthesia Preop Results Results Anesthesia Widget: WBC 6.74 K/uL (4.8-10.8) 03/10/21 Hgb 15.1 g/dL (12.0-16.0) 03/10/21 Hct 44.8 % (37-47) 03/10/21 Plt 304 K/uL (130-400) 03/10/21 Na 138 mmol/L (136-145) 03/11/21 K 3.0 mmol/L (3.5-5.1) L 03/11/21 Cl 104 mmol/L (98-107) 03/11/21 CO2 25 mmol/L (21-32) 03/11/21 BUN 13 mg/dl (7-18) 03/11/21 Creat 0.71 mg/dl (0.6-1.2) 03/11/21 Glucose Level 113 mg/dl (70-99) H 03/11/21 PT 10.3 Seconds (9.0-12.0) 03/10/21 PTT 27.9 Seconds (21.0-31.0) 03/10/21 INR 1.0 (0.9-1.1) 03/10/21 TSH 21.300 uIu/ml (0.300-4.500) H 02/25/21 Free T4 1.34 ng/dl (0.8-1.6) 02/25/21 HA1c 5.7 % (4.5-5.6) H 02/25/21 COVID-19 PCR NEGATIVE (Negative) 03/11/21 Testing Laboratory Results 03/11/21 09:25 Laboratory Tests 03/11/21 10:09 SARS-CoV-2 (PCR) NEGATIVE Electrocardiogram Date: 03/10/21 Normal sinus rhythm, rate 92 bpm Biatrial enlargement Abnormal ECG When compared with ECG of 02-JAN-2021 13:23, No significant change was found Confirmed by Tereso Eldridge ([id number]) on 03/11/2021 12:44:16 PM Echocardiogram Date: 02/20/19 No significant valvular disease Left ventricular systolic function is normal EF 55-60% Grade I diastolic dysfunction Normal left ventricular size, wall motion and wall thickness Stress Test Date: 04/08/15 Negative for ischemia EF 65% Normal LV wall motion, cavity size and systolic function MPHR 95% Other Testing CT Chest 03/11/20 IMPRESSION: 1. The left perihilar abnormality on the prior chest x-ray likely corresponds to an area of scarring. No suspicious pulmonary lesions identified. 2. A few scattered subcentimeter indeterminate pulmonary nodules with the largest measuring 4 mm. Please refer to the chart below for recommended follow- up.
[2021-03-14] MEDS: ASPIRIN 81 MG ECTAB PO SCH (20:36)
[2021-03-14] MEDS: GABAPENTIN 100 MG CAP PO SCH (20:41)
[2021-03-14] MEDS: CYANOCOBALAMIN 500 MCG TABLET (VITAMIN B-12) PO SCH (20:41)
[2021-03-14] MEDS: LISINOPRIL/HCTZ 20/12.5MG 1 TAB TAB PO SCH (20:41)
[2021-03-14] MEDS ORDERED: RIVAROXABAN 10 MG TABLET PO SCH ×2 (21:00)
[2021-03-14] MEDS ORDERED: RIVAROXABAN 2.5 MG TAB PO SCH (21:00)
[2021-03-15] MEDS: HYDROmorphone INJ 0.5 MG/0.5 ML SYR IV PRN ×5 (01:30→22:48)
[2021-03-15] MEDS: CLINDAMYCIN 600 MG in DEXTROSE 5% 50 ML IV SCH ×3 (03:37→18:35)
[2021-03-15] MEDS: LEVOTHYROXINE SODIUM 88 MCG TABLET PO SCH (06:39)
[2021-03-15] MEDS: NICOTINE 21 MG/24 HR TDSY TD SCH (09:22)
[2021-03-15] MEDS: RIVAROXABAN 2.5 MG TAB PO SCH ×2 (09:22→19:55)
[2021-03-15] MEDS: FERROUS SULFATE 325 MG TAB PO SCH (09:22)
[2021-03-15] MEDS: COLLAGENASE OINT 30 GM TUBE TOP SCH (12:03)
[2021-03-15] MEDS: oxyCODONE HCL IR 5 MG TAB (IMMEDIATE RELEASE) PO PRN ×2 (17:31→22:01)
--- NOTE | 2021-03-15 18:56 | Surgery Progress Note ---
Date of Service March 15, 2021 Assessment & Plan (1) Ischemic ulcer of lower leg due to atherosclerosis: Plan: Due to multiple surgeries in the left groin, recommended a left ax fem bypass. The lower extremity arteries are patent from the common femoral bifurcation to the foot via the anterior tibial artery. I have discussed the risks options and benefits of the procedure with the patient. The patient understands the risks options and benefits and agrees to the procedure. This is planned for tuesday. Admission and Anticipated Discharge Date Admission Date: March 11, 2021 Subjective Patient with moderate pain in her left lower extremity Physical Exam Constitutional: WD/WN, vitals as above Cardiovascular: left foot with dependent rubor Skin: + wound (no granulation tissue, dry appearing) Results & Data ([facility]) Vital Signs (Past 12 Hours) Vital Signs Temp Pulse Resp BP Pulse Ox 03/15/21 14:56 36.5 C 17 195/76 H 95 03/15/21 07:39 36.9 C 69 17 148/73 H 93
[2021-03-15] MEDS: GABAPENTIN 100 MG CAP PO SCH (19:55)
[2021-03-15] MEDS: ASPIRIN 81 MG ECTAB PO SCH (19:55)
[2021-03-15] MEDS: LISINOPRIL/HCTZ 20/12.5MG 1 TAB TAB PO SCH (19:55)
[2021-03-15] MEDS: CYANOCOBALAMIN 500 MCG TABLET (VITAMIN B-12) PO SCH (19:55)
[2021-03-16] MEDS: CLINDAMYCIN 600 MG in DEXTROSE 5% 50 ML IV SCH ×3 (02:14→18:01)
[2021-03-16] MEDS: oxyCODONE HCL IR 5 MG TAB (IMMEDIATE RELEASE) PO PRN ×3 (04:15→23:15)
[2021-03-16] MEDS: LEVOTHYROXINE SODIUM 88 MCG TABLET PO SCH (06:02)
[2021-03-16] MEDS: HYDROmorphone INJ 0.5 MG/0.5 ML SYR IV PRN ×2 (06:31→20:33)
--- NOTE | 2021-03-16 07:51 | History & Physical Bridge Note ---
Date of Service March 16, 2021 History & Physical Bridge Note Patient for a left axillo femoral bypass today. I have discussed the risks options and benefits of the procedure with the patient. The patient understands the risks options and benefits and agrees to the procedure. I have examined the patient, reviewed the History & Physical and in the interval since the performance of the History & Physical I have noted the following changes of clinical significance: no changes noted
[2021-03-16] MEDS ORDERED: HEPARIN (PORCINE) 1000 UNIT/ML 10 ML (CATH LAB USE ONLY) ONE (10:03)
[2021-03-16] MEDS ORDERED: THROMBIN FOR SOLN 20000 UNIT KIT ONE (10:04)
[2021-03-16] MEDS ORDERED: GELATIN SPONGE SZ 100 ONE (10:04)
[2021-03-16] MEDS ORDERED: MEPERIDINE HCL 25 MG/ML CARP/VIAL IV PRN (10:05)
[2021-03-16] MEDS ORDERED: HYDROmorphone INJ 1 MG/ML SYRINGE IV PRN (10:05)
[2021-03-16] MEDS ORDERED: PHENYLEPHRINE 100MCG/ML 5ML SYR IV PRN (10:05)
[2021-03-16] MEDS ORDERED: ATROPINE SULFATE 0.1 MG/ML 10ML SYR IV PRN (10:05)
[2021-03-16] MEDS ORDERED: LABETALOL HCL IV 5 MG/ML 20ML IV PRN (10:05)
[2021-03-16] MEDS ORDERED: fentaNYL citrate 100 MCG/2 ML VIAL IV PRN (10:05)
[2021-03-16] MEDS ORDERED: ePHEDrine sulfate 50 MG/ML AMP IV PRN (10:05)
[2021-03-16] MEDS ORDERED: ONDANSETRON INJ 2 MG/ML 2 ML VIAL IV PRN ×2 (10:05→14:05)
[2021-03-16] MEDS ORDERED: fentaNYL citrate 100 MCG/2 ML VIAL ONE (10:21)
[2021-03-16] MEDS ORDERED: MIDAZOLAM HCL 1 MG/ML 2ML VIAL ONE (10:21)
[2021-03-16] MEDS ORDERED: LIDOCAINE 2% 2 ML VIAL/AMP(20MG/ML) INFIL ONE (10:21)
[2021-03-16] MEDS ORDERED: ROCURONIUM BROMIDE 10 MG/ML 5 ML VIAL IV ONE ×2 (10:22→12:07)
[2021-03-16] MEDS ORDERED: LARYING-O-JET KIT (LTA) ONE ×2 (10:22→11:43)
[2021-03-16] MEDS ORDERED: PROPOFOL IV EMULSION 10 MG/ML 20 ML VIAL IV ONE (10:22)
[2021-03-16] MEDS ORDERED: FAMOTIDINE/PF 20 MG/2 ML VIAL IV ONE (10:26)
[2021-03-16] MEDS ORDERED: ACETAMINOPHEN 1000 MG/100 ML IV IV ONE (10:26)
[2021-03-16] MEDS ORDERED: SCOPOLAMINE 1 MG TDSY TD ONE (10:27)
[2021-03-16] MEDS ORDERED: METOCLOPRAMIDE HCL INJ 5 MG/ML 2 ML VIAL ONE (11:41)
[2021-03-16] MEDS ORDERED: PHENYLEPHRINE HCL 10 MG/ML VIAL ONE (11:41)
[2021-03-16] MEDS ORDERED: DEXAMETHASONE SOD INJ 4 MG/ML VIAL ONE (11:41)
[2021-03-16] MEDS ORDERED: ONDANSETRON INJ 2 MG/ML 2 ML VIAL ONE (11:41)
[2021-03-16] MEDS ORDERED: HEPARIN SOD (PORCINE) 1000 UNIT/ML ONE (11:47)
[2021-03-16] MEDS ORDERED: ePHEDrine sulfate 50 MG/ML AMP ONE (12:01)
[2021-03-16] MEDS ORDERED: NEOSTIGMINE METHYLSULFATE 1 MG/ML 10ML VIAL ONE (12:36)
[2021-03-16] MEDS ORDERED: GLYCOPYRROLATE 0.2 MG/ML VIAL ONE ×2 (12:36→12:38)
--- NOTE | 2021-03-16 13:01 | Operative Report ---
Post Operative Report Pre & Post Diagnosis Operation Date: 03/11/21 09:10 Pre-Op Diagnosis: Left Lower Extremity Ulcer Post-Op Diagnosis: Left Lower Extremity Ulcer Operation Date: 03/13/21 08:00 Pre-Op Diagnosis: Left Lower Extremity Ulcer with iliac occlustion Post-Op Diagnosis: Left Lower Extremity Ulcer will iliac occlustion Operation Date: 03/16/21 09:45 Pre-Op Diagnosis: Left Lower Extremity Gangrenous Ulcer Post-Op Diagnosis: Left Lower Extremity Gangrenous Ulcer I identified the patient and participated in the time-out.: Yes Procedure Operation Date: 03/11/21 09:10 Actual Procedures p Debridement of Left Calf Wound(Not Applicable) - Jonny Mustafa MD Operation Date: 03/13/21 08:00 Actual Procedures p Left Lower Extermity Angiogram, ultasound localization of left femoral artery moderate sedation [id number](Left) - Jonny Mustafa MD Operation Date: 03/16/21 09:45 Actual Procedures p Left Axillary-Femoral Bypass with [place] Graft(Left) - Jonny Mustafa MD Surgeon Jonny Mustafa MD Hash Slinger Man,PAC Estimated Blood Loss 50 Findings Consistent with Post-Op Diagnosis Specimens none Anesthesia Type General Complications none Disposition Accompanied Patient To Recovery: No Disposition: Recovery Room Indications This is a 56-year-old female who has had multiple procedures of the left lower extremity in the past include aortobifemoral bypass. She developed an occluded limb which was thrombectomized and revised. He subsequently had an infection of the left groin requiring removal of the left limb of the graft. She recently developed an ulceration of her fasciotomy site on the left lower leg. This was debrided. No brisk bleeding was noted. The wound. To be dry postoperatively with no granulation tissue present. We recommended we do an access femoral bypass on the left side due to the amount of surgery in the left groin as well as the abdominal surgery in the past. She realizes that the goal of this is to keep the graft open long enough to heal the wound of the left leg. I have discussed the risks options and benefits of the procedure with the patient. The patient understands the risks options and benefits and agrees to the procedure. Description of Procedure The patient was taken the operating room placed supine position. The left side of the body from the chin down to the mid thigh was prepped and draped in a sterile manner. The patient was identified and timeout was performed. A transverse incision was made infraclavicular on the left side. The subclavian artery was identified. It was soft and of good caliber. We then made an incision in the left thigh just below the old incision exposing the superficial femoral artery beyond its origin approximately 8 to 10 cm. At that point using a [place] tunneler a subcutaneous tunnel was made from the lower incision laterally along the abdomen chest wall to the incision in the infraclavicular area. Once this was passed an 8 mm propatent ringed graft was passed through the tunneler. The tunneler was then removed. The patient was heparinized. After adequate heparinization was accomplished subclavian arteries clamped proximal distally. Longitudinal arteriotomy was then made. The graft was beveled and at the site anastomosis was accomplished using a 5-0 Prolene suture in usual vascular fashion. Prior to being the closure backbleeding forebleeding was allowed to occur. The final few sutures were placed and securely tied. Clamps were then placed on the [place] graft just beyond the anastomosis and the clamps of the subclavian artery moved. Active hemostasis was noted of the anastomosis. The graft was then irrigated and suctioned of bloody fluid. The superficial femoral arteries then clamped proximal distally. Longitudinal arteriotomy was then made. There was some smooth intimal thickening noted but no significant plaques were seen. The [place] graft was trimmed to appropriate length and beveled. End-to-side anastomosis was accomplished using a CV 6 [place] suture in the usual vascular fashion. Prior to completing the closure backbleeding and forward bleeding was allowed to occur. Final few sutures were then placed and securely tied. Clamps were removed off the proximal superficial femoral artery and graft. The distal clamp was then finally released. Adequate hemostasis was noted the suture line. Excellent Doppler signals were heard beyond the anastomosis and a palpable dorsalis pedis pulse was felt. Excellent signal was heard in dorsalis pedis the left side. Wounds were then inspected and irrigat ed. Once adequate stasis was noted wounds were closed in the usual fashion using running 2-0 Vicryl suture for the femoral sheath 3-0 Vicryl subcutaneous layer and berny for the skin. The infraclavicular area was closed using a running 3-0 Vicryl for the fascial layer and berny for the skin. Sterile dressings were applied to the wounds.The patient left the operation room in satisfactory condition and tolerated the procedure well. All needle and sponge counts were correct at the end of the procedure. Lida Jacobsen Pac assisted due to lack of resident availability and was necessary for positioning, draping, retraction, wound closure deep layers, subcutaneous tissue, and skin closure and was necessary for assisting with the case. I attest to the content of the Intraoperative Record and any orders documented therein. Any exceptions are noted below.
[2021-03-16] MEDS ORDERED: METOPROLOL TARTRATE 1 MG/ML VIAL IV STA (13:16)
[2021-03-16] MEDS ORDERED: METOPROLOL TARTRATE 1 MG/ML VIAL IV ONE (13:18)
--- NOTE | 2021-03-16 13:51 | Anesthesiology Progress Note ---
Date of Service March 16, 2021 Anesthesia Post Procedure Vital Signs Vital Signs: Temp Pulse Pulse Pulse Pulse Resp BP 03/16/21 13:35 36.3 C L 79 16 03/16/21 13:25 74 14 03/16/21 13:18 102 H 123/61 03/16/21 13:15 109 H 18 03/16/21 13:07 36.1 C L 106 H 18 03/16/21 08:42 36.6 C 78 20 03/16/21 07:42 36.8 C 61 20 03/16/21 06:25 36.8 C 71 16 03/15/21 22:37 37.3 C 73 16 03/15/21 19:57 77 03/15/21 14:56 36.5 C 17 BP BP Pulse Ox 03/16/21 13:35 106/57 L 94 03/16/21 13:25 112/62 97 03/16/21 13:18 03/16/21 13:15 123/61 96 03/16/21 13:07 128/83 93 03/16/21 08:42 155/71 H 100 03/16/21 07:42 146/75 H 92 03/16/21 06:25 119/72 93 03/15/21 22:37 151/75 H 92 03/15/21 19:57 151/78 H 03/15/21 14:56 195/76 H 95 Pain Intensity Left Lower Leg: Pain Intensity: 0 Transfer of Care Handoff Completed per policy Notes Mental Status: alert / awake / arousable Patient Amnestic to Procedure: Yes Nausea / Vomiting: adequately controlled Pain: adequately controlled Airway Patency, RR, SpO2: stable & adequate BP & HR: stable & adequate Hydration State: stable & adequate Anesthetic Complications: no major complications apparent and Pt Satisfied with anesthetic care Notes: The patient is awake and comfortable. Her vital signs are stable.
[2021-03-16] MEDS: FERROUS SULFATE 325 MG TAB PO SCH (15:08)
[2021-03-16] MEDS: NICOTINE 21 MG/24 HR TDSY TD SCH (15:09)
[2021-03-16] MEDS: RIVAROXABAN 2.5 MG TAB PO SCH ×2 (15:09→20:32)
[2021-03-16] MEDS: LACTATED RINGER'S 1,000 ML IV SCH ×2 (15:10→23:13)
[2021-03-16] MEDS ORDERED: SODIUM CHLORIDE 0.9% 1000ML 500 ML IV ONE (15:32)
[2021-03-16] MEDS: COLLAGENASE OINT 30 GM TUBE TOP SCH (16:07)
[2021-03-16] MEDS: ASPIRIN 81 MG ECTAB PO SCH (20:28)
[2021-03-16] MEDS: CYANOCOBALAMIN 500 MCG TABLET (VITAMIN B-12) PO SCH (20:28)
[2021-03-16] MEDS: GABAPENTIN 100 MG CAP PO SCH (20:28)
[2021-03-16] MEDS: LISINOPRIL/HCTZ 20/12.5MG 1 TAB TAB PO SCH (20:29)
[2021-03-17] MEDS: CLINDAMYCIN 600 MG in DEXTROSE 5% 50 ML IV SCH ×3 (03:55→19:31)
[2021-03-17] MEDS: LACTATED RINGER'S 1,000 ML IV SCH (06:06)
[2021-03-17] MEDS: LEVOTHYROXINE SODIUM 88 MCG TABLET PO SCH (06:11)
[2021-03-17 06:43] LABS: Basophils # (auto) 0.01 K/uL (0-0.2); Basophils % (auto) 0.1 %; Eosinophils # (auto) 0.01 K/uL (0-0.5); Eosinophils % (auto) 0.1 %; Hematocrit (blood only) 37.4 % (37-47); Hemoglobin 12.2 g/dL (12.0-16.0); Immature Granulocytes # (auto) 0.02 K/uL (0.00-0.02); Immature Granulocytes % (auto) 0.3 %; Lymphocytes # (auto) 1.12 K/uL (1.2-3.4); Lymphocytes % (auto) 15.4 %; Mean Corpuscular Hemoglobin 31.7 pg (25-34); Mean Corpuscular Hgb Conc 32.6 g/dL (32-36); Mean Corpuscular Volume 97.1 fL (80-100); Mean Platelet Volume 9.7 fL (7.4-10.4); Monocytes # (auto) 0.75 K/uL (0.11-0.59); Monocytes % (auto) 10.3 %; Neutrophils # (auto) 5.37 K/uL (1.4-6.5); Neutrophils % (auto) 73.8 %; Platelet Count 267 K/uL (130-400); RDW Coefficient of Variation 15.1 % (11.5-14.5); RDW Standard Deviation 54.3 fL (36.4-46.3); Red Blood Count 3.85 M/uL (4.2-5.4); White Blood Count 7.28 K/uL (4.8-10.8)
[2021-03-17 07:19] LABS: BUN Creatinine Ratio 23.6 (10-20); Calcium 9.5 mg/dl (8.5-10.1); Est GFR (African American) 114.2 ml/min; Est GFR (Non-African American) 98.6 ml/min; Potassium 3.7 mmol/L (3.5-5.1)
[2021-03-17] MEDS: COLLAGENASE OINT 30 GM TUBE TOP SCH (09:04)
[2021-03-17] MEDS: RIVAROXABAN 2.5 MG TAB PO SCH ×2 (09:04→21:12)
[2021-03-17] MEDS: FERROUS SULFATE 325 MG TAB PO SCH (09:05)
[2021-03-17] MEDS: NICOTINE 21 MG/24 HR TDSY TD SCH (09:05)
[2021-03-17] MEDS: HYDROmorphone INJ 0.5 MG/0.5 ML SYR IV PRN ×3 (09:06→19:51)
[2021-03-17] MEDS ORDERED: MAGNESIUM HYDROXIDE SUSP 30 ML UDC PO ONE (09:16)
--- NOTE | 2021-03-17 09:26 | Surgery Progress Note ---
Date of Service March 17, 2021 Assessment & Plan (1) Ischemic ulcer of lower leg due to atherosclerosis: Plan: Pt is now POD # 1 after L sided ax-fem bypass. She is overall doing very well, VSS and labs stable. Her L DP pulse is faintly palpable. Hopefully her L lal wound will begin to improve since revascularization. Pt has not had BM since admission, but is passing flatus and not having any concerning sx. Will start colace, miralax, and give dose of MOM. Pt will need home nursing on discharge, will try to discuss with case management. Admission and Anticipated Discharge Date Admission Date: March 11, 2021 Subjective 56 yo f POD #1 after L axillary-femoral prosthetic bypass d/t nonhealing ulcer of L lal, seen in follow up today. VSS and labs stable. Pt herself admits pain in L sided incisions and L lal wound, but states her L foot numbness is improved. Admits mild edema in LLE foot. Is passing flatus, but has not had a BM since admission, at least 5 days. Has also undergone general anesthesia twice this admission. Denies abd pain, N/V, other complaints. Review of Systems Review of Systems: All systems reviewed & are unremarkable except as noted in HPI & below Physical Exam Constitutional: WD/WN, vitals as above Respiratory: normal respiratory effort, lungs clear to auscultation Cardiovascular: Rate/Rhythm: regular rate and regular rhythm Vessels: + abnormal peripheral pulses Extremities: normal capillary refill Gastrointestinal (Abdomen): Inspection/Auscultation: abdomen normal to inspection and normal bowel sounds Percussion/Palpation: abdomen soft; abdomen nontender Musculoskeletal: no cyanosis or clubbing, extremities motor strength 5/5 Skin: + wound (LLE lal without significant granulation, mild local erythema, minimal drai) and + incision (L chest wall and L groin/thigh C/D/I with berny, +tender, no hematoma ) Neurologic: moves all extremities and awake; no focal motor deficits and not confused Psychiatric: A+Ox3, euthymic affect Results & Data ([facility]) Vital Signs (Past 12 Hours) Vital Signs Temp Pulse Resp BP Pulse Ox 03/17/21 07:20 37 C 64 16 111/69 92 03/17/21 03:11 36.6 C 65 16 111/69 92 01/10/22 23:02 36.5 C 72 16 102/62 96
[2021-03-17] MEDS: DOCUSATE SODIUM 100 MG CAP PO SCH ×2 (09:52→21:10)
[2021-03-17] MEDS: POLYETHYLENE (MIRALAX) 17 GM PACK PO SCH (09:54)
[2021-03-17] MEDS: CYANOCOBALAMIN 500 MCG TABLET (VITAMIN B-12) PO SCH (21:10)
[2021-03-17] MEDS: GABAPENTIN 100 MG CAP PO SCH (21:11)
[2021-03-17] MEDS: LISINOPRIL/HCTZ 20/12.5MG 1 TAB TAB PO SCH (21:11)
[2021-03-17] MEDS: ASPIRIN 81 MG ECTAB PO SCH (21:11)
[2021-03-17] MEDS: oxyCODONE HCL IR 5 MG TAB (IMMEDIATE RELEASE) PO PRN (22:32)
[2021-03-18] MEDS: CLINDAMYCIN 600 MG in DEXTROSE 5% 50 ML IV SCH ×2 (02:54→11:22)
[2021-03-18] MEDS: HYDROmorphone INJ 0.5 MG/0.5 ML SYR IV PRN ×4 (05:41→22:26)
[2021-03-18] MEDS: LEVOTHYROXINE SODIUM 88 MCG TABLET PO SCH (05:42)
[2021-03-18] MEDS: DOCUSATE SODIUM 100 MG CAP PO SCH ×2 (08:34→21:46)
[2021-03-18] MEDS: COLLAGENASE OINT 30 GM TUBE TOP SCH (08:34)
[2021-03-18] MEDS: NICOTINE 21 MG/24 HR TDSY TD SCH (08:35)
[2021-03-18] MEDS: POLYETHYLENE (MIRALAX) 17 GM PACK PO SCH (08:35)
[2021-03-18] MEDS: RIVAROXABAN 2.5 MG TAB PO SCH ×2 (08:35→21:49)
[2021-03-18] MEDS: FERROUS SULFATE 325 MG TAB PO SCH (08:35)
--- NOTE | 2021-03-18 12:41 | Surgery Progress Note ---
Date of Service March 18, 2021 Assessment & Plan (1) Ischemic ulcer of lower leg due to atherosclerosis: Plan: We are now postoperative day 2 after left axilla Bypass. She is doing well. We will stop the antibiotics tomorrow and hopefully can discharge her with visiting nurses on Tuesday of this week. Admission and Anticipated Discharge Date Admission Date: March 11, 2021 Subjective Patient has no complaints today. She claims that the pain in her lower extremity is getting better. She walked the halls with a walker without too muc h difficulty. Physical Exam Constitutional: WD/WN, vitals as above Cardiovascular: Axillofemoral bypass is patent with good pulses in the groin. There is a weakly palpable dorsalis pedis pulse on the left foot. Skin: The subcutaneous fat and the edges appear pale however the base of the wound is starting to pink up nicely. Results & Data ([facility]) Vital Signs (Past 12 Hours) Vital Signs Temp Pulse Resp BP Pulse Ox 03/18/21 07:10 36.6 C 59 L 16 108/66 90
[2021-03-18] MEDS: GABAPENTIN 100 MG CAP PO SCH (21:49)
[2021-03-18] MEDS: CYANOCOBALAMIN 500 MCG TABLET (VITAMIN B-12) PO SCH (21:50)
[2021-03-18] MEDS: ASPIRIN 81 MG ECTAB PO SCH (21:50)
[2021-03-18] MEDS: LISINOPRIL/HCTZ 20/12.5MG 1 TAB TAB PO SCH (21:51)
[2021-03-19] MEDS: LEVOTHYROXINE SODIUM 88 MCG TABLET PO SCH (06:00)
[2021-03-19] MEDS: NICOTINE 21 MG/24 HR TDSY TD SCH (08:01)
[2021-03-19] MEDS: HYDROmorphone INJ 0.5 MG/0.5 ML SYR IV PRN (08:03)
[2021-03-19] MEDS: RIVAROXABAN 2.5 MG TAB PO SCH ×2 (08:04→21:48)
[2021-03-19] MEDS: FERROUS SULFATE 325 MG TAB PO SCH (08:04)
[2021-03-19] MEDS: POLYETHYLENE (MIRALAX) 17 GM PACK PO SCH (08:04)
[2021-03-19] MEDS: COLLAGENASE OINT 30 GM TUBE TOP SCH (08:04)
[2021-03-19] MEDS: DOCUSATE SODIUM 100 MG CAP PO SCH ×2 (08:04→21:48)
[2021-03-19] MEDS: oxyCODONE HCL IR 5 MG TAB (IMMEDIATE RELEASE) PO PRN ×2 (11:55→19:54)
--- NOTE | 2021-03-19 13:24 | Surgery Progress Note ---
Date of Service March 19, 2021 Assessment & Plan (1) Ischemic ulcer of lower leg due to atherosclerosis: Plan: Left lower extremity with good flow following left axillo femoral bypass. Will continue local wound care Plan on d/c tomorrow with home health care. Admission and Anticipated Discharge Date Admission Date: March 11, 2021 Subjective Doing well with ambulation. Pain well controlled. She does claim her foot feels better. Physical Exam Constitutional: WD/WN, vitals as above Cardiovascular: Vessels: dorsalis pedis pulses present (left good to doppler) Skin: + wound (starting to get small amount of granulation tissue) and + incision (incisions are dry and clean) Psychiatric: Orientation: alert and oriented x 3 Results & Data ([facility]) Vital Signs (Past 12 Hours) Vital Signs Temp Pulse Resp BP Pulse Ox 03/19/21 08:11 36.7 C 72 17 114/74 94
[2021-03-19] MEDS: CYANOCOBALAMIN 500 MCG TABLET (VITAMIN B-12) PO SCH (21:48)
[2021-03-19] MEDS: ASPIRIN 81 MG ECTAB PO SCH (21:48)
[2021-03-19] MEDS: LISINOPRIL/HCTZ 20/12.5MG 1 TAB TAB PO SCH (21:48)
[2021-03-19] MEDS: GABAPENTIN 100 MG CAP PO SCH (21:48)
[2021-03-20] MEDS: oxyCODONE HCL IR 5 MG TAB (IMMEDIATE RELEASE) PO PRN ×3 (00:03→08:49)
[2021-03-20] MEDS: LEVOTHYROXINE SODIUM 88 MCG TABLET PO SCH (05:44)
[2021-03-20] MEDS: DOCUSATE SODIUM 100 MG CAP PO SCH (08:52)
[2021-03-20] MEDS: FERROUS SULFATE 325 MG TAB PO SCH (08:52)
[2021-03-20] MEDS: POLYETHYLENE (MIRALAX) 17 GM PACK PO SCH (08:53)
[2021-03-20] MEDS: RIVAROXABAN 2.5 MG TAB PO SCH (08:54)
[2021-03-20] MEDS: NICOTINE 21 MG/24 HR TDSY TD SCH (08:54)
--- NOTE | 2021-03-20 11:10 | Surgery Progress Note ---
Date of Service March 20, 2021 Assessment & Plan (1) Ischemic ulcer of lower leg due to atherosclerosis: Plan: Left lower extremity with good flow following left axillo femoral bypass. Patient for D/C today with home health. Script for santyl and percocet sent to pharmacy Admission and Anticipated Discharge Date Admission Date: March 11, 2021 Subjective Patient without complaints today. Doing well on oral pain meds. Ambulating with walker. Physical Exam Constitutional: WD/WN, vitals as above Respiratory: normal respiratory effort, lungs clear to auscultation Cardiovascular: Vessels: dorsalis pedis pulses present (left good to doppler) Extremities: normal capillary refill Skin: + wound (starting to get small amount of granulation tissue) and + incision (incisions are dry and clean) Psychiatric: Orientation: alert and oriented x 3 Results & Data ([facility]) Vital Signs (Past 12 Hours) Vital Signs Temp Pulse Resp BP Pulse Ox 03/20/21 07:17 36.5 C 53 L 16 127/71 96
[2021-03-20] MEDS: COLLAGENASE OINT 30 GM TUBE TOP SCH (11:30)
--- NOTE | 2021-03-23 10:48 | Discharge Summary ---
Date of Service March 23, 2021 Admission HPI Per Admitting Provider Primary Care Provider MD Thornton Cynthia D Referring Provider MD Thornton Cynthia D Subjective I the pleasure of seeing Kaleigh today for follow-up. As you know she is a 56-year-old female who has had multiple procedures on her lower extremities done in the past. She has had an aortobifemoral bypass in the past. She subsequently had an infected left groin graft which was removed. She has had a femorofemoral bypass which occluded. She underwent revision with thrombectomy. This is subsequently occluded. Over the last few months she has developed an ischemic ulceration on the medial aspect of her distal left calf. It has gotten progressively worse with necrotic tissue present at the base and the edges of the wound as well as surrounding erythema. She complains of severe pain in the wound of the left lower extremity. She takes Tylenol which does not relieve the discomfort. This wound has been debrided a few weeks ago and has worsened since that time. Review of Systems 10 systems were reviewed. Only positive findings are as per the history and physical. Objective Physical Exam On exam she is awake alert and oriented x3. She is in mild to moderate distress. Her blood pressure is 124/70 on the right and 122/70 on the left. Her lungs are clear to auscultation. Heart irregular rate and rhythm. Vascular exam showed radials carotids supratemporal arteries to be +2 bilaterally. Abdominal exam is benign. No masses are felt. She has good femoral pulse on the right side. I cannot appreciate any femoral or pedal pulse on the left. She has dependent rubor in the left foot. Her capillary refill is markedly decreased. She has wound of her left distal medial calf which is approximately 10 cm x 5 cm in size. It has necrotic bases and edges and surrounding erythema. There is no drainage. No granulation tissue is noted. Neurologic exam is grossly intact. Assessment/Plan 1. Gangrene At this point she is in need of urgent debridement of her wound and arteriography for limb salvage. She has a high chance of amputation if we cannot revascularize the left lower extremity. I recommended that we debride the wound as soon as possible and follow-up by arteriography to plan on revascularization. Risks options and benefits were discussed with the patient. She understood these risks and agreed to go with this procedure. She was started on Levaquin 750 daily as well as Percocet for her severe pain from the necrotic ulcer. Thank you very much for letting us participate in the care of this patient. Sincerely, PADMINI Mustafa MD 2. S/P vascular bypass Orders: acetaminophen-oxyCODONE, Start: 03/10/21 14:34:00 EST, 1 tab, PO, q6h, Disp# 20 tab, Refills: 0, PRN: as needed for pain, Pharmacy: [facility]/pharmacy #[id number] levoFLOXacin, Start: 03/10/21 14:34:00 EST, 1 tab, PO, q24h, Disp# 5 tab, Pharmacy: [facility]/pharmacy #[id number] Signature Line Electronic Signature on File Jonny Mustafa MD Author Signature Dt/Tm: 03/10/2021 03:28 PM Data Compiler Marko Mejía [facility] [address], [address] [place] [address] EJS Result Type: .Outpt Ltr Date of Service: March 10, 2021 15:27 EST Authorization Status: Final Subject: Follow Up Visit Author or Import Date: MD Msutafa Eugene J on March 10, 2021 15:28 EST Verified By: MD Mustafa Eugene J on March 10, 2021 15:28 EST Encounter info: [id number], [facility] [place] [facility], Clinic, 03/10/2021 - Admission Exam Per Admitting Provider On exam she is awake alert and oriented x3. She is in mild to moderate distress. Her blood pressure is 124/70 on the right and 122/70 on the left. Her lungs are clear to auscultation. Heart irregular rate and rhythm. Vascular exam showed radials carotids supratemporal arteries to be +2 bilaterally. Abdominal exam is benign. No masses are felt. She has good femoral pulse on the right side. I cannot appreciate any femoral or pedal pulse on the left. She has dependent rubor in the left foot. Her capillary refill is markedly decreased. She has wound of her left distal medial calf which is approximately 10 cm x 5 cm in size. It has necrotic bases and edges and surrounding erythema. There is no drainage. No granulation tissue is noted. Neurologic exam is grossly intact. Principal Diagnosis 1. s/p Left axillary-femoral prosthetic bypass graft 2. s/p debridement of L leg wound 3. Severe aortoiliac occlusive disease 4. Severe PAD with nonhealing necrotic leg ulceration Discharge Exam Constitutional WD/WN, vitals as above Respiratory normal respiratory effort, lungs clear to auscultation Cardiovascular Rate/Rhythm: regular rate and regular rhythm Vessels: + abnormal peripheral pulses Extremities: normal capillary refill Gastrointestinal (Abdomen) Inspection/Auscultation: abdomen normal to inspection and normal bowel sounds Percussion/Palpation: abdomen soft; abdomen nontender Musculoskeletal no cyanosis or clubbing, extremities motor strength 5/5 Skin + wound (LLE lal without significant granulation, mild local erythema, minimal drai) and + incision (L chest wall and L groin/thigh C/D/I with berny, +tender, no hematoma ) Neurologic moves all extremities and awake; no focal motor deficits and not confused Psychiatric A+Ox3, euthymic affect Discharge Data Allergies Allergy/AdvReac Type Severity Reaction Status Date / Time amoxicillin Allergy Intermediate Hives Verified 03/11/21 09:40 Penicillins Allergy Intermediate Hives Verified 03/11/21 09:40 Procedures Performed Operation Date: 03/11/21 09:10 Actual Procedures p Debridement of Left Calf Wound(Not Applicable) - Jonny Mustafa MD Operation Date: 03/13/21 08:00 Actual Procedures p Left Lower Extermity Angiogram, ultasound localization of left femoral artery moderate sedation [id number](Left) - Jonny Mustafa MD Operation Date: 03/16/21 09:45 Actual Procedures p Left Axillary-Femoral Bypass with [place] Graft(Left) - Jonny Mustafa MD Ordered Studies 03/11/21 11:59 CT chest diagnostic wo/w con Routine 03/13/21 07:42 EV angio UE LT Routine US EV guide vascular access Routine Hospital Course (1) Ischemic ulcer of lower leg due to atherosclerosis: Left lower extremity with good flow following left axillo femoral bypass. Doing well post op Patient for D/C with home health. Script for santyl and percocet sent to pharmacy Total Time Total Time Spent Total Time Spent (In Minutes): 0 Discharge Plan Discharge Items Patient Disposition: Home - Self-Care Reason For Visit: Left Lower Extremity Ulcer Discharge Diagnosis: Non healing ulcer left lower extremity with iliac occlusion Activity: Resume your previous activity Lifting: Gradually increase as tolerated Bathing Comment: may shower Exercise/Sports: Gradually increase as tolerated Driving/Machine Use: Resume 1 day after discharge Weightbearing: Full weightbearing Non-emergency contact: Surgeon Call non-emergency contact if: your temperature is above 101.5, your wound has increased redness, your wound has increased drainage and your wound pain has increased Follow-up/Referrals: Freya Thornton MD [Primary Care Provider] - Jonny Mustafa MD [Physician] - 03/31/21 1:15 pm Diet: Heart Healthy Addtl Attending Provider Instructions: ACTIVITY RECOMMENDATIONS: Percocet script sent to [facility] from office Ambulate as much as possibe Elevate leg when not ambulating Irrigate wound bed with saline. Cover with adaptic with nickel layer of santyl. Apply to wound bed. Apply ABD and secure with kerlex. Change daily. SPECIAL CARE INSTRUCTIONS: Call your doctor if: * Temperature above 101 degrees * Pain not relieved by pain medicine ordered * There is increased drainage or redness from any incision * You have any unanswered questions or concerns. Call [phone] to schedule a follow up appointment if one not already scheduled. Pending Studies at Discharge: No Stand-Alone Forms: My [facility] [employer], Smoking Cessation Medications and DC Order Prescriptions: New Santyl 250 unit/gram ointment 1 applic topical DAILY Qty: 90 RF: 2 oxycodone-acetaminophen [Percocet] 5-325 mg tablet 1 tab PO Q4H PRN (Reason: pain) Qty: 30 RF: 0 Continued cyanocobalamin (vitamin B-12) 1,000 mcg capsule 1,000 mcg PO HS RF: 0 aspirin [Adult Aspirin Regimen] 81 mg tablet,delayed release (DR/EC) 81 mg PO HS RF: 0 Santyl 250 unit/gram ointment 1 applic topical DAILY 14 Days Qty: 90 RF: 1 Xarelto 2.5 mg tablet 2.5 mg PO BID RF: 0 levothyroxine [Levoxyl] 88 mcg tablet 88 mcg PO DAILY Qty: 90 RF: 3 gabapentin 100 mg capsule 100 mg PO .COMPLEX Qty: 30 RF: 5 lisinopril-hydrochlorothiazide 20-12.5 mg tablet 1 tab PO HS RF: 0 acetaminophen 325 mg Tablet 650 mg PO Q4H PRN (Reason: pain) Qty: 30 RF: 0 oxycodone 5 mg tablet 5 mg PO Q6H PRN (Reason: pain) Qty: 7 RF: 0 ferrous sulfate [Iron (ferrous sulfate)] 325 mg (65 mg iron) Tablet 325 mg PO DAILY RF: 0 Discharge Orders: Discharge Order (Routine); Ordered 03/20/21 Ordered By: Jonny Chatterjee/Other Patient Handouts: Wound Care, ED Peripheral Artery Disease (PAD) Admission Data Admit Date/Time: 03/11/21 11:42 Attending Provider: Jonny Mustafa Admit Provider: Jonny Mustaaf Primary Care Provider: Freya Thornton Other Interventions: Discharge Summary Assessment (RN) Last Done: 03/20/21 11:31
== END 2021-03-20 12:15 | disposition home or self-care (01) | DRG 253 ==
LOC: ASU 09:11 → 3E 11:42
DX: Z88.0 Allergy status to penicillin; F17.210 Nicotine dependence, cigarettes, uncomplicated; L97.209 Non-pressure chronic ulcer of unspecified calf with unspecified severity; I70.262 Atherosclerosis of native arteries of extremities with gangrene, left leg; I70.202 Unspecified atherosclerosis of native arteries of extremities, left leg; I70.242 Atherosclerosis of native arteries of left leg with ulceration of calf; L97.909 Non-pressure chronic ulcer of unspecified part of unspecified lower leg with unspecified severity

== ENCOUNTER 2021-05-07 22:45 | Inpatient (IN) ==
[2021-05-07] MEDS ORDERED: SODIUM CHLORIDE 0.9% 500 ML IV STA (23:23)
[2021-05-07] MEDS ORDERED: HYDROmorphone INJ 0.5 MG/0.5 ML SYR IV STA (23:23)
[2021-05-07] MEDS ORDERED: ONDANSETRON INJ 2 MG/ML 2 ML VIAL IV STA (23:23)
[2021-05-07 23:43] LABS: Basophils # (auto) 0.04 K/uL (0-0.2); Basophils % (auto) 0.4 %; Eosinophils # (auto) 0.28 K/uL (0-0.5); Eosinophils % (auto) 2.9 %; Hematocrit (blood only) 45.4 % (37-47); Immature Granulocytes # (auto) 0.05 K/uL (0.00-0.02); Immature Granulocytes % (auto) 0.5 %; Lymphocytes # (auto) 2.11 K/uL (1.2-3.4); Mean Corpuscular Hemoglobin 32.3 pg (25-34); Mean Corpuscular Volume 97.8 fL (80-100); Mean Platelet Volume 10.6 fL (7.4-10.4); Monocytes # (auto) 0.65 K/uL (0.11-0.59); Monocytes % (auto) 6.8 %; Neutrophils # (auto) 6.44 K/uL (1.4-6.5); Neutrophils % (auto) 67.4 %; Platelet Count 261 K/uL (130-400); RDW Coefficient of Variation 14.9 % (11.5-14.5); RDW Standard Deviation 53.6 fL (36.4-46.3); Red Blood Count 4.64 M/uL (4.2-5.4); White Blood Count 9.57 K/uL (4.8-10.8)
--- NOTE | 2021-05-08 00:07 | Emergency Department Note ---
Impression & Plan Acute cholecystitis Admit to the [facility] service ED Provider Note NAME: KASHIF HARRISON AGE: 56 SEX: F ARRIVES VIA: Walk-In INFORMANT: Patient ED PROVIDER(S): Adriana Huang DO CHIEF COMPLAINT: Epigastric pain PLAN: Disposition: Admit to the [facility] service Condition: Fair MEDICAL DECISION MAKING: This is a 56-year-old female patient who presents to the emergency department with epigastric pain and right upper quadrant pain that started approximately 2- 3 hours ago. She then began to vomit. The patient describes the pain as radiating through to her back. Ultrasound of the right upper quadrant shows evidence of acute cholecystitis with a stone noted in the neck of the gallbladder. The patient has significant arterial disease with previous vascular surgeries and takes Xarelto. [facility] for [facility] management and consult surgery. Triage Nursing notes reviewed and agree with them. Prior medical records reviewed Vital Signs: reviewed and remarkable for hypertension Differential diagnosis: Pancreatitis, cholecystitis, GERD, colitis ER treatment provided: IV Dilaudid x2 IV normal saline IV Zofran Diagnostics interpreted by me: ECG: Normal sinus rhythm at a rate of [address] segment elevation or signs of ischemia. There is no ectopy. Cardiac Monitoring: Normal sinus rhythm at a rate of 68 Laboratory studies: See below Imaging studies: As per stat rad RUQ US: US RUQ: Comparison to CT scan from April 09, 2020. Mild fatty infiltration of the liver. No focal liver lesion is seen for the liver is not enlarged. The portal vein is patent with normal direction of flow. The gallbladder is mildly dilated measuring 11.1 cm long axis. There is a 1.2 cm shadowing stone in the gallbladder neck. The gallbladder wall is slightly thickened measuring 4.3 mm suggesting acute cholecystitis. Sonographic Morales sign is positive. The common bile duct is nondilated measuring 2 mm. The right kidney appears unremarkable. No hydronephrosis is seen. The visualized portion of the pancreas is unremarkable. HPI: 56/F arrives for evaluation of epigastric pain. Patient describes a 2 to 3-hour history of epigastric pain and right upper quadrant discomfort over the past 2 to 3 hours. The pain seems to radiate through to her back and was assoc iated with vomiting. The patient has had similar symptoms in the past 2 months. She is unsure whether this is related to eating or not. She believes it may have started since she started taking Xarelto instead of Coumadin. ROS: See above HPI for pertinent positives & negatives. A total of 10 systems reviewed and were otherwise negative. PAST MEDICAL HISTORY:See Below PAST SURGICAL HISTORY:See Below FAMILY HISTORY:See Below SOCIAL HISTORY:See Below HOME MEDICATIONS:See list ALLERGIES:See list VITALS:See Below PHYSICAL EXAMINATION: HEENT: Head - normocephalic and atraumatic. Pupils are equal, round, and reactive to light. Extraocular eye muscles are intact, and sclera are anicteric. Nose - moist nasal mucosa without discharge. Mouth - moist buccal mucosa. Oropharynx is nonerythematous and there is no tonsillar exudate or edema noted. Neck: Supple; no JVD or cervical lymphadenopathy Heart: Regular rate and rhythm. There is a normal S1 and S2 with no murmurs, clicks, or gallops appreciated. Lungs: Clear to auscultation bilaterally with no wheezes, rales, or rhonchi. Abdomen: Soft, nondistended with moderate tenderness to palpation in the right upper quadrant of the abdomen and epigastrium. There are normal bowel sounds. There are no palpable pulsatile masses or hepatosplenomegaly. There is no guarding, rigidity, or rebound noted. Extremities: No evidence of cyanosis, clubbing, or edema. There are easily palpable peripheral pulses. Skin: warm and dry with good turgor and no rashes. ED COURSE: Times/Reassessments: 2310 patient was evaluated in room A3. Complete history a nd physical was performed. He is electronic medical records were reviewed. An IV lock was initiated and labs were drawn as above. The patient was bolused with IV normal saline solution and given a dose of IV Zofran. The patient was given IV Dilaudid for pain. The patient will go for ultrasound of the right upper quadrant to evaluate the gallbladder. An EKG was obtained as described above. On returning from radiology, the patient had return of her pain was given a second dose of IV Dilaudid. I reviewed the results of the laboratory studies as well as the ultrasound with the patient. I discussed the case with the [facility] hospitalist and they will evaluate for further management. Adriana Huang DO Past Med/Surg History Medical History Claudication of lower extremity Hyperlipidemia refuses statin therapy Hypertension Hypokalemia Hypothyroidism Impaired fasting glucose PVD (peripheral vascular disease) aortobifem bypass 2015, thrombectomy 2015, revision of left femoral anastamosis 2018 Smoker Surgical History History of cataract surgery RT/LEFT History of dilatation and curettage History of incision and drainage left lower extremity ulcer 01/03/2021: LMA#4, atraumatic x 1. No issues per anesthesia postop progress note. History of tooth extraction Hx of angioplasty LEFT FEMORAL ARTERY ANASTOMOSIS 11/27/2018: Grade 1 view, MAC#3, ETT #7.0. No issues per anesthesia postop progress note. S/P femoral-femoral bypass surgery left 07/20/2019: Grade 1 view, MAC#3, ETT#7.5 x 1 atraumatic. No issues per anesthesia postop progress note. No issues per anesthesia postop progress note. left 02/17/2019: Grade 1 view, MAC#3, ETT#7.5. No issues per anesthesia postop progress note. left 02/16/2019: Grade 1 view, MAC#3, ETT #7.0. No issues per anesthesia post op progress note. Family History Other No significant family history Social History Smoking Status: Current some day smoker Tobacco Type: Cigarettes packs per day: 0.5; Cigarettes Per Day: 1-2; Second Hand Exposure: Yes; Hx Alcohol Use: Yes Alcohol type: beer Alcohol Intake Frequency Comment: 1 or two beers once or twice weekly Hx Substance Use: No Preferred Language: Citizen Of [place] Communication Ability: Effective Remote Medical Coder Required: No Beliefs That Will Affect Care: None marital status: Current Living Situation: Spouse current occupational status: disabled How many Children do You have: 1 Feels Safe at Home: Yes caffeine: Yes during the past year weight has: decreased > 10 lbs Dental Care, Regularly: Yes Physical Activity Frequency: 5-6 Times per Week Seatbelt Use: always Sunscreen Use: No Do you think of yourself as: straight/heterosexual Gender Identity: Female Assistive Devices: Walker Allergies Allergies Allergy/AdvReac Type Severity Reaction Status Date / Time amoxicillin Allergy Intermediate Hives Verified 05/08/21 01:17 Penicillins Allergy Intermediate Hives Verified 05/08/21 01:17 Home Meds Home Medications Medication Instructions Recorded Confirmed cyanocobalamin (vitamin B-12) 1,000 mcg PO HS cap 02/13/18 05/08/21 1,000 mcg capsule aspirin 81 mg tablet,delayed 81 mg PO HS 12/28/18 05/08/21 release (Adult Aspirin Regimen) rivaroxaban 2.5 mg tablet (Xarelto) 2.5 mg PO BID tab 02/24/21 05/07/21 ferrous sulfate 325 mg (65 mg 325 mg PO DAILY 03/11/21 05/08/21 iron) tablet (Iron (ferrous sulfate)) Previous Rx's Medication Instructions Recorded collagenase clostridium histo. 250 1 applic TOPICAL DAILY #90 g 03/20/21 unit/gram topical ointment (Santyl) levothyroxine 88 mcg tablet 88 mcg PO DAILY #90 tab 04/22/21 (Levoxyl) lisinopril 20 1 tab PO DAILY #90 tab 04/22/21 mg-hydrochlorothiazide 12.5 mg tablet Results & Data (ED) Vital Signs Vital Signs - 24 hr 05/07/21 22:49 05/07/21 23:32 05/08/21 00:25 Temperature 36.1 C L Temperature Source Temporal Artery Scan Pulse Rate 85 Pulse Rate [Apical] 74 Respiratory Rate 18 18 Respiratory Effort / Characteristics Respiratory Depth Blood Pressure 181/82 H Blood Pressure [Right Arm] 176/82 H Blood Pressure Mean 115 Blood Pressure Mean [Right Arm] 113 Blood Pressure Position Sitting Pulse Oximetry 98 97 98 Oxygen Delivery Method Room Air Room Air Room Air Oxygen Flow Rate Sepsis Recent Fever Within 48 Hours No Sepsis New/Unexplained Change in Mental Status N/A Sepsis Action Taken by Nursing No Action Required 05/08/21 02:04 Temperature Temperature Source Pulse Rate Pulse Rate [Apical] 55 L Respiratory Rate 18 Respiratory Effort / Characteristics Non-Labored Spontaneous Respiratory Depth Normal Blood Pressure Blood Pressure [Right Arm] 111/80 Blood Pressure Mean Blood Pressure Mean [Right Arm] 90 Blood Pressure Position Pulse Oximetry 93 Oxygen Delivery Method Nasal Cannula Oxygen Flow Rate 2 Sepsis Recent Fever Within 48 Hours Sepsis New/Unexplained Change in Mental Status Sepsis Action Taken by Nursing Laboratory Data Result diagrams: 05/07/21 23:10 03/03/22 23:10 Lab Results 05/07/21 05/07/21 05/07/21 Range/Units 23:10 23:10 23:10 WBC 9.57 (4.8-10.8) K/uL RBC 4.64 (4.2-5.4) M/uL Hgb 15.0 (12.0-16.0) g/dL Hct 45.4 (37-47) % MCV 97.8 (80-100) fL MCH 32.3 (25-34) pg MCHC 33.0 (32-36) g/dL RDW Std Deviation 53.6 H (36.4-46.3) fL RDW Coeff of Toribio 14.9 H (11.5-14.5) % Plt Count 261 (130-400) K/uL MPV 10.6 H (7.4-10.4) fL Immature Gran % (Auto) 0.5 % Neut % (Auto) 67.4 % Lymph % (Auto) 22.0 % [place] % (Auto) 6.8 % Eos % (Auto) 2.9 % Baso % (Auto) 0.4 % Neut # (Auto) 6.44 (1.4-6.5) K/uL Lymph # (Auto) 2.11 (1.2-3.4) K/uL [place] # (Auto) 0.65 H (0.11-0.59) K/uL Eos # (Auto) 0.28 (0-0.5) K/uL Baso # (Auto) 0.04 (0-0.2) K/uL Immature Gran # (Auto) 0.05 H (0.00-0.02) K/uL Sodium 140 (136-145) mmol/L Potassium 3.3 L (3.5-5.1) mmol/L Chloride 106 (98-107) mmol/L Carbon Dioxide 25 (21-32) mmol/L Anion Gap 9 (3-11) BUN 16 (6-23) mg/dl Creatinine 0.62 (0.6-1.2) mg/dl Est Cr Clr Drug Dosing Not Reportable Est GFR ( Amer) 116.0 ml/min Est GFR (Non-Af Amer) 100.1 ml/min BUN/Creatinine Ratio 25.8 H (10-20) Glucose 117 H (70-99(Fasting)) mg/dl Calcium 9.2 (8.5-10.1) mg/dl Magnesium 1.9 (1.7-2.4) mg/dl Total Bilirubin 0.3 (0.2-1.0) mg/dl AST 25 (13-39) U/L ALT 37 (7-52) U/L Alkaline Phosphatase 115 H (34-104) U/L Troponin I < 0.03 (0-0.04) ng/ml Total Protein 7.4 (6.0-8.3) gm/dl Albumin 4.1 (3.4-5.0) gm/dl Globulin 3.3 (2.5-4.0) gm/dl Albumin/Globulin Ratio 1.2 (0.9-2) Lipase 12 (11-82) U/L SARS-CoV-2, RNA, NAAT (NEGATIVE) 05/08/21 Range/Units 02:04 WBC (4.8-10.8) K/uL RBC (4.2-5.4) M/uL Hgb (12.0-16.0) g/dL Hct (37-47) % MCV (80-100) fL MCH (25-34) pg MCHC (32-36) g/dL RDW Std Deviation (36.4-46.3) fL RDW Coeff of Toribio (11.5-14.5) % Plt Count (130-400) K/uL MPV (7.4-10.4) fL Immature Gran % (Auto) % Neut % (Auto) % Lymph % (Auto) % [place] % (Auto) % Eos % (Auto) % Baso % (Auto) % Neut # (Auto) (1.4-6.5) K/uL Lymph # (Auto) (1.2-3.4) K/uL [place] # (Auto) (0.11-0.59) K/uL Eos # (Auto) (0-0.5) K/uL Baso # (Auto) (0-0.2) K/uL Immature Gran # (Auto) (0.00-0.02) K/uL Sodium (136-145) mmol/L Potassium (3.5-5.1) mmol/L Chloride (98-107) mmol/L Carbon Dioxide (21-32) mmol/L Anion Gap (3-11) BUN (6-23) mg/dl Creatinine (0.6-1.2) mg/dl Est Cr Clr Drug Dosing Est GFR ( Amer) ml/min Est GFR (Non-Af Amer) ml/min BUN/Creatinine Ratio (10-20) Glucose (70-99(Fasting)) mg/dl Calcium (8.5-10.1) mg/dl Magnesium (1.7-2.4) mg/dl Total Bilirubin (0.2-1.0) mg/dl AST (13-39) U/L ALT (7-52) U/L Alkaline Phosphatase (34-104) U/L Troponin I (0-0.04) ng/ml Total Protein (6.0-8.3) gm/dl Albumin (3.4-5.0) gm/dl Globulin (2.5-4.0) gm/dl Albumin/Globulin Ratio (0.9-2) Lipase (11-82) U/L SARS-CoV-2, RNA, NAAT NEGATIVE (NEGATIVE) Administered Medications Lactated Ringer's (Lr) 1,000 mls @ 100 mls/hr IV .Q10H CHRISTOPHER Stop: 06/07/21 02:44 Last Admin: 05/08/21 04:31 Dose: 100 mls/hr Documented by: [id number] Ceftriaxone Sodium 1,000 mg/ (Dextrose) 50 mls @ 100 mls/hr IV Q24H CHRISTOPHER; Protocol Stop: 05/18/21 02:44 Last Infusion: 05/08/21 03:55 Dose: 0 mls/hr Documented by: [id number] Admin: 05/08/21 03:20 Dose: 100 mls/hr Documented by: [id number] Potassium Chloride (K Ruddy / Wtr) 10 meq in 100 mls @ 100 mls/hr IV Q1H CHRISTOPHER; Protocol Stop: 05/08/21 04:59 Last Admin: 05/08/21 04:31 Dose: 100 mls/hr Documented by: [id number] Discontinued Medications Hydromorphone HCl (Hydromorphone Inj 0.5 Mg/0.5 Ml Syr) 0.5 mg IV NOW STA Stop: 05/07/21 23:24 Last Admin: 05/07/21 23:28 Dose: 0.5 mg Documented by: [id number] Hydromorphone HCl (Hydromorphone Inj 1 Mg/Ml Syringe) 1 mg IV NOW STA Stop: 05/08/21 00:28 Last Admin: 05/08/21 00:30 Dose: 1 mg Documented by: [id number] Sodium Chloride (Nss) 500 mls @ 999 mls/hr IV .Q31M STA Stop: 05/07/21 23:53 Last Infusion: 05/08/21 00:27 Dose: 0 mls/hr Documented by: [id number] Admin: 05/07/21 23:33 Dose: 999 mls/hr Documented by: [id number] Ondansetron HCl (Ondansetron Inj 2 Mg/Ml 2 Ml Vial) 4 mg IV NOW STA Stop: 05/07/21 23:24 Last Admin: 05/07/21 23:27 Dose: 4 mg Documented by: [id number] Discharge Plan Visit Data Chief Complaint: Abdominal Pain Stated Complaint: abdominal pain, vomiting, ED Provider: Adriana Huang Discharge Problem: Acute cholecystitis Patient Disposition: Admitted As Inpatient Discharge Instructions Interventions: ED Discharge Assessment Last Done: 05/08/21 03:56
[2021-05-08 00:08] LABS: Troponin I < 0.03 ng/ml (0-0.04)
[2021-05-08] MEDS ORDERED: HYDROmorphone INJ 1 MG/ML SYRINGE IV STA (00:27)
[2021-05-08 00:30] LABS: Alanine Aminotransferase 37 U/L (7-52); Albumin Globulin Ratio 1.2 (0.9-2); Albumin Level 4.1 gm/dl (3.4-5.0); Alkaline Phosphatase 115 U/L (34-104); Anion Gap 9 (3-11); Aspartate Aminotransferase 25 U/L (13-39); BUN Creatinine Ratio 25.8 (10-20); Bilirubin,Total 0.3 mg/dl (0.2-1.0); Blood Urea Nitrogen 16 mg/dl (6-23); Calcium 9.2 mg/dl (8.5-10.1); Carbon Dioxide 25 mmol/L (21-32); Chloride 106 mmol/L (98-107); Est GFR (Non-African American) 100.1 ml/min; Globulin 3.3 gm/dl (2.5-4.0); Glucose 117 mg/dl (70-99(Fasting)); Lipase 12 U/L (11-82); Potassium 3.3 mmol/L (3.5-5.1); Sodium 140 mmol/L (136-145); Total Protein 7.4 gm/dl (6.0-8.3)
--- NOTE | 2021-05-08 02:03 | History & Physical Report ---
Date of Service May 08, 2021 Assessment & Plan (1) Acute calculous cholecystitis: Plan: Dusty Torres is a 56yo female with PMHx significant for PAD with ischemic ulcer of left calf, h/o DVT (on Xarelto), HTN, HLD, hypothyroidism and tobacco use disorder who presented to [facility] ED on 05/08 for RUQ abdominal pain. Acute Calculous Cholecystitis Typical postprandial RUQ pain with +Morales's sign on exam and US gallbladder with gallbladder dilation and wall thickening with gallstone at gallbladder neck. Although patient is afebrile and hemodynamically stable and without leukocytosis, symptoms/exam and imaging findings highly suspicious for acute calculous cholecystitis. - HIDA scan ordered to confirm - NPO for possible cholecystectomy later today - will hold on surgery consult pending HIDA results - started Ceftriaxone 1g IV Q24H to cover for intraabdominal infection (patient allergic to penicillins and Flagyl IV is currently unavailable) - s/p 1L NSS in the ED - will continue with LR @100cc/hr - Tylenol 1g IV Q8H moderate pain; Morphine 2mg IV Q3H severe pain - trend CBC in AM PAD; H/o DVTs - hold Aspirin/Xarelto due to possible surgery later today (note: last Xarelto dose was on 05/07 at 10:00am) Hypokalemia - K 3.3, repleted Chronic LLE Ischemic Ulcer - consulted wound care nurse for daily dressing changes HTN - hold Lisinopril/HCTZ due to possible surgery later today Hypothyroidism - hold home Synthroid while NPO FEN/GI: NPO for possible surgery, LR @100cc/hr DVT Prophylaxis: SCDs, chemoppx contraindicated due to possible surgery Code Status: full code Disposition: med/surg (2) PAD (peripheral artery disease): (3) History of DVT (deep vein thrombosis): (4) Hypokalemia: (5) Hypothyroidism: (6) Hyperlipidemia: (7) Smoker: History of Present Illness Chief Complaint: abdominal pain Primary Care Provider: Freya Thornton MD Dusty Torres is a 56yo female with PMHx significant for PAD with ischemic ulcer of left calf, h/o DVT (on Xarelto), HTN, HLD, hypothyroidism and tobacco use disorder who presented to [facility] ED on 05/08 for RUQ abdominal pain radiating to back x several hours with associated N/V. Has had several similar episodes over the last several months. Episodes always occur after eating. Patient reports that she quit smoking 1 month ago, after her last bypass surgery. Denies alcohol or other drug use. Proficient in ADLs/iADLs. Last took Xarelto on 05/07 in the AM. In the ED the patient was hypertensive to 181/82 with T36.1 (slightly low); otherwise VSS/WNL on room air. Laboratory evaluation showed K 3.3 and ALP 115 but otherwise CBC/CMP WNL. Lipase WNL and Troponin negative. US gallbladder showed gallbladder dilation and wall thickening with gallstone at gallbladder neck - suggestive of acute cholecystitis. Patient was given Dilaudid 1.5mg total for pain, Zofran x1 for nausea and NSS 1L bolus. Allergies Allergy/AdvReac Type Severity Reaction Status Date / Time amoxicillin Allergy Intermediate Hives Verified 05/08/21 01:17 Penicillins Allergy Intermediate Hives Verified 05/08/21 01:17 Home Medications Medication Instructions Recorded Confirmed Type cyanocobalamin (vitamin B-12) 1,000 mcg PO HS cap 02/13/18 05/08/21 History 1,000 mcg capsule aspirin 81 mg tablet,delayed 81 mg PO HS 12/28/18 05/08/21 History release (Adult Aspirin Regimen) rivaroxaban 2.5 mg tablet (Xarelto) 2.5 mg PO BID tab 02/24/21 05/07/21 History ferrous sulfate 325 mg (65 mg 325 mg PO DAILY 03/11/21 05/08/21 History iron) tablet (Iron (ferrous sulfate)) collagenase clostridium histo. 250 1 applic TOPICAL DAILY #90 g 03/20/21 05/08/21 Rx unit/gram topical ointment (Santyl) levothyroxine 88 mcg tablet 88 mcg PO DAILY #90 tab 04/22/21 05/07/21 Rx (Levoxyl) lisinopril 20 1 tab PO DAILY #90 tab 04/22/21 05/08/21 Rx mg-hydrochlorothiazide 12.5 mg tablet Past Med/Surg History Medical History Claudication of lower extremity Hyperlipidemia refuses statin therapy Hypertension Hypokalemia Hypothyroidism Impaired fasting glucose PVD (peripheral vascular disease) aortobifem bypass 2015, thrombectomy 2015, revision of left femoral anastamosis 2018 Smoker Surgical History History of cataract surgery RT/LEFT History of dilatation and curettage History of incision and drainage left lower extremity ulcer 01/03/2021: LMA#4, atraumatic x 1. No issues per anesthesia postop progress note. History of tooth extraction Hx of angioplasty LEFT FEMORAL ARTERY ANASTOMOSIS 11/27/2018: Grade 1 view, MAC#3, ETT #7.0. No issues per anesthesia postop progress note. S/P femoral-femoral bypass surgery left 07/20/2019: Grade 1 view, MAC#3, ETT#7.5 x 1 atraumatic. No issues per anesthesia postop progress note. No issues per anesthesia postop progress note. left 02/17/2019: Grade 1 view, MAC#3, ETT#7.5. No issues per anesthesia postop progress note. left 02/16/2019: Grade 1 view, MAC#3, ETT #7.0. No issues per anesthesia postop progress note. Family History Other No significant family history Social History Smoking Status: Former smoker Tobacco Type: Cigarettes packs per day: 0.5; Cigarettes Per Day: 1-2; Smoking End Date: QUIT 2 MONTHS AGO; Second Hand Exposure: Yes; Hx Alcohol Use: Yes Alcohol type: beer Alcohol Intake Frequency Comment: 1 or two beers once or twice weekly Hx Substance Use: No Preferred Language: Japanese Communication Ability: Effective Territory Manager Required: No Beliefs That Will Affect Care: None marital status: Current Living Situation: Spouse current occupational status: disabled How many Children do You have: 1 Feels Safe at Home: Yes Safety Concerns: Feels Safe At This Time caffeine: Yes during the past year weight has: decreased > 10 lbs Dental Care, Regularly: Yes Physical Activity Frequency: 5-6 Times per Week Seatbelt Use: always Sunscreen Use: No Do you think of yourself as: straight/heterosexual Gender Identity: Female Assistive Devices: None Review of Systems Review of Systems: All systems reviewed & are unremarkable except as noted in HPI & below Physical Exam Physical Exam: General: A&Ox3. NAD. Cooperative. HEENT: Atraumatic, normocephalic. Pulm: CTAB A&P. -wheezes, -rales, -rhonchi. Symmetrical chest rise. No increase work of breathing. No respiratory distress. Cardiac: RRR, -mrg. Radial pulses intact and symmetrical. Abdominal: soft, moderate RUQ tenderness to palpation with positive Morales's sign, no rebound tenderness, non-distended, BS x 4 Skin: warm, dry, no rash Results & Data Results & Data ([facility]) Vital Signs (Past 12 Hours) Vital Signs Temp Pulse Pulse Resp BP BP Pulse Ox 05/08/21 00:25 74 18 176/82 H 98 05/07/21 23:32 97 05/07/21 22:49 36.1 C L 85 18 181/82 H 98 Code Status & VTE Plan Code Status full code Supervising Physician Co-Signing Physician Notes Attending addendum: I have physically seen this patient, have supervised the medical residents activities, and agree with the H&P unless as otherwise noted. Assessment and Plan: Acute calculus cholecystitis- NPO HIDA scan Ceftriaxone 1 g IV every 24 hours LR at 100 mL/ hour acetaminophen 1 g IV every 8 hours as needed mild pain or fever Morphine sulfate 2 mg IV every 3 hours as needed severe pain PAD/chronic left lower extremity ischemic ulcer/history of DVTs/tobacco abuse- Question component of thromboangiitis obliterans' Tobacco cessation counseling Holding aspirin and Xarelto temporarily for possible cholecystectomy Consult wound care Remaining orders and notations as noted Resident Activity Tracking Resident Involvement: Resident Care Provided Care Provided: Adult [facility]
[2021-05-08] MEDS ORDERED: LACTATED RINGER'S 1,000 ML IV SCH (02:45)
[2021-05-08] MEDS ORDERED: cefTRIAXone SODIUM 1,000 MG in DEXTROSE 5% 50 ML IV SCH (02:45)
[2021-05-08] MEDS ORDERED: cefTRIAXone SODIUM 1,000 MG/50 ML BAG IV ONE (03:00)
[2021-05-08] MEDS ORDERED: MoRPHine SULFATE 2 MG/ML CARP IV PRN (03:02)
[2021-05-08] MEDS ORDERED: ACETAMINOPHEN 1000 MG/100 ML IV IV PRN (03:02)
[2021-05-08] MEDS ORDERED: ONDANSETRON INJ 2 MG/ML 2 ML VIAL IV PRN (03:02)
[2021-05-08] MEDS: POTASSIUM CHLORIDE / WTR 10 MEQ/100 ML PLCT IV SCH ×2 (04:31→05:50)
[2021-05-08 04:56] LABS: Appearance Urine Clear (Clear); Bacteria Urine Automated Negative (Negative); Bilirubin Urine Negative (Negative); Blood Urine Trace (Negative); Color Urine Yellow; Glucose Urine UA Negative (Negative); Ketones Urine Negative (Negative); Leukocyte Esterase Urine Negative (Negative); Nitrite Urine Negative (Negative); Protein Urine Negative (Negative); RBC Urine Automated 0-4 /hpf (0-4); Specific Gravity Urine 1.015 (1.000-1.030); Urobilinogen Urine Negative (Negative)
--- NOTE | 2021-05-08 07:37 | Ultrasound Report ---
US gallbladder CLINICAL HISTORY: Severe right upper quadrant pain. COMPARISON STUDY: CTA of the abdomen and pelvis April 09, 2020. FINDINGS: No hepatic lesions are identified. There is no biliary ductal dilatation. Gallbladder is di stended. Positive sonographic Morales sign was elicited. A nonmobile bowel stone within the gallbladde r neck is noted. There is mild gallbladder wall thickening. The wall is edematous. Pancreatic body is normal. Head and tail are partially obscured. There is no right hydronephrosis. IMPRESSION: 1. Cholelithiasis, mild gallbladder wall thickening and positive sonographic Morales sign. These findi ngs suggest acute cholecystitis. 2. No biliary ductal dilatation. ACT 112: Negative or not required by law. Electronically signed by: Simeon Thornton M.D. 05/08/2021 7:35 AM
[2021-05-08] MEDS ORDERED: Heparin IV Adult Wt-Based Standard WITH Bolus Protocol IV STA (08:26)
[2021-05-08] MEDS ORDERED: SINCALIDE 1.5 MCG in 0.9 % SODIUM CHLORIDE 100 ML IV ONE (08:30)
[2021-05-08] MEDS ORDERED: HEPARIN SOD (PORCINE) 1000 UNIT/ML IV ONE (08:41)
[2021-05-08] MEDS ORDERED: HEPARIN SODIUM/DEXTROSE 25,000 UNITS/500 ML BAG IV SCH (08:45)
[2021-05-08] MEDS ORDERED: HEPARIN IV BOLUS 5,000 UNITS in SYRINGE 0 ML IV ONE (08:45)
[2021-05-08 08:49] LABS: Basophils # (auto) 0.01 K/uL (0-0.2); Basophils % (auto) 0.2 %; Eosinophils # (auto) 0.17 K/uL (0-0.5); Eosinophils % (auto) 3.2 %; Hematocrit (blood only) 40.2 % (37-47); Hemoglobin 13.4 g/dL (12.0-16.0); Immature Granulocytes # (auto) 0.02 K/uL (0.00-0.02); Immature Granulocytes % (auto) 0.4 %; Lymphocytes # (auto) 1.77 K/uL (1.2-3.4); Lymphocytes % (auto) 33.7 %; Mean Corpuscular Hemoglobin 32.6 pg (25-34); Mean Corpuscular Hgb Conc 33.3 g/dL (32-36); Mean Corpuscular Volume 97.8 fL (80-100); Mean Platelet Volume 10.5 fL (7.4-10.4); Monocytes # (auto) 0.53 K/uL (0.11-0.59); Monocytes % (auto) 10.1 %; Neutrophils # (auto) 2.76 K/uL (1.4-6.5); Neutrophils % (auto) 52.4 %; Platelet Count 220 K/uL (130-400); RDW Coefficient of Variation 14.9 % (11.5-14.5); Red Blood Count 4.11 M/uL (4.2-5.4); White Blood Count 5.26 K/uL (4.8-10.8)
[2021-05-08 09:12] LABS: BUN Creatinine Ratio 24.1 (10-20); Calcium 8.5 mg/dl (8.5-10.1); Creatinine Clr Calc Pharmacy 117.8 ml/min; Est GFR (African American) 121.4 ml/min; Est GFR (Non-African American) 104.8 ml/min; Potassium 3.9 mmol/L (3.5-5.1)
[2021-05-08 09:40] LABS: Basophils # (auto) 0.02 K/uL (0-0.2); Basophils % (auto) 0.4 %; Eosinophils # (auto) 0.22 K/uL (0-0.5); Eosinophils % (auto) 3.9 %; Hematocrit (blood only) 43.9 % (37-47); Hemoglobin 14.9 g/dL (12.0-16.0); Immature Granulocytes # (auto) 0.01 K/uL (0.00-0.02); Immature Granulocytes % (auto) 0.2 %; Lymphocytes # (auto) 1.93 K/uL (1.2-3.4); Lymphocytes % (auto) 34.5 %; Mean Corpuscular Hemoglobin 32.8 pg (25-34); Mean Corpuscular Hgb Conc 33.9 g/dL (32-36); Mean Corpuscular Volume 96.7 fL (80-100); Mean Platelet Volume 11.1 fL (7.4-10.4); Monocytes # (auto) 0.57 K/uL (0.11-0.59); Monocytes % (auto) 10.2 %; Neutrophils # (auto) 2.84 K/uL (1.4-6.5); Neutrophils % (auto) 50.8 %; Platelet Count 203 K/uL (130-400); RDW Coefficient of Variation 14.8 % (11.5-14.5); Red Blood Count 4.54 M/uL (4.2-5.4); White Blood Count 5.59 K/uL (4.8-10.8)
[2021-05-08 09:53] LABS: Prothrombin Time 10.9 Seconds (9.0-12.0)
[2021-05-08 10:47] LABS: Partial Thromboplastin Ratio 3.5; Partial Thromboplastin Time 96.5 Seconds (21.0-31.0)
--- NOTE | 2021-05-08 12:47 | Hospitalist Progress Note ---
Date of Service May 08, 2021 Assessment & Plan Plan: Primary Diagnoses: RUQ discomfort secondary to Cholecystitis HIDA Scanned planned Cholecystectomy planned but patient left AMA as she does not want wish to have surgery DDx - nephrolithiasis Describes pain that raidates to her back. However, denies hematuria. And the pain does not raidate to her groin, inner thigh. Lastly, her Sx had acute onset shortly after eating which is more consistent with a Dx of Cholecystitis. DDx - Choledocholithiasis Presents with RUQ, however would expect jaundice which she does not have DDx - Ascending Cholangitis Presents with ABD pain. However, she is afebrile therefore does not meet criteria for Charcot's or Alex's Pentad. DDx - Acute Pancreatitis Classically presents with severe ABD pain which classically radiates to the back. Her pain the day after admission is not proportional with the classical presentation. Also, her prior h/o of similar pain suggests a different etiology as acute pancreatitis is not likely to self resolve. Admission and Anticipated Discharge Date Admission Date: May 08, 2021 Subjective 56 y.o female admitted last night for concerns of RUQ ABD pain one hour after eating dinner. She states the pain is localized to the RUQ, and its worse rated as 9/10. 2 prior episodes of similar Sx which self resolved within 24 hours. She vomitted once last night. States normal bowel movements, no blood in stool or urine. Denies fevers, chills and NS. Upon admission, positive Morales's sign. US confirmed Cholecystitis. Today she is not in pain, and rates the pain as 0/10. She questions if surgery is a necessary intervention at this time and if her condition can be treated conservatively. Physical Exam Physical Exam: General: NAD, well appearing, responding appropriately to questions Vitals: BP 138/76 67 BPM 18 RR Temp 36.4 94 on room air Pulm: No labored breathing ABD: no pain upon palpation, negative Morales's. No lacerations, echymosis. No distension or ascites. MSK: no swelling in LE, no lesions to visible area Results & Data Results & Data ([facility]) Vital Signs (Past 12 Hours) Vital Signs Temp Pulse Pulse Resp BP Pulse Ox 05/08/21 09:58 36.4 C L 67 18 138/76 94 05/08/21 07:36 36.4 C L 67 18 138/76 94 05/08/21 04:25 36.4 C L 79 16 117/74 92 05/08/21 02:04 55 L 18 111/80 93 Laboratory Results 05/08/21 05/08/21 05/08/21 09:12 09:12 07:54 WBC 5.59 RBC 4.54 Hgb 14.9 Hct 43.9 MCV 96.7 MCH 32.8 MCHC 33.9 RDW Std Deviation 53.0 H RDW Coeff of Toribio 14.8 H Plt Count 203 MPV 11.1 H Immature Gran % (Auto) 0.2 Neut % (Auto) 50.8 Lymph % (Auto) 34.5 [place] % (Auto) 10.2 Eos % (Auto) 3.9 Baso % (Auto) 0.4 Neut # (Auto) 2.84 Lymph # (Auto) 1.93 [place] # (Auto) 0.57 Eos # (Auto) 0.22 Baso # (Auto) 0.02 Immature Gran # (Auto) 0.01 PT 10.9 INR 1.0 APTT 96.5 H* PTT Ratio 3.5 Sodium 140 Potassium 3.9 Chloride 110 H Carbon Dioxide 28 Anion Gap 2 L BUN 13 Creatinine 0.54 L Est Cr Clr Drug Dosing 117.8 Est GFR ( Amer) 121.4 Est GFR (Non-Af Amer) 104.8 BUN/Creatinine Ratio 24.1 H Glucose 107 H Calcium 8.5 Magnesium Total Bilirubin AST ALT Alkaline Phosphatase Troponin I Total Protein Albumin Globulin Albumin/Globulin Ratio Lipase Urine Color Urine Appearance Urine pH Ur Specific [place] Urine Protein Urine Glucose (UA) Urine Ketones Urine Blood Urine Nitrite Urine Bilirubin Urine Urobilinogen Ur Leukocyte Esterase Urine WBC (Auto) Urine RBC (Auto) U Hyaline Cast (Auto) U Epithel Cells (Auto) Urine Bacteria (Auto) SARS-CoV-2, RNA, NAAT 05/08/21 05/08/21 05/08/21 07:54 04:44 02:04 WBC 5.26 RBC 4.11 L Hgb 13.4 Hct 40.2 MCV 97.8 MCH 32.6 MCHC 33.3 RDW Std Deviation 53.0 H RDW Coeff of Toribio 14.9 H Plt Count 220 MPV 10.5 H Immature Gran % (Auto) 0.4 Neut % (Auto) 52.4 Lymph % (Auto) 33.7 [place] % (Auto) 10.1 Eos % (Auto) 3.2 Baso % (Auto) 0.2 Neut # (Auto) 2.76 Lymph # (Auto) 1.77 [place] # (Auto) 0.53 Eos # (Auto) 0.17 Baso # (Auto) 0.01 Immature Gran # (Auto) 0.02 PT INR APTT PTT Ratio Sodium Potassium Chloride Carbon Dioxide Anion Gap BUN Creatinine Est Cr Clr Drug Dosing Est GFR ( Amer) Est GFR (Non-Af Amer) BUN/Creatinine Ratio Glucose Calcium Magnesium Total Bilirubin AST ALT Alkaline Phosphatase Troponin I Total Protein Albumin Globulin Albumin/Globulin Ratio Lipase Urine Color Yellow Urine Appearance Clear Urine pH 5.0 Ur Specific [place] 1.015 Urine Protein Negative Urine Glucose (UA) Negative Urine Ketones Negative Urine Blood Trace H Urine Nitrite Negative Urine Bilirubin Negative Urine Urobilinogen Negative Ur Leukocyte Esterase Negative Urine WBC (Auto) 1-5 Urine RBC (Auto) 0-4 U Hyaline Cast (Auto) 1-5 U Epithel Cells (Auto) 10-20 H Urine Bacteria (Auto) Negative SARS-CoV-2, RNA, NAAT NEGATIVE 05/07/21 05/07/21 05/07/21 23:10 23:10 23:10 WBC 9.57 RBC 4.64 Hgb 15.0 Hct 45.4 MCV 97.8 MCH 32.3 MCHC 33.0 RDW Std Deviation 53.6 H RDW Coeff of Toribio 14.9 H Plt Count 261 MPV 10.6 H Immature Gran % (Auto) 0.5 Neut % (Auto) 67.4 Lymph % (Auto) 22.0 [place] % (Auto) 6.8 Eos % (Auto) 2.9 Baso % (Auto) 0.4 Neut # (Auto) 6.44 Lymph # (Auto) 2.11 [place] # (Auto) 0.65 H Eos # (Auto) 0.28 Baso # (Auto) 0.04 Immature Gran # (Auto) 0.05 H PT INR APTT PTT Ratio Sodium 140 Potassium 3.3 L Chloride 106 Carbon Dioxide 25 Anion Gap 9 BUN 16 Creatinine 0.62 Est Cr Clr Drug Dosing Not Reportable Est GFR ( Amer) 116.0 Est GFR (Non-Af Amer) 100.1 BUN/Creatinine Ratio 25.8 H Glucose 117 H Calcium 9.2 Magnesium 1.9 Total Bilirubin 0.3 AST 25 ALT 37 Alkaline Phosphatase 115 H Troponin I < 0.03 Total Protein 7.4 Albumin 4.1 Globulin 3.3 Albumin/Globulin Ratio 1.2 Lipase 12 Urine Color Urine Appearance Urine pH Ur Specific [place] Urine Protein Urine Glucose (UA) Urine Ketones Urine Blood Urine Nitrite Urine Bilirubin Urine Urobilinogen Ur Leukocyte Esterase Urine WBC (Auto) Urine RBC (Auto) U Hyaline Cast (Auto) U Epithel Cells (Auto) Urine Bacteria (Auto) SARS-CoV-2, RNA, NAAT
--- NOTE | 2021-05-08 12:50 | Discharge Summary ---
Date of Service May 08, 2021 Admission HPI Per Admitting Provider Dusty Torres is a 56yo female with PMHx significant for PAD with ischemic ulcer of left calf, h/o DVT (on Xarelto), HTN, HLD, hypothyroidism and tobacco use disorder who presented to [facility] ED on 05/08 for RUQ abdominal pain radiating to back x several hours with associated N/V. Has had several similar episodes over the last several months. Episodes always occur after eating. Patient reports that she quit smoking 1 month ago, after her last bypass surgery. Denies alcohol or other drug use. Proficient in ADLs/iADLs. Last took Xarelto on 05/07 in the AM. In the ED the patient was hypertensive to 181/82 with T36.1 (slightly low); otherwise VSS/WNL on room air. Laboratory evaluation showed K 3.3 and ALP 115 but otherwise CBC/CMP WNL. Lipase WNL and Troponin negative. US gallbladder showed gallbladder dilation and wall thickening with gallstone at gallbladder neck - suggestive of acute cholecystitis. Patient was given Dilaudid 1.5mg total for pain, Zofran x1 for nausea and NSS 1L bolus. Discharge Data Consultations 05/08/21 01:44 ED Decision to Admit Stat Hospital Course (1) Abdominal pain: Typical postprandial RUQ pain with +Morales's sign on exam and US gallbladder with gallbladder dilation and wall thickening with gallstone at gallbladder neck. Although patient is afebrile and hemodynamically stable and without leukocytosis, symptoms/exam and imaging findings highly suspicious for acute calculous cholecystitis. HIDA scan was ordered to confirm the Dx. Surgery consult put on hold pending HIDA results. Patient refused both and left AMA. NPO for possible cholecystectomy. Started IV Ceftriaxone, IVF , Tylenol and Morphine. Laboratory Results WBC 5.59 K/uL (4.8-10.8) 05/08/21 09:12 RBC 4.54 M/uL (4.2-5.4) 05/08/21 09:12 Hgb 14.9 g/dL (12.0-16.0) 05/08/21 09:12 Hct 43.9 % (37-47) 05/08/21 09:12 MCV 96.7 fL (80-100) 05/08/21 09:12 MCH 32.8 pg (25-34) 05/08/21 09:12 MCHC 33.9 g/dL (32-36) 05/08/21 09:12 RDW Std Deviation 53.0 fL (36.4-46.3) H 05/08/21 09:12 RDW Coeff of Toribio 14.8 % (11.5-14.5) H 05/08/21 09:12 Plt Count 203 K/uL (130-400) 05/08/21 09:12 MPV 11.1 fL (7.4-10.4) H 05/08/21 09:12 Immature Gran % (Auto) 0.2 % 05/08/21 09:12 Neut % (Auto) 50.8 % 05/08/21 09:12 Lymph % (Auto) 34.5 % 05/08/21 09:12 [place]ie % (Auto) 10.2 % 05/08/21 09:12 Eos % (Auto) 3.9 % 05/08/21 09:12 Baso % (Auto) 0.4 % 05/08/21 09:12 Neut # (Auto) 2.84 K/uL (1.4-6.5) 05/08/21 09:12 Lymph # (Auto) 1.93 K/uL (1.2-3.4) 05/08/21 09:12 [place]itchie # (Auto) 0.57 K/uL (0.11-0.59) 05/08/21 09:12 Eos # (Auto) 0.22 K/uL (0-0.5) 05/08/21 09:12 Baso # (Auto) 0.02 K/uL (0-0.2) 05/08/21 09:12 Immature Gran # (Auto) 0.01 K/uL (0.00-0.02) 05/08/21 09:12 PT 10.9 Seconds (9.0-12.0) 05/08/21 09:12 INR 1.0 (0.9-1.1) 05/08/21 09:12 APTT 96.5 Seconds (21.0-31.0) H* 05/08/21 09:12 PTT Ratio 3.5 05/08/21 09:12 Sodium 140 mmol/L (136-145) 05/08/21 07:54 Potassium 3.9 mmol/L (3.5-5.1) 05/08/21 07:54 Chloride 110 mmol/L (98-107) H 05/08/21 07:54 Carbon Dioxide 28 mmol/L (21-32) 05/08/21 07:54 Anion Gap 2 (3-11) L 05/08/21 07:54 BUN 13 mg/dl (6-23) 05/08/21 07:54 Creatinine 0.54 mg/dl (0.6-1.2) L 05/08/21 07:54 Est Cr Clr Drug Dosing 117.8 ml/min 05/08/21 07:54 Est GFR ( Amer) 121.4 ml/min 05/08/21 07:54 Est GFR (Non-Af Amer) 104.8 ml/min 05/08/21 07:54 BUN/Creatinine Ratio 24.1 (10-20) H 05/08/21 07:54 Glucose 107 mg/dl (70-99(Fasting)) H 05/08/21 07:54 Calcium 8.5 mg/dl (8.5-10.1) 05/08/21 07:54 Magnesium 1.9 mg/dl (1.7-2.4) 05/07/21 23:10 Total Bilirubin 0.3 mg/dl (0.2-1.0) 05/07/21 23:10 AST 25 U/L (13-39) 05/07/21 23:10 ALT 37 U/L (7-52) 05/07/21 23:10 Alkaline Phosphatase 115 U/L (34-104) H 05/07/21 23:10 Troponin I < 0.03 ng/ml (0-0.04) 05/07/21 23:10 Total Protein 7.4 gm/dl (6.0-8.3) 05/07/21 23:10 Albumin 4.1 gm/dl (3.4-5.0) 05/07/21 23:10 Globulin 3.3 gm/dl (2.5-4.0) 05/07/21 23:10 Albumin/Globulin Ratio 1.2 (0.9-2) 05/07/21 23:10 Lipase 12 U/L (11-82) 05/07/21 23:10 Urine Color Yellow 05/08/21 04:44 Urine Appearance Clear (Clear) 05/08/21 04:44 Urine pH 5.0 (4.5-7.5) 05/08/21 04:44 Ur Specific [place] 1.015 (1.000-1.030) 05/08/21 04:44 Urine Protein Negative (Negative) 05/08/21 04:44 Urine Glucose (UA) Negative (Negative) 05/08/21 04:44 Urine Ketones Negative (Negative) 05/08/21 04:44 Urine Blood Trace (Negative) H 05/08/21 04:44 Urine Nitrite Negative (Negative) 05/08/21 04:44 Urine Bilirubin Negative (Negative) 05/08/21 04:44 Urine Urobilinogen Negative (Negative) 05/08/21 04:44 Ur Leukocyte Esterase Negative (Negative) 05/08/21 04:44 Urine WBC (Auto) 1-5 /hpf (0-5) 05/08/21 04:44 Urine RBC (Auto) 0-4 /hpf (0-4) 05/08/21 04:44 U Hyaline Cast (Auto) 1-5 /lpf (0-5) 05/08/21 04:44 U Epithel Cells (Auto) 10-20 /lpf (0-5) H 05/08/21 04:44 Urine Bacteria (Auto) Negative (Negative) 05/08/21 04:44 SARS-CoV-2, RNA, NAAT NEGATIVE (NEGATIVE) 05/08/21 02:04 Impressions Gallbladder Ultrasound 05/07/21 23:23 US gallbladder CLINICAL HISTORY: Severe right upper quadrant pain. COMPARISON STUDY: CTA of the abdomen and pelvis April 09, 2020. FINDINGS: No hepatic lesions are identified. There is no biliary ductal dilatation. Gallbladder is distended. Positive sonographic Morales sign was elicited. A nonmobile bowel stone within the gallbladder neck is noted. There is mild gallbladder wall thickening. The wall is edematous. Pancreatic body is normal. Head and tail are partially obscured. There is no right hydronephrosis. IMPRESSION: 1. Cholelithiasis, mild gallbladder wall thickening and positive sonographic Morales sign. These findings suggest acute cholecystitis. 2. No biliary ductal dilatation. ACT 112: Negative or not required by law. Electronically signed by: Simeon Thornton M.D. 05/08/2021 7:35 AM Supervising Physician Co-Signing Physician Notes I personally examined the patient and verified all guo points of history and exam, discussed case, and agree with decision making with Renita OCHOA and Dr Rey left AMA prior to my being able to see - tried to offer direction to Dr Rey who was talking with patient but was tied up with a separate critical care situation and was not able to proceed personally immediately to bedside. unfortunately pt left wtihout completed w/u or definitive dx. outpt PCP f/u, or return to hospital with any worsening sx.
--- NOTE | 2021-05-08 18:55 | Electrocardiogram Report ---
Test Reason : Blood Pressure : / mmHG Vent. Rate : 069 BPM Atrial Rate : 069 BPM P-R Int : 152 ms QRS Dur : 072 ms QT Int : 398 ms P-R-T Axes : 068 059 056 degrees QTc Int : 426 ms Normal sinus rhythm Normal ECG When compared with ECG of 10-MAR-2021 15:44, No significant change was found Confirmed by Catarino Mendiola ([id number]) on 05/08/2021 6:55:30 PM Referred By: Jonny Mustafa Confirmed By:Robbie Mendiola
--- NOTE | 2021-05-09 05:22 | Billing Data ---
Date of Service May 09, 2021 Coding Level of Care Code 13546 Initial Inpt Care Lvl 2
== END 2021-05-08 10:45 | disposition left against medical advice (07) | DRG 445 ==
LOC: ED 22:45 → SUATTDRO 05-08 02:46 → 3N 05-08 02:46